=== PATIENT | female | born 1980 | race Caucasian/White ===

== ENCOUNTER 2020-03-12 10:10 | Outpatient (REF) | payer OTHER, SELFPAY ==
[2020-03-12 11:10] LABS: Cholesterol 159 mg/dL; HDL Cholesterol 31 mg/dL; LDL Cholesterol Calculated 99 mg/dl; Triglycerides 146 mg/dL
== END 2020-03-12 10:11 | disposition home or self-care (01) ==
LOC: HO.LAB 10:10
PROVIDERS: PCP Internal Medicine; Visit Provider Internal Medicine
DX: E78.5 Hyperlipidemia, unspecified (principal)
CPT/HCPCS: 80061

== ENCOUNTER 2020-04-29 17:16 | Outpatient (REF) | payer OTHER, SELFPAY | END 2020-04-29 17:17 | disposition home or self-care (01) | LOC: HO.LNP 17:16 | PROVIDERS: Visit Provider Hospitalist | DX: Z20.828 Contact with and (suspected) exposure to other viral communicable diseases (principal) | CPT/HCPCS: U0003 ==

== ENCOUNTER 2020-06-04 09:39 | Outpatient (REF) | payer OTHER, SELFPAY ==
[2020-06-04 10:33] LABS: Alanine Aminotransferase 27 U/L (0-31); Albumin Level 4.3 g/dL (3.5-5.0); Alkaline Phosphatase 111 U/L (39-117); Anion Gap 12 (12-20); Aspartate Amino Transferase 24 U/L (5-31); Bilirubin Total 0.2 mg/dL (0.0-1.0); Blood Urea Nitrogen 15 mg/dL (9-16); Calcium 8.6 mg/dL (8.4-10.2); Carbon Dioxide 24 mmol/L (22-29); Chloride 108 mmol/L (96-108); Cholesterol 174 mg/dL; Estimated Glomerular Filt Rate > 60; Glucose Fasting 131 mg/dL (60-99); HDL Cholesterol 35 mg/dL; LDL Cholesterol Calculated 116 mg/dl; Potassium 4.1 mmol/l (3.3-5.1); Sodium 140 mmol/L (135-145); Total Protein 7.2 g/dL (6.5-8.0); Triglycerides 118 mg/dL
== END 2020-06-04 09:40 | disposition home or self-care (01) ==
LOC: HO.LAB 09:39
PROVIDERS: PCP Internal Medicine; Visit Provider Internal Medicine
DX: E11.9 Type 2 diabetes mellitus without complications (principal)
CPT/HCPCS: 36415; 80053; 80061

== ENCOUNTER 2020-06-30 09:19 | Outpatient (REF) | payer OTHER, SELFPAY | END 2020-06-30 09:20 | disposition home or self-care (01) | LOC: HO.LAB 09:19 | PROVIDERS: Visit Provider Internal Medicine | DX: Z20.822 Contact with and (suspected) exposure to COVID-19 (principal) | CPT/HCPCS: 36415; C9803; U0003; U0005 ==

== ENCOUNTER 2020-07-16 12:56 | Outpatient (REF) | payer OTHER, SELFPAY ==
--- NOTE | ~2020-07-16 | MM_ITS ---
EXAMINATION: MM SCREENING DIGITAL BREAST TOMOSYNTHESIS, BILATERAL CLINICAL INFORMATION: Screening. Asymptomatic. Family history breast cancer. Personal history benign right breast biopsy 2019 (fibroadenoma). The lifetime risk of breast cancer based on the Tyrer-Cuzick Model is 26%. COMPARISON: Mammography: 04/21/2019, 04/08/2019 TECHNIQUE: Digital breast tomosynthesis is performed in both the craniocaudal and mediolateral oblique views along with computer-aided detection (CAD). Synthesized 2D images are generated from the tomosynthesis. FINDINGS: There are scattered areas of fibroglandular density (ACR BI-RADS breast composition Category b). Breast tissue composition borders on heterogeneously dense. There is fibronodular parenchymal pattern similar to prior study. The fibroadenoma right upper outer quadrant is stable. There is no interval mass or architectural abnormality or abnormal calcifications. No significant changes. MM/MM tomosynthesis screening BI IMPRESSION: No mammographic evidence of malignancy. ASSESSMENT: BI-RADS 2: Benign RECOMMENDATION: 1. Routine annual mammography screening. 2. The lifetime risk of breast cancer based on the Tyrer-Cuzick Model is 26%. Additional annual adjunct screening with breast MRI may be of benefit in women with a risk score of 20% or greater. This patient's information was entered into a reminder system with a target due date for their next mammogram.
== END 2020-07-16 12:57 | disposition home or self-care (01) ==
LOC: HO.MAMMO 12:56
PROVIDERS: PCP Internal Medicine; Visit Provider Internal Medicine
DX: Z12.31 Encounter for screening mammogram for malignant neoplasm of breast (principal)
CPT/HCPCS: 77063; 77067

== ENCOUNTER 2020-09-03 08:08 | Outpatient (REF) | payer OTHER, SELFPAY ==
[2020-09-03 09:17] LABS: Baso%MD 0.3 %; Eos%MD 2.2 %; Hematocrit 40.7 % (37-47); Hemoglobin 13.4 g/dl (12.0-16.0); IG%MD 0.3 %; Lymph%MD 16.9 %; Mean Corpuscular HGB Conc 32.9 g/dl (31.0-35.0); Mean Corpuscular Hemoglobin 29.8 pg (27.0-33.0); Mean Corpuscular Volume 90.4 fL (80-98); Mean Platelet Volume 9.6 fL (9.4-12.3); Mono%MD 4.1 %; Neut%MD 76.2 %; Platelet Count 311 X10*3/uL (160-400); Red Cell Distribution Width 12.9 % (11.0-16.0); White Blood Count 9.7 X10*3/uL (4.8-10.8)
[2020-09-03 09:42] LABS: Alanine Aminotransferase 19 U/L (0-31); Albumin Level 4.3 g/dL (3.5-5.0); Alkaline Phosphatase 104 U/L (39-117); Anion Gap 15 (12-20); Aspartate Amino Transferase 19 U/L (5-31); Bilirubin Total 0.5 mg/dL (0.0-1.0); Blood Urea Nitrogen 18 mg/dL (9-16); C Reactive Protein 1.25 mg/dL (< or = 0.50); Calcium 8.9 mg/dL (8.4-10.2); Carbon Dioxide 24 mmol/L (22-29); Chloride 105 mmol/L (96-108); Estimated Glomerular Filt Rate > 60; Glucose Random 130 mg/dL (60-115); Sodium 140 mmol/L (135-145); Total Protein 7.5 g/dL (6.5-8.0)
[2020-09-03 09:58] LABS: Erythrocyte Sedimentation Rate 25 MM/HR (0-20)
[2020-09-03 10:18] LABS: Band Neutrophils Percent 3 % (3-5); Eosinophils Absolute Manual 0.3 X10*3/UL (0.0-0.8); Eosinophils Percent Manual 3 % (0-4); Lymphocytes Absolute Manual 1.5 X10*3/uL (0.6-4.8); Lymphocytes Percent Manual 15 % (20-40); Monocytes Absolute Manual 0.2 X10*3/uL (0.0-1.2); Monocytes Percent Manual 2 % (2-11); Neutrophils Absolute Manual 7.8 X10*3/uL (2.2-7.9); Neutrophils Percent Manual 77 % (45-73); Platelet Estimate NORMAL (NORMAL); Platelet Morphology Comment NORMAL; RBC Morphology NORMAL
[2020-09-06 18:56] LABS: Cholesterol 152 mg/dL; HDL Cholesterol 33 mg/dL; LDL Cholesterol Calculated 91 mg/dl; Triglycerides 140 mg/dL
== END 2020-09-03 08:09 | disposition home or self-care (01) ==
LOC: HO.LAB 08:08
PROVIDERS: Internal Medicine Medical Oncology; PCP Internal Medicine; Visit Provider Internal Medicine
DX: R79.82 Elevated C-reactive protein (CRP) (principal)
CPT/HCPCS: 36415; 80053; 80061; 85007; 85027; 85652; 86140

== ENCOUNTER 2020-12-03 09:10 | Outpatient (REF) | payer OTHER, SELFPAY ==
[2020-12-03 09:42] LABS: Estimated Average Glucose 108 mg/dL; Hemoglobin A1c % 5.4 %
[2020-12-03 09:52] LABS: Alanine Aminotransferase 23 U/L (0-31); Albumin Level 4.3 g/dL (3.5-5.0); Alkaline Phosphatase 99 U/L (39-117); Anion Gap 14 (12-20); Aspartate Amino Transferase 20 U/L (5-31); Bilirubin Total 0.4 mg/dL (0.0-1.0); Blood Urea Nitrogen 16 mg/dL (9-16); Calcium 9.4 mg/dL (8.4-10.2); Carbon Dioxide 23 mmol/L (22-29); Chloride 107 mmol/L (96-108); Cholesterol 210 mg/dL; Estimated Glomerular Filt Rate > 60; Glucose Fasting 133 mg/dL (60-99); HDL Cholesterol 37 mg/dL; LDL Cholesterol Calculated 137 mg/dl; Potassium 4.8 mmol/L (3.3-5.1); Sodium 139 mmol/L (135-145); Total Protein 7.5 g/dL (6.5-8.0); Triglycerides 183 mg/dL
== END 2020-12-03 09:11 | disposition home or self-care (01) ==
LOC: HO.LAB 09:10
PROVIDERS: PCP Internal Medicine; Visit Provider Internal Medicine
DX: E11.9 Type 2 diabetes mellitus without complications (principal); E78.5 Hyperlipidemia, unspecified
CPT/HCPCS: 36415; 80053; 80061; 83036

== ENCOUNTER 2021-03-06 10:07 | Outpatient (REF) | payer OTHER, SELFPAY ==
[2021-03-06 10:52] LABS: Glucose Fasting 112 mg/dL (60-99)
== END 2021-03-06 10:08 | disposition home or self-care (01) ==
LOC: HO.LAB 10:07
PROVIDERS: PCP Internal Medicine; Visit Provider Internal Medicine
DX: E78.5 Hyperlipidemia, unspecified (principal)
CPT/HCPCS: 36415; 82947

== ENCOUNTER → 2021-05-18 09:47 | Outpatient (BNVA) | payer OTHER, SELFPAY | PROVIDERS: PCP Internal Medicine; Visit Provider Physician Assistant | DX: S63.501A Unspecified sprain of right wrist, initial encounter (principal); S80.212A Abrasion, left knee, initial encounter; S80.211A Abrasion, right knee, initial encounter; W01.0XXA Fall on same level from slipping, tripping and stumbling without subsequent striking against object, initial encounter | CPT/HCPCS: 29125; 73110; 99204 ==

== ENCOUNTER → 2021-05-24 10:49 | Outpatient (BNVA) | payer OTHER, SELFPAY | PROVIDERS: PCP Internal Medicine; Visit Provider Physician Assistant | DX: S69.91XA Unspecified injury of right wrist, hand and finger(s), initial encounter (principal); X58.XXXA Exposure to other specified factors, initial encounter | CPT/HCPCS: 73200; 99214 ==

== ENCOUNTER 2021-06-05 09:15 | Outpatient (REF) | payer OTHER, SELFPAY ==
[2021-06-05 10:18] LABS: Cholesterol 166 mg/dL; Glucose Fasting 121 mg/dL (60-99); HDL Cholesterol 31 mg/dL; LDL Cholesterol Calculated 108 mg/dl; Triglycerides 137 mg/dL
[2021-06-05 10:24] LABS: Estimated Average Glucose 105 mg/dL; Hemoglobin A1c % 5.3 %
[2021-06-05 10:41] LABS: Thyroid Stimulating Hormone 1.29 uIU/mL (0.32-4.0)
== END 2021-06-05 09:16 | disposition home or self-care (01) ==
LOC: HO.LAB 09:15
PROVIDERS: Visit Provider Internal Medicine
DX: E03.9 Hypothyroidism, unspecified (principal); E11.65 Type 2 diabetes mellitus with hyperglycemia
CPT/HCPCS: 36415; 80061; 82947; 83036; 84443

== ENCOUNTER → 2021-06-09 09:06 | Outpatient (BNVA) | payer OTHER, SELFPAY | PROVIDERS: PCP Internal Medicine; Visit Provider Physician Assistant | DX: S69.81XD Other specified injuries of right wrist, hand and finger(s), subsequent encounter (principal); X58.XXXD Exposure to other specified factors, subsequent encounter; G62.9 Polyneuropathy, unspecified | CPT/HCPCS: 99213 ==

== ENCOUNTER 2021-06-21 08:45 | Outpatient (REF) | payer OTHER, SELFPAY | END 2021-06-21 08:46 | disposition home or self-care (01) | LOC: HO.HOSX 08:45 | PROVIDERS: Visit Provider Orthopaedic Surgery | DX: Z13.89 Encounter for screening for other disorder (principal) ==

== ENCOUNTER 2021-06-21 15:42 | Outpatient (REF) | payer OTHER, SELFPAY ==
--- NOTE | ~2021-06-21 | MR_ITS ---
EXAMINATION: MR WRIST WITHOUT CONTRAST, RIGHT CLINICAL INFORMATION: Right wrist injury. COMPARISON: Right wrist CT dated 05/24/2021. TECHNIQUE: MRI of the wrist was performed using routine sequences on a high-field scanner. FINDINGS: TRIANGULAR FIBROCARTILAGE: There is mildly increased T2 signal within the foveal and styloid attachments of the triangular fibrocartilage complex, which could indicate partial tearing. There is attenuation at the central radial aspect without a measurable defect. INTRINSIC LIGAMENTS: Intact. TENDONS/MEDIAN NERVE: The extensor carpi ulnaris tendon is ventrally subluxed, consistent with a tendon subsheath tear. There is mild fluid within the tendon sheath, consistent with tenosynovitis. No transverse tendon defect or tendon retraction. Mild anterior soft tissue edema. ARTICULAR CARTILAGE/BONE: Intact articular cartilage. No marrow edema or evidence of acute osseous injury. No fracture or dislocation. JOINT FLUID/SOFT TISSUES: Trace pisotriquetral joint effusion. MR/MR wrist RT wo con IMPRESSION: 1. Ventral subluxation of the extensor carpi ulnaris tendon, consistent with a tendon sheath tear. Mild associated tenosynovitis. No transverse tendon defect or tendon retraction. Anterior soft tissue edema. 2. Possible partial tearing through the ulnar styloid and foveal attachments of the triangular fibrocartilage complex. Thinning at the radial aspect without a measurable defect. 3. Trace pisotriquetral joint effusion.
--- NOTE | ~2021-06-21 | MR_ITS ---
EXAMINATION: MR HAND WITHOUT CONTRAST, RIGHT CLINICAL INFORMATION: Second and 3rd digit numbness. Swelling. Pain and swelling. Second and 3rd metacarpophalangeal injury. COMPARISON: Right wrist CT dated 05/24/2021. TECHNIQUE: Multisequence MR imaging of the right hand was obtained without contrast on a high-field strength scanner. FINDINGS: BONE: No abnormal marrow signal. No evidence of osseous injury. No fracture or dislocation. Grossly intact articular cartilage. No concerning lytic or blastic osseous lesion. MUSCLES/TENDONS: The visualized flexor and extensor tendons are intact. LIGAMENTS: The collateral ligaments are grossly intact. SOFT TISSUES: No abnormal soft tissue mass or fluid collection. MR/MR hand RT wo con IMPRESSION: Unremarkable examination.
== END 2021-06-21 15:43 | disposition home or self-care (01) ==
LOC: HO.MRI 15:42
PROVIDERS: Visit Provider Internal Medicine
DX: M79.641 Pain in right hand (principal); M25.531 Pain in right wrist
CPT/HCPCS: 73218; 73221; 99202

== ENCOUNTER → 2021-07-05 13:03 | Outpatient (BNVA) | payer OTHER, SELFPAY | PROVIDERS: Visit Provider Orthopaedic Surgery | DX: S63.092A Other subluxation of left wrist and hand, initial encounter (principal) | CPT/HCPCS: 99212 ==

== ENCOUNTER 2021-08-10 08:53 | Outpatient (REF) | payer OTHER, SELFPAY ==
--- NOTE | 2021-08-10 08:56 | EMG_ITS ---
Right median and ulnar motor and sensory studies were performed. Right radial sensory study was performed and paraspinal muscles were tested. 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 MD SHARIF Navarro/[facility] / [id number]
== END 2021-08-10 08:54 | disposition home or self-care (01) ==
LOC: HO.NEURO 08:53
PROVIDERS: PCP Orthopaedic Surgery; Visit Provider Orthopaedic Surgery
DX: R20.0 Anesthesia of skin (principal); R20.2 Paresthesia of skin
CPT/HCPCS: 95886; 95909

== ENCOUNTER 2021-08-12 07:49 | Outpatient (REF) | payer OTHER, SELFPAY ==
--- NOTE | ~2021-08-12 | MM_ITS ---
EXAMINATION: MM SCREENING DIGITAL BREAST TOMOSYNTHESIS, BILATERAL CLINICAL INFORMATION: Screening. Asymptomatic. The lifetime risk of breast cancer based on the Tyrer-Cuzick Model is 12.3%. COMPARISON: Mammography: 07/16/2020 and studies dating back to 04/08/2019 TECHNIQUE: Digital breast tomosynthesis is performed in both the craniocaudal and mediolateral oblique views along with computer-aided detection (CAD). Synthesized 2-D images are generated from the tomosynthesis. FINDINGS: The breasts are heterogeneously dense, which may obscure small masses (ACR BI-RADS breast composition Category c). There is a stable parenchymal pattern of the right breast with previously biopsied nodule being present. There is multiplicity and bilaterality of nodular circumscribed densities. Within the deep left breast, there is question of calcifications along the nipple line on medial lateral oblique projection approximately 11 cm from the nipple. Spot magnification view of this area is recommended. On craniocaudal view in the deep medial aspect approximately 11 cm from the nipple, there is an asymmetric density for which spot compression film is recommended. Radiology staff will contact the patient to obtain this study. MM/MM tomosynthesis screening BI IMPRESSION: Left breast findings for further evaluation, as described. ASSESSMENT: BI-RADS 0: Incomplete - Need Additional Imaging Evaluation. RECOMMENDATION: 1. Additional views of the left breast. 2. Targeted ultrasound if warranted after review of the additional views. 3. Radiology department staff will contact the patient for additional imaging. This patient's information was entered into a reminder system with a target due date for their next mammogram.
== END 2021-08-12 07:50 | disposition home or self-care (01) ==
LOC: HO.MAMMO 07:49
PROVIDERS: Visit Provider Orthopaedic Surgery
DX: Z12.31 Encounter for screening mammogram for malignant neoplasm of breast (principal)
CPT/HCPCS: 77063; 77067

== ENCOUNTER → 2021-08-16 12:17 | Outpatient (BNVA) | payer OTHER, SELFPAY | PROVIDERS: Visit Provider Orthopaedic Surgery | DX: G56.01 Carpal tunnel syndrome, right upper limb (principal); S63 Dislocation and sprain of joints and ligaments at wrist and hand level; X58.XXXD Exposure to other specified factors, subsequent encounter | CPT/HCPCS: 99212 ==

== ENCOUNTER 2021-08-22 14:38 | Outpatient (REF) | payer OTHER, SELFPAY ==
--- NOTE | ~2021-08-22 | MM_ITS ---
EXAMINATION: MM DIAGNOSTIC DIGITAL BREAST TOMOSYNTHESIS, LEFT CLINICAL INFORMATION: Recall from screening for 2 unrelated findings left breast, question single view calcifications and question single view asymmetric density. COMPARISON: Mammography: 08/12/2021, 07/16/2020, 04/21/2019, 04/08/2019 (baseline). TECHNIQUE: Digital breast tomosynthesis is performed. 2D images are generated from the tomosynthesis. The following views are obtained: Magnification CC, magnification ML, spot CC x2, standard ML. FINDINGS: The breasts are heterogeneously dense, which may obscure small masses (ACR BI-RADS breast composition Category c). Breast tissue composition borders on average fibroglandular. There is fine fibronodular parenchymal pattern with scattered stable asymmetries. Additional views show no interval mass or developing density or architectural abnormality. There are no grouped or ductal calcifications. No significant changes from prior studies. Results are provided to the patient and family at time of visit. MM/MM tomosynthesis added views L IMPRESSION: Additional views show no significant changes from prior studies. ASSESSMENT: BI-RADS 2: Benign RECOMMENDATION: Routine annual mammography screening. This patient's information was entered into a reminder system with a target due date for their next mammogram.
== END 2021-08-22 14:39 | disposition home or self-care (01) ==
LOC: HO.MAMMO 14:38
PROVIDERS: Visit Provider Internal Medicine
DX: R92.8 Other abnormal and inconclusive findings on diagnostic imaging of breast (principal)
CPT/HCPCS: 77061; 77065

== ENCOUNTER 2021-08-23 11:00 | Outpatient (RCR) | payer OTHER, SELFPAY ==
--- NOTE | 2021-08-23 11:53 | MHC.OT.OD ---
[address] [phone] F: [phone] Occupational Therapy Daily Note Start Time: 1110 End Time: 1135 Visit Duration: 25 Billable Time: 25 Date of Evaluation: 05/31/21 Treatments to Date: 13 Cancellations to Date: 0 No Shows to Date: 0 Authorized Treatment: Insurance End Date: Subjective: Pt reports on MD follow up. Pt instructed to not wear the Wrist Widget. Scheduled for CTR on 08/28/21 and plan to RTW in 4-[address] Ag is not considering surgery for ulnar wrist pain at this time Pain Score: 7 Pain Location: Right ulnar wrist Objective: Measurements taken for computer compositor stength and shoulder MMT Pt completed Quick DASH Pt practice with AROM with tendon glides and wrist ROM Pt practice with wrist proprioception ex Pt demo indep with scapula stabilization ex Pt ed with demo of po hand elevation in sitting and supine, tendon glides and wrist ROM Tests and Measures: Antenna Machine Operator R 20 lb with pain.. L 35 lb MMT shoulder flex, abd 3+ Quick DASH 68 pts Assessment: No significant change noted with wrist pain, wrist and hand edema and UE strength. d/c'd strap for DRUJ instability and has scheduled pt for a CTR next week. Pt not benefiting from OT for ulnar wrist pain at this time Goals not met. Short Term Goals: Demo indep with her HEP MET Antenna Machine Operator strength to 30 lb Deferred due to con't high wrist pain Demo a safe 30 lb lift floor to waist height Quick DASH to <30 pts Not met Motorcycle Repairer Goals: Same as above Plan of Care: D/C D/C Today: Treatment Plan: Therapeutic Exercise Therapeutic Activity Home Exercise Program Patient Education ADL Training Fluidotherapy Kinesiotaping Treatment Plan Comments: Electronically Signed By: Jasmina Keller OT CHT CLT Reviewed/agree with student documentation: N/A Therapist:
== END 2021-08-23 11:54 | disposition home or self-care (01) ==
LOC: HO.OT 11:00
PROVIDERS: Visit Provider Physician Assistant
DX: S69.91XD Unspecified injury of right wrist, hand and finger(s), subsequent encounter (principal)
CPT/HCPCS: 29130; 97033; 97035; 97110; 97140; 97165; 97530; 97535; 97760

== ENCOUNTER 2021-08-28 09:30 | Day surgery (SDC) | payer OTHER, SELFPAY ==
--- NOTE | 2021-08-28 09:15 | W.PM.OPN ---
Operative Note Operative Note Date of Service: 08/28/21 Narrative: Preop diagnosis: 1. Right Carpal tunnel syndrome Postop diagnosis: same Procedure: 1. Right Carpal tunnel release Surgeon: Maida Ag MD Anesthesia: local block using 1% lidocaine with epinephrine Findings: Thickened transverse carpal ligament. EBL: Less than 5 mL Specimens: None Complications: None Disposition: Brought to recovery room in stable condition Plan: Follow-up for 10-14 days for wound check and suture removal Indications: The patient is 40 years old, with right carpal tunnel syndrome that has been unresponsive to nonoperative management. The risks and benefits of operative treatment including but not limited to risk of damage to blood vessels, nerves, tendons, infection, persistent pain, persistent symptoms, or possible need for additional surgery were discussed with the patient and the patient wishes to proceed with surgery. Procedure: Once consent was obtained a local block was performed using a combination of 1% lidocaine with epinephrine. The patient was then brought back to the operating suite and placed on the operative table in supine position. A tourniquet was applied to the proximal aspect of the right upper extremity and the limb was prepped and draped in a standard surgical fashion. Once assured that we had a good block, a 1.5 cm longitudinal incision was made centered over the carpal tunnel. The incision was made through the skin to the subcutaneous tissues using a #15 blade. Dissection was made down to the level of the transverse carpal ligament with care being taken to protect the palmar cutaneous nerve. Once the transverse carpal ligament was clearly visualized, a longitudinal incision was made in the transverse carpal ligament 1st using a #15 blade, then using tenotomy scissors under direct visualization. Care was taken to look for and protect the motor branch of the median nerve when seen in this area. Once satisfied with our carpal tunnel release the wound was copiously irrigated with normal saline and hemostasis was obtained with a brief period of local pressure. The skin edges were reapproximated with some 5.0 nylon suture material and a sterile dressing was applied. The patient appears to have tolerated the procedure well and with no complications. All digits were well vascularized at the conclusion of the case.
[2021-08-28 10:58] VITALS: BMI 35.8
[2021-08-28 11:10] VITALS: BP 144/79; PULSE 80; RESP 16; TEMP 36.8; O2SAT 96
[2021-08-28 11:51] VITALS: BP 141/76; PULSE 83; RESP 18; TEMP 36.7; O2SAT 98
--- NOTE | 2021-08-28 12:30 | MHC.SHP ---
Pre-Procedural Eval Section A Date of Service: 08/28/21 The patient is an INPATIENT: No Changes since office visit: No Cold of Flu in the past 2 weeks, No New Medical Problems, No Changes in Medication and No Patient answered all questions The History & Physical has been completed within 30 days and I have reviewed it.: Yes Section B Chief Complaint: Carpal tunnel syndrome, right upper limb Allergies: Allergies Allergy/AdvReac Type Severity Reaction Status Date / Time meloxicam [MELOXICAM] Allergy Severe RASH Verified 08/28/21 10:59 citalopram [From CELEXA] Allergy Intermediate LOCK JAW Verified 08/28/21 10:59 Biaxin Allergy Unknown Unknown Verified 08/28/21 10:59 cefaclor [From CECLOR] Allergy Unknown UNKNOWN Verified 08/28/21 10:59 cephalexin [Keflex] Allergy Unknown Unknown Verified 08/28/21 10:59 clarithromycin [From BIAXIN] Allergy Unknown UNKNOWN Verified 08/28/21 10:59 lactose Allergy Unknown INTOLERANCE Verified 08/28/21 10:59 Sulfa (Sulfonamide Allergy Unknown HIVES Verified 08/28/21 10:59 Antibiotics) [SULFA (SULFONAMIDE ANTIBIOTICS)] Plan I have reviewed the history and physical and performed a pertinent physical examination on my patient. No changes have occurred unless specified.
== END 2021-08-28 11:59 | disposition home or self-care (01) ==
PROVIDERS: PCP Internal Medicine; Visit Provider Orthopaedic Surgery
PROC: (CPT 64721; principal; 2021-08-28 10:50)
DX: G56.01 Carpal tunnel syndrome, right upper limb (principal); M25.531 Pain in right wrist; M79.641 Pain in right hand; G80.9 Cerebral palsy, unspecified; R73.9 Hyperglycemia, unspecified; I10 Essential (primary) hypertension; E78.5 Hyperlipidemia, unspecified; Z79.899 Other long term (current) drug therapy; Z88.2 Allergy status to sulfonamides; Z88.1 Allergy status to other antibiotic agents; Z88.8 Allergy status to other drugs, medicaments and biological substances
CPT/HCPCS: 64721; J0171

== ENCOUNTER 2021-09-09 10:08 | Outpatient (REF) | payer OTHER, SELFPAY ==
[2021-09-09 11:47] LABS: Cholesterol 133 mg/dL; Glucose Fasting 142 mg/dL (60-99); HDL Cholesterol 32 mg/dL; LDL Cholesterol Calculated 80 mg/dl; Triglycerides 108 mg/dL
[2021-09-09 11:54] LABS: Estimated Average Glucose 105 mg/dL; Hemoglobin A1C 126.3014 umol/L; Hemoglobin A1c % 5.3 %
== END 2021-09-09 10:09 | disposition home or self-care (01) ==
LOC: HO.LAB 10:08
PROVIDERS: PCP Internal Medicine; Visit Provider Internal Medicine
DX: Z00.00 Encounter for general adult medical examination without abnormal findings (principal); E11.65 Type 2 diabetes mellitus with hyperglycemia
CPT/HCPCS: 36415; 80061; 82947; 83036

== ENCOUNTER → 2021-09-12 10:26 | Outpatient (BNVA) | payer OTHER, SELFPAY | PROVIDERS: PCP Internal Medicine; Visit Provider Orthopaedic Surgery | DX: Z13.89 Encounter for screening for other disorder (principal) ==

== ENCOUNTER → 2021-11-08 12:11 | Outpatient (BNVA) | payer OTHER, SELFPAY | PROVIDERS: PCP Internal Medicine; Visit Provider Physician Assistant | DX: S60.221A Contusion of right hand, initial encounter (principal); W23.0XXA Caught, crushed, jammed, or pinched between moving objects, initial encounter; M25.561 Pain in right knee | CPT/HCPCS: 73564; 99204 ==

== ENCOUNTER → 2021-11-17 13:06 | Outpatient (BNVA) | payer OTHER, SELFPAY | PROVIDERS: PCP Internal Medicine; Visit Provider Internal Medicine | DX: M23.91 Unspecified internal derangement of right knee (principal) | CPT/HCPCS: 99214 ==

== ENCOUNTER 2021-11-23 10:46 | Outpatient (REF) | payer OTHER, SELFPAY ==
--- NOTE | ~2021-11-23 | MR_ITS ---
EXAMINATION: MR KNEE WITHOUT CONTRAST, RIGHT CLINICAL INFORMATION: Right knee pain. Instability. Degenerative joint disease. Fall. Prior arthroscopy. COMPARISON: Right knee MRI dated 11/03/2018 and radiograph dated 11/08/2021. TECHNIQUE: MRI of the knee without contrast was performed using routine sequences on a high-field scanner. FINDINGS: MENISCI: Medial Meniscus: No new medial meniscal tear. There is a parameniscal cyst along the periphery of the posterior horn measuring up to 2 cm which could indicate an occult meniscal tear. This appears similar when compared to the prior MRI. 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 LIGAMENTS: Cruciate: Intact Collateral: Intact EXTENSOR MECHANISM: Intact ARTICULAR CARTILAGE/BONE: Patellofemoral Compartment: Patellar median ridge and medial patellar facet articular cartilage thinning/partial thickness loss. Central trochlear articular cartilage signal heterogeneity. Marginal osteophytes. Findings are similar when compared to the prior MRI. Medial Compartment: Mild weightbearing articular cartilage thinning/signal heterogeneity with small marginal osteophytes. Findings are similar when compared to the prior MRI. Lateral Compartment: Full-thickness lateral femoral condyle and lateral tibial plateau articular cartilage loss with bony remodeling and underlying marrow edema/subchondral cystic change. Prominent marginal osteophytes. Findings are significantly progressed when compared to the prior MRI. JOINT FLUID AND BURSAE: Small joint effusion. Lateral loose body measuring up to 0.6 cm. MR/MR knee RT wo con IMPRESSION: 1. Severe lateral compartment osteoarthritis with bony remodeling, significantly progressed when compared to the prior MRI. Near-complete absence of the lateral meniscus which has significantly increased and likely represents a combination of tearing and meniscectomy. 2. No new medial meniscal tear. Stable parameniscal cyst along the periphery of the posterior horn, unchanged. 3. Mild patellofemoral and medial compartment osteoarthritis, not significantly changed. Small joint effusion. Lateral loose body measuring 0.6 cm.
== END 2021-11-23 10:47 | disposition home or self-care (01) ==
LOC: HO.MRI 10:46
PROVIDERS: Visit Provider Internal Medicine
DX: M25.561 Pain in right knee (principal); Z91.81 History of falling
CPT/HCPCS: 73721

== ENCOUNTER → 2021-11-23 14:50 | Outpatient (BNVA) | payer OTHER, SELFPAY | PROVIDERS: PCP Internal Medicine; Visit Provider Internal Medicine | DX: M23.91 Unspecified internal derangement of right knee (principal) | CPT/HCPCS: 99213 ==

== ENCOUNTER 2022-01-06 10:34 | Outpatient (REF) | payer OTHER, SELFPAY ==
[2022-01-06 11:31] LABS: Cholesterol 150 mg/dL; Glucose Fasting 141 mg/dL (60-99); HDL Cholesterol 37 mg/dL; LDL Cholesterol Calculated 86 mg/dl; Triglycerides 135 mg/dL
[2022-01-06 11:44] LABS: Estimated Average Glucose 120 mg/dL; Hemoglobin A1c % 5.8 %
== END 2022-01-06 10:35 | disposition home or self-care (01) ==
LOC: HO.LAB 10:34
PROVIDERS: PCP Internal Medicine; Visit Provider Internal Medicine
DX: Z13.9 Encounter for screening, unspecified (principal); E11.65 Type 2 diabetes mellitus with hyperglycemia
CPT/HCPCS: 36415; 80061; 82947; 83036

== ENCOUNTER 2022-03-16 10:25 | Outpatient (REF) | payer OTHER, SELFPAY ==
[2022-03-16 12:43] LABS: Vitamin D 25-OH Total 11.9 ng/mL (>30)
[2022-03-16 13:07] LABS: Folate 4.4 ng/mL (> or = 4.0); Vitamin B12 398 pg/mL (200-900)
== END 2022-03-16 10:26 | disposition home or self-care (01) ==
LOC: HO.LAB 10:25
PROVIDERS: PCP Internal Medicine; Visit Provider Nurse Practitioner Family
DX: Z00.00 Encounter for general adult medical examination without abnormal findings (principal)
CPT/HCPCS: 36415; 82306; 82607; 82746

== ENCOUNTER 2022-06-23 10:16 | Outpatient (REF) | payer OTHER, SELFPAY ==
[2022-06-23 10:46] LABS: Estimated Average Glucose 120 mg/dL; Hemoglobin A1c % 5.8 %
[2022-06-23 11:39] LABS: Cholesterol 135 mg/dL; Glucose Fasting 149 mg/dL (60-99); HDL Cholesterol 29 mg/dL; LDL Cholesterol Calculated 89 mg/dl; Triglycerides 89 mg/dL; Vitamin D 25-OH Total 25.3 ng/mL (>30)
== END 2022-06-23 10:17 | disposition home or self-care (01) ==
LOC: HO.LAB 10:16
PROVIDERS: PCP Internal Medicine; Visit Provider Internal Medicine
DX: E11.65 Type 2 diabetes mellitus with hyperglycemia (principal); E78.5 Hyperlipidemia, unspecified
CPT/HCPCS: 36415; 80061; 82306; 82947; 83036

== ENCOUNTER 2022-07-12 10:17 | Outpatient (REF) | payer OTHER, SELFPAY ==
--- NOTE | ~2022-07-12 | XR_ITS ---
EXAMINATION: XR KNEE, RIGHT CLINICAL INFORMATION: Pain. COMPARISON: Radiographs dated 11/08/2021. TECHNIQUE: AP and lateral views of the right knee. FINDINGS: Bony alignment and mineralization are normal there is mild tricompartment joint space narrowing and peripheral osteophyte formation. No fracture, dislocation or joint effusion is seen. There is a soft tissue calcifications adjacent to the medial tibial plateau, raising the possibility of a prior ligamentous injury. There is no foreign body. XR/XR knee RT 2V IMPRESSION: 1. No fracture, dislocation or right joint effusion is seen. 2. There is mild to moderate tricompartment osteoarthritic change of the right knee.
== END 2022-07-12 10:18 | disposition home or self-care (01) ==
LOC: HO.XRAY 10:17
PROVIDERS: PCP Internal Medicine; Visit Provider Internal Medicine
DX: M25.561 Pain in right knee (principal)
CPT/HCPCS: 73560

== ENCOUNTER 2022-08-15 16:41 | Outpatient (REF) | payer OTHER, SELFPAY ==
[2022-08-15 16:55] LABS: MANUAL DIFF FLAG NO
[2022-08-15 17:23] LABS: Basophils Absolute Auto 0.1 X10*3/uL (0.0-0.2); Basophils Percent Auto 0.6 % (0-2); Eosinophils Absolute Auto 0.2 X10*3/uL (0.0-0.4); Eosinophils Percent Auto 1.7 % (0-4); Hematocrit 39.4 % (37.0-47.0); Imm Gran Abs Auto 0.07 X10*3/uL (0.00-0.03); Imm Gran Pct Auto 0.5 % (0.0-0.4); Lymphocytes Percent Auto 21.9 % (20-40); Mean Corpuscular HGB Conc 35.5 g/dl (31.0-35.0); Mean Corpuscular Hemoglobin 31.3 pg (27.0-33.0); Mean Corpuscular Volume 88.1 fL (80.0-98.0); Mean Platelet Volume 9.4 fL (9.4-12.3); Monocytes Absolute Auto 0.7 X10*3/uL (0.1-1.2); Monocytes Percent Auto 4.9 % (2-11); Neutrophils Absolute Auto 9.6 x10*3/uL (2.0-8.3); Neutrophils Percent Auto 70.4 % (45-73); Platelet Count 346 X10*3/uL (160-400); Red Blood Count 4.47 X10*6/uL (4.20-5.50); Red Cell Distribution Width 12.9 % (11.0-16.0); White Blood Count 13.7 X10*3/uL (4.8-10.8)
[2022-08-15 18:08] LABS: Alanine Aminotransferase 39 U/L (0-31); Albumin Level 4.3 g/dL (3.5-5.0); Alkaline Phosphatase 115 U/L (39-117); Anion Gap 16 (12-20); Aspartate Amino Transferase 24 U/L (5-31); Bilirubin Total 0.7 mg/dL (0.0-1.0); Blood Urea Nitrogen 16 mg/dL (9-16); Calcium 9.5 mg/dL (8.4-10.2); Carbon Dioxide 19 mmol/L (22-29); Chloride 110 mmol/L (96-108); Estimated Glomerular Filt Rate > 60; Glucose Random 95 mg/dL (60-115); Potassium 4.2 mmol/L (3.3-5.1); Sodium 141 mmol/L (135-145); Total Protein 7.3 g/dL (6.5-8.0)
[2022-08-15 18:18] LABS: TSH reflex Free T4 1.34 uIU/mL (0.32-4.0)
[2022-08-17 00:05] LABS: Follicle Stimulating Hormone 2.6 mIU/mL
[2022-08-23 15:59] LABS: Estrogen 827.2 pg/mL
== END 2022-08-15 16:42 | disposition home or self-care (01) ==
LOC: HO.LAB 16:41
PROVIDERS: PCP Internal Medicine; Visit Provider Nurse Practitioner Family
DX: R23.2 Flushing (principal); J45.909 Unspecified asthma, uncomplicated; E55.9 Vitamin D deficiency, unspecified; E78.5 Hyperlipidemia, unspecified; F32.A Depression, unspecified; E66.9 Obesity, unspecified; I10 Essential (primary) hypertension
CPT/HCPCS: 36415; 80053; 82672; 83001; 84443; 85025

== ENCOUNTER 2022-08-18 08:22 | Outpatient (REF) | payer OTHER, SELFPAY ==
--- NOTE | ~2022-08-18 | MM_ITS ---
EXAMINATION: MM SCREENING DIGITAL BREAST TOMOSYNTHESIS, BILATERAL CLINICAL INFORMATION: Screening. Asymptomatic. Benign right breast biopsy 2019, fibroadenoma. The lifetime risk of breast cancer based on the Tyrer-Cuzick Model is 13%. COMPARISON: Mammography: 08/22/2021, 08/12/2021, 07/16/2020, 04/21/2019, 04/08/2019 TECHNIQUE: Digital breast tomosynthesis is performed in both the craniocaudal and mediolateral oblique views along with computer-aided detection (CAD). Synthesized 2D images are generated from the tomosynthesis. FINDINGS: The breasts are heterogeneously dense, which may obscure small masses (ACR BI-RADS breast composition Category c). There are no significant masses, abnormal calcifications, or other abnormalities. Parenchymal pattern is similar to prior studies and there is no developing density or architectural abnormality. There is a stable smooth nodule with overlying biopsy clip marker right breast posterior upper outer quadrant consistent with the fibroadenoma. The axilla and skin contours are unremarkable. No significant changes. MM/MM tomosynthesis screening BI IMPRESSION: No mammographic evidence of malignancy. ASSESSMENT: BI-RADS 2: Benign RECOMMENDATION: Routine annual mammography screening. This patient's information was entered into a reminder system with a target due date for their next mammogram.
[2022-08-18 10:42] LABS: Appearance Urine Clear; Color Urine Yellow; Glucose Urine UA >=1000 mg/dL (Negative); Leukocyte Esterase Urine Negative (Negative); Nitrite Urine Negative (Negative); PH 5.5 (5.0-9.0); Specific Gravity - Urine >= 1.030 (1.005-1.025); UMIC TRIGGER UACC YES; Urine Blood Trace (Negative); Urine Ketones Trace mg/dL (Negative); Urine Protein Negative (Neg-Trace)
[2022-08-18 10:45] LABS: UPreg QC Valid YES; Urine Pregnancy NEGATIVE (NEGATIVE)
[2022-08-18 10:47] LABS: Bacteria Urine 4+ (None Seen); Hyaline Casts Urine 0-2 /LPF (0-2); RBC Urine 0-2 /HPF (0-2); WBC Urine 0-5 /HPF (0-5)
== END 2022-08-18 08:23 | disposition home or self-care (01) ==
LOC: HO.MAMMO 08:22
PROVIDERS: Nurse Practitioner Family; PCP Internal Medicine; Visit Provider Internal Medicine Medical Oncology
DX: R23.2 Flushing (principal); R82.90 Unspecified abnormal findings in urine; Z12.31 Encounter for screening mammogram for malignant neoplasm of breast
CPT/HCPCS: 77063; 77067; 81001; 81025

== ENCOUNTER 2022-08-23 14:48 | Outpatient (REF) | payer OTHER, SELFPAY ==
[2022-08-23 16:44] LABS: Estimated Average Glucose 126 mg/dL; Hemoglobin A1C 150.7262 umol/L
[2022-08-23 16:52] LABS: Free T4 (Free Thyroxine) 0.82 ng/dL (0.71-1.85)
== END 2022-08-23 14:49 | disposition home or self-care (01) ==
LOC: HO.LAB 14:48
PROVIDERS: PCP Internal Medicine; Visit Provider Internal Medicine
DX: E03.9 Hypothyroidism, unspecified (principal); R73.9 Hyperglycemia, unspecified
CPT/HCPCS: 36415; 83036; 84439

== ENCOUNTER 2022-09-22 10:11 | Outpatient (REF) | payer OTHER, SELFPAY ==
[2022-09-22 11:29] LABS: Cholesterol 140 mg/dL; Glucose Fasting 136 mg/dL (60-99)
[2022-09-22 11:30] LABS: HDL Cholesterol 28 mg/dL
[2022-09-22 11:43] LABS: Estimated Average Glucose 114 mg/dL; Hemoglobin A1c % 5.6 %
[2022-09-22 16:03] LABS: LDL Cholesterol Calculated 95 mg/dl; Triglycerides 88 mg/dL
== END 2022-09-22 10:12 | disposition home or self-care (01) ==
LOC: HO.LAB 10:11
PROVIDERS: PCP Internal Medicine; Visit Provider Internal Medicine
DX: R73.9 Hyperglycemia, unspecified (principal); E78.5 Hyperlipidemia, unspecified
CPT/HCPCS: 36415; 80061; 82947; 83036

== ENCOUNTER 2022-12-22 10:00 | Outpatient (REF) | payer OTHER, SELFPAY ==
[2022-12-22 11:23] LABS: Cholesterol 138 mg/dL; Glucose Fasting 162 mg/dL (60-99); HDL Cholesterol 28 mg/dL; LDL Cholesterol Calculated 89 mg/dl; Triglycerides 105 mg/dL
[2022-12-22 11:51] LABS: Estimated Average Glucose 111 mg/dL; Hemoglobin A1c % 5.5 %
== END 2022-12-22 10:01 | disposition home or self-care (01) ==
LOC: HO.LAB 10:00
PROVIDERS: PCP Internal Medicine; Visit Provider Internal Medicine
DX: R73.9 Hyperglycemia, unspecified (principal); E78.5 Hyperlipidemia, unspecified
CPT/HCPCS: 36415; 80061; 82947; 83036

== ENCOUNTER 2022-12-28 08:39 | Outpatient (AMB) | payer OTHER, SELFPAY ==
--- NOTE | 2022-12-28 08:43 | A.OFFPC_ITS ---
Vital Signs 12/28/22 08:44 Height 5 ft 3 in Weight 203 lb 4 oz BMI 36.0 BP 130/70 Blood Pressure Location Lt brachial Position Sitting Pulse 82 Pulse Source Pulse Oximeter Pulse Oximetry (%) 96 Oxygen Delivery Method Room Air Intake Visit Reasons: 3mth f/u Intake Note: Patient is here to follow up on HTN, Hyperlipidemia. Requesting for Lab results Audiovisual Librarian Required: No Card Services Specialist: Not Required per policy Accompanied by: Self / Same As Patient Allergies meloxicam [MELOXICAM] Allergy (Severe, Verified 12/28/22 08:44) RASH citalopram [From CELEXA] Allergy (Intermediate, Verified 12/28/22 08:44) LOCK JAW Biaxin Allergy (Unknown, Verified 12/28/22 08:44) Unknown cefaclor [From CECLOR] Allergy (Unknown, Verified 12/28/22 08:44) UNKNOWN cephalexin [Keflex] Allergy (Unknown, Verified 12/28/22 08:44) Unknown clarithromycin [From BIAXIN] Allergy (Unknown, Verified 12/28/22 08:44) UNKNOWN lactose Allergy (Unknown, Verified 12/28/22 08:44) INTOLERANCE Sulfa (Sulfonamide Antibiotics) [SULFA (SULFONAMIDE ANTIBIOTICS)] Allergy (Unknown, Verified 12/28/22 08:44) HIVES Medication List - Last Reconciled 12/28/22 by Andi Goff MD albuterol sulfate 2.5 mg (3 mL) inhalation Q6-8H PRN albuterol sulfate 90 mcg/actuation (ProAir HFA) 2 puffs inhalation Q4-6H PRN atorvastatin 40 mg PO DAILY cholecalciferol (vitamin D3) 50 mcg PO DAILY fluvoxamine 200 mg (2 x 100 mg) PO BEDTIME hydroxyzine pamoate 25 mg PO TID melatonin 3 mg PO BEDTIME nabumetone 500 mg PO BID penicillin V potassium 500 mg PO BID topiramate 25 mg PO BEDTIME Tobacco use date assessed: 12/28/22 Dental Screening Dental Screen Date: 12/28/22 Did you have a dental visit in the last 12 months?: Yes Did you have a dental problem in the last 6 months where you did not have access to dental care?: No Was dental information given to patient?: Patient has dentist HPI 3mth f/u HPI Details asthma hyperlip and elevated glucose; A1C 5.5 PFSH Medical History (Updated 12/28/22 @ 08:57 by Andi Goff MD) Active asthma Acute sinusitis Acute sinusitis Cerebral palsy Hyperglycemia Hyperlipidemia Hypertension Obesity 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 syndrome Surgical History H/O arthroscopic knee surgery History of carpal tunnel surgery of right wrist History of dilation and curettage History of foot surgery Family History Father Hypertension Bladder cancer Diabetes Hyperlipidemia Mother Hypertension Paternal Aunt Breast cancer Paternal Grandfather Myocardial infarction Social History Household Members: Family Housing: House Are you a primary plant care worker to a significant other at home: No Do you presently have visiting nurse or other home services: No Alcohol intake: never Patient Tobacco Use Status: Never used Tobacco e-Cigarette/Vaping Use: Never Used Second Hand Smoke Exposure: No service: No Current occupational status: employed Cognitive needs: No Hearing needs: No Vision needs: No Questionnaire Thrive Questionnaire Date Thrive assessed: 08/15/22 CONNIE-7 AMB Questionnaire CONNIE-7 Date CONNIE - 7 assessed: 06/29/22 Source: Developed by Drs. Giorgio Espinosa, Linh Hall, Tre Wall and colleagues, with an educational juan josé from [employer]. Review of Systems Const Denies chills, Denies headache(s) and Denies weight loss ENT Denies headache(s) Card Denies chest pain, Denies syncope, Denies irregular heart rhythm and Denies dyspnea Resp Denies chest congestion, Denies cough and Denies dyspnea GI Denies abdominal pain, Denies change in stool character, Denies nausea and Denies vomiting Musc Denies deformity and Denies joint swelling Neuro Denies syncope and Denies headache(s) Physical exam (Primary Care) Vital Signs: Last Vital Signs Pulse 82 12/28/22 08:44 BP 130/70 12/28/22 08:44 Pulse Ox 96 12/28/22 08:44 Oxygen Delivery Method Room Air 12/28/22 08:44 BMI result Body Mass Index 36.0 Tobacco/Smoking Status: Tobacco use Status Tobacco use date assessed 12/28/22 12/28/22 08:49 Patient Tobacco Use Status Never used Tobacco 12/28/22 08:49 e-Cigarette/Vaping Use Never Used 12/28/22 08:49 Thrive Assessment: Date of Thrive Assessment Date Thrive assessed 08/15/22 12/28/22 08:49 Const General: cooperative and comfortable Resp Effort & Inspection: normal respiratory effort Auscultation: clear to auscultation bilaterally Percussion: percussion normal Cardio Jugular venous distension: no JVD Rate: regular rate Rhythm: regular rhythm GI Inspection: Yes normal to inspection Extrem Other: right knee with large effusion Assessment and Plan Assessment & Plan (1) Hyperlipidemia: Code(s): E78.5 - Hyperlipidemia, unspecified Plan: stable; same rx (2) Hyperglycemia: Code(s): R73.9 - Hyperglycemia, unspecified Plan: stable; same rx (3) Asthma: Code(s): J45.909 - Unspecified asthma, uncomplicated Plan: stable; same rx Orders: Orders Glucose Fasting Today R73.9 - Hyperglycemia, unspecified Hemoglobin A1c Today R73.9 - Hyperglycemia, unspecified Lipid Panel Today E78.5 - Hyperlipidemia, unspecified Coding Level of Care Code Est Pt Level 4 (98638) Diagnoses Hyperlipidemia E78.5 Hyperglycemia R73.9 Asthma J45.909
[2022-12-28 08:44] VITALS: BP 130/70; PULSE 82; O2SAT 96; BMI 36.0
== END 2022-12-28 09:02 | disposition home or self-care (01) ==
PROVIDERS: PCP Internal Medicine; Visit Provider Internal Medicine
DX: E78.5 Hyperlipidemia, unspecified (principal); R73.9 Hyperglycemia, unspecified; J45.909 Unspecified asthma, uncomplicated
CPT/HCPCS: 99214

== ENCOUNTER 2023-01-14 13:23 | Outpatient (AMB) | payer OTHER, SELFPAY ==
[2023-01-14 13:30] VITALS: BP 136/82; PULSE 92; O2SAT 100; BMI 35.6
--- NOTE | 2023-01-14 13:30 | A.OFFPC_ITS ---
Vital Signs 01/14/23 13:30 Height 5 ft 3 in Weight 201 lb BMI 35.6 BP 136/82 Blood Pressure Location Lt brachial Position Sitting Pulse 92 Pulse Source Pulse Oximeter Temp Source Skin Pulse Oximetry (%) 100 Oxygen Delivery Method Room Air Intake Visit Reasons: Annual exam Intake Note: Patient is here today for a physical. Appointment Specialist Required: No Accompanied by: Self / Same As Patient Allergies meloxicam [MELOXICAM] Allergy (Severe, Verified 01/14/23 13:31) RASH citalopram [From CELEXA] Allergy (Intermediate, Verified 01/14/23 13:31) LOCK JAW Biaxin Allergy (Unknown, Verified 01/14/23 13:31) Unknown cefaclor [From CECLOR] Allergy (Unknown, Verified 01/14/23 13:31) UNKNOWN cephalexin [Keflex] Allergy (Unknown, Verified 01/14/23 13:31) Unknown clarithromycin [From BIAXIN] Allergy (Unknown, Verified 01/14/23 13:31) UNKNOWN lactose Allergy (Unknown, Verified 01/14/23 13:31) INTOLERANCE Sulfa (Sulfonamide Antibiotics) [SULFA (SULFONAMIDE ANTIBIOTICS)] Allergy (Unknown, Verified 01/14/23 13:31) HIVES Medication List - Last Reconciled 01/14/23 by Andi Goff MD albuterol sulfate 2.5 mg (3 mL) inhalation Q6-8H PRN albuterol sulfate 90 mcg/actuation (ProAir HFA) 2 puffs inhalation Q4-6H PRN atorvastatin 40 mg PO DAILY cholecalciferol (vitamin D3) 50 mcg PO DAILY fluvoxamine 200 mg (2 x 100 mg) PO BEDTIME hydroxyzine pamoate 25 mg PO TID melatonin 3 mg PO BEDTIME nabumetone 500 mg PO BID penicillin V potassium 500 mg PO BID topiramate 25 mg PO BEDTIME Tobacco use date assessed: 01/14/23 Dental Screening Dental Screen Date: 01/14/23 Did you have a dental visit in the last 12 months?: Yes Did you have a dental problem in the last 6 months where you did not have access to dental care?: No Was dental information given to patient?: Patient has dentist HPI Annual exam HPI Details hyperlip asthma and migraines; needs labs for work [facility] Medical History (Updated 01/14/23 @ 13:58 by Andi Goff MD) Active asthma Acute sinusitis Acute sinusitis Cerebral palsy Hyperglycemia Hyperlipidemia Hypertension Obesity 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 syndrome Surgical History H/O arthroscopic knee surgery History of carpal tunnel surgery of right wrist History of dilation and curettage History of foot surgery Family History Father Hypertension Bladder cancer Diabetes Hyperlipidemia Mother Hypertension Paternal Aunt Breast cancer Paternal Grandfather Myocardial infarction Social History Household Members: Family Housing: House Are you a primary career portals teacher to a significant other at home: No Do you presently have visiting nurse or other home services: No Alcohol intake: never Patient Tobacco Use Status: Never used Tobacco e-Cigarette/Vaping Use: Never Used Second Hand Smoke Exposure: No service: No Current occupational status: employed Cognitive needs: No Hearing needs: No Vision needs: No Questionnaire PHQ-9 Over the last 2 weeks, how often have you been bothered by any of the following problems? 1. Little interest or pleasure in doing things: more than half the days 2. Feeling down, depressed, or hopeless: more than half the days 3. Trouble falling or staying asleep, or sleeping too much: nearly every day 4. Feeling tired or having little energy: nearly every day 5. Poor appetite or overeating: several days 6. Feeling bad about yourself - or that you are a failure or have let yourself or your family down: not at all 7. Trouble concentrating on things, such as reading the newspaper or watching television: nearly every day 8. Moving or speaking so slowly that other people could have noticed. Or the opposite - being so fidgety or restless that you have been moving around a lot more than usual: not at all 9. Thoughts that you would be better off or of hurting yourself in some way: not at all Total score: 14 Depression Screening Interpretation: Positive Depression Screening Follow-up: In treatment 12006 - PHQ-9 Billing: Yes Source: Developed by Drs. Giorgio Espinosa, Linh Hall, Tre Wall and colleagues, with an educational juan josé from [employer]. Thrive Questionnaire Date Thrive assessed: 08/15/22 AUDIT C Alcohol Use Questionnaire (AUDIT-C) 1. How often do you have a drink containing alcohol?: Never 3. How often do you have six or more drinks on one occasion?: Never Total Score: 0 Score Reviewed/Action Taken: Yes CONNIE-7 AMB Questionnaire CONNIE-7 Date CONNIE - 7 assessed: 01/14/23 Feeling nervous, anxious, or on edge: 3 = Nearly every day Not being able to stop or control worryin = Nearly every day Worrying too much about different things: 0 = Not at all Trouble relaxin = Not at all Being so restless that it is hard to sit still: 0 = Not at all Becoming easily annoyed or irritable: 0 = Not at all Feeling afraid as if something awful might happen: 0 = Not at all Total CONNIE-7 score (0-4 normal; 5-9 mild; 10-14 moderate; 15-21 severe): 6 Source: Developed by Drs. Giorgio Espinosa, Linh Hall, Tre Wall and colleagues, with an educational juan josé from [employer]. CONNIE-7 Assessment Billing CONNIE-7 Assessment Tool: CONNIE-7 Assessment 99793 Review of Systems Const Denies chills, Denies fatigue, Denies headache(s) and Denies weight loss Eyes Denies change in vision, Denies diplopia and Denies eye pain ENT Denies vertigo, Denies dizziness, Denies headache(s) and Denies nasal discharge Card Denies chest pain, Denies rapid heart rate and Denies dyspnea on exertion Resp Denies chest congestion, Denies cough, Denies pain with cough and Denies dyspnea on exertion GI Denies abdominal pain, Denies hematochezia and Denies change in bowel habits Musc Denies myalgias, Denies arthralgias and Denies joint swelling Skin/Breast Denies lesions and Denies unusual bruising Neuro Denies vertigo, Denies dizziness, Denies headache(s) and Denies focal weakness Endo Denies fatigue Physical exam (Primary Care) Vital Signs: Last Vital Signs Pulse 92 01/14/23 13:30 BP 136/82 01/14/23 13:30 Pulse Ox 100 01/14/23 13:30 Oxygen Delivery Method Room Air 01/14/23 13:30 BMI result Body Mass Index 35.6 Tobacco/Smoking Status: Tobacco use Status Tobacco use date assessed 01/14/23 01/14/23 13:35 Patient Tobacco Use Status Never used Tobacco 01/14/23 13:35 e-Cigarette/Vaping Use Never Used 01/14/23 13:35 PHQ-9: PHQ-9 Score PHQ-9: Total score 14 01/14/23 13:35 Depression Screening Interpretation: Positive Depression Screening Follow-up: In treatment Thrive Assessment: Date of Thrive Assessment Date Thrive assessed 08/15/22 01/14/23 13:35 Const General: cooperative, healthy appearing and no acute distress Orientation/consciousness: oriented to person, oriented to place and oriented to time HENMT Head: Yes normal to inspection, Yes normocephalic and Yes atraumatic Mouth: Normal oral and palatal mucosa present and tongue normal Throat: Yes posterior oropharynx normal and Yes uvula midline Eyes General: appearance normal, both eyes and all related structures Neck Neck: Yes normal visual inspection, Yes full ROM and Yes no lymphadenopathy Thyroid: Thyroid normal Carotids: normal carotid upstroke Chest Chest palpation & inspection: normal inspection of the chest Resp Effort & Inspection: normal respiratory effort and able to speak in complete sentences Auscultation: clear to auscultation bilaterally Cardio Jugular venous distension: no JVD Palpation: normal PMI Rate: regular rate Rhythm: regular rhythm Heart sounds: S1 normal heart sound present and S2 normal heart sound present GI Inspection: Yes normal to inspection Palpation (GI): Soft to palpation and No hepatosplenomegaly present Auscultation: normal bowel sounds General: Yes no CVA tenderness Back/Spine/Pelvis Back: no CVA tenderness Skin General skin exam: no rashes or lesions noted Neuro General: oriented to person, oriented to place and oriented to time Extrem General: Yes normal to inspection and Yes full ROM Assessment and Plan Assessment & Plan (1) Physical exam: Code(s): Z00.00 - Encounter for general adult medical examination without abnormal findings Plan: do labs (2) Asthma: Code(s): J45.909 - Unspecified asthma, uncomplicated Plan: stable; same meds (3) Hyperlipidemia: Code(s): E78.5 - Hyperlipidemia, unspecified Plan: stable; same meds Orders: Orders Mumps Virus IgG Antibody Today Z00.00 - Encounter for general adult medical examination without abnormal findings Rubeola IgG (Measles) Today Z00.00 - Encounter for general adult medical examination without abnormal findings Rubella IgG Antibody Today Z00.00 - Encounter for general adult medical examination without abnormal findings T Spot TB Today Z11.1 - Encounter for screening for respiratory tuberculosis Coding Level of Care Code Est Pt Prev Care 40-64y(34371) Diagnoses Physical exam Z00.00 Asthma J45.909 Hyperlipidemia E78.5 Additional Codes CONNIE-7 Assessment Billing - CONNIE-7 Assessment Tool: CONNIE-7 Assessment [id number] ([id number])
== END 2023-01-14 13:54 | disposition home or self-care (01) ==
PROVIDERS: Visit Provider Internal Medicine
DX: Z00.00 Encounter for general adult medical examination without abnormal findings (principal); J45.909 Unspecified asthma, uncomplicated; E78.5 Hyperlipidemia, unspecified
CPT/HCPCS: 99396

== ENCOUNTER 2023-01-21 08:04 | Outpatient (REF) | payer OTHER, SELFPAY ==
[2023-01-23 01:22] LABS: Mumps Virus IgG Antibody 9.81 AU/mL; Rubeola IgG (Measles) <13.50 AU/mL
[2023-01-23 22:44] LABS: TS Negative Control Passed; TS Panel A 0; TS Panel B 0; TS Positive Control Passed; TSpotTB Negative (Negative)
== END 2023-01-21 08:05 | disposition home or self-care (01) ==
LOC: HO.LAB 08:04
PROVIDERS: PCP Internal Medicine; Visit Provider Internal Medicine
DX: Z00.00 Encounter for general adult medical examination without abnormal findings (principal); Z11.1 Encounter for screening for respiratory tuberculosis
CPT/HCPCS: 36415; 86481; 86735; 86762; 86765

== ENCOUNTER 2023-02-14 11:48 | Emergency (ER) | payer OTHER, SELFPAY ==
--- NOTE | ~2023-02-14 | XR_ITS ---
EXAMINATION: RIGHT KNEE, RIGHT ANKLE CLINICAL INFORMATION: Pain after fall COMPARISON: Right knee 07/12/2022 TECHNIQUE: 5 views of the right knee, 3 views of the ankle FINDINGS: Knee: Marked tricompartmental degenerative changes are present in the knee with narrowing of all compartments along with osteophyte formation and sclerosis. A significant joint effusion is not seen. No chondrocalcinosis. No fractures. Compared to the June study, there's been no interval change. Ankle: No significant bone, joint or soft tissue abnormality is seen. XR/XR ankle RT min 3V IMPRESSION: Marked tricompartmental degenerative changes in the knee. No evidence of an acute injury. Unremarkable right ankle.
--- NOTE | ~2023-02-14 | XR_ITS ---
EXAMINATION: RIGHT KNEE, RIGHT ANKLE CLINICAL INFORMATION: Pain after fall COMPARISON: Right knee 07/12/2022 TECHNIQUE: 5 views of the right knee, 3 views of the ankle FINDINGS: Knee: Marked tricompartmental degenerative changes are present in the knee with narrowing of all compartments along with osteophyte formation and sclerosis. A significant joint effusion is not seen. No chondrocalcinosis. No fractures. Compared to the June study, there's been no interval change. Ankle: No significant bone, joint or soft tissue abnormality is seen. XR/XR knee RT 4V IMPRESSION: Marked tricompartmental degenerative changes in the knee. No evidence of an acute injury. Unremarkable right ankle.
[2023-02-14 11:57] VITALS: BP 146/82; PULSE 97; O2SAT 98
--- NOTE | 2023-02-14 12:00 | ED.FALL ---
HPI - Fall General Chief Complaint: Extremity Injury, Lower Stated Complaint: FELL TODAY R KNEE PAIN Time Seen by Provider: 02/14/23 11:59 Source: patient and EMS Mode of arrival: EMS Limitations: no limitations History of Present Illness HPI Narrative: 42-year-old female with history of cerebral palsy with left-sided weakness, asthma, depression, obesity, HTN, HLD who presents to the ER for evaluation of right knee pain after she tripped and fell earlier today while at work. She usually walks unassisted but drags her left leg. She reports a history of severe arthritis in the right knee as a result and follows w/ [facility] who recommended a knee replacement. Insurance is not approving it so she has been undergoing injections with minimal relief. Today she tripped over a book, twisting the right ankle and injuring the right knee. She has had multiple falls per her mother who she lives with at home. She has been unable to ambulate since the fall. EMS was called. MD complaint: fall Fall from: standing Fall witnessed: yes, by bystander Place fall occurred: work Loss of consciousness: none Prolonged down time: no Symptoms prior to fall: none Context: tripped/slipped Location of injury - extremities: right: knee and ankle Severity: severe Quality: stabbing and aching Associated symptoms (after fall): unable to walk Related Data Home Medications Medication Instructions Recorded Confirmed melatonin 3 mg tablet 3 mg PO BEDTIME 03/17/20 01/14/23 penicillin V potassium 500 mg 500 mg PO BID 12/28/22 01/14/23 tablet Previous Rx's Medication Instructions Recorded nabumetone 500 mg tablet 500 mg PO BID #180 tabs 12/09/20 atorvastatin 40 mg tablet 40 mg PO DAILY #90 tabs 03/23/22 albuterol sulfate 2.5 mg/3 mL 2.5 mg (3 mL) inhalation Q6-8H PRN 03/29/22 (0.083 %) solution for nebulization Wheezing #90 mL albuterol sulfate 90 mcg/actuation 2 puff inhalation Q4-6H PRN 04/06/22 aerosol inhaler (ProAir HFA) shortness of breath or wheezing #8.5 grams cholecalciferol (vitamin D3) 50 50 mcg PO DAILY #30 caps 06/29/22 mcg (2,000 unit) capsule topiramate 25 mg tablet 25 mg PO BEDTIME #90 tabs 04/22/23 fluvoxamine 100 mg tablet 200 mg (2 x 100 mg) PO BEDTIME #60 12/04/22 tabs hydroxyzine pamoate 25 mg capsule 25 mg PO TID #90 caps 01/24/23 oxycodone 5 mg tablet 5 mg PO Q8H PRN severe pain (scale 02/14/23 score 7-10) #6 tabs Allergies Allergy/AdvReac Type Severity Reaction Status Date / Time meloxicam [MELOXICAM] Allergy Severe RASH Verified 02/14/23 12:05 citalopram [From CELEXA] Allergy Intermediate LOCK JAW Verified 02/14/23 12:05 Biaxin Allergy Unknown Unknown Verified 02/14/23 12:05 cefaclor [From CECLOR] Allergy Unknown UNKNOWN Verified 02/14/23 12:05 cephalexin [Keflex] Allergy Unknown Unknown Verified 02/14/23 12:05 clarithromycin [From BIAXIN] Allergy Unknown UNKNOWN Verified 02/14/23 12:05 lactose Allergy Unknown INTOLERANCE Verified 02/14/23 12:05 Sulfa (Sulfonamide Allergy Unknown HIVES Verified 02/14/23 12:05 Antibiotics) [SULFA (SULFONAMIDE ANTIBIOTICS)] Review of Systems Review of Systems: Yes all other systems are reviewed and are negative [facility] Past Medical History Medical History (Updated 02/14/23 @ 18:19 by MAXINE Montero) Cerebral palsy Active asthma 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 Obesity Hypertension Acute sinusitis Hyperglycemia Hyperlipidemia Viral syndrome Acute sinusitis Surgical History H/O arthroscopic knee surgery History of carpal tunnel surgery of right wrist History of dilation and curettage History of foot surgery Family History Family History Father Hypertension Bladder cancer Diabetes Hyperlipidemia Mother Hypertension Paternal Aunt Breast cancer Paternal Grandfather Myocardial infarction Social History Social History Household Members: Family Housing: House Are you a primary health care coach to a significant other at home: No Do you presently have visiting nurse or other home services: No Alcohol intake: never Patient Tobacco Use Status: Never used Tobacco e-Cigarette/Vaping Use: Never Used Second Hand Smoke Exposure: No Advance Directives: No service: No Current occupational status: employed Cognitive needs: No Hearing needs: No Vision needs: No Physical Exam Vital Signs: Vital Signs: Last Vital Signs Temp 97.6 F 02/14/23 13:44 Pulse 74 02/14/23 13:44 Resp 18 02/14/23 13:44 BP 117/64 02/14/23 13:44 Pulse Ox 100 02/14/23 13:44 O2 Del Method Room Air 02/14/23 13:44 BMI result Body Mass Index 36.6 Appearance: Alert. Oriented X3. No acute distress. HEENT: normal inspection CVS: Normal heart rate and rhythm. Pulses normal. Respiratory: No respiratory distress. Skin: Skin warm and dry. Normal skin color. Normal skin turgor. No rashes. Extremities: right knee with milld diffuse swelling, no deformity. limited flexion due to pain. right lateral ankle with moderate swelling, tenderness of lateral malleolus with pain upon plantar and dorsiflexion. no tenderness or swelling of the right lower leg, foot, thigh or hip. Neuro: Oriented X 3. left sided weakness Medications Administered Discontinued Medications Generic Name Dose Route Start Last Admin Trade Name Freq PRN Reason Stop Dose Admin Acetaminophen 975 mg 02/14/23 13:00 02/14/23 13:42 Acetaminophen 325 Mg Tablet PO 02/14/23 13:01 975 mg ONCE ONE Administration Oxycodone HCl 5 mg 02/14/23 16:21 02/14/23 16:31 Oxycodone Hcl Immed Release 5 Mg Tablet PO 02/14/23 16:22 5 mg ONCE ONE Administration Medical Decision Making Medical Decision Making MDM Narrative: 42 yo female with history of CP with left sided weakness and recurrent falls present for evaluation of right knee pain and ankle pain s/p trip and fall at work earlier today. XR ankle and knee reviewed - no acute fracutres. severe degenerative changes in the knee noted. results d/w patient and mother at bedside. they are concerned about limited mobility at home patient placed in physician observation for PT evaluation and possible STR, however PT went home for the day She was medicated w/ oxycodone and able to use the bathroom with assistance. mom and patinet comfortable w/ discharge home, they have a walker at home. they have appointment with [facility] on Saturday comfortable w/ discharge w/ outpatient ortho follow up and pain control Differential Diagnosis Differential Diagnoses: The differential diagnosis associated with the presentation includes ankle sprain, ankle strain, ankle fracture, knee effusion, knee sprain, ligamentous injury, patellar fracture, tibial plateau fracture Admission/Observation Consideration of admission/observation: Escalation of care including admission/observation considered cannot ambulate Independent Interpretation I performed an independent interpretation of an: Plain X-Ray Interpretation: xr without acute ankle fracture, no acute fx of knee, agree w/ radiology read Radiology Impression Discussion of test interpretation with radiology: I have reviewed the radiologist's reading. Radiologist Impression: EXAMINATION: RIGHT KNEE, RIGHT ANKLE CLINICAL INFORMATION: Pain after fall COMPARISON: Right knee 07/12/2022 TECHNIQUE: 5 views of the right knee, 3 views of the ankle FINDINGS: Knee: Marked tricompartmental degenerative changes are present in the knee with narrowing of all compartments along with osteophyte formation and sclerosis. A significant joint effusion is not seen. No chondrocalcinosis. No fractures. Compared to the June study, there's been no interval change. Ankle: No significant bone, joint or soft tissue abnormality is seen. XR/XR ankle RT min 3V IMPRESSION: Marked tricompartmental degenerative changes in the knee. No evidence of an acute injury. Unremarkable right ankle. Independent Historian Clinical information obtained from an independent historian. History obtained from or confirmed by: Parent External Record Review External record reviewed: Prior outpatient labs Prescription Management I considered prescription management with: Pain Medication Chronic Conditions Patient?s care impacted by: Other (cerebral palsy) Critical Care Time Critical Care Time Critical Care Time: No Discharge Plan Discharge Clinical Impression: Right ankle sprain Qualifiers: Encounter type: initial encounter Involved ligament of ankle: unspecified ligament Qualified Code(s): S93.401A - Sprain of unspecified ligament of right ankle, initial encounter Osteoarthritis of right knee Qualifiers: Osteoarthritis type: unspecified Qualified Code(s): M17.11 - Unilateral primary osteoarthritis, right knee Patient Disposition: Home, Self-Care Instructions: Ankle Sprain (ED), Osteoarthritis (DC) Additional Instructions: Your x-ray of the ankle today was normal. The knee x-ray showed severe degenerative changes. Follow up with [facility] for this. Rest your ankle and elevate your foot when possible. Recommend FATEMEH wrap for support and compression. Use ice several times per day for the next 48 hours. You may bear weight as tolerated. If pain is too severe, use you walker for stability. Take Motrin and/or Tylenol as needed for pain. Take the prescribed pain medication as needed for severe pain only. If you develop new or worsening symptoms call 911 or come back to the ER for further evaluation. Prescriptions: New oxycodone 5 mg tablet 5 mg PO Q8H PRN (Reason: severe pain (scale score 7-10)) Qty: 6 0RF Rx Instructions: Partial Fill upon patient request. No Action nabumetone 500 mg tablet 500 mg PO BID Qty: 180 8RF Hold Instructions: Doctor's Order albuterol sulfate 2.5 mg /3 mL (0.083 %) solution for nebulization 2.5 mg inhalation Q6-8H PRN (Reason: Wheezing) Qty: 90 3RF albuterol sulfate [ProAir HFA] 90 mcg/actuation HFA aerosol inhaler 2 puff inhalation Q4-6H PRN (Reason: shortness of breath or wheezing) Qty: 8.5 0RF topiramate 25 mg tablet 25 mg PO BEDTIME Qty: 90 8RF fluvoxamine 100 mg tablet 200 mg PO BEDTIME Qty: 60 5RF hydroxyzine pamoate 25 mg capsule 25 mg PO TID Qty: 90 0RF melatonin 3 mg tablet 3 mg PO BEDTIME atorvastatin 40 mg tablet 40 mg PO DAILY Qty: 90 3RF cholecalciferol (vitamin D3) 50 mcg (2,000 unit) capsule 50 mcg PO DAILY Qty: 30 7RF penicillin V potassium 500 mg tablet 500 mg PO BID Stand Alone Forms: Work/School Release
[2023-02-14 12:02] VITALS: BP 146/74; PULSE 77; RESP 18; TEMP 36.5; O2SAT 100; BMI 36.6
[2023-02-14] MEDS: Acetaminophen 325 MG TABLET 975 MG PO (13:42)
[2023-02-14 13:44] VITALS: BP 117/64; PULSE 74; RESP 18; TEMP 36.4; O2SAT 100
--- NOTE | 2023-02-14 15:12 | MHC.CM.PN ---
CM CONSULT RECEIVED, PT EVAL PENDING
[2023-02-14] MEDS: oxyCODONE HCl Immed Release 5 MG TABLET PO (16:31)
== END 2023-02-14 18:49 | disposition home or self-care (01) ==
PROVIDERS: Emergency Provider Emergency Medicine; PCP Internal Medicine
DX: S93.401A Sprain of unspecified ligament of right ankle, initial encounter (principal); W18.39XA Other fall on same level, initial encounter; M17.11 Unilateral primary osteoarthritis, right knee; R26.89 Other abnormalities of gait and mobility; R29.6 Repeated falls; G80.9 Cerebral palsy, unspecified; I10 Essential (primary) hypertension; E78.5 Hyperlipidemia, unspecified; Z91.81 History of falling; Y93.89 Activity, other specified; Y92.215 Trade school as the place of occurrence of the external cause; Y99.0 Civilian activity done for income or pay; Z79.899 Other long term (current) drug therapy
CPT/HCPCS: 73564; 73610; 99283; 99284

== ENCOUNTER 2023-03-27 09:11 | Outpatient (AMB) | payer OTHER, SELFPAY ==
--- NOTE | 2023-03-27 09:16 | MHC.PC.OV ---
Vital Signs 03/27/23 09:20 Height 5 ft 2 in Weight 203 lb BMI 37.1 BP 110/64 Blood Pressure Location Lt brachial Position Sitting Pulse 94 Pulse Source Pulse Oximeter Pulse Oximetry (%) 98 Oxygen Delivery Method Room Air Intake Visit Reasons: Coughing up yellow phlegm, COVID negative Intake Note: Patient is here today for coughing up yellow/green phlegm. Covid test negative. 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 Accompanied by: Mother Allergies meloxicam [MELOXICAM] Allergy (Severe, Verified 03/27/23 09:20) RASH citalopram [From CELEXA] Allergy (Intermediate, Verified 03/27/23 09:20) LOCK JAW Biaxin Allergy (Unknown, Verified 03/27/23 09:20) Unknown cefaclor [From CECLOR] Allergy (Unknown, Verified 03/27/23 09:20) UNKNOWN cephalexin [Keflex] Allergy (Unknown, Verified 03/27/23 09:20) Unknown clarithromycin [From BIAXIN] Allergy (Unknown, Verified 03/27/23 09:20) UNKNOWN lactose Allergy (Unknown, Verified 03/27/23 09:20) INTOLERANCE Sulfa (Sulfonamide Antibiotics) [SULFA (SULFONAMIDE ANTIBIOTICS)] Allergy (Unknown, Verified 03/27/23 09:20) HIVES Medication List - Last Reconciled 03/27/23 by Andi Goff MD albuterol sulfate 2.5 mg (3 mL) inhalation Q6-8H PRN albuterol sulfate 90 mcg/actuation (ProAir HFA) 2 puffs inhalation Q4-6H PRN atorvastatin 40 mg PO DAILY cholecalciferol (vitamin D3) 50 mcg PO DAILY fluvoxamine 200 mg (2 x 100 mg) PO BEDTIME hydroxyzine pamoate 25 mg PO TID melatonin 3 mg PO BEDTIME nabumetone 500 mg PO BID oxycodone 5 mg PO Q8H PRN topiramate 25 mg PO BEDTIME Tobacco use date assessed: 03/27/23 Dental Screening Dental Screen Date: 03/27/23 Did you have a dental visit in the last 12 months?: Yes Did you have a dental problem in the last 6 months where you did not have access to dental care?: No Was dental information given to patient?: Patient has dentist HPI Coughing up yellow phlegm, COVID negative HPI Details productive cough for a few weeks PFS Medical History (Updated 02/15/23 @ 00:01 by Leroy Sy) Cerebral palsy Active asthma 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 Obesity Hypertension Acute sinusitis Hyperglycemia Hyperlipidemia Viral syndrome Acute sinusitis Surgical History H/O arthroscopic knee surgery History of carpal tunnel surgery of right wrist History of dilation and curettage History of foot surgery Family History Father Hypertension Bladder cancer Diabetes Hyperlipidemia Mother Hypertension Paternal Aunt Breast cancer Paternal Grandfather Myocardial infarction Social History Household Members: Family Housing: House Are you a primary health care marketing specialist to a significant other at home: No Do you presently have visiting nurse or other home services: No Alcohol intake: never Patient Tobacco Use Status: Never used Tobacco e-Cigarette/Vaping Use: Never Used Second Hand Smoke Exposure: No service: No Current occupational status: employed Cognitive needs: No Hearing needs: No Vision needs: No Questionnaire Thrive Questionnaire Date Thrive assessed: 08/15/22 CONNIE-7 AMB Questionnaire CONNIE-7 Date CONNIE - 7 assessed: 01/14/23 Source: Developed by Drs. Giorgio Espinosa, Linh Hall, Tre Wall and colleagues, with an educational juan josé from [email or web address]. Review of Systems Const Denies chills, Denies headache(s) and Denies weight loss ENT Denies headache(s) Card Denies chest pain, Denies syncope, Denies irregular heart rhythm and Denies dyspnea Resp Denies dyspnea GI Denies abdominal pain, Denies change in stool character, Denies nausea and Denies vomiting Musc Denies deformity and Denies joint swelling Neuro Denies syncope and Denies headache(s) Physical exam (Primary Care) Vital Signs: Last Vital Signs Pulse 94 03/27/23 09:20 BP 110/64 03/27/23 09:20 Pulse Ox 98 03/27/23 09:20 Oxygen Delivery Method Room Air 03/27/23 09:20 BMI result Body Mass Index 37.1 Tobacco/Smoking Status: Tobacco use Status Tobacco use date assessed 03/27/23 03/27/23 09:25 Patient Tobacco Use Status Never used Tobacco 03/27/23 09:16 e-Cigarette/Vaping Use Never Used 03/27/23 09:16 Thrive Assessment: Date of Thrive Assessment Date Thrive assessed 08/15/22 03/27/23 09:16 Const General: cooperative, comfortable, no acute distress and alert Neck Neck: Yes no lymphadenopathy Thyroid: Thyroid normal Resp Effort & Inspection: normal respiratory effort Auscultation: clear to auscultation bilaterally Percussion: percussion normal Cardio Jugular venous distension: no JVD Palpation: normal PMI Rate: regular rate Rhythm: regular rhythm Heart sounds: S1 normal heart sound present and S2 normal heart sound present GI Inspection: Yes normal to inspection Palpation (GI): No hepatosplenomegaly present Skin General skin exam: no rashes or lesions noted Extrem General: Yes no clubbing, cyanosis or edema Assessment and Plan Assessment & Plan (1) Cough: Code(s): R05.9 - Cough, unspecified Plan: rx Medications: New azithromycin take 500 mg today (day 1), then 250 mg for 4 days (days 2-5) PO 6 tabs 0RF benzonatate 100 mg PO TID PRN 60 caps 0RF cough Coding Level of Care Code Est Pt Level 3 (60708) Diagnoses Cough R05.9
[2023-03-27 09:20] VITALS: BP 110/64; PULSE 94; O2SAT 98; BMI 37.1
== END 2023-03-27 09:49 | disposition home or self-care (01) ==
PROVIDERS: PCP Internal Medicine; Visit Provider Internal Medicine
DX: R05.9 Cough, unspecified (principal)
CPT/HCPCS: 99213

== ENCOUNTER 2023-03-30 10:13 | Outpatient (REF) | payer OTHER, SELFPAY ==
[2023-03-30 11:27] LABS: Estimated Average Glucose 131 mg/dL; Hemoglobin A1c % 6.2 % (<6.0)
[2023-03-30 12:04] LABS: Cholesterol 150 mg/dL (<200); Glucose Fasting 150 mg/dL (60-99); HDL Cholesterol 32 mg/dL (>40); LDL Cholesterol Calculated 85 mg/dL (<100); Triglycerides 169 mg/dL (<150)
== END 2023-03-30 10:14 | disposition home or self-care (01) ==
LOC: HO.LAB 10:13
PROVIDERS: PCP Internal Medicine; Visit Provider Internal Medicine
DX: R73.9 Hyperglycemia, unspecified (principal); E78.5 Hyperlipidemia, unspecified
CPT/HCPCS: 36415; 80061; 82947; 83036

== ENCOUNTER 2023-04-08 08:27 | Outpatient (AMB) | payer OTHER, SELFPAY ==
[2023-04-08 08:34] VITALS: BP 150/80; PULSE 93; O2SAT 99; BMI 37.7
--- NOTE | 2023-04-08 08:34 | MHC.PC.OV ---
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: Not Required per policy Accompanied by: Self / Same As Patient Allergies meloxicam [MELOXICAM] Allergy (Severe, Verified 04/08/23 08:34) RASH citalopram [From CELEXA] Allergy (Intermediate, Verified 04/08/23 08:34) LOCK JAW Biaxin Allergy (Unknown, Verified 04/08/23 08:34) Unknown cefaclor [From CECLOR] Allergy (Unknown, Verified 04/08/23 08:34) UNKNOWN cephalexin [Keflex] Allergy (Unknown, Verified 04/08/23 08:34) Unknown clarithromycin [From BIAXIN] Allergy (Unknown, Verified 04/08/23 08:34) UNKNOWN lactose Allergy (Unknown, Verified 04/08/23 08:34) INTOLERANCE Sulfa (Sulfonamide Antibiotics) [SULFA (SULFONAMIDE ANTIBIOTICS)] Allergy (Unknown, Verified 04/08/23 08:34) HIVES Medication List - Last Reconciled 04/08/23 by nAdi Goff MD albuterol sulfate 2.5 mg (3 mL) inhalation Q6-8H PRN albuterol sulfate 90 mcg/actuation (ProAir HFA) 2 puffs inhalation Q4-6H PRN atorvastatin 40 mg PO DAILY azithromycin take 500 mg today (day 1), then 250 mg for 4 days (days 2-5) PO benzonatate 100 mg PO TID PRN cholecalciferol (vitamin D3) 50 mcg PO DAILY fluvoxamine 200 mg (2 x 100 mg) PO BEDTIME hydroxyzine pamoate 25 mg PO TID melatonin 3 mg PO BEDTIME nabumetone 500 mg PO BID oxycodone 5 mg PO Q8H PRN topiramate 25 mg PO BEDTIME Tobacco use date assessed: 03/27/23 Dental Screening Dental Screen Date: 04/08/23 Did you have a dental visit in the last 12 months?: Yes Did you have a dental problem in the last 6 months where you did not have access to dental care?: No Was dental information given to patient?: Patient has dentist HPI 3 month f/u HPI Details asthma hyperlipidemia and hyperglycemia; BS has been increasing due to dietary indiscretion PFSH Medical History Cerebral palsy Active asthma 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 Obesity Hypertension Acute sinusitis Hyperglycemia Hyperlipidemia Viral syndrome Acute sinusitis Surgical History H/O arthroscopic knee surgery History of carpal tunnel surgery of right wrist History of dilation and curettage History of foot surgery Family History Father Hypertension Bladder cancer Diabetes Hyperlipidemia Mother Hypertension Paternal Aunt Breast cancer Paternal Grandfather Myocardial infarction Social History Household Members: Family Housing: House Are you a primary insurance healthcare representative to a significant other at home: No Do you presently have visiting nurse or other home services: No Alcohol intake: never Patient Tobacco Use Status: Never used Tobacco e-Cigarette/Vaping Use: Never Used Second Hand Smoke Exposure: No service: No Current occupational status: employed Cognitive needs: No Hearing needs: No Vision needs: No Questionnaire PHQ-9 Over the last 2 weeks, how often have you been bothered by any of the following problems? 1. Little interest or pleasure in doing things: more than half the days 2. Feeling down, depressed, or hopeless: more than half the days 3. Trouble falling or staying asleep, or sleeping too much: nearly every day 4. Feeling tired or having little energy: nearly every day 5. Poor appetite or overeating: several days 6. Feeling bad about yourself - or that you are a failure or have let yourself or your family down: not at all 7. Trouble concentrating on things, such as reading the newspaper or watching television: nearly every day 8. Moving or speaking so slowly that other people could have noticed. Or the opposite - being so fidgety or restless that you have been moving around a lot more than usual: not at all 9. Thoughts that you would be better off or of hurting yourself in some way: not at all Total score: 14 Depression Screening Interpretation: Positive Depression Screening Follow-up: In treatment Depression Screening Done: Yes 97100 - PHQ-9 Billing: Yes Source: Developed by Drs. Giorgio Espinosa, Linh Hall, Tre Wall and colleagues, with an educational juan josé from [employer]. Thrive Questionnaire Date Thrive assessed: 08/15/22 AUDIT C Alcohol Use Questionnaire (AUDIT-C) 1. How often do you have a drink containing alcohol?: Never 3. How often do you have six or more drinks on one occasion?: Never Total Score: 0 Score Reviewed/Action Taken: Yes CONNIE-7 AMB Questionnaire CONNIE-7 Date CONNIE - 7 assessed: 01/14/23 Source: Developed by Drs. Giorgio Espinosa, Linh Hall, Tre Wall and colleagues, with an educational juan josé from [employer]. Review of Systems Const Denies chills, Denies headache(s) and Denies weight loss ENT Denies headache(s) Card Denies chest pain, Denies syncope, Denies irregular heart rhythm and Denies dyspnea Resp Denies chest congestion, Denies cough and Denies dyspnea GI Denies abdominal pain, Denies change in stool character, Denies nausea and Denies vomiting Musc Denies deformity and Denies joint swelling Neuro Denies syncope and Denies headache(s) Physical exam (Primary Care) Vital Signs: Last Vital Signs Pulse 93 04/08/23 08:34 BP 150/80 H 04/08/23 08:34 Pulse Ox 99 04/08/23 08:34 Oxygen Delivery Method Room Air 04/08/23 08:34 BMI result Body Mass Index 37.7 Tobacco/Smoking Status: Tobacco use Status Tobacco use date assessed 03/27/23 04/08/23 08:35 Patient Tobacco Use Status Never used Tobacco 04/08/23 08:35 e-Cigarette/Vaping Use Never Used 04/08/23 08:35 PHQ-9: PHQ-9 Score PHQ-9: Total score 14 04/08/23 08:48 Depression Screening Interpretation: Positive Depression Screening Follow-up: In treatment Thrive Assessment: Date of Thrive Assessment Date Thrive assessed 08/15/22 04/08/23 08:35 Const General: cooperative, comfortable, no acute distress and alert Neck Neck: Yes no lymphadenopathy Thyroid: Thyroid normal Resp Effort & Inspection: normal respiratory effort Auscultation: clear to auscultation bilaterally Percussion: percussion normal Cardio Jugular venous distension: no JVD Palpation: normal PMI Rate: regular rate Rhythm: regular rhythm Heart sounds: S1 normal heart sound present and S2 normal heart sound present GI Inspection: Yes normal to inspection Palpation (GI): No hepatosplenomegaly present Skin General skin exam: no rashes or lesions noted Extrem General: Yes no clubbing, cyanosis or edema Assessment and Plan Assessment & Plan (1) Asthma: Code(s): J45.909 - Unspecified asthma, uncomplicated Plan: stable; same rx (2) Hyperlipidemia: Code(s): E78.5 - Hyperlipidemia, unspecified Plan: stable; do labs (3) Hyperglycemia: Code(s): R73.9 - Hyperglycemia, unspecified Plan: lose weight Orders: Orders Lipid Panel Today E78.5 - Hyperlipidemia, unspecified Glucose Fasting Today R73.9 - Hyperglycemia, unspecified Hemoglobin A1c Today R73.9 - Hyperglycemia, unspecified Coding Level of Care Code Est Pt Level 4 (22422) Diagnoses Asthma J45.909 Hyperlipidemia E78.5 Hyperglycemia R73.9
== END 2023-04-08 09:01 | disposition home or self-care (01) ==
PROVIDERS: PCP Internal Medicine; Visit Provider Internal Medicine
DX: J45.909 Unspecified asthma, uncomplicated (principal); E78.5 Hyperlipidemia, unspecified; R73.9 Hyperglycemia, unspecified
CPT/HCPCS: 99214

== ENCOUNTER 2023-07-06 09:42 | Outpatient (REF) | payer OTHER, SELFPAY ==
[2023-07-06 10:57] LABS: Estimated Average Glucose 128 mg/dL; Hemoglobin A1c % 6.1 % (<6.0)
[2023-07-06 11:06] LABS: Cholesterol 157 mg/dL (<200); Glucose Fasting 148 mg/dL (60-99); HDL Cholesterol 31 mg/dL (>40); LDL Cholesterol Calculated 97 mg/dL (<100); Triglycerides 145 mg/dL (<150)
== END 2023-07-06 09:43 | disposition home or self-care (01) ==
LOC: HO.LAB 09:42
PROVIDERS: PCP Internal Medicine; Visit Provider Internal Medicine
DX: R73.9 Hyperglycemia, unspecified (principal); E78.5 Hyperlipidemia, unspecified
CPT/HCPCS: 36415; 80061; 82947; 83036

== ENCOUNTER 2023-07-15 10:53 | Outpatient (AMB) | payer OTHER, SELFPAY ==
[2023-07-15 11:03] VITALS: BP 122/80; PULSE 80; O2SAT 98; BMI 36.9
--- NOTE | 2023-07-15 11:03 | A.OFFPC_ITS ---
Vital Signs 07/15/23 11:03 Height 5 ft 2 in Weight 202 lb BMI 36.9 BP 122/80 Blood Pressure Location Lt brachial Pulse 80 Pulse Source Pulse Oximeter Pulse Oximetry (%) 98 Oxygen Delivery Method Room Air Intake Visit Reasons: DM Follow up Financing Analyst Required: No Zipper Lining Folder: Not Required per policy Accompanied by: Self / Same As Patient Allergies meloxicam [MELOXICAM] Allergy (Severe, Verified 07/15/23 11:03) RASH citalopram [From CELEXA] Allergy (Intermediate, Verified 07/15/23 11:03) LOCK JAW Biaxin Allergy (Unknown, Verified 07/15/23 11:03) Unknown cefaclor [From CECLOR] Allergy (Unknown, Verified 07/15/23 11:03) UNKNOWN cephalexin [Keflex] Allergy (Unknown, Verified 07/15/23 11:03) Unknown clarithromycin [From BIAXIN] Allergy (Unknown, Verified 07/15/23 11:03) UNKNOWN lactose Allergy (Unknown, Verified 07/15/23 11:03) INTOLERANCE Sulfa (Sulfonamide Antibiotics) [SULFA (SULFONAMIDE ANTIBIOTICS)] Allergy (Unknown, Verified 07/15/23 11:03) HIVES Medication List - Last Reconciled 07/15/23 by Andi Goff MD albuterol sulfate 2.5 mg (3 mL) inhalation Q6-8H PRN albuterol sulfate 90 mcg/actuation (ProAir HFA) 2 puffs inhalation Q4-6H PRN atorvastatin 40 mg PO DAILY azithromycin take 500 mg today (day 1), then 250 mg for 4 days (days 2-5) PO benzonatate 100 mg PO TID PRN cholecalciferol (vitamin D3) 50 mcg PO DAILY fluvoxamine 200 mg (2 x 100 mg) PO BEDTIME hydroxyzine pamoate 25 mg PO TID melatonin 3 mg PO BEDTIME nabumetone 500 mg PO BID oxycodone 5 mg PO Q8H PRN topiramate 25 mg PO BEDTIME Tobacco use date assessed: 07/15/23 Dental Screening Dental Screen Date: 07/15/23 Did you have a dental visit in the last 12 months?: Yes Did you have a dental problem in the last 6 months where you did not have access to dental care?: No Was dental information given to patient?: Patient has dentist HPI DM Follow up HPI Details hyperlipidemia on rx; compliant; labs fine [facility] Medical History Cerebral palsy Active asthma 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 Obesity Hypertension Acute sinusitis Hyperglycemia Hyperlipidemia Viral syndrome Acute sinusitis Surgical History H/O arthroscopic knee surgery History of carpal tunnel surgery of right wrist History of dilation and curettage History of foot surgery Family History Father Hypertension Bladder cancer Diabetes Hyperlipidemia Mother Hypertension Paternal Aunt Breast cancer Paternal Grandfather Myocardial infarction Social History Household Members: Family Housing: House Are you a primary child care assistant to a significant other at home: No Do you presently have visiting nurse or other home services: No Alcohol intake: never Patient Tobacco Use Status: Never used Tobacco e-Cigarette/Vaping Use: Never Used Second Hand Smoke Exposure: No service: No Current occupational status: employed Cognitive needs: No Hearing needs: No Vision needs: No Questionnaire PHQ-9 Over the last 2 weeks, how often have you been bothered by any of the following problems? 1. Little interest or pleasure in doing things: not at all 2. Feeling down, depressed, or hopeless: not at all 3. Trouble falling or staying asleep, or sleeping too much: not at all 4. Feeling tired or having little energy: not at all 5. Poor appetite or overeating: not at all 6. Feeling bad about yourself - or that you are a failure or have let yourself or your family down: not at all 7. Trouble concentrating on things, such as reading the newspaper or watching television: not at all 8. Moving or speaking so slowly that other people could have noticed. Or the opposite - being so fidgety or restless that you have been moving around a lot more than usual: not at all 9. Thoughts that you would be better off or of hurting yourself in some way: not at all Total score: 0 Depression Screening Interpretation: Positive Depression Screening Follow-up: In treatment Depression Screening Done: Yes 32601 - PHQ-9 Billing: Yes Source: Developed by Drs. Giorgio Espinosa, Tre Amato and colleagues, with an educational juan josé from [employer]. Thrive Questionnaire Date Thrive assessed: 07/15/23 I am a: Patient What is your living situation today?: I have a steady place to live Within the past 12 months, did the food you bought not last and you didn't have the money to get more?: Never true Within the past 12 months, did you worry whether your food would run out before you got money to buy more?: Never true Do you have trouble paying for medicines?: No Do you have trouble getting transportation to medical appointments?: No Do you have trouble paying your heating and electricity bill?: No Do you have trouble taking care of your child, family member or friend?: No Do you have trouble with day-to-day activities such as bathing, preparing meals, shopping, managing finances, etc.?: No Are you currently unemployed and looking for a job?: No Are you interested in more education?: No Please select the resources that you would like help with: None THRIVE Score: 0 AUDIT C Alcohol Use Questionnaire (AUDIT-C) 1. How often do you have a drink containing alcohol?: Never 3. How often do you have six or more drinks on one occasion?: Never Total Score: 0 Score Reviewed/Action Taken: Yes CONNIE-7 AMB Questionnaire CONNIE-7 Date CONNIE - 7 assessed: 07/15/23 Feeling nervous, anxious, or on edge: 0 = Not at all Not being able to stop or control worryin = Not at all Worrying too much about different things: 0 = Not at all Trouble relaxin = Not at all Being so restless that it is hard to sit still: 0 = Not at all Becoming easily annoyed or irritable: 0 = Not at all Feeling afraid as if something awful might happen: 0 = Not at all Total CONNIE-7 score (0-4 normal; 5-9 mild; 10-14 moderate; 15-21 severe): 0 Source: Developed by Drs. Giorgio Espinosa, Tre Amato and colleagues, with an educational juan josé from [employer]. CONNIE-7 Assessment Billing CONNIE-7 Assessment Tool: CONNIE-7 Assessment 91906 Review of Systems Const Denies chills, Denies headache(s) and Denies weight loss ENT Denies headache(s) Card Denies chest pain, Denies syncope, Denies irregular heart rhythm and Denies dyspnea Resp Denies chest congestion, Denies cough and Denies dyspnea GI Denies abdominal pain, Denies change in stool character, Denies nausea and Denies vomiting Musc Denies deformity and Denies joint swelling Neuro Denies syncope and Denies headache(s) Physical exam (Primary Care) Vital Signs: Last Vital Signs Pulse 80 07/15/23 11:03 BP 122/80 07/15/23 11:03 Pulse Ox 98 07/15/23 11:03 Oxygen Delivery Method Room Air 07/15/23 11:03 BMI result Body Mass Index 36.9 Tobacco/Smoking Status: Tobacco use Status Tobacco use date assessed 07/15/23 07/15/23 11:04 Patient Tobacco Use Status Never used Tobacco 07/15/23 11:04 e-Cigarette/Vaping Use Never Used 07/15/23 11:04 PHQ-9: PHQ-9 Score PHQ-9: Total score 0 07/15/23 11:16 Depression Screening Interpretation: Positive Depression Screening Follow-up: In treatment Thrive Assessment: Date of Thrive Assessment Date Thrive assessed 07/15/23 07/15/23 11:04 Const General: cooperative, comfortable, no acute distress and alert Neck Neck: Yes no lymphadenopathy Thyroid: Thyroid normal Resp Effort & Inspection: normal respiratory effort Auscultation: clear to auscultation bilaterally Percussion: percussion normal Cardio Jugular venous distension: no JVD Palpation: normal PMI Rate: regular rate Rhythm: regular rhythm Heart sounds: S1 normal heart sound present and S2 normal heart sound present GI Inspection: Yes normal to inspection Palpation (GI): No hepatosplenomegaly present Skin General skin exam: no rashes or lesions noted Extrem General: Yes no clubbing, cyanosis or edema Assessment and Plan Assessment & Plan (1) Hyperlipidemia: Code(s): E78.5 - Hyperlipidemia, unspecified Plan: stable; same rx Orders: Orders Lipid Panel Today E78.5 - Hyperlipidemia, unspecified Glucose Fasting Today R73.9 - Hyperglycemia, unspecified Hemoglobin A1c Today R73.9 - Hyperglycemia, unspecified Coding Level of Care Code Est Pt Level 3 (13749) Diagnoses Hyperlipidemia E78.5 Additional Codes CONNIE-7 Assessment Billing - CONNIE-7 Assessment Tool: CONNIE-7 Assessment [id number] ([id number])
== END 2023-07-15 11:30 | disposition home or self-care (01) ==
PROVIDERS: PCP Internal Medicine; Visit Provider Internal Medicine
DX: E78.5 Hyperlipidemia, unspecified (principal)
CPT/HCPCS: 99213

== ENCOUNTER 2023-08-24 08:28 | Outpatient (REF) | payer OTHER, SELFPAY ==
--- NOTE | ~2023-08-24 | MM_ITS ---
EXAMINATION: MM SCREENING DIGITAL BREAST TOMOSYNTHESIS, BILATERAL CLINICAL INFORMATION: Screening. Asymptomatic. COMPARISON: Mammography: This study is compared with prior exams dating back to 2019. TECHNIQUE: Digital breast tomosynthesis is performed in both the craniocaudal and mediolateral oblique views along with computer-aided detection (CAD). Synthesized 2D images are generated from the tomosynthesis. FINDINGS: The breasts are heterogeneously dense, which may obscure small masses (ACR BI-RADS breast composition Category c). There are no significant masses, abnormal calcifications, or other abnormalities. 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 MM/MM tomosynthesis screening BI IMPRESSION: No mammographic evidence of malignancy. ASSESSMENT: BI-RADS BI-RADS 2 - Benign Findings RECOMMENDATION: Routine annual mammography screening. 1 year F/U This examination should not preclude the clinical evaluation of a suspicious palpable abnormality. This patient's information was entered into a reminder system with a target due date for their next mammogram.
== END 2023-08-24 08:29 | disposition home or self-care (01) ==
LOC: HO.MAMMO 08:28
PROVIDERS: PCP Internal Medicine; Visit Provider Orthopaedic Surgery
DX: Z12.31 Encounter for screening mammogram for malignant neoplasm of breast (principal)
CPT/HCPCS: 77063; 77067

== ENCOUNTER → 2023-08-24 09:00 | Outpatient (BNV) | payer OTHER, SELFPAY | PROVIDERS: PCP Internal Medicine; Visit Provider Radiology Diagnostic Radiology | DX: Z12.31 Encounter for screening mammogram for malignant neoplasm of breast (principal) | CPT/HCPCS: 77063; 77067 ==

== ENCOUNTER 2023-10-12 09:52 | Outpatient (REF) | payer OTHER, SELFPAY ==
[2023-10-12 10:36] LABS: Estimated Average Glucose 137 mg/dL; Hemoglobin A1c % 6.4 % (<6.0)
[2023-10-12 11:12] LABS: Cholesterol 117 mg/dL (<200); Glucose Fasting 133 mg/dL (60-99); HDL Cholesterol 29 mg/dL (>40); LDL Cholesterol Calculated 65 mg/dL (<100); Triglycerides 118 mg/dL (<150)
== END 2023-10-12 09:53 | disposition home or self-care (01) ==
LOC: HO.LAB 09:52
PROVIDERS: PCP Internal Medicine; Visit Provider Internal Medicine
DX: E78.5 Hyperlipidemia, unspecified (principal); R73.9 Hyperglycemia, unspecified
CPT/HCPCS: 36415; 80061; 82947; 83036

== ENCOUNTER 2023-10-18 10:53 | Outpatient (AMB) | payer OTHER, SELFPAY ==
[2023-10-18 10:55] VITALS: BP 130/80; PULSE 95; O2SAT 98; BMI 38.0
--- NOTE | 2023-10-18 10:55 | A.OFFPC_ITS ---
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 per policy Accompanied by: Self / Same As Patient Allergies meloxicam [MELOXICAM] Allergy (Severe, Verified 10/18/23 10:56) RASH citalopram [From CELEXA] Allergy (Intermediate, Verified 10/18/23 10:56) LOCK JAW Biaxin Allergy (Unknown, Verified 10/18/23 10:56) Unknown cefaclor [From CECLOR] Allergy (Unknown, Verified 10/18/23 10:56) UNKNOWN cephalexin [Keflex] Allergy (Unknown, Verified 10/18/23 10:56) Unknown clarithromycin [From BIAXIN] Allergy (Unknown, Verified 10/18/23 10:56) UNKNOWN lactose Allergy (Unknown, Verified 10/18/23 10:56) INTOLERANCE Sulfa (Sulfonamide Antibiotics) [SULFA (SULFONAMIDE ANTIBIOTICS)] Allergy (Unknown, Verified 10/18/23 10:56) HIVES Tobacco use date assessed: 07/15/23 Dental Screening Dental Screen Date: 07/15/23 HPI 3mo F/U Diabetic HPI Details has DM and trying diet but failing; A1C increasing and home BSs 160+ PFSH Medical History Cerebral palsy Active asthma 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 Obesity Hypertension Acute sinusitis Hyperglycemia Hyperlipidemia Viral syndrome Acute sinusitis Surgical History H/O arthroscopic knee surgery History of carpal tunnel surgery of right wrist History of dilation and curettage History of foot surgery Family History Father Hypertension Bladder cancer Diabetes Hyperlipidemia Mother Hypertension Paternal Aunt Breast cancer Paternal Grandfather Myocardial infarction Social History Household Members: Family Housing: House Are you a primary career representative to a significant other at home: No Do you presently have visiting nurse or other home services: No Alcohol intake: never Patient Tobacco Use Status: Never used Tobacco e-Cigarette/Vaping Use: Never Used Second Hand Smoke Exposure: No service: No Current occupational status: employed Cognitive needs: No Hearing needs: No Vision needs: No Questionnaire Thrive Questionnaire Date Thrive assessed: 07/15/23 CONNIE-7 AMB Questionnaire CONNIE-7 Date CONNIE - 7 assessed: 07/15/23 Source: Developed by Drs. Giorgio Espinosa, Linh Hall, Tre Wall and colleagues, with an educational juan josé from [employer]. Review of Systems Const Denies chills, Denies headache(s) and Denies weight loss ENT Denies headache(s) Card Denies chest pain, Denies syncope, Denies irregular heart rhythm and Denies dyspnea Resp Denies chest congestion, Denies cough and Denies dyspnea GI Denies abdominal pain, Denies change in stool character, Denies nausea and Denies vomiting Musc Denies deformity and Denies joint swelling Neuro Denies syncope and Denies headache(s) Physical exam (Primary Care) Vital Signs: Last Vital Signs Pulse 95 10/18/23 10:55 BP 130/80 10/18/23 10:55 Pulse Ox 98 10/18/23 10:55 Oxygen Delivery Method Room Air 10/18/23 10:55 BMI result Body Mass Index 38.0 Tobacco/Smoking Status: Tobacco use Status Tobacco use date assessed 07/15/23 10/18/23 11:00 Patient Tobacco Use Status Never used Tobacco 10/18/23 11:00 e-Cigarette/Vaping Use Never Used 10/18/23 11:00 Thrive Assessment: Date of Thrive Assessment Date Thrive assessed 07/15/23 10/18/23 11:00 Const General: cooperative, comfortable, no acute distress and alert Neck Neck: Yes no lymphadenopathy Thyroid: Thyroid normal Resp Effort & Inspection: normal respiratory effort Auscultation: clear to auscultation bilaterally Percussion: percussion normal Cardio Jugular venous distension: no JVD Palpation: normal PMI Rate: regular rate Rhythm: regular rhythm Heart sounds: S1 normal heart sound present and S2 normal heart sound present GI Inspection: Yes normal to inspection Palpation (GI): No hepatosplenomegaly present Skin General skin exam: no rashes or lesions noted Extrem General: Yes no clubbing, cyanosis or edema Assessment and Plan Assessment & Plan (1) Diabetes mellitus: Code(s): E11.9 - Type 2 diabetes mellitus without complications Plan: start rx Orders: Orders Hemoglobin A1c Today R73.9 - Hyperglycemia, unspecified Medications: New metformin 500 mg PO BID 180 tabs 8RF azithromycin take 500 mg today (day 1), then 250 mg for 4 days (days 2-5) PO 6 tabs 0RF Coding Level of Care Code Est Pt Level 3 (52423) Diagnoses Diabetes mellitus E11.9
== END 2023-10-18 11:18 | disposition home or self-care (01) ==
PROVIDERS: PCP Internal Medicine; Visit Provider Internal Medicine
DX: E11.9 Type 2 diabetes mellitus without complications (principal)
CPT/HCPCS: 99213

== ENCOUNTER 2023-11-20 16:20 | Outpatient (REF) | payer OTHER, SELFPAY ==
[2023-11-20 17:47] LABS: Estimated Average Glucose 114 mg/dL; Hemoglobin A1c % 5.6 % (<6.0)
== END 2023-11-20 16:21 | disposition home or self-care (01) ==
LOC: HO.LAB 16:20
PROVIDERS: PCP Internal Medicine; Visit Provider Internal Medicine
DX: R73.9 Hyperglycemia, unspecified (principal)
CPT/HCPCS: 36415; 83036

== ENCOUNTER 2023-11-29 11:35 | Outpatient (AMB) | payer OTHER, SELFPAY ==
[2023-11-29 11:37] VITALS: BP 132/82; PULSE 90; O2SAT 98; BMI 37.3
--- NOTE | 2023-11-29 11:37 | MHC.PC.OV ---
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 Accompanied by: Self / Same As Patient Allergies meloxicam [MELOXICAM] Allergy (Severe, Verified 11/29/23 11:37) RASH citalopram [From CELEXA] Allergy (Intermediate, Verified 11/29/23 11:37) LOCK JAW Biaxin Allergy (Unknown, Verified 11/29/23 11:37) Unknown cefaclor [From CECLOR] Allergy (Unknown, Verified 11/29/23 11:37) UNKNOWN cephalexin [Keflex] Allergy (Unknown, Verified 11/29/23 11:37) Unknown clarithromycin [From BIAXIN] Allergy (Unknown, Verified 11/29/23 11:37) UNKNOWN lactose Allergy (Unknown, Verified 11/29/23 11:37) INTOLERANCE Sulfa (Sulfonamide Antibiotics) [SULFA (SULFONAMIDE ANTIBIOTICS)] Allergy (Unknown, Verified 11/29/23 11:37) HIVES Medication List - Last Reconciled 11/29/23 by Andi Goff MD albuterol sulfate 2.5 mg (3 mL) inhalation Q6-8H PRN albuterol sulfate 90 mcg/actuation (ProAir HFA) 2 puffs inhalation Q4-6H PRN atorvastatin 40 mg PO DAILY azithromycin take 500 mg today (day 1), then 250 mg for 4 days (days 2-5) PO benzonatate 100 mg PO TID PRN blood sugar diagnostic (FreeStyle Lite Strips) As directed once per day blood-glucose meter (FreeStyle Lite Meter kit) As directed cholecalciferol (vitamin D3) 50 mcg PO DAILY fluvoxamine 200 mg (2 x 100 mg) PO BEDTIME hydroxyzine pamoate 25 mg PO TID lancets (FreeStyle Unistik 2) As directed Once per day melatonin 3 mg PO BEDTIME metformin 500 mg PO BID nabumetone 500 mg PO BID oxycodone 5 mg PO Q8H PRN topiramate 25 mg PO BEDTIME Tobacco use date assessed: 07/15/23 Dental Screening Dental Screen Date: 07/15/23 HPI 6 weeks f/u HPI Details diabetes on rx; improving; compliant [facility] Medical History Cerebral palsy Active asthma 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 Obesity Hypertension Acute sinusitis Hyperglycemia Hyperlipidemia Viral syndrome Acute sinusitis Surgical History H/O arthroscopic knee surgery History of carpal tunnel surgery of right wrist History of dilation and curettage History of foot surgery Family History Father Hypertension Bladder cancer Diabetes Hyperlipidemia Mother Hypertension Paternal Aunt Breast cancer Paternal Grandfather Myocardial infarction Social History Household Members: Family Housing: House Are you a primary health careers instructor to a significant other at home: No Do you presently have visiting nurse or other home services: No Alcohol intake: never Patient Tobacco Use Status: Never used Tobacco e-Cigarette/Vaping Use: Never Used Second Hand Smoke Exposure: No service: No Current occupational status: employed Cognitive needs: No Hearing needs: No Vision needs: No Questionnaire Thrive Questionnaire Date Thrive assessed: 07/15/23 CONNIE-7 AMB Questionnaire CONNIE-7 Date CONNIE - 7 assessed: 07/15/23 Source: Developed by Drs. Giorgio Espinosa, Linh Hall, Tre Wall and colleagues, with an educational juan josé from [employer]. Review of Systems Const Denies chills, Denies headache(s) and Denies weight loss ENT Denies headache(s) Card Denies chest pain, Denies syncope, Denies irregular heart rhythm and Denies dyspnea Resp Denies chest congestion, Denies cough and Denies dyspnea GI Denies abdominal pain, Denies change in stool character, Denies nausea and Denies vomiting Musc Denies deformity and Denies joint swelling Neuro Denies syncope and Denies headache(s) Physical exam (Primary Care) Vital Signs: Last Vital Signs Pulse 90 11/29/23 11:37 BP 132/82 11/29/23 11:37 Pulse Ox 98 11/29/23 11:37 Oxygen Delivery Method Room Air 11/29/23 11:37 BMI result Body Mass Index 37.3 Tobacco/Smoking Status: Tobacco use Status Tobacco use date assessed 07/15/23 11/29/23 11:41 Patient Tobacco Use Status Never used Tobacco 11/29/23 11:41 e-Cigarette/Vaping Use Never Used 11/29/23 11:41 Thrive Assessment: Date of Thrive Assessment Date Thrive assessed 07/15/23 11/29/23 11:41 Const General: cooperative, comfortable, no acute distress and alert Neck Neck: Yes no lymphadenopathy Thyroid: Thyroid normal Resp Effort & Inspection: normal respiratory effort Auscultation: clear to auscultation bilaterally Percussion: percussion normal Cardio Jugular venous distension: no JVD Palpation: normal PMI Rate: regular rate Rhythm: regular rhythm Heart sounds: S1 normal heart sound present and S2 normal heart sound present GI Inspection: Yes normal to inspection Palpation (GI): No hepatosplenomegaly present Skin General skin exam: no rashes or lesions noted Extrem General: Yes no clubbing, cyanosis or edema Assessment and Plan Assessment & Plan (1) Diabetes mellitus: Code(s): E11.9 - Type 2 diabetes mellitus without complications Plan: stable; same rx; do labs Orders: Orders Lipid Panel Today Z13.220 - Encounter for screening for lipoid disorders Glucose Fasting Today R73.9 - Hyperglycemia, unspecified Hemoglobin A1c Today R73.9 - Hyperglycemia, unspecified Medications: Refilled fluvoxamine 200 mg (2 x 100 mg) PO BEDTIME 180 tabs 3RF Coding Level of Care Code Est Pt Level 3 (98469) Diagnoses Diabetes mellitus E11.9
== END 2023-11-29 11:54 | disposition home or self-care (01) ==
PROVIDERS: PCP Internal Medicine; Visit Provider Internal Medicine
DX: E11.9 Type 2 diabetes mellitus without complications (principal)
CPT/HCPCS: 99213

== ENCOUNTER 2024-01-14 13:56 | Outpatient (AMB) | payer OTHER, SELFPAY ==
--- NOTE | 2024-01-14 13:57 | A.OFFPC_ITS ---
Vital Signs 01/14/24 13:58 Height 5 ft 2 in Weight 199 lb BMI 36.4 BP 134/78 Blood Pressure Location Lt brachial Position Sitting Pulse 94 Pulse Source Pulse Oximeter Pulse Oximetry (%) 95 Oxygen Delivery Method Room Air Intake Visit Reasons: 01/[address] [place] [address] [facility] [place] Cementer Required: No Allergies meloxicam [MELOXICAM] Allergy (Severe, Verified 01/14/24 14:05) RASH citalopram [From CELEXA] Allergy (Intermediate, Verified 01/14/24 14:05) LOCK JAW Biaxin Allergy (Unknown, Verified 01/14/24 14:05) Unknown cefaclor [From CECLOR] Allergy (Unknown, Verified 01/14/24 14:05) UNKNOWN cephalexin [Keflex] Allergy (Unknown, Verified 01/14/24 14:05) Unknown clarithromycin [From BIAXIN] Allergy (Unknown, Verified 01/14/24 14:05) UNKNOWN lactose Allergy (Unknown, Verified 01/14/24 14:05) INTOLERANCE Sulfa (Sulfonamide Antibiotics) [SULFA (SULFONAMIDE ANTIBIOTICS)] Allergy (Unknown, Verified 01/14/24 14:05) HIVES Medication List - Last Reconciled 01/15/24 by Andi Goff MD albuterol sulfate 2.5 mg (3 mL) inhalation Q6-8H PRN albuterol sulfate 90 mcg/actuation (ProAir HFA) 2 puffs inhalation Q4-6H PRN atorvastatin 40 mg PO DAILY benzonatate 100 mg PO TID PRN blood sugar diagnostic (FreeStyle Lite Strips) As directed once per day blood-glucose meter (FreeStyle Lite Meter kit) As directed cholecalciferol (vitamin D3) 50 mcg PO DAILY fluvoxamine 200 mg (2 x 100 mg) PO BEDTIME hydroxyzine pamoate 25 mg PO TID lancets (FreeStyle Unistik 2) As directed Once per day melatonin 3 mg PO BEDTIME metformin 500 mg PO BID nabumetone 500 mg PO BID oxycodone 5 mg PO Q8H PRN topiramate 25 mg PO BEDTIME topiramate XR 50 mg PO DAILY Tobacco use date assessed: 07/15/23 Dental Screening Dental Screen Date: 01/14/24 Did you have a dental visit in the last 12 months?: Yes Did you have a dental problem in the last 6 months where you did not have access to dental care?: No Was dental information given to patient?: Patient has dentist HPI 01/05 [facility] HPI Details developed a neurological condition with leg wekness and paresthesia on the right with confusion; seeing neurology for w/u; possible MS TCM TCM Information Date of Discharge 01/03/24 Discharged From Other ([facility]) [facility] Medical History Cerebral palsy Active asthma 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 Obesity Hypertension Acute sinusitis Hyperglycemia Hyperlipidemia Viral syndrome Acute sinusitis Surgical History H/O arthroscopic knee surgery History of carpal tunnel surgery of right wrist History of dilation and curettage History of foot surgery Family History Father Hypertension Bladder cancer Diabetes Hyperlipidemia Mother Hypertension Paternal Aunt Breast cancer Paternal Grandfather Myocardial infarction Social History (System 12/23/23 @ 15:29 by Cally Carlson) Household Members: Family Housing: House Are you a primary senior care specialist to a significant other at home: No Do you presently have visiting nurse or other home services: No Alcohol intake: never Patient Tobacco Use Status: Never used Tobacco e-Cigarette/Vaping Use: Never Used Second Hand Smoke Exposure: No service: No Current occupational status: employed Cognitive needs: No Hearing needs: No Vision needs: No Questionnaire PHQ-9 Over the last 2 weeks, how often have you been bothered by any of the following problems? 1. Little interest or pleasure in doing things: more than half the days 2. Feeling down, depressed, or hopeless: several days 3. Trouble falling or staying asleep, or sleeping too much: several days 4. Feeling tired or having little energy: several days 5. Poor appetite or overeating: several days 6. Feeling bad about yourself - or that you are a failure or have let yourself or your family down: not at all 7. Trouble concentrating on things, such as reading the newspaper or watching television: more than half the days 8. Moving or speaking so slowly that other people could have noticed. Or the opposite - being so fidgety or restless that you have been moving around a lot more than usual: not at all 9. Thoughts that you would be better off or of hurting yourself in some way: not at all Total score: 8 Depression Screening Interpretation: Positive Depression Screening Follow-up: In treatment Depression Screening Done: Yes 96309 - PHQ-9 Billing: Yes Source: Developed by Drs. Giorgio Espinosa, Linh Hall, Tre Wall and colleagues, with an educational juan josé from [employer]. Thrive Questionnaire Date Thrive assessed: 07/15/23 CONNIE-7 AMB Questionnaire CONNIE-7 Date CONNIE - 7 assessed: 01/14/24 Feeling nervous, anxious, or on edge: 2 = More than half the days Not being able to stop or control worryin = Not at all Worrying too much about different things: 2 = More than half the days Trouble relaxin = More than half the days Being so restless that it is hard to sit still: 0 = Not at all Becoming easily annoyed or irritable: 3 = Nearly every day Feeling afraid as if something awful might happen: 1 = Several days Total CONNIE-7 score (0-4 normal; 5-9 mild; 10-14 moderate; 15-21 severe): 10 Source: Developed by Drs. Giorgio Espinosa, Linh Hall, Tre Wall and colleagues, with an educational juan josé from [employer]. CONNIE-7 Assessment Billing CONNIE-7 Assessment Tool: CONNIE-7 Assessment 05399 Review of Systems Const Denies chills, Denies headache(s) and Denies weight loss ENT Denies headache(s) Card Denies chest pain, Denies syncope, Denies irregular heart rhythm and Denies dyspnea Resp Denies chest congestion, Denies cough and Denies dyspnea GI Denies abdominal pain, Denies change in stool character, Denies nausea and Denies vomiting Musc Denies deformity and Denies joint swelling Neuro Denies syncope and Denies headache(s) Physical exam (Primary Care) Vital Signs: Last Vital Signs Pulse 94 01/14/24 13:58 BP 134/78 01/14/24 13:58 Pulse Ox 95 01/14/24 13:58 Oxygen Delivery Method Room Air 01/14/24 13:58 BMI result Body Mass Index 36.4 Tobacco/Smoking Status: Tobacco use Status Tobacco use date assessed 07/15/23 01/14/24 13:59 Patient Tobacco Use Status Never used Tobacco 01/14/24 13:59 e-Cigarette/Vaping Use Never Used 01/14/24 13:59 PHQ-9: PHQ-9 Score PHQ-9: Total score 8 01/14/24 14:11 Depression Screening Interpretation: Positive Depression Screening Follow-up: In treatment Thrive Assessment: Date of Thrive Assessment Date Thrive assessed 07/15/23 01/14/24 13:59 Const General: cooperative, comfortable, no acute distress and alert Neck Neck: Yes no lymphadenopathy Thyroid: Thyroid normal Resp Effort & Inspection: normal respiratory effort Auscultation: clear to auscultation bilaterally Percussion: percussion normal Cardio Jugular venous distension: no JVD Palpation: normal PMI Rate: regular rate Rhythm: regular rhythm Heart sounds: S1 normal heart sound present and S2 normal heart sound present GI Inspection: Yes normal to inspection Palpation (GI): No hepatosplenomegaly present Skin General skin exam: no rashes or lesions noted Extrem General: Yes no clubbing, cyanosis or edema Assessment and Plan Assessment & Plan (1) Confusion: Code(s): R41.0 - Disorientation, unspecified Plan: f/u per neuro Orders: Orders PT Evaluation and Treatment 01/14/24 I63.9 - Cerebral infarction, unspecified Medications: New topiramate XR 50 mg PO DAILY 60 caps 0RF Coding Level of Care Code Est Pt Level 3 (68396) Diagnoses Confusion R41.0 Additional Codes CONNIE-7 Assessment Billing - CONNIE-7 Assessment Tool: CONNIE-7 Assessment 40003 ([id number])
[2024-01-14 13:58] VITALS: BP 134/78; PULSE 94; O2SAT 95; BMI 36.4
== END 2024-01-14 14:28 | disposition home or self-care (01) ==
PROVIDERS: PCP Internal Medicine; Visit Provider Internal Medicine
DX: R41.0 Disorientation, unspecified (principal)
CPT/HCPCS: 99213

== ENCOUNTER 2024-01-21 11:33 | Outpatient (REF) | payer OTHER, SELFPAY ==
[2024-01-21 12:03] LABS: Estimated Average Glucose 103 mg/dL; Hemoglobin A1c % 5.2 % (<6.0)
[2024-01-21 12:17] LABS: Cholesterol 131 mg/dL (<200); Glucose Fasting 116 mg/dL (60-99); HDL Cholesterol 40 mg/dL (>40); LDL Cholesterol Calculated 76 mg/dL (<100); Triglycerides 78 mg/dL (<150)
== END 2024-01-21 11:34 | disposition home or self-care (01) ==
LOC: HO.LAB 11:33
PROVIDERS: PCP Internal Medicine; Visit Provider Internal Medicine
DX: R73.9 Hyperglycemia, unspecified (principal); Z13.220 Encounter for screening for lipoid disorders
CPT/HCPCS: 36415; 80061; 82947; 83036

== ENCOUNTER 2024-01-23 13:17 | Outpatient (AMB) | payer OTHER, SELFPAY ==
[2024-01-23 13:18] VITALS: BP 126/74; PULSE 102; O2SAT 102; BMI 37.1
--- NOTE | 2024-01-23 13:18 | MHC.PC.OV ---
Vital Signs 01/23/24 13:18 Height 5 ft 2 in Weight 203 lb BMI 37.1 BP 126/74 Blood Pressure Location Lt brachial Position Sitting Pulse 102 H Pulse Source Pulse Oximeter Pulse Oximetry (%) 102 H Oxygen Delivery Method Room Air Intake Visit Reasons: Annual PE [place]razer Required: No Accompanied by: Self / Same As Patient Allergies meloxicam [MELOXICAM] Allergy (Severe, Verified 01/23/24 13:21) RASH citalopram [From CELEXA] Allergy (Intermediate, Verified 01/23/24 13:21) LOCK JAW Biaxin Allergy (Unknown, Verified 01/23/24 13:21) Unknown cefaclor [From CECLOR] Allergy (Unknown, Verified 01/23/24 13:21) UNKNOWN cephalexin [Keflex] Allergy (Unknown, Verified 01/23/24 13:21) Unknown clarithromycin [From BIAXIN] Allergy (Unknown, Verified 01/23/24 13:21) UNKNOWN lactose Allergy (Unknown, Verified 01/23/24 13:21) INTOLERANCE Sulfa (Sulfonamide Antibiotics) [SULFA (SULFONAMIDE ANTIBIOTICS)] Allergy (Unknown, Verified 01/23/24 13:21) HIVES Medication List - Last Reconciled 01/24/24 by Andi Goff MD albuterol sulfate 2.5 mg (3 mL) inhalation Q6-8H PRN albuterol sulfate 90 mcg/actuation (ProAir HFA) 2 puffs inhalation Q4-6H PRN atorvastatin 40 mg PO DAILY benzonatate 100 mg PO TID PRN blood sugar diagnostic (FreeStyle Lite Strips) As directed once per day blood-glucose meter (FreeStyle Lite Meter kit) As directed cholecalciferol (vitamin D3) 50 mcg PO DAILY fluvoxamine 200 mg (2 x 100 mg) PO BEDTIME hydroxyzine pamoate 25 mg PO TID lancets (FreeStyle Unistik 2) As directed Once per day melatonin 3 mg PO BEDTIME metformin 500 mg PO BID nabumetone 500 mg PO BID oxycodone 5 mg PO Q8H PRN topiramate 25 mg PO BEDTIME topiramate XR 50 mg PO DAILY Tobacco use date assessed: 07/15/23 Dental Screening Dental Screen Date: 01/14/24 HPI Annual PE HPI Details diabetes hyperlipidemia and migraine headaches; sees neuro PFSH Medical History Cerebral palsy Active asthma 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 Obesity Hypertension Acute sinusitis Hyperglycemia Hyperlipidemia Viral syndrome Acute sinusitis Surgical History H/O arthroscopic knee surgery History of carpal tunnel surgery of right wrist History of dilation and curettage History of foot surgery Family History Father Hypertension Bladder cancer Diabetes Hyperlipidemia Mother Hypertension Paternal Aunt Breast cancer Paternal Grandfather Myocardial infarction Social History (System 12/23/23 @ 15:29 by Cally Carlson) Household Members: Family Housing: House Are you a primary healthcare insurance sales agent to a significant other at home: No Do you presently have visiting nurse or other home services: No Alcohol intake: never Patient Tobacco Use Status: Never used Tobacco Tobacco use type: Cigarette e-Cigarette/Vaping Use: Never Used Second Hand Smoke Exposure: No service: No Current occupational status: employed Cognitive needs: No Hearing needs: No Vision needs: No Questionnaire PHQ-9 Over the last 2 weeks, how often have you been bothered by any of the following problems? 1. Little interest or pleasure in doing things: more than half the days 2. Feeling down, depressed, or hopeless: several days 3. Trouble falling or staying asleep, or sleeping too much: several days 4. Feeling tired or having little energy: several days 5. Poor appetite or overeating: several days 6. Feeling bad about yourself - or that you are a failure or have let yourself or your family down: not at all 7. Trouble concentrating on things, such as reading the newspaper or watching television: more than half the days 8. Moving or speaking so slowly that other people could have noticed. Or the opposite - being so fidgety or restless that you have been moving around a lot more than usual: not at all 9. Thoughts that you would be better off or of hurting yourself in some way: not at all Total score: 8 Depression Screening Interpretation: Positive Depression Screening Follow-up: In treatment Depression Screening Done: Yes 09771 - PHQ-9 Billing: Yes Source: Developed by Drs. Giorgio LLinh Neff Kurt Kroenke and colleagues, with an educational juan josé from [employer]. Thrive Questionnaire Date Thrive assessed: 07/15/23 I am a: Patient What is your living situation today?: I have a steady place to live Within the past 12 months, did the food you bought not last and you didn't have the money to get more?: Never true Within the past 12 months, did you worry whether your food would run out before you got money to buy more?: Never true Do you have trouble paying for medicines?: No Do you have trouble getting transportation to medical appointments?: No Do you have trouble paying your heating and electricity bill?: No Do you have trouble taking care of your child, family member or friend?: No Do you have trouble with day-to-day activities such as bathing, preparing meals, shopping, managing finances, etc.?: No Are you currently unemployed and looking for a job?: No Are you interested in more education?: No Please select the resources that you would like help with: None Currently or been in a relationship where the following occur: No concerns reported THRIVE Score: 0 AUDIT C Alcohol Use Questionnaire (AUDIT-C) 1. How often do you have a drink containing alcohol?: Never Total Score: 0 CONNIE-7 AMB Questionnaire CONNIE-7 Date CONNIE - 7 assessed: 01/14/24 Feeling nervous, anxious, or on edge: 1 = Several days Not being able to stop or control worryin = Several days Worrying too much about different things: 1 = Several days Trouble relaxin = Several days Being so restless that it is hard to sit still: 1 = Several days Becoming easily annoyed or irritable: 1 = Several days Feeling afraid as if something awful might happen: 1 = Several days Total CONNIE-7 score (0-4 normal; 5-9 mild; 10-14 moderate; 15-21 severe): 7 Source: Developed by Drs. Giorgio Espinosa, Tre Amato and colleagues, with an educational juan josé from [employer]. CONNIE-7 Assessment Billing CONNIE-7 Assessment Tool: CONNIE-7 Assessment 48536 Review of Systems Const Denies chills, Denies fatigue, Denies headache(s) and Denies weight loss Eyes Denies change in vision, Denies diplopia and Denies eye pain ENT Denies vertigo, Denies dizziness, Denies headache(s) and Denies nasal discharge Card Denies chest pain, Denies rapid heart rate and Denies dyspnea on exertion Resp Denies chest congestion, Denies cough, Denies pain with cough and Denies dyspnea on exertion GI Denies abdominal pain, Denies hematochezia and Denies change in bowel habits Musc Denies myalgias, Denies arthralgias and Denies joint swelling Skin/Breast Denies lesions and Denies unusual bruising Neuro Denies vertigo, Denies dizziness, Denies headache(s) and Denies focal weakness Endo Denies fatigue Physical exam (Primary Care) Vital Signs: Last Vital Signs Pulse 102 H 01/23/24 13:18 BP 126/74 01/23/24 13:18 Pulse Ox 102 H 01/23/24 13:18 Oxygen Delivery Method Room Air 01/23/24 13:18 BMI result Body Mass Index 37.1 Tobacco/Smoking Status: Tobacco use Status Tobacco use date assessed 07/15/23 01/23/24 13:19 Patient Tobacco Use Status Never used Tobacco 01/23/24 13:19 Tobacco use type Cigarette 01/23/24 13:22 e-Cigarette/Vaping Use Never Used 01/23/24 13:19 PHQ-9: PHQ-9 Score PHQ-9: Total score 8 01/23/24 13:22 Depression Screening Interpretation: Positive Depression Screening Follow-up: In treatment Thrive Assessment: Date of Thrive Assessment Date Thrive assessed 07/15/23 01/23/24 13:19 Currently or been in a relationship where the following occur: No concerns reported Const General: cooperative, healthy appearing and no acute distress Orientation/consciousness: oriented to person, oriented to place and oriented to time [facility] Head: Yes normal to inspection, Yes normocephalic and Yes atraumatic Mouth: Normal oral and palatal mucosa present and tongue normal Throat: Yes posterior oropharynx normal and Yes uvula midline Eyes General: appearance normal, both eyes and all related structures Neck Neck: Yes normal visual inspection, Yes full ROM and Yes no lymphadenopathy Thyroid: Thyroid normal Carotids: normal carotid upstroke Chest Chest palpation & inspection: normal inspection of the chest Resp Effort & Inspection: normal respiratory effort and able to speak in complete sentences Auscultation: clear to auscultation bilaterally Cardio Jugular venous distension: no JVD Palpation: normal PMI Rate: regular rate Rhythm: regular rhythm Heart sounds: S1 normal heart sound present and S2 normal heart sound present GI Inspection: Yes normal to inspection Palpation (GI): Soft to palpation and No hepatosplenomegaly present Auscultation: normal bowel sounds General: Yes no CVA tenderness Back/Spine/Pelvis Back: no CVA tenderness Skin General skin exam: no rashes or lesions noted Neuro General: oriented to person, oriented to place and oriented to time Extrem General: Yes normal to inspection and Yes full ROM Assessment and Plan Assessment & Plan (1) Physical exam: Code(s): Z00.00 - Encounter for general adult medical examination without abnormal findings Plan: stable (2) Diabetes mellitus: Code(s): E11.9 - Type 2 diabetes mellitus without complications Plan: stable; same rx; do labs (3) Hyperlipidemia: Code(s): E78.5 - Hyperlipidemia, unspecified Plan: stable; same rx; do labs (4) Migraine headache: Code(s): G43.909 - Migraine, unspecified, not intractable, without status migrainosus Plan: per neuro Orders: Orders Glucose Fasting Today R73.9 - Hyperglycemia, unspecified Lipid Panel Today Z13.220 - Encounter for screening for lipoid disorders Hemoglobin A1c Today R73.9 - Hyperglycemia, unspecified Coding Level of Care Code Est Pt Prev Care 40-64y(07985) Diagnoses Physical exam Z00.00 Diabetes mellitus E11.9 Hyperlipidemia E78.5 Migraine headache G43.909 Additional Codes CONNIE-7 Assessment Billing - CONNIE-7 Assessment Tool: CONNIE-7 Assessment 07709 ([id number])
== END 2024-01-23 13:49 | disposition home or self-care (01) ==
PROVIDERS: PCP Internal Medicine; Visit Provider Internal Medicine
DX: Z00.00 Encounter for general adult medical examination without abnormal findings (principal); E11.69 Type 2 diabetes mellitus with other specified complication; E78.5 Hyperlipidemia, unspecified; G43.909 Migraine, unspecified, not intractable, without status migrainosus
CPT/HCPCS: 99396

== ENCOUNTER 2024-03-26 13:30 | Outpatient (AMB) | payer OTHER, SELFPAY ==
[2024-03-26 13:32] VITALS: BP 136/70; PULSE 100; O2SAT 96; BMI 37.3
--- NOTE | 2024-03-26 13:32 | A.OFFPC_ITS ---
Vital Signs 03/26/24 13:32 Height 5 ft 2 in Weight 204 lb BMI 37.3 BP 136/70 Blood Pressure Location Lt brachial Position Sitting Pulse 100 Pulse Source Pulse Oximeter Pulse Oximetry (%) 96 Oxygen Delivery Method Room Air Intake Visit Reasons: Sick visit (adolescent/adult) Intake Note: PT reports severe migraines, coughing, sneezing. She feels like it is all in her chest and has been coughing up green mucus. ALso taking celebrex for another issue but is nsure of mg. 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: No Allergies meloxicam [MELOXICAM] Allergy (Severe, Verified 03/26/24 13:32) RASH citalopram [From CELEXA] Allergy (Intermediate, Verified 03/26/24 13:32) LOCK JAW Biaxin Allergy (Unknown, Verified 03/26/24 13:32) Unknown cefaclor [From CECLOR] Allergy (Unknown, Verified 03/26/24 13:32) UNKNOWN cephalexin [Keflex] Allergy (Unknown, Verified 03/26/24 13:32) Unknown clarithromycin [From BIAXIN] Allergy (Unknown, Verified 03/26/24 13:32) UNKNOWN lactose Allergy (Unknown, Verified 03/26/24 13:32) INTOLERANCE Sulfa (Sulfonamide Antibiotics) [SULFA (SULFONAMIDE ANTIBIOTICS)] Allergy (Unknown, Verified 03/26/24 13:32) HIVES Medication List - Last Reconciled 03/26/24 by Andi Goff MD albuterol sulfate 2.5 mg (3 mL) inhalation Q6-8H PRN albuterol sulfate 90 mcg/actuation (ProAir HFA) 2 puffs inhalation Q4-6H PRN atorvastatin 40 mg PO DAILY azithromycin take 500 mg today (day 1), then 250 mg for 4 days (days 2-5) PO benzonatate 100 mg PO TID PRN blood sugar diagnostic (FreeStyle Lite Strips) As directed once per day blood-glucose meter (FreeStyle Lite Meter kit) As directed cholecalciferol (vitamin D3) 50 mcg PO DAILY fluvoxamine 200 mg (2 x 100 mg) PO BEDTIME hydroxyzine pamoate 25 mg PO TID lancets (FreeStyle Unistik 2) As directed Once per day melatonin 3 mg PO BEDTIME metformin 500 mg PO BID nabumetone 500 mg PO BID oxycodone 5 mg PO Q8H PRN topiramate XR 50 mg PO DAILY verapamil ER 120 mg PO DAILY Tobacco use date assessed: 07/15/23 Dental Screening Dental Screen Date: 01/14/24 HPI Sick visit (adolescent/adult) HPI Details productive cough for a week; congested PFSH Medical History Cerebral palsy Active asthma 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 Obesity Hypertension Acute sinusitis Hyperglycemia Hyperlipidemia Viral syndrome Acute sinusitis Surgical History H/O arthroscopic knee surgery History of carpal tunnel surgery of right wrist History of dilation and curettage History of foot surgery Family History Father Hypertension Bladder cancer Diabetes Hyperlipidemia Mother Hypertension Paternal Aunt Breast cancer Paternal Grandfather Myocardial infarction Social History (System 12/23/23 @ 15:29 by Cally Carlson) Household Members: Family Housing: House Are you a primary child care sitter to a significant other at home: No Do you presently have visiting nurse or other home services: No Alcohol intake: never Patient Tobacco Use Status: Never used Tobacco Tobacco use type: Cigarette e-Cigarette/Vaping Use: Never Used Second Hand Smoke Exposure: No service: No Current occupational status: employed Cognitive needs: No Hearing needs: No Vision needs: No Questionnaire Thrive Questionnaire Date Thrive assessed: 01/23/24 I am a: Patient What is your living situation today?: I have a steady place to live Within the past 12 months, did the food you bought not last and you didn't have the money to get more?: Never true Within the past 12 months, did you worry whether your food would run out before you got money to buy more?: Never true Do you have trouble paying for medicines?: No Do you have trouble getting transportation to medical appointments?: No Do you have trouble paying your heating and electricity bill?: No Do you have trouble taking care of your child, family member or friend?: No Do you have trouble with day-to-day activities such as bathing, preparing meals, shopping, managing finances, etc.?: No Are you currently unemployed and looking for a job?: No Are you interested in more education?: No Please select the resources that you would like help with: None Currently or been in a relationship where the following occur: No concerns reported THRIVE Score: 0 CONNIE-7 AMB Questionnaire CONNIE-7 Date CONNIE - 7 assessed: 01/14/24 Source: Developed by Drs. Giorgio Espinosa, Linh Hall, Tre Wall and colleagues, with an educational juan josé from [employer]. Review of Systems Const Denies chills, Denies headache(s) and Denies weight loss ENT Denies headache(s) Card Denies chest pain, Denies syncope, Denies irregular heart rhythm and Denies dyspnea Resp Denies dyspnea GI Denies abdominal pain, Denies change in stool character, Denies nausea and Denies vomiting Musc Denies deformity and Denies joint swelling Neuro Denies syncope and Denies headache(s) Physical exam (Primary Care) Vital Signs: Last Vital Signs Pulse 100 03/26/24 13:32 BP 136/70 03/26/24 13:32 Pulse Ox 96 03/26/24 13:32 Oxygen Delivery Method Room Air 03/26/24 13:32 BMI result Body Mass Index 37.3 Tobacco/Smoking Status: Tobacco use Status Tobacco use date assessed 07/15/23 03/26/24 13:40 Patient Tobacco Use Status Never used Tobacco 03/26/24 13:40 Tobacco use type Cigarette 03/26/24 13:40 e-Cigarette/Vaping Use Never Used 03/26/24 13:40 Thrive Assessment: Date of Thrive Assessment Date Thrive assessed 01/23/24 03/26/24 13:40 Currently or been in a relationship where the following occur: No concerns reported Const General: cooperative, comfortable, no acute distress and alert Neck Neck: Yes no lymphadenopathy Thyroid: Thyroid normal Resp Effort & Inspection: normal respiratory effort Auscultation: clear to auscultation bilaterally Percussion: percussion normal Cardio Jugular venous distension: no JVD Palpation: normal PMI Rate: regular rate Rhythm: regular rhythm Heart sounds: S1 normal heart sound present and S2 normal heart sound present GI Inspection: Yes normal to inspection Palpation (GI): No hepatosplenomegaly present Skin General skin exam: no rashes or lesions noted Extrem General: Yes no clubbing, cyanosis or edema Coding Level of Care Code Est Pt Level 3 (68587) Diagnoses Cough R05.9 Assessment & Plan Assessment & Plan (1) Cough: Code(s): R05.9 - Cough, unspecified Plan: rx sent Medications: New azithromycin take 500 mg today (day 1), then 250 mg for 4 days (days 2-5) PO 6 tabs 0RF
== END 2024-03-26 13:48 | disposition home or self-care (01) ==
LOC: HO.HMCH 13:31
PROVIDERS: PCP Internal Medicine; Visit Provider Internal Medicine
DX: R05.9 Cough, unspecified (principal)

== ENCOUNTER → 2024-03-26 13:30 | Outpatient (BNVA) | payer OTHER, SELFPAY | PROVIDERS: PCP Internal Medicine; Visit Provider Internal Medicine ==

== ENCOUNTER 2024-04-04 10:19 | Outpatient (REF) | payer OTHER, SELFPAY ==
[2024-04-04 11:18] LABS: Estimated Average Glucose 114 mg/dL; Hemoglobin A1C 137.6888 umol/L; Hemoglobin A1c % 5.6 % (<6.0); Total Hemoglobin (HGBA1C) 3696.2627 umol/L
[2024-04-04 11:41] LABS: Cholesterol 124 mg/dL (<200); Glucose Fasting 116 mg/dL (60-99); HDL Cholesterol 45 mg/dL (>40); LDL Cholesterol Calculated 63 mg/dL (<100); Triglycerides 82 mg/dL (<150)
== END 2024-04-04 10:20 | disposition home or self-care (01) ==
LOC: HO.LAB 10:19
PROVIDERS: PCP Internal Medicine; Visit Provider Internal Medicine
DX: R73.9 Hyperglycemia, unspecified (principal); Z13.220 Encounter for screening for lipoid disorders
CPT/HCPCS: 36415; 80061; 82947; 83036

== ENCOUNTER 2024-04-13 15:52 | Outpatient (RCR) | payer OTHER, SELFPAY ==
--- NOTE | 2024-01-17 13:49 | MHC.PT.EP ---
[facility] Office [place] Office [place] Office [address] Shaniqua Lopez [address] [phone] F: [phone] F: [phone] F: [phone] F: [phone] Physical Therapy Plan of Care Date of Evaluation: 01/17/24 Date of Surgery: N/A Diagnosis: Referring dx of CVA (RL) Assessment: pt is a y/o male presenting to physical therapy w/ referring diagnosis of CVA. Per pt and her mother she is still getting worked up for true source of symptoms. Current working diagnoses include CVA vs. TIA vs. LOTT/migraine vs. MS. Impairments include pain, decreased range of motion, decreased strength, impaired functional mobility, impaired postural awareness, and altered ambulation mechanics. pt is a good candidate for skilled PT due to age, potential remediation of impairments, typical disease/condition progression and prognosis, comorbidities, and motivation. pt would benefit from skilled PT intervention to provide a tailored strengthening and stretching exercise program, functional training, gait training, postural re-training, neuromuscular re-education, modalities as needed for pain, equipment safety demonstration. Frequency and Duration: The patient will be seen 2/wk for 8 weeks Short Term Goals: pt will be I w/ HEP to promote self-management of condition. pt will improve R shoulder flexion and abduction by at least 10* to promote ease in reaching for objects on higher shelves. pt will improve R shoulder flexion and abduction strength by 1 MMT grade to promote ease in carrying 10# (groceries). Alf Goals: pt will report a statistically significant improvement in self-reported outcome measures, LEFI and SPADI, to promote return to PLOF. pt will tolerate standing w/o AD for >15 minutes to promote ease in meal prep to reduce caregiver burden. pt will participate in LE screening to determine needs for PT intervention to promote return to PLOF. Treatment Plan: Modalities to reduce pain, spasms and effusion. Manual therapy to restore motion and function. Therapeutic exercise to improve strength and flexibility. Neuromuscular re-education for posture and balance. Therapeutic activities to return to functional activities of daily living. Electronically signed by: Daisy Burch PT, DPT Please sign and return to therapist. Thank you for your referral.
--- NOTE | 2024-04-27 12:24 | MHC.PT.DC ---
[facility] [place] Office [place] Office [place] Office [address] [phone] F: [phone] F: [phone] F: [phone] F: [phone] Physical Therapy Discharge Report Diagnosis: Referring dx of CVA (RL) Date of Surgery: N/A Date of Evaluation: 01/17/24 Date of Discharge: 04/27/24 Treatments to Date: 22 Cancellations to Date: 1 No Shows to Date: 0 Discharge Status: Improved Function Independent with HEP Discharge Summary: The patient overall has made significant gains regarding her right arm and leg function. She has been experiencing less arm pain but migraines persist. She is seeing a neurologist to help manage her migraine symptoms. At this time, she is independent with her home exercise program and is discharged with the recommendation to continue with her program. She is discharged from this physical therapy plan of care. Electronically signed by: Daisy Burch PT, DPT Please sign and return to therapist. Thank you for your referral.
== END 2024-04-27 12:24 | disposition home or self-care (01) ==
LOC: HO.PT 15:52
PROVIDERS: PCP Internal Medicine; Visit Provider Internal Medicine
DX: I63.9 Cerebral infarction, unspecified (principal)
CPT/HCPCS: 97110; 97112; 97140; 97163

== ENCOUNTER 2024-05-08 10:40 | Outpatient (AMB) | payer OTHER, SELFPAY ==
[2024-05-08 10:42] VITALS: BP 130/82; PULSE 100; O2SAT 96; BMI 36.8
--- NOTE | 2024-05-08 10:42 | MHC.PC.OV ---
Vital Signs 05/08/24 10:42 Height 5 ft 2 in Weight 201 lb BMI 36.8 BP 130/82 Blood Pressure Location Lt brachial Position Sitting Pulse 100 Pulse Source Pulse Oximeter Pulse Oximetry (%) 96 Oxygen Delivery Method Room Air Intake Visit Reasons: 3M follow Allergies meloxicam [MELOXICAM] Allergy (Severe, Verified 05/08/24 10:43) RASH citalopram [From CELEXA] Allergy (Intermediate, Verified 05/08/24 10:43) LOCK JAW Biaxin Allergy (Unknown, Verified 05/08/24 10:43) Unknown cefaclor [From CECLOR] Allergy (Unknown, Verified 05/08/24 10:43) UNKNOWN cephalexin [Keflex] Allergy (Unknown, Verified 05/08/24 10:43) Unknown clarithromycin [From BIAXIN] Allergy (Unknown, Verified 05/08/24 10:43) UNKNOWN lactose Allergy (Unknown, Verified 05/08/24 10:43) INTOLERANCE Sulfa (Sulfonamide Antibiotics) [SULFA (SULFONAMIDE ANTIBIOTICS)] Allergy (Unknown, Verified 05/08/24 10:43) HIVES Medication List - Last Reconciled 05/11/24 by Andi Goff MD albuterol sulfate 2.5 mg (3 mL) inhalation Q6-8H PRN albuterol sulfate 90 mcg/actuation (ProAir HFA) 2 puffs inhalation Q4-6H PRN atorvastatin 40 mg PO DAILY blood sugar diagnostic (FreeStyle Lite Strips) As directed once per day blood-glucose meter (FreeStyle Lite Meter kit) As directed celecoxib (Celebrex) 100 mg PO BID cholecalciferol (vitamin D3) 50 mcg PO DAILY fluvoxamine 200 mg (2 x 100 mg) PO BEDTIME hydroxyzine pamoate 25 mg PO TID lancets (FreeStyle Unistik 2) As directed Once per day metformin 500 mg PO BID nabumetone 500 mg PO BID rizatriptan take 1 tablet at onset of headache; if no relief, may repeat 1 tablet after at least 2 hrs PO topiramate XR 50 mg PO DAILY verapamil ER 120 mg PO BID Tobacco use date assessed: 07/15/23 Dental Screening Dental Screen Date: 01/14/24 HPI 3M follow HPI Details DM on rx; compliant on regimen PFSH Medical History Cerebral palsy Active asthma 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 Obesity Hypertension Acute sinusitis Hyperglycemia Hyperlipidemia Viral syndrome Acute sinusitis Surgical History H/O arthroscopic knee surgery History of carpal tunnel surgery of right wrist History of dilation and curettage History of foot surgery Family History Father Hypertension Bladder cancer Diabetes Hyperlipidemia Mother Hypertension Paternal Aunt Breast cancer Paternal Grandfather Myocardial infarction Social History (System 12/23/23 @ 15:29 by Cally Carlson) Household Members: Family Housing: House Are you a primary care management associate to a significant other at home: No Do you presently have visiting nurse or other home services: No Alcohol intake: never Patient Tobacco Use Status: Never used Tobacco Tobacco use type: Cigarette e-Cigarette/Vaping Use: Never Used Second Hand Smoke Exposure: No service: No Current occupational status: employed Cognitive needs: No Hearing needs: No Vision needs: No Questionnaire PHQ-9 Over the last 2 weeks, how often have you been bothered by any of the following problems? 1. Little interest or pleasure in doing things: more than half the days 2. Feeling down, depressed, or hopeless: several days 3. Trouble falling or staying asleep, or sleeping too much: several days 4. Feeling tired or having little energy: several days 5. Poor appetite or overeating: several days 6. Feeling bad about yourself - or that you are a failure or have let yourself or your family down: not at all 7. Trouble concentrating on things, such as reading the newspaper or watching television: more than half the days 8. Moving or speaking so slowly that other people could have noticed. Or the opposite - being so fidgety or restless that you have been moving around a lot more than usual: not at all 9. Thoughts that you would be better off or of hurting yourself in some way: not at all Total score: 8 Depression Screening Interpretation: Positive Depression Screening Follow-up: In treatment Depression Screening Done: Yes 78158 - PHQ-9 Billing: Yes Source: Developed by Drs. Giorgio Espinosa, Linh B.WTre Bentley and colleagues, with an educational juan josé from [employer]. Thrive Questionnaire Date Thrive assessed: 01/23/24 I am a: Patient What is your living situation today?: I have a steady place to live Within the past 12 months, did the food you bought not last and you didn't have the money to get more?: Never true Within the past 12 months, did you worry whether your food would run out before you got money to buy more?: Never true Do you have trouble paying for medicines?: No Do you have trouble getting transportation to medical appointments?: No Do you have trouble paying your heating and electricity bill?: No Do you have trouble taking care of your child, family member or friend?: No Do you have trouble with day-to-day activities such as bathing, preparing meals, shopping, managing finances, etc.?: No Are you currently unemployed and looking for a job?: No Are you interested in more education?: No Please select the resources that you would like help with: None Currently or been in a relationship where the following occur: No concerns reported THRIVE Score: 0 AUDIT C Alcohol Use Questionnaire (AUDIT-C) 1. How often do you have a drink containing alcohol?: Never Total Score: 0 CONNIE-7 AMB Questionnaire CONNIE-7 Date CONNIE - 7 assessed: 01/14/24 Source: Developed by Drs. Giorgio Espinosa, Tre Amato and colleagues, with an educational juan josé from [employer]. Review of Systems Const Denies chills, Denies headache(s) and Denies weight loss ENT Denies headache(s) Card Denies chest pain, Denies syncope, Denies irregular heart rhythm and Denies dyspnea Resp Denies chest congestion, Denies cough and Denies dyspnea GI Denies abdominal pain, Denies change in stool character, Denies nausea and Denies vomiting Musc Denies deformity and Denies joint swelling Neuro Denies syncope and Denies headache(s) Physical exam (Primary Care) Vital Signs: Last Vital Signs Pulse 100 05/08/24 10:42 BP 130/82 05/08/24 10:42 Pulse Ox 96 05/08/24 10:42 Oxygen Delivery Method Room Air 05/08/24 10:42 BMI result Body Mass Index 36.8 Tobacco/Smoking Status: Tobacco use Status Tobacco use date assessed 07/15/23 05/08/24 10:51 Patient Tobacco Use Status Never used Tobacco 05/08/24 10:51 Tobacco use type Cigarette 05/08/24 10:51 e-Cigarette/Vaping Use Never Used 05/08/24 10:51 PHQ-9: PHQ-9 Score PHQ-9: Total score 8 05/08/24 10:51 Depression Screening Interpretation: Positive Depression Screening Follow-up: In treatment Thrive Assessment: Date of Thrive Assessment Date Thrive assessed 01/23/24 05/08/24 10:51 Currently or been in a relationship where the following occur: No concerns reported Const General: cooperative, comfortable, no acute distress and alert Neck Neck: Yes no lymphadenopathy Thyroid: Thyroid normal Resp Effort & Inspection: normal respiratory effort Auscultation: clear to auscultation bilaterally Percussion: percussion normal Cardio Jugular venous distension: no JVD Palpation: normal PMI Rate: regular rate Rhythm: regular rhythm Heart sounds: S1 normal heart sound present and S2 normal heart sound present GI Inspection: Yes normal to inspection Palpation (GI): No hepatosplenomegaly present Skin General skin exam: no rashes or lesions noted Extrem General: Yes no clubbing, cyanosis or edema Coding Level of Care Code Est Pt Level 3 (63970) Diagnoses Diabetes mellitus E11.9 Additional Codes PHQ-9 - 04905 - PHQ-9 Billing: Yes ([id number]) Assessment & Plan Assessment & Plan (1) Diabetes mellitus: Code(s): E11.9 - Type 2 diabetes mellitus without complications Category: Medical Plan: stable; same rx Orders: Orders Lipid Panel Today Z13.220 - Encounter for screening for lipoid disorders Comprehensive [place]. Panel Fast Today Z13.9 - Encounter for screening, unspecified Complete Blood Count Auto Diff Today Z13.0 - Encounter for screening for diseases of the blood and blood-forming organs and certain disorders involving the immune mechanism Hemoglobin A1c Today R73.9 - Hyperglycemia, unspecified
== END 2024-05-08 11:00 | disposition home or self-care (01) ==
PROVIDERS: PCP Internal Medicine; Visit Provider Internal Medicine
DX: E11.9 Type 2 diabetes mellitus without complications (principal)

== ENCOUNTER → 2024-05-08 10:40 | Outpatient (BNVA) | payer OTHER, SELFPAY | PROVIDERS: PCP Internal Medicine; Visit Provider Internal Medicine | DX: E11.9 Type 2 diabetes mellitus without complications (principal) | CPT/HCPCS: 96127 ==

== ENCOUNTER 2024-07-01 14:58 | Emergency (ER) | payer OTHER, SELFPAY ==
[2024-07-01] VITALS (8 sets, daily range): BP systolic 133–154; BP diastolic 65–93; PULSE 77–94; RESP 16–22; TEMP 36.8–36.9; O2SAT 92–98; BMI 33.7
--- NOTE | ~2024-07-01 | CT_ITS ---
EXAMINATION: CTA NECK WITH CONTRAST (STROKE) CTA BRAIN WITH CONTRAST (STROKE) CLINICAL INFORMATION: Suspect acute stroke. Assess for major vessel occlusion. Please call report. COMPARISON: Collated to noncontrast CT brain same day. TECHNIQUE: CTA of the head and neck was performed in the axial plane from the mediastinum to the skull vertex using 70 mL Omnipaque 350 intravenous contrast. Additional reformatted multiplanar images including maximum intensity projection MIP images are generated on the CT workstation. This CT examination was performed using dose optimization techniques as appropriate, variously including the following: *Automated exposure control *Adjustment of mA and/or kV according to patient size (this includes techniques or standardized protocols for targeted exams where dose is matched to indication/reason for exam; i.e. extremities or head) *Use of iterative reconstruction technique DLP: 1471 mGy centimeter FINDINGS: The degree of stenosis determined by criteria similar to NASCET. Brain: No acute intracranial hemorrhage, mass effect midline shift hydrocephalus or herniation. Bilateral multifocal patchy deep periventricular white matter hypodensities involving centrum semiovale and kaminski radiata both hemispheres. Sam-white matter differentiation is normal. Multifocal scattered punctate extra-axial calcifications involving the supratentorial compartment. Chest CTA: Normal diameter without focal stenosis or intimal flap. Aberrant right subclavian artery with a retroesophageal trajectory. Neck CTA: Right CCA: Normal patency. No focal stenosis or intimal flap. Right ICA: Normal patency. No focal stenosis or intimal flap. Left CCA: Normal patency. No focal stenosis. No intimal flap. Left ICA: Normal patency. No focal stenosis. No intimal flap. V1/V2 segments are patent without focal stenosis or intimal flap. Left vertebral artery slightly dominant. The vertebral arteries have an origin from the subclavian arteries. Brain CTA: Anterior cerebral circulation: ICAs: No focal stenosis or abrupt cut off. No contour irregularity. MCA's: No focal stenosis or abrupt cut off. No focal contour irregularity. Bifurcation/trifurcation demonstrated no gross vascular abnormality. ACAs: No focal stenosis or abrupt cut off. No contour irregularity. Anterior communicating artery is patent. Ophthalmic arteries are patent without vascular irregularity. I do not see the posterior communicating arteries. Posterior cerebral circulation: V3/V4 segments demonstrated no focal stenosis or intimal flap. Left vertebral artery is dominant. Posterior inferior cerebellar arteries are patent. Basilar artery is patent without focal stenosis or intimal flap. Anterior inferior cerebellar arteries are patent. Superior cerebellar arteries are patent. pump servicer: No focal stenosis or abrupt cut off. Ancillary findings: Pulmonary mosaic pattern. Nonspecific prominent cervical lymph nodes. Main cerebral venous sinuses are patent without intraluminal filling defects. Multilevel cervical spondylosis more conspicuous at C5-6 and C6-[address]/CT angio head neck STROKE IMPRESSION: No main cerebral artery occlusion or embolus or aneurysm. No high degree stenosis or dissection in the vessels of the neck. If patient's symptoms persist recommend noncontrast MRI brain. Consider small airway disease versus small pulmonary artery disease. Nonspecific prominent cervical lymph nodes Aberrant right subclavian artery, retroesophageal trajectory. This critical test result is communicated via [employer] connect to: Emergency physician Dr. Moody Escobar at 3:43 PM on July 01, 2024. Electronically signed by: Augustine Leon MD 07/01/2024 03:44 PM [facility]
--- NOTE | ~2024-07-01 | CT_ITS ---
EXAMINATION: CT HEAD WITHOUT CONTRAST (STROKE PROTOCOL) CLINICAL INFORMATION: Stroke protocol. COMPARISON: June 01, 2011. TECHNIQUE: Contiguous axial imaging was performed from the skull base to vertex without intravenous administration of contrast. This CT examination was performed using dose optimization techniques as appropriate, variously including the following: *Automated exposure control *Adjustment of mA and/or kV according to patient size (this includes techniques or standardized protocols for targeted exams where dose is matched to indication/reason for exam; i.e. extremities or head) *Use of iterative reconstruction technique DLP: 645 mGy centimeter. FINDINGS: No acute intracranial hemorrhage. Bilateral multifocal patchy and confluent deep periventricular white matter hypodensities involving centrum semiovale and kaminski radiata. Sam-white matter differentiation is normal. Posterior cranial fossa contents demonstrated no acute intracranial hemorrhage or mass effect. Sellar/suprasellar region demonstrated no gross masses or hemorrhage. Craniocervical junction is intact and aligned extra-axial punctate calcifications involving mostly the supratentorial compartment.. CT/CT head for STROKE IMPRESSION: No acute intracranial hemorrhage. Acute stroke/nonhemorrhagic ischemia cannot be excluded. If patient's symptoms persist recommend noncontrast MRI brain. Consider neurocysticercosis. This critical result [employer] Connect with the emergency physician Dr. Moody Escobar at 3:20 PM hours on July 01, 2024.. It was ascertained that the content and urgency of the report was understood at the time of direct communication. Electronically signed by: Augustine Leon MD 07/01/2024 03:[address] [facility]
--- NOTE | 2024-07-01 15:03 | ED_ITS ---
HPI - General Adult General Chief complaint: Stroke Stated complaint: ?STROKE,R WEAK/DROOP,SPEECH DIF,UNK THIN,LKWT 45M Time Seen by Provider: 07/01/24 15:02 History of Present Illness ED Provider: Shawn KELLEY narrative: The patient is a 43-year-old woman who was brought to the hospital by ambulance because of right-sided weakness and inability to speak. 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 She had apparently told a co-worker that she was not feeling well and was getting a headache. She was laid on the floor and an ambulance was called. Paramedics found the patient with difficulty speaking and right-sided weakness and brought her to the hospital. The patient reports a history of similar problems in the past. The patient was not really able to speak and could not give details of her history but the mother arrived soon after and told me that about a year ago the patient was hospitalized for several days at [facility] with a similar hemiplegia and ultimately had a negative workup and was diagnosed with hemiplegic migraines. The mother also told me that the patient had a similar episode a week ago and was seen at [facility] and had triggered a stroke response. The mother says the the patient was very close to receiving thrombolytic therapy at [facility] but ultimately the decision was made to not treat for a stroke but for a migraine. The patient was given ketorolac, prochlorperazine, and diphenhydramine and improved over several hours and was discharged. She subsequently contacted her [place] neurologist, Dr. Ulloa, who recommended that if the patient had another such episode that they request a prolactin and a lactate level be drawn. Dr. Ulloa was apparently wondering whether the patient might have some kind of a seizure episode. The patient has been advised not to drive after this last episode. Related Data Home Medications ?Medication ?Instructions ?Recorded ?Confirmed celecoxib 100 mg capsule (Celebrex) 100 mg PO BID 05/08/24 05/11/24 rizatriptan 5 mg tablet See Rx Instructions PO .COMPLEX 05/08/24 05/11/24 verapamil 120 mg 24 hr 120 mg PO BID 05/08/24 05/11/24 capsule,extended release Previous Rx's ?Medication ?Instructions ?Recorded nabumetone 500 mg tablet 500 mg PO BID #180 tabs 12/09/20 albuterol sulfate 2.5 mg/3 mL 2.5 mg (3 mL) inhalation Q6-8H PRN 03/29/22 (0.083 %) solution for nebulization Wheezing #90 mL albuterol sulfate 90 mcg/actuation 2 puff inhalation Q4-6H PRN 04/12/23 aerosol inhaler (ProAir HFA) shortness of breath or wheezing #8.5 grams blood-glucose meter (FreeStyle #1 ea 08/13/23 Lite Meter kit) metformin 500 mg tablet 500 mg PO BID #180 tabs 10/18/23 fluvoxamine 100 mg tablet 200 mg (2 x 100 mg) PO BEDTIME 11/29/23 #180 tabs lancets (FreeStyle Unistik 2) #100 ea 01/24/24 cholecalciferol (vitamin D3) 50 50 mcg PO DAILY #90 caps 02/23/24 mcg (2,000 unit) capsule topiramate 50 mg capsule,extended 50 mg PO DAILY #90 caps 05/15/24 release 24 hr atorvastatin 40 mg tablet 40 mg PO DAILY #90 tabs 05/24/24 hydroxyzine pamoate 25 mg capsule 25 mg PO TID #90 caps 05/26/24 blood sugar diagnostic (FreeStyle #100 ea 06/05/24 Lite Strips) Allergies Allergy/AdvReac Type Severity Reaction Status Date / Time meloxicam [MELOXICAM] Allergy Severe RASH Verified 07/01/24 15:37 citalopram [From CELEXA] Allergy Intermediate LOCK JAW Verified 07/01/24 15:37 Biaxin Allergy Unknown Unknown Verified 07/01/24 15:37 cefaclor [From CECLOR] Allergy Unknown UNKNOWN Verified 07/01/24 15:37 cephalexin [Keflex] Allergy Unknown Unknown Verified 07/01/24 15:37 clarithromycin [From BIAXIN] Allergy Unknown UNKNOWN Verified 07/01/24 15:37 lactose Allergy Unknown INTOLERANCE Verified 07/01/24 15:37 Sulfa (Sulfonamide Allergy Unknown HIVES Verified 07/01/24 15:37 Antibiotics) [SULFA (SULFONAMIDE ANTIBIOTICS)] Review of Systems 2 Review of Systems: Yes all other systems are reviewed and are negative PMFSH Past Medical History Medical History Cerebral palsy Active asthma 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 Obesity Hypertension Acute sinusitis Hyperglycemia Hyperlipidemia Viral syndrome Acute sinusitis Surgical History H/O arthroscopic knee surgery History of carpal tunnel surgery of right wrist History of dilation and curettage History of foot surgery Family History Family History Father Hypertension Bladder cancer Diabetes Hyperlipidemia Mother Hypertension Paternal Aunt Breast cancer Paternal Grandfather Myocardial infarction Social History Social History (System 12/23/23 @ 15:29 by Cally Carlson) Household Members: Family Housing: House Are you a primary acute care certified nursing assistant to a significant other at home: No Do you presently have visiting nurse or other home services: No Unable to assess alcohol history related to: Unknown Alcohol intake: never Patient Tobacco Use Status: Never used Tobacco Tobacco use type: Cigarette Smoked in Last 30 Days: No e-Cigarette/Vaping Use: Never Used Second Hand Smoke Exposure: No Use of substances other than those prescribed or required for medical reasons: Unknown Advance Directives: No Advance Directives Information Provided: Yes Do you have a plan to hurt others: No Plan service: No Current occupational status: employed Cognitive needs: No Hearing needs: No Vision needs: No Physical Exam ED Vital Signs: Vital Signs - 24 hr 07/01/24 15:34 07/01/24 15:40 07/01/24 17:32 Temperature 98.4 F 98.4 F Pulse Rate 77 77 82 Respiratory Rate 22 H 22 H 20 Blood Pressure 154/83 H 154/83 H 145/78 H Pulse Oximetry 96 96 92 Oxygen Delivery Method Room Air Room Air Room Air 07/01/24 18:24 Temperature 98.4 F Pulse Rate 84 Respiratory Rate 16 Blood Pressure 148/65 H Pulse Oximetry 93 Oxygen Delivery Method Room Air BMI result Body Mass Index 33.7 Const Other: The patient was awake and alert and may good eye contact. She had a right facial droop. She was not speaking. HENMT Other: There was a right facial droop. Tongue is midline Eyes Other: Eye movements are intact. Pupils are round equal. Neck Neck: Yes full ROM Resp Effort & Inspection: normal respiratory effort Auscultation: clear to auscultation bilaterally Cardio Rate: regular rate Rhythm: regular rhythm Heart sounds: S1 normal heart sound present and S2 normal heart sound present GI Other: Abdomen is soft and nontender Skin Other: Skin is dry and unremarkable Neuro Other: The patient is awake and alert makes good eye contact. She seems able to communicate by nodding or shaking her head. She had right arm weakness and right leg weakness. Extrem Other: No peripheral edema Medications Administered Discontinued Medications Generic Name Dose Route Start Last Admin Trade Name Jodi PRN Reason Stop Dose Admin Diphenhydramine HCl 25 mg 07/01/24 15:52 07/01/24 16:19 Diphenhydramine Hcl 50 Mg/Ml Vial IVPUSH 07/01/24 15:53 25 mg ONCE ONE Administration Sodium Chloride 1,000 mls @ 999 mls/hr 07/01/24 17:15 07/01/24 18:30 Ns IV 07/01/24 18:15 Infused .Q1H1M LARRY Infusion Iohexol 100 ml 07/01/24 15:18 07/01/24 15:18 Iohexol 350 Mg/Ml 100 Ml Infus..Btl IV 07/01/24 15:19 70 ml ONCE ONE Administration Ketorolac Tromethamine 10 mg 07/01/24 15:52 07/01/24 16:19 Ketorolac Tromethamine 15 Mg/Ml Vial IVPUSH 07/01/24 15:53 10 mg ONCE ONE Administration Prochlorperazine Edisylate 10 mg 07/01/24 15:52 07/01/24 16:19 Prochlorperazine Edisylate 10 Mg/2 Ml Vial IVPUSH 07/01/24 15:53 10 mg ONCE ONE Administration Medical Decision Making Medical Decision Making [facility] Narrative: The patient is a 43-year-old female who presents with right-sided weakness and difficulty speaking. Initially a full history was not available and she was made a code stroke and a had a noncontrast head CT that showed no acute findings (although there are some chronic , findings). She had a CT angiogram of the head and neck that showed no significant vascular disease. Soon after the CT studies the patient's mother arrived and gave additional history about the patient's diagnosis of hemiplegic migraines. The patient was indicating that she had a headache similar to the headache that she has had in the past with these episodes. She apparently had a similar headache when she presented to [facility] last week. She apparently improved following ketorolac, prochlorperazine, and diphenhydramine. The patient was therefore given these medications as well as IV fluids. After some time I re-examined the patient. She was somewhat better. She was able to speak somewhat with a whisper he speech. Her right arm and right leg strength were better although not completely back to normal. At this point I think the patient is improving from what I suspect is another hemiplegic migraine. The patient is not quite recovered enough for discharge. I have therefore keeping the patient in the emergency room for ongoing observation in the emergency room until she seems well enough for discharge. Lab Data 07/01/24 16:03 07/01/24 16:03 Labs: Lab Results 07/01/24 07/01/24 Range/Units 15:02 16:03 WBC 8.8 (4.8-10.8) X10*3/uL RBC 3.82 L (4.20-5.50) X10*6/uL Hgb 12.0 (12.0-16.0) g/dl Hct 34.8 L (37.0-47.0) % MCV 91.1 (80.0-98.0) fL MCH 31.4 (27.0-33.0) pg MCHC 34.5 (31.0-35.0) g/dl RDW 12.9 (11.0-16.0) % Plt Count 320 (160-400) X10*3/uL MPV 8.8 L (9.4-12.3) fL Immature Gran % (Auto) 0.9 H (0.0-0.4) % Neut % (Auto) 70.2 (45-73) % Lymph % (Auto) 20.9 (20-40) % [place] % (Auto) 5.1 (2-11) % Eos % (Auto) 2.3 (0-4) % Baso % (Auto) 0.6 (0-2) % Lymph # (Auto) 1.9 (1.2-4.9) X10*3/uL [place] # (Auto) 0.5 (0.1-1.2) X10*3/uL Eos # (Auto) 0.2 (0.0-0.4) X10*3/uL Baso # (Auto) 0.1 (0.0-0.2) X10*3/uL Abs Immat Gran (auto) 0.08 H (0.00-0.03) X10*3/uL Absolute Neuts (auto) 6.2 (2.0-8.3) x10*3/uL Absolute Nucleated RBC 0.000 (0.0-0.012) X10*3/uL Nucleated RBC % (auto) 0.0 (0.0-0.2) /100WBC PT 11.2 (10.9-12.4) SEC Whole Blood PT 11.4 (11.1-13.5) sec INR 1.0 (0.9-1.1) Whole Blood INR 1.0 (0.9-1.1) APTT 28.5 (26.0-36.8) SEC Sodium 139 (135-145) mmol/L Potassium 3.7 (3.3-5.1) mmol/L Chloride 109 H (96-108) mmol/L Carbon Dioxide 21 L (22-29) mmol/L Anion Gap 13 (12-20) BUN 16 (9-16) mg/dL Creatinine 0.63 (0.5-1.4) mg/dL Estim Creat Clear Calc 128.9 Estimated GFR > 60 POC Glucose 98 (60-115) mg/dL Random Glucose 92 (60-115) mg/dL Lactic Acid 1.8 (0.5-2.0) mmol/L Calcium 9.1 (8.4-10.2) mg/dL Magnesium 1.8 (1.6-2.6) mg/dL Troponin I High Sens < 2.7 (<3.5-17.0) ng/L B-Natriuretic Peptide < 10 (<100) pg/mL Triglycerides 174 H (<150) mg/dL Cholesterol 119 (<200) mg/dL LDL Cholesterol, Calc 54 (<100) mg/dL HDL Cholesterol 31 L (>40) mg/dL Ethyl Alcohol < 10 mg/dL Discharge Plan Discharge Clinical Impression: Hemiplegic migraine Patient Disposition: Still a Patient Additional Instructions: Please rest and take it easy. Please contact your neurologist Dr. Bolaños tomorrow. Return to the emergency room if worse. Prescriptions: No Action nabumetone 500 mg tablet 500 mg PO BID Qty: 180 8RF albuterol sulfate 2.5 mg /3 mL (0.083 %) solution for nebulization 2.5 mg inhalation Q6-8H PRN (Reason: Wheezing) Qty: 90 3RF albuterol sulfate [ProAir HFA] 90 mcg/actuation HFA aerosol inhaler 2 puff inhalation Q4-6H PRN (Reason: shortness of breath or wheezing) Qty: 8.5 3RF (DME) blood-glucose meter [FreeStyle Lite Meter] Kit See Rx Instructions .Route Qty: 1 0RF Rx Instructions: As directed (DME) lancets [FreeStyle Unistik 2] Misc See Rx Instructions .Route Qty: 100 0RF Rx Instructions: As directed Once per day cholecalciferol (vitamin D3) 50 mcg (2,000 unit) capsule 50 mcg PO DAILY Qty: 90 2RF topiramate 50 mg capsule,extended release 24hr 50 mg PO DAILY Qty: 90 1RF atorvastatin 40 mg tablet 40 mg PO DAILY Qty: 90 3RF hydroxyzine pamoate 25 mg capsule 25 mg PO TID Qty: 90 1RF (DME) FreeStyle Lite Strips Strip See Rx Instructions .Route Qty: 100 0RF Rx Instructions: As directed once per day metformin 500 mg tablet 500 mg PO BID Qty: 180 8RF fluvoxamine 100 mg tablet 200 mg PO BEDTIME Qty: 180 3RF verapamil 120 mg capsule,ext rel. pellets 24 hr 120 mg PO BID celecoxib [Celebrex] 100 mg capsule 100 mg PO BID rizatriptan 5 mg tablet See Rx Instructions PO .COMPLEX Rx Instructions: take 1 tablet at onset of headache; if no relief, may repeat 1 tablet after at least 2 hrs PO Referrals: Hugo Bolaños MD [Physician] - (Hemiplegic migraine) Print Language: Nicaraguan
--- NOTE | 2024-07-01 15:03 | ECG_ITS ---
Test Reason : stroke Blood Pressure : */* mmHG Vent. Rate : 82 BPM Atrial Rate : 82 BPM P-R Int : 162 ms QRS Dur : 80 ms QT Int : 390 ms P-R-T Axes : 49 49 19 degrees QTcB Int : 455 ms Normal sinus rhythm Low voltage QRS Poor R wave progression Abnormal ECG No previous ECGs available Referred By: Moody Escobar Electronically Signed By: Bean Campos
[2024-07-01 15:06] LABS: Prothrombin Time Whole Bld POC 11.4 sec (11.1-13.5)
[2024-07-01 15:09] LABS: Glucose, Whole Blood 98 mg/dL (60-115)
[2024-07-01] MEDS: iohexoL 350 MG/ML 100 ML INFUS..BTL IV (15:18)
--- NOTE | 2024-07-01 15:51 | MHC.STROKE ---
Called to ED for stroke alert Pt awake, alert, not answering questions but will nod yes or no. Evaluated by provider upon arrival and taken directly to CT scan. Stroke Education provided and pamphlet given. All questions answered. pt has history of hemiplegic migraines and follows with a neurologist. Seen in another area hospital last week for the same. Will continue to assist as needed.
[2024-07-01 16:12] LABS: MANUAL DIFF FLAG NO
[2024-07-01 16:14] LABS: Basophils Absolute Auto 0.1 X10*3/uL (0.0-0.2); Basophils Percent Auto 0.6 % (0-2); Eosinophils Absolute Auto 0.2 X10*3/uL (0.0-0.4); Eosinophils Percent Auto 2.3 % (0-4); Hematocrit 34.8 % (37.0-47.0); Imm Gran Abs Auto 0.08 X10*3/uL (0.00-0.03); Imm Gran Pct Auto 0.9 % (0.0-0.4); Lymphocytes Absolute Auto 1.9 X10*3/uL (1.2-4.9); Lymphocytes Percent Auto 20.9 % (20-40); Mean Corpuscular HGB Conc 34.5 g/dl (31.0-35.0); Mean Corpuscular Hemoglobin 31.4 pg (27.0-33.0); Mean Corpuscular Volume 91.1 fL (80.0-98.0); Mean Platelet Volume 8.8 fL (9.4-12.3); Monocytes Absolute Auto 0.5 X10*3/uL (0.1-1.2); Monocytes Percent Auto 5.1 % (2-11); Neutrophils Absolute Auto 6.2 x10*3/uL (2.0-8.3); Neutrophils Percent Auto 70.2 % (45-73); Platelet Count 320 X10*3/uL (160-400); Red Blood Count 3.82 X10*6/uL (4.20-5.50); Red Cell Distribution Width 12.9 % (11.0-16.0); White Blood Count 8.8 X10*3/uL (4.8-10.8)
[2024-07-01] MEDS: Ketorolac Tromethamine 15 MG/ML VIAL 10 MG IVPUSH (16:19)
[2024-07-01] MEDS: diphenhydrAMINE HCL 50 MG/ML VIAL 25 MG IVPUSH (16:19)
[2024-07-01] MEDS: Prochlorperazine Edisylate 10 MG/2 ML VIAL IVPUSH (16:19)
[2024-07-01 16:21] LABS: Prothrombin Time 11.2 SEC (10.9-12.4)
[2024-07-01 16:23] LABS: Partial Thromboplastin Time 28.5 SEC (26.0-36.8)
[2024-07-01 16:26] LABS: Stroke Lab Use COMPLETE
[2024-07-01 16:29] LABS: Lactic Acid 1.8 mmol/L (0.5-2.0)
[2024-07-01 16:32] LABS: Anion Gap 13 (12-20); Blood Urea Nitrogen 16 mg/dL (9-16); Calcium 9.1 mg/dL (8.4-10.2); Carbon Dioxide 21 mmol/L (22-29); Chloride 109 mmol/L (96-108); Cholesterol 119 mg/dL (<200); Creatinine Clr Calc Pharmacy 128.9; Estimated Glomerular Filt Rate > 60; Glucose Random 92 mg/dL (60-115); HDL Cholesterol 31 mg/dL (>40); LDL Cholesterol Calculated 54 mg/dL (<100); Magnesium 1.8 mg/dL (1.6-2.6); Potassium 3.7 mmol/L (3.3-5.1); Sodium 139 mmol/L (135-145); Triglycerides 174 mg/dL (<150)
[2024-07-01 16:33] LABS: Ethanol < 10 mg/dL
--- OUTSIDE RECORDS SUMMARY | 2024-07-01 16:35 | XMS_ITS ---
Author Organization [place] [facility] [place] Address Unknown Allergies, Adverse Reactions, Alerts Substance Reaction Status Noted Date Resolved Date Tomatoes active Sulfa Antibiotics resolved 12/25/2023 024 Sulfa Antibiotics resolved 024 Sulfa Antibiotics resolved 12/25/2023 024 Sulfa Antibiotics resolved 12/25/2023 024 Sulfa Antibiotics resolved 12/25/2023 024 Sulfa Antibiotics active Meloxicam active Keflex active CeleXA active Cefaclor active Biaxin active Medications Medication Dose Frequency Directions Start Date End Kev e Topiramate Oral Tablet 25 MG 25 mg 24 h Give 25 mg by mouth one time a day for migraines 12/26/2023 06/22/2024 Tylenol 8 Hour Arthritis Pain Oral Tablet Extended Release 650 MG 650 mg 12 h Give 650 mg by mouth two times a day for pain 12/26/2023 06/22/2024 Albuterol Sulfate Inhalation Aerosol Powder Breath Activated 1 1 puff inhale or ally every 4 hours as needed for wheezing SOB 12/25/2023 06/22/2024 hydrOXYzine HCl Oral Tablet 25 MG 25 mg Give 25 mg by mouth at bedtime for anxiety related to ANXIETY DISORDER, UNSPECIFIED (F41.9) 12/26/2023 06/22/2024 Cholecalciferol Oral Tablet 2 {tbl} 24 h Give 2 tablet by pastor th one time a day for vit supp 12/26/2023 06/22/2024 fluvoxaMINE Maleate Oral Tablet 100 MG 200 mg 24 h Give 200 mg by mouth one time a day for OCD related to DEPRESSION, UNSPECIFIED (F32.A) 12/26/2023 06/22/2024 Bisacodyl Suppository 10 MG 1 Insert 1 suppository rectally as needed for Constipation ONCE DAILY IF NO BOWEL MOVEMENT AND MOM INEFFECTIVE 12/25/2023 06/22/2024 Milk of Magnesia Suspension 1200 MG/15ML 30 mL Give 30 ml by mo uth as needed for Constipation Once Daily on 3rd day if no bowel movement 12/25/2023 06/22/2024 Fleet Enema Enema 7-19 GM/118ML 1 Insert 1 application rectally as needed for Constipation ONCE DAILY IF BISACODYL SUPP INEFFECTIVE 12/25/2023 06/22/2024 Acetaminophen Tablet 325 MG 2 {tbl} Give 2 tablet by pastor th every 6 hours as needed for Elevated Temperature above 101.; Pain (Total Dose = 650mg) NTE 3Grams/24hours unless directed by MD 12/25/2023 06/22/2024 Atorvastatin Calcium Oral Tablet 40 MG 40 mg Give 40 mg by mouth in the evening for cholesterol 12/25/2023 06/22/2024 Glucagon Emergency Kit 1 MG 1 mg Inject 1 mg intramuscularly as needed for Diabetes For Blood Sugar Less than 60. Repeat Blood Sugar in 15 Minutes. Notify /MANUEL 12/26/2023 06/22/2024 Glucagon Emergency Kit 1 MG 2 mg Inject 2 mg intramuscularly as needed for Diabetes For Blood Sugar Less than 40. Repeat Blood Sugar in 15 Minutes. Notify /MANUEL 12/26/2023 06/22/2024 metFORMIN HCl Oral Tablet 500 MG 1 {tbl} 12 h Give 1 tablet by pastor th two times a day related to TYPE 2 DIABETES MELLITUS WITHOUT COMPLICATIONS (E11.9) 12/26/2023 06/22/2024 Melatonin Oral Tablet 10 MG 10 mg Give 10 mg by mouth at bedtime for insomnia 12/31/2023 06/22/2024 Nabumetone Oral Tablet 500 MG 500 mg 12 h Give 500 mg by mouth two times a day for OA 01/02/2024 06/22/2024 IBU Oral Tablet 800 MG 800 mg Give 800 mg by mouth every 8 hours as needed for OA 01/02/2024 06/22/2024 Medications Administered Medication Dose Frequency Status Start Date End Date Topiramate Oral Tablet 25 MG 25 mg 24 h 0 01/03/2024 Tylenol 8 Hour Arthritis Doug n Oral Tablet Extended Release 650 MG 650 mg 12 h 01/03/2024 Albuterol Sulfate Inhalation Aerosol Powder Breath Activated 1 12/25/2023 hydrOXYzine HCl Oral Tablet 25 MG 25 mg 01/03/2024 Cholecalciferol Oral Tablet 2 {tbl} 24 h fluvoxaMINE Maleate Oral Tablet 100 MG 200 mg 24 h 01/03/2024 Bisacodyl Suppository 10 MG 1 Milk of Magnesia Suspension 1200 MG/15ML 30 mL 12/25/2023 Fleet Enema Enema 7-19 GM/118ML 1 12/25/2023 Acetaminophen Tablet 325 MG 2 {tbl} Atorvastatin Calcium Oral Tablet 40 MG 40 mg 01/02/2024 Glucagon Emergency Kit 1 MG 1 mg Glucagon Emergency Kit 1 MG 2 mg metFORMIN HCl Oral Tablet 500 MG 1 {tbl} 12 h 01/03/2024 Melatonin Oral Tablet 10 MG 10 mg Nabumetone Oral Tablet 500 MG 500 mg 12 h 01/03/2024 IBU Oral Tablet 800 MG 800 mg 024 Problems Problem Status Start Date End Date APHASIA (Primary) (R47.01 - ICD-10-CM) ACTIVE ANXIETY DISORDER, UNSPECIFIED (F41.9 - ICD-10-CM) ACTI VE 12/25/2023 OSTEOARTHRITIS OF KNEE, UNSPECIFIED (M17.9 - ICD-10-CM ) ACTIVE 12/25/2023 TYPE 2 DIABETES MELLITUS WIT HOUT COMPLICATIONS (E11.9 - ICD-10-CM) ACTIVE 12/25/2023 ESSENTIAL (PRIMARY) HYPERTENSION (I10 - ICD-10-CM) ACT PHUC 12/25/2023 HYPERLIPIDEMIA, UNSPECIFIED (E78.5 - ICD-10-CM) ACTIVE 12/25/2023 MIGRAINE WITH AURA, NOT INTR ACTABLE, WITHOUT STATUS MIGRAINOSUS (G43.109 - ICD-10-CM) ACTIVE 12/25/2023 DEPRESSION, UNSPECIFIED (F32.A - ICD-10-CM) ACTIVE 12/25/2023 OTHER SYMPTOMS AND SIGNS INV OLVING THE NERVOUS SYSTEM (R29.818 - ICD-10-CM) ACTIVE 12/25/2023 CEREBRAL PALSY, UNSPECIFIED (G80.9 - ICD-10-CM) ACTIVE 12/25/2023 OTHER ASTHMA (J45.998 - ICD-10-CM) ACTIVE 2023 Encounters Encounter Performer Performer Role Encounter Diagnoses Location Date Discharge - Discharged to home or self care - HOME - Private home/apt. with no home health services [facility] 12/25/2023 05:05 pm EDT - 01/03/2024 02:14 pm EDT Immunizations Vaccine Date Influenza TB 2 Step Mantoux Skin Test 12/26/2023 0 4:52 am EDT SARS-COV-2 (COVID-19) MODERNA BOOSTER 12:00 am EST [id number] Covid Moderna Formula Covid Moderna Primary Series 08/12/2020 12:00 am EDT Covid Moderna Primary Series 07/15/2020 12:00 am EST Social History
[2024-07-01 16:36] LABS: B Type Natriuretic Peptide < 10 pg/mL (<100)
[2024-07-01 16:46] LABS: Troponin-I High Sensitivity < 2.7 ng/L (<3.5-17.0)
--- NOTE | 2024-07-01 16:48 | MHC.EDTECH ---
Delay On EkG Due to patient in CT and ekg machine being used
[2024-07-01] MEDS: 0.9 % Sodium Chloride 1,000 ML 999 ML IV (17:31)
[2024-07-01] MEDS: Lactated Ringers 1,000 ML 999 ML IV (21:08)
--- NOTE | 2024-07-01 21:57 | PC.NURSE ---
attempting walking trial per provider, if pt passes then ok for discharge. mom is at the bedside.
--- NOTE | 2024-07-01 22:04 | MHC.EDTECH ---
pt ambulated with a steady gait with this tech started with the use of a walker then quickly transitioned to ambulating with no assistance. RN made aware
[2024-07-03 02:03] LABS: Prolactin 12.7 ng/mL
== END 2024-07-01 23:38 | disposition home or self-care (01) ==
PROVIDERS: Emergency Provider Emergency Medicine; PCP Internal Medicine
DX: G43.409 Hemiplegic migraine, not intractable, without status migrainosus (principal); G80.9 Cerebral palsy, unspecified; I10 Essential (primary) hypertension
CPT/HCPCS: 36415; 70450; 70496; 70498; 80048; 80061; 80307; 82947; 83605; 83735; 83880; 84146; 84484; 85025; 85610; 85730; 93005; 96361; 96374; 96375; 99285; J0737; J1200; J1885; J7120; Q9967

== ENCOUNTER → 2024-07-01 15:03 | Outpatient (BNV) | payer OTHER, SELFPAY | PROVIDERS: Emergency Provider Emergency Medicine; PCP Internal Medicine; Visit Provider Radiology Diagnostic Radiology | DX: G43.409 Hemiplegic migraine, not intractable, without status migrainosus (principal) | CPT/HCPCS: 70450; 70496; 70498 ==

== ENCOUNTER 2024-07-25 10:10 | Outpatient (REF) | payer OTHER, SELFPAY ==
[2024-07-25 10:34] LABS: MANUAL DIFF FLAG NO
[2024-07-25 11:11] LABS: Basophils Absolute Auto 0.1 X10*3/uL (0.0-0.2); Basophils Percent Auto 0.5 % (0-2); Eosinophils Absolute Auto 0.3 X10*3/uL (0.0-0.4); Eosinophils Percent Auto 2.7 % (0-4); Hematocrit 38.9 % (37.0-47.0); Hemoglobin 13.4 g/dl (12.0-16.0); Imm Gran Abs Auto 0.05 X10*3/uL (0.00-0.03); Imm Gran Pct Auto 0.5 % (0.0-0.4); Lymphocytes Absolute Auto 1.7 X10*3/uL (1.2-4.9); Lymphocytes Percent Auto 16.6 % (20-40); Mean Corpuscular HGB Conc 34.4 g/dl (31.0-35.0); Mean Corpuscular Hemoglobin 32.1 pg (27.0-33.0); Mean Corpuscular Volume 93.1 fL (80.0-98.0); Mean Platelet Volume 9.1 fL (9.4-12.3); Monocytes Absolute Auto 0.6 X10*3/uL (0.1-1.2); Monocytes Percent Auto 5.4 % (2-11); Neutrophils Absolute Auto 7.6 x10*3/uL (2.0-8.3); Neutrophils Percent Auto 74.3 % (45-73); Platelet Count 297 X10*3/uL (160-400); Red Blood Count 4.18 X10*6/uL (4.20-5.50); Red Cell Distribution Width 12.5 % (11.0-16.0); White Blood Count 10.3 X10*3/uL (4.8-10.8)
[2024-07-25 11:14] LABS: Estimated Average Glucose 105 mg/dL; Hemoglobin A1C 117.7213 umol/L; Hemoglobin A1c % 5.3 % (<6.0); Total Hemoglobin (HGBA1C) 3406.9879 umol/L
[2024-07-25 12:17] LABS: Alanine Aminotransferase 31 U/L (0-31); Albumin Level 4.1 g/dL (3.5-5.0); Alkaline Phosphatase 107 U/L (39-117); Anion Gap 11 (12-20); Aspartate Amino Transferase 27 U/L (5-31); Bilirubin Total 0.5 mg/dL (0.0-1.0); Blood Urea Nitrogen 16 mg/dL (9-16); Calcium 9.3 mg/dL (8.4-10.2); Carbon Dioxide 25 mmol/L (22-29); Chloride 109 mmol/L (96-108); Cholesterol 124 mg/dL (<200); Estimated Glomerular Filt Rate > 60; Glucose Fasting 110 mg/dL (60-99); HDL Cholesterol 34 mg/dL (>40); LDL Cholesterol Calculated 63 mg/dL (<100); Potassium 4.2 mmol/L (3.3-5.1); Sodium 141 mmol/L (135-145); Total Protein 7.7 g/dL (6.5-8.0); Triglycerides 137 mg/dL (<150)
[2024-07-25 12:21] LABS: Thyroid Stimulating Hormone 0.88 uIU/mL (0.32-4.0)
== END 2024-07-25 10:11 | disposition home or self-care (01) ==
LOC: HO.LAB 10:10
PROVIDERS: PCP Internal Medicine; Visit Provider Internal Medicine
DX: Z13.220 Encounter for screening for lipoid disorders (principal); Z13.9 Encounter for screening, unspecified; Z13.0 Encounter for screening for diseases of the blood and blood-forming organs and certain disorders involving the immune mechanism; R73.9 Hyperglycemia, unspecified; Z13.29 Encounter for screening for other suspected endocrine disorder
CPT/HCPCS: 36415; 80053; 80061; 83036; 84443; 85025

== ENCOUNTER 2024-07-27 10:14 | Outpatient (AMB) | payer OTHER, SELFPAY ==
--- NOTE | 2024-07-27 10:20 | A.OFFPC_ITS ---
Vital Signs 07/27/24 10:22 Height 5 ft 2 in Weight 206 lb BMI 37.7 BP 122/78 Blood Pressure Location Lt brachial Position Sitting Pulse 92 Pulse Source Pulse Oximeter Pulse Oximetry (%) 98 Oxygen Delivery Method Room Air Intake Visit Reasons: 3mth f/u Allergies meloxicam [MELOXICAM] Allergy (Severe, Verified 07/27/24 10:23) RASH citalopram [From CELEXA] Allergy (Intermediate, Verified 07/27/24 10:23) LOCK JAW Biaxin Allergy (Unknown, Verified 07/27/24 10:23) Unknown cefaclor [From CECLOR] Allergy (Unknown, Verified 07/27/24 10:23) UNKNOWN cephalexin [Keflex] Allergy (Unknown, Verified 07/27/24 10:23) Unknown clarithromycin [From BIAXIN] Allergy (Unknown, Verified 07/27/24 10:23) UNKNOWN lactose Allergy (Unknown, Verified 07/27/24 10:23) INTOLERANCE Sulfa (Sulfonamide Antibiotics) [SULFA (SULFONAMIDE ANTIBIOTICS)] Allergy (Unknown, Verified 07/27/24 10:23) HIVES Medication List - Last Reconciled 07/27/24 by Andi Goff MD albuterol sulfate 2.5 mg (3 mL) inhalation Q6-8H PRN albuterol sulfate 90 mcg/actuation (ProAir HFA) 2 puffs inhalation Q4-6H PRN atorvastatin 40 mg PO DAILY blood sugar diagnostic (FreeStyle Lite Strips) As directed once per day blood-glucose meter (FreeStyle Lite Meter kit) As directed celecoxib (Celebrex) 100 mg PO BID cholecalciferol (vitamin D3) 50 mcg PO DAILY fluvoxamine 200 mg (2 x 100 mg) PO BEDTIME hydroxyzine pamoate 25 mg PO TID lancets (FreeStyle Unistik 2) As directed Once per day metformin 500 mg PO BID nabumetone 500 mg PO BID rizatriptan take 1 tablet at onset of headache; if no relief, may repeat 1 tablet after at least 2 hrs PO topiramate XR 50 mg PO DAILY verapamil ER 120 mg PO BID Tobacco use date assessed: 07/27/24 Dental Screening Dental Screen Date: 07/27/24 Did you have a dental visit in the last 12 months?: Yes Did you have a dental problem in the last 6 months where you did not have access to dental care?: No Was dental information given to patient?: Patient has dentist HPI 3mth f/u HPI Details hemiplegic migraines; sees neuro; continues with episodes and occ Sz activity PFSH Medical History Cerebral palsy Active asthma 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 Obesity Hypertension Acute sinusitis Hyperglycemia Hyperlipidemia Viral syndrome Acute sinusitis Surgical History H/O arthroscopic knee surgery History of carpal tunnel surgery of right wrist History of dilation and curettage History of foot surgery Family History Father Hypertension Bladder cancer Diabetes Hyperlipidemia Mother Hypertension Paternal Aunt Breast cancer Paternal Grandfather Myocardial infarction Social History (System 12/23/23 @ 15:29 by Cally Carlson) Household Members: Family Housing: House Are you a primary personal care aide to a significant other at home: No Do you presently have visiting nurse or other home services: No Unable to assess alcohol history related to: Unknown Alcohol intake: never Patient Tobacco Use Status: Never used Tobacco Tobacco use type: Cigarette e-Cigarette/Vaping Use: Never Used Second Hand Smoke Exposure: No service: No Current occupational status: employed Cognitive needs: No Hearing needs: No Vision needs: No Questionnaire PHQ-9 Over the last 2 weeks, how often have you been bothered by any of the following problems? 1. Little interest or pleasure in doing things: more than half the days 2. Feeling down, depressed, or hopeless: several days 3. Trouble falling or staying asleep, or sleeping too much: several days 4. Feeling tired or having little energy: several days 5. Poor appetite or overeating: several days 6. Feeling bad about yourself - or that you are a failure or have let yourself or your family down: not at all 7. Trouble concentrating on things, such as reading the newspaper or watching television: more than half the days 8. Moving or speaking so slowly that other people could have noticed. Or the opposite - being so fidgety or restless that you have been moving around a lot more than usual: not at all 9. Thoughts that you would be better off or of hurting yourself in some way: not at all Total score: 8 Depression Screening Interpretation: Positive Depression Screening Follow-up: In treatment Depression Screening Done: Yes 68003 - PHQ-9 Billing: Yes Source: Developed by Drs. Giorgio Espinosa, Tre Amato and colleagues, with an educational juan josé from [employer]. Thrive Questionnaire Date Thrive assessed: 07/27/24 AUDIT C Alcohol Use Questionnaire (AUDIT-C) 1. How often do you have a drink containing alcohol?: Never Total Score: 0 CONNIE-7 AMB Questionnaire CONNIE-7 Date CONNIE - 7 assessed: 07/27/24 Feeling nervous, anxious, or on edge: 0 = Not at all Not being able to stop or control worryin = Not at all Worrying too much about different things: 0 = Not at all Trouble relaxin = Not at all Being so restless that it is hard to sit still: 0 = Not at all Becoming easily annoyed or irritable: 0 = Not at all Feeling afraid as if something awful might happen: 0 = Not at all Total CONNIE-7 score (0-4 normal; 5-9 mild; 10-14 moderate; 15-21 severe): 0 Source: Developed by Drs. Giorgio Espinosa, Linh Hall, Tre Wall and colleagues, with an educational juan josé from [employer]. CONNIE-7 Assessment Billing CONNIE-7 Assessment Tool: CONNIE-7 Assessment 88214 Review of Systems Const Denies chills, Denies headache(s) and Denies weight loss ENT Denies headache(s) Card Denies chest pain, Denies syncope, Denies irregular heart rhythm and Denies dyspnea Resp Denies chest congestion, Denies cough and Denies dyspnea GI Denies abdominal pain, Denies change in stool character, Denies nausea and Denies vomiting Musc Denies deformity and Denies joint swelling Neuro Denies syncope and Denies headache(s) Physical exam (Primary Care) Vital Signs: Last Vital Signs Pulse 92 07/27/24 10:22 BP 122/78 07/27/24 10:22 Pulse Ox 98 07/27/24 10:22 Oxygen Delivery Method Room Air 07/27/24 10:22 BMI result Body Mass Index 37.7 Tobacco/Smoking Status: Tobacco use Status Tobacco use date assessed 07/27/24 07/27/24 10:29 Patient Tobacco Use Status Never used Tobacco 07/27/24 10:21 Tobacco use type Cigarette 07/27/24 10:21 e-Cigarette/Vaping Use Never Used 07/27/24 10:21 PHQ-9: PHQ-9 Score PHQ-9: Total score 8 07/27/24 10:29 Depression Screening Interpretation: Positive Depression Screening Follow-up: In treatment Thrive Assessment: Date of Thrive Assessment Date Thrive assessed 07/27/24 07/27/24 10:21 Const General: cooperative, comfortable, no acute distress and alert Neck Neck: Yes no lymphadenopathy Thyroid: Thyroid normal Resp Effort & Inspection: normal respiratory effort Auscultation: clear to auscultation bilaterally Percussion: percussion normal Cardio Jugular venous distension: no JVD Palpation: normal PMI Rate: regular rate Rhythm: regular rhythm Heart sounds: S1 normal heart sound present and S2 normal heart sound present GI Inspection: Yes normal to inspection Palpation (GI): No hepatosplenomegaly present Skin General skin exam: no rashes or lesions noted Extrem General: Yes no clubbing, cyanosis or edema Coding Level of Care Code Est Pt Level 3 (36890) Diagnoses Hemiplegic migraine G43.409 Additional Codes CONNIE-7 Assessment Billing - CONNIE-7 Assessment Tool: CONNIE-7 Assessment 83688 ([id number]) PHQ-9 - 99173 - PHQ-9 Billing: Yes ([id number]) Assessment & Plan Assessment & Plan (1) Hemiplegic migraine: Code(s): G43.409 - Hemiplegic migraine, not intractable, without status migrainosus Category: Medical Plan: as per neuro
[2024-07-27 10:22] VITALS: BP 122/78; PULSE 92; O2SAT 98; BMI 37.7
== END 2024-07-27 10:47 | disposition home or self-care (01) ==
PROVIDERS: PCP Internal Medicine; Visit Provider Internal Medicine
DX: G43.409 Hemiplegic migraine, not intractable, without status migrainosus (principal)

== ENCOUNTER → 2024-07-27 10:14 | Outpatient (BNVA) | payer OTHER, SELFPAY | PROVIDERS: PCP Internal Medicine; Visit Provider Internal Medicine | DX: G43.409 Hemiplegic migraine, not intractable, without status migrainosus (principal) | CPT/HCPCS: 96127 ==

== ENCOUNTER 2024-09-02 15:26 | Outpatient (AMB) | payer OTHER, SELFPAY ==
--- NOTE | 2024-09-02 15:42 | MHC.PC.OV ---
Vital Signs 09/02/24 15:43 Height 5 ft 2 in Weight 201 lb 8 oz BMI 36.9 BP 118/68 Blood Pressure Location Lt brachial Position Sitting Pulse 85 Pulse Source Pulse Oximeter Temp 98 F Temp Source Temporal Artery Scan Pulse Oximetry (%) 97 Oxygen Delivery Method Room Air Intake Visit Reasons: [place] on 08/27 Intake Note: Patient is here for hospital discharge follow up. Patient was discharged from [facility] on 08/18/24 to [place] on 08/27/24. Applications Development Consultant Required: No Staffing Branch Manager: Present Accompanied by: Mother Allergies meloxicam [MELOXICAM] Allergy (Severe, Verified 09/02/24 15:56) RASH citalopram [From CELEXA] Allergy (Intermediate, Verified 09/02/24 15:56) LOCK JAW Biaxin Allergy (Unknown, Verified 09/02/24 15:56) Unknown cefaclor [From CECLOR] Allergy (Unknown, Verified 09/02/24 15:56) UNKNOWN cephalexin [Keflex] Allergy (Unknown, Verified 09/02/24 15:56) Unknown clarithromycin [From BIAXIN] Allergy (Unknown, Verified 09/02/24 15:56) UNKNOWN lactose Allergy (Unknown, Verified 09/02/24 15:56) INTOLERANCE Sulfa (Sulfonamide Antibiotics) [SULFA (SULFONAMIDE ANTIBIOTICS)] Allergy (Unknown, Verified 09/02/24 15:56) HIVES Medication List - Last Reconciled 09/02/24 by Meri Correa PA-C acetaminophen 650 mg PO BID albuterol sulfate 90 mcg/actuation (ProAir HFA) 2 puffs inhalation Q4-6H PRN albuterol sulfate 2.5 mg (3 mL) inhalation Q6-8H PRN atorvastatin 40 mg PO DAILY blood sugar diagnostic (FreeStyle Lite Strips) As directed once per day blood-glucose meter (FreeStyle Lite Meter kit) As directed celecoxib 200 mg PO DAILY cholecalciferol (vitamin D3) 50 mcg PO DAILY duloxetine 20 mg PO BID hydroxyzine pamoate 25 mg PO TID lancets (FreeStyle Unistik 2) As directed Once per day melatonin 3 mg PO BEDTIME metformin 500 mg PO BID risperidone 0.5 mg PO BID rizatriptan take 1 tablet at onset of headache; if no relief, may repeat 1 tablet after at least 2 hrs PO topiramate XR 50 mg PO DAILY trazodone 25 mg PO BEDTIME PRN verapamil ER 120 mg PO BID Tobacco use date assessed: 09/02/24 Dental Screening Dental Screen Date: 07/27/24 [facility] on 08/27 [facility] Details 43-year-old female with past medical history of hyperlipidemia, depression, hypertension, hyperlipidemia, asthma, diabetes mellitus, hemiplegic migraine last seen by Dr. Goff 07/2024 coming in for follow up. Patient was recently admitted to [facility] 08/12/2024 for hemiplegic migraine and was discharged to [place] for outpatient mental health program. She was discharged on 08/27/2024 and was enrolled in the partial hospitalization program at [place] [facility]. She does follow with [facility]rology for hemiplegic migraine and psychogenic seizures. She also follows with [facility] for right knee osteoarthritis and consideration of total knee replacement. Presenting with hemiplegic migraine and seizures. Diagnosed with hemiplegic migraine and psychogenic non-epileptic seizures, she experiences sudden loss of responsiveness that mimic stroke symptoms. Past seizure events led to multiple hospitalizations where strokes were suspected. Current management involves seizure and migraine prophylaxis. The patient presents with arthritis affecting her right knee, which has been managed with cortisone and gel injections. [facility] Medical History (Updated 09/02/24 @ 16:31 by Meri Correa PA-C) Cerebral palsy Active asthma 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 Obesity Hypertension Acute sinusitis Hyperglycemia Hyperlipidemia Viral syndrome Acute sinusitis Surgical History H/O arthroscopic knee surgery History of carpal tunnel surgery of right wrist History of dilation and curettage History of foot surgery Family History Father Hypertension Bladder cancer Diabetes Hyperlipidemia Mother Hypertension Paternal Aunt Breast cancer Paternal Grandfather Myocardial infarction Social History Household Members: Family Housing: House Are you a primary respiratory care specialist to a significant other at home: No Do you presently have visiting nurse or other home services: No Unable to assess alcohol history related to: Unknown Alcohol intake: never Patient Tobacco Use Status: Never used Tobacco Tobacco use type: Cigarette e-Cigarette/Vaping Use: Never Used Second Hand Smoke Exposure: No service: No Current occupational status: employed Cognitive needs: No Hearing needs: No Vision needs: No Questionnaire Thrive Questionnaire Date Thrive assessed: 07/27/24 CONNIE-7 AMB Questionnaire CONNIE-7 Date CONNIE - 7 assessed: 07/27/24 Source: Developed by Drs. Giorgio Espinosa, Linh Hall, Tre Wall and colleagues, with an educational juan josé from [employer]. Review of Systems Const Denies body aches, Denies chills, Denies fever(s), Denies headache(s) and Denies poor appetite Eyes Reports no additional complaints ENT Denies dysphagia, Denies dizziness, Denies headache(s) and Denies odynophagia Card Denies chest pain, Denies syncope, Denies edema, Denies irregular heart rhythm, Denies lightheadedness and Denies dyspnea Resp Denies cough and Denies dyspnea GI Denies abdominal pain, Denies constipation, Denies dysphagia, Denies diarrhea, Denies nausea, Denies odynophagia and Denies vomiting Reports no additional complaints Musc Reports no additional complaints and Denies abnormal gait Skin/Breast Reports system reviewed and no additional complaints, except as documented Neuro Denies abnormal gait, Denies dizziness, Denies syncope and Denies headache(s) Psych Reports no additional complaints Physical exam (Primary Care) Vital Signs: Last Vital Signs Temp 98 F 09/02/24 15:43 Pulse 85 09/02/24 15:43 BP 118/68 09/02/24 15:43 Pulse Ox 97 09/02/24 15:43 Oxygen Delivery Method Room Air 09/02/24 15:43 BMI result Body Mass Index 36.9 Tobacco/Smoking Status: Tobacco use Status Tobacco use date assessed 09/02/24 09/02/24 15:56 Patient Tobacco Use Status Never used Tobacco 09/02/24 15:56 Tobacco use type Cigarette 09/02/24 15:56 e-Cigarette/Vaping Use Never Used 09/02/24 15:56 Thrive Assessment: Date of Thrive Assessment Date Thrive assessed 07/27/24 09/02/24 15:56 Const General: cooperative, healthy appearing, comfortable and no acute distress Orientation/consciousness: patient oriented x3 HENMT Head: Yes normocephalic Ears: hearing grossly normal bilaterally General nose exam: Normal external nose present Eyes General: appearance normal, both eyes and all related structures Conjunctivae: conjunctivae normal Neck Neck: Yes full ROM and Yes no lymphadenopathy Resp Effort & Inspection: normal respiratory effort Auscultation: clear to auscultation bilaterally, no crackles, no rales, no rhonchi and no wheezes Cardio Rate: regular rate Rhythm: regular rhythm Skin General skin exam: no rashes or lesions noted Neuro General: patient oriented x3 Gait exam (Neuro): Normal gait present Extrem General: Yes normal to inspection, Yes full ROM and No edema Psych Affect: normal affect Attitude: cooperative Insight: Good insight present (Psych) Judgement: Good judgement present (Psych) Coding Level of Care Code Est Pt Level 4 (10141) Diagnoses Asthma J45.909 Obesity (BMI 30-39.9) E66.9 Hypertension I10 Hyperlipidemia E78.5 Diabetes mellitus E11.9 Anxiety F41.9 Cerebral palsy G80.9 Hemiplegic migraine G43.409 Assessment & Plan Assessment & Plan (1) Asthma: Code(s): J45.909 - Unspecified asthma, uncomplicated Category: Medical Plan: Asthma currently controlled on present medications. Avoid triggers such as allergies. (2) Obesity (BMI 30-39.9): Code(s): E66.9 - Obesity, unspecified Category: Medical Plan: Healthy diet and regular exercise is encouraged. (3) Hypertension: Code(s): I10 - Essential (primary) hypertension Category: Medical Plan: Continue on current blood pressure medication. Avoid salt intake and encourage healthy diet and regular exercise. (4) Hyperlipidemia: Code(s): E78.5 - Hyperlipidemia, unspecified Category: Medical Plan: Avoid foods that are high in cholesterol such as red meat, fried foods, eggs and baked goods. Triglyceride goal of less than 150 and LDL goal of less than 100. (5) Diabetes mellitus: Code(s): E11.9 - Type 2 diabetes mellitus without complications Category: Medical Plan: Decrease the amount of carbohydrates such as pasta, bread, rice, and potatoes and limit the amount of sweets. Although fruits are generally healthy they should be eaten in moderation as they are still high in sugar. Hemoglobin A1c goal of less thank 7%. Last A1c within normal limits I did recommended discontinuation of metformin as it is likely not need at this time. Patient would like to continue on this medication for the time being and repeat A1c in 3 months. (6) Anxiety: Code(s): F41.9 - Anxiety disorder, unspecified Category: Medical Plan: Patient is currently on trazodone, hydroxyzine, duloxetine for management of anxiety. She is part of the partial hospitalization program. And we will work with [facility] outpatient. (7) Cerebral palsy: Code(s): G80.9 - Cerebral palsy, unspecified Category: Medical Plan: Continue to follow with [facility]. (8) Hemiplegic migraine: Code(s): G43.409 - Hemiplegic migraine, not intractable, without status migrainosus Category: Medical Plan: Patient is currently following with [facility] for management of hemiplegic migraines. She has had multiple hospitalizations due to this concern most recently from July to August of this year. Plan This note was constructed using voice recognition software. While every effort has been made to ensure accuracy and career and guidance counselor, still areas may have been included sometimes these areas may affect the content or meeting of the given symptoms. Total time spent caring for the patient today was thirty minutes. This includes time spent before the visit reviewing the chart, time spent during the visit, and time spent after the visit and documentation. Patient was informed and verbally consented to the use of an ambient scribe for clinic note documentation during this visit. Medications: Refilled albuterol sulfate 2.5 mg (3 mL) inhalation Q6-8H PRN 90 mL 3RF Wheezing
[2024-09-02 15:43] VITALS: BP 118/68; PULSE 85; TEMP 36.6; O2SAT 97; BMI 36.9
== END 2024-09-02 16:36 | disposition home or self-care (01) ==
LOC: HO.HMCH 15:26
DX: E11.69 Type 2 diabetes mellitus with other specified complication (principal); E66.9 Obesity, unspecified; G80.9 Cerebral palsy, unspecified; Z68.36 Body mass index [BMI] 36.0-36.9, adult; J45.909 Unspecified asthma, uncomplicated; I10 Essential (primary) hypertension; E78.5 Hyperlipidemia, unspecified; F41.9 Anxiety disorder, unspecified; G43.409 Hemiplegic migraine, not intractable, without status migrainosus

== ENCOUNTER → 2024-09-02 15:26 | Outpatient (BNVA) | payer OTHER, SELFPAY | DX: Z13.89 Encounter for screening for other disorder (principal) ==

== ENCOUNTER 2024-10-14 13:08 | Outpatient (AMB) | payer OTHER, SELFPAY ==
--- NOTE | 2024-10-14 13:33 | A.OFFPC_ITS ---
Vital Signs 10/14/24 13:35 Height 5 ft 2 in Weight 200 lb BMI 36.6 BP 130/68 Blood Pressure Location Lt brachial Position Sitting Pulse 87 Pulse Source Pulse Oximeter Temp 97.3 F Temp Source Temporal Artery Scan Pulse Oximetry (%) 98 Oxygen Delivery Method Room Air Intake Visit Reasons: [facility] 10/12 Intake Note: Patient is here for hospital discharge follow up. Patient was discharged from [facility] on 10/12/24. Toll Gate Keeper Required: No Filling Carrier: Present Accompanied by: Mother Allergies meloxicam [MELOXICAM] Allergy (Severe, Verified 10/14/24 13:35) RASH citalopram [From CELEXA] Allergy (Intermediate, Verified 10/14/24 13:35) LOCK JAW Biaxin Allergy (Unknown, Verified 10/14/24 13:35) Unknown cefaclor [From CECLOR] Allergy (Unknown, Verified 10/14/24 13:35) UNKNOWN cephalexin [Keflex] Allergy (Unknown, Verified 10/14/24 13:35) Unknown clarithromycin [From BIAXIN] Allergy (Unknown, Verified 10/14/24 13:35) UNKNOWN lactose Allergy (Unknown, Verified 10/14/24 13:35) INTOLERANCE Sulfa (Sulfonamide Antibiotics) [SULFA (SULFONAMIDE ANTIBIOTICS)] Allergy (Unknown, Verified 10/14/24 13:35) HIVES Medication List - Last Reconciled 10/14/24 by Meri Correa PA-C acetaminophen 650 mg PO BID albuterol sulfate 90 mcg/actuation (ProAir HFA) 2 puffs inhalation Q4-6H PRN albuterol sulfate 2.5 mg (3 mL) inhalation Q6-8H PRN atorvastatin 40 mg PO DAILY blood sugar diagnostic (FreeStyle Lite Strips) As directed once per day blood-glucose meter (FreeStyle Lite Meter kit) As directed celecoxib 200 mg PO DAILY cholecalciferol (vitamin D3) 50 mcg PO DAILY fluvoxamine 100 mg PO DAILY fluvoxamine 150 mg PO BEDTIME gabapentin 200 mg PO Q8H hydroxyzine HCl 50 mg PO TID lancets (FreeStyle Unistik 2) As directed Once per day levonorgestrel (Mirena) 1 device intrauterine ONCE lidocaine 5% 1 patch topical DAILY melatonin 3 mg PO BEDTIME metformin 500 mg PO BID rizatriptan take 1 tablet at onset of headache; if no relief, may repeat 1 tablet after at least 2 hrs PO topiramate XR 50 mg PO DAILY trazodone 50 mg PO BEDTIME PRN verapamil ER 120 mg PO BID Tobacco use date assessed: 10/14/24 Dental Screening Dental Screen Date: 07/27/24 HPI [place] 10/12 HPI Details 43-year-old female with past medical his tory of hyperlipidemia, depression, hypertension, hyperlipidemia, asthma, diabetes mellitus, hemiplegic migraine last seen 08/2024 coming in for hospital follow up.?In review of the notes, patient was seen in [facility] ER 09/29/2024 for evaluation of the SI admitted to psych unit fluvoxamine and was titrated to 100 mg a.m. and 150 pm. She was also started on gabapentin 200 mg every 8 hours.?She is scheduled to see her CUTTER OPERATOR ASBESTOS SHINGLE for med provider 10/15/2024.?She also has an intake appointment for intensive outpatient program at [facility] the same day which is a virtual counseling for the next 5-6 weeks. Presenting with recent complications related to medication changes and mental health status. Notable past medical history includes misdiagnosed bipolar disorder, secondary to previous treatment, leading to a crisis when fluvoxamine was replaced with duloxetine and Risperdal was administered for behavioral outbursts. The patient experienced heightened psychiatric symptoms and anxiety following medication mismanagement, necessitating emergency care and subsequent stabilization at a different psychiatric facility. Considerable reduction in mental health symptoms noted following reinstatement of fluvoxamine and proper medication adherence. Denies any thoughts of self-harm at this time and feels her mental status is returning to baseline. [facility] Medical History Cerebral palsy Active asthma 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 Obesity Hypertension Acute sinusitis Hyperglycemia Hyperlipidemia Viral syndrome Acute sinusitis Surgical History H/O arthroscopic knee surgery History of carpal tunnel surgery of right wrist History of dilation and curettage History of foot surgery Family History Father Hypertension Bladder cancer Diabetes Hyperlipidemia Mother Hypertension Paternal Aunt Breast cancer Paternal Grandfather Myocardial infarction Social History Household Members: Family Housing: House Are you a primary post acute care nurse practitioner to a significant other at home: No Do you presently have visiting nurse or other home services: No Unable to assess alcohol history related to: Unknown Alcohol intake: never Patient Tobacco Use Status: Never used Tobacco Tobacco use type: Cigarette e-Cigarette/Vaping Use: Never Used Second Hand Smoke Exposure: No service: No Current occupational status: employed Cognitive needs: No Hearing needs: No Vision needs: No Questionnaire PHQ-9 Over the last 2 weeks, how often have you been bothered by any of the following problems? 1. Little interest or pleasure in doing things: not at all 2. Feeling down, depressed, or hopeless: more than half the days 3. Trouble falling or staying asleep, or sleeping too much: not at all 4. Feeling tired or having little energy: not at all 5. Poor appetite or overeating: not at all 6. Feeling bad about yourself - or that you are a failure or have let yourself or your family down: not at all 7. Trouble concentrating on things, such as reading the newspaper or watching television: several days 8. Moving or speaking so slowly that other people could have noticed. Or the opposite - being so fidgety or restless that you have been moving around a lot more than usual: several days 9. Thoughts that you would be better off or of hurting yourself in some way: not at all Total score: 4 Depression Screening Interpretation: Positive Depression Screening Done: Yes Source: Developed by Drs. Giorgio Espinosa, Linh Hall, Tre Wall and colleagues, with an educational juan josé from [employer]. Thrive Questionnaire Date Thrive assessed: 07/27/24 I am a: Patient What is your living situation today?: I have a steady place to live Within the past 12 months, did the food you bought not last and you didn't have the money to get more?: Never true Within the past 12 months, did you worry whether your food would run out before you got money to buy more?: Never true Do you have trouble paying for medicines?: No Do you have trouble getting transportation to medical appointments?: No Do you have trouble paying your heating and electricity bill?: No Do you have trouble taking care of your child, family member or friend?: No Do you have trouble with day-to-day activities such as bathing, preparing meals, shopping, managing finances, etc.?: No Are you currently unemployed and looking for a job?: No Are you interested in more education?: No Please select the resources that you would like help with: None Currently or been in a relationship where the following occur: I choose not to answer THRIVE Score: 0 AUDIT C Alcohol Use Questionnaire (AUDIT-C) 1. How often do you have a drink containing alcohol?: Never Total Score: 0 CONNIE-7 AMB Questionnaire CONNIE-7 Date CONNIE - 7 assessed: 07/27/24 Feeling nervous, anxious, or on edge: 1 = Several days Not being able to stop or control worryin = Several days Worrying too much about different things: 1 = Several days Trouble relaxin = Several days Being so restless that it is hard to sit still: 0 = Not at all Becoming easily annoyed or irritable: 1 = Several days Feeling afraid as if something awful might happen: 0 = Not at all Total CONNIE-7 score (0-4 normal; 5-9 mild; 10-14 moderate; 15-21 severe): 5 Source: Developed by Drs. Giorgio Espinosa, Linh Hall, Tre Wall and colleagues, with an educational juan josé from [employer]. Review of Systems Const Denies body aches, Denies chills and Denies fever(s) Eyes Reports no additional complaints ENT Denies dysphagia, Denies dizziness and Denies odynophagia Card Denies chest pain, Denies lightheadedness and Denies dyspnea Resp Denies cough and Denies dyspnea GI Denies abdominal pain, Denies constipation, Denies dysphagia, Denies diarrhea, Denies nausea, Denies odynophagia and Denies vomiting Reports no additional complaints Musc Reports no additional complaints and Denies abnormal gait Skin/Breast Reports system reviewed and no additional complaints, except as documented Neuro Denies abnormal gait and Denies dizziness Psych Reports no additional complaints Physical exam (Primary Care) Tobacco/Smoking Status: Tobacco use Status Tobacco use date assessed 09/02/24 09/02/24 15:56 Patient Tobacco Use Status Never used Tobacco 09/02/24 15:56 Tobacco use type Cigarette 09/02/24 15:56 e-Cigarette/Vaping Use Never Used 09/02/24 15:56 Depression Screening Interpretation: Positive Thrive Assessment: Date of Thrive Assessment Date Thrive assessed 07/27/24 09/02/24 15:56 Currently or been in a relationship where the following occur: I choose not to answer Const General: cooperative, healthy appearing, comfortable and no acute distress Orientation/consciousness: patient oriented x3 HENMT Head: Yes normocephalic Ears: hearing grossly normal bilaterally General nose exam: Normal external nose present Eyes General: appearance normal, both eyes and all related structures Conjunctivae: conjunctivae normal Neck Neck: Yes full ROM and Yes no lymphadenopathy Resp Effort & Inspection: normal respiratory effort Auscultation: clear to auscultation bilaterally, no crackles, no rales, no rhonchi and no wheezes Cardio Rate: regular rate Rhythm: regular rhythm Back/Spine/Pelvis Other: Tenderness to palpation over left trapezius muscle Skin General skin exam: no rashes or lesions noted Neuro General: patient oriented x3 Gait exam (Neuro): Normal gait present Extrem Other: Tenderness to palpation over left shoulder without any areas of swelling, redness, warmth General: Yes normal to inspection, Yes full ROM and No edema Psych Affect: normal affect Attitude: cooperative Insight: Good insight present (Psych) Judgement: Good judgement present (Psych) Coding Level of Care Code Est Pt Level 3 (62571) Diagnoses OCD (obsessive compulsive disorder) F42.9 Anxiety F41.9 Depression F32.A Obesity E66.9 Hypertension I10 Left shoulder pain M25.512 Assessment & Plan Assessment & Plan (1) OCD (obsessive compulsive disorder): Code(s): F42.9 - Obsessive-compulsive disorder, unspecified Category: Medical Plan: Patient was recently hospitalized at [facility] for medication adjustment following a rapid discontinuation of fluoxetine at a high dose. She is found to be in a chemical crisis and was slowly taper back up on her fluvoxamine to an effective dose. She is currently on 100 mg in the morning and 150 mg at bedtime and finds this beneficial for her symptoms. She is also on gabapentin and finds this has been managing her symptoms as well. She plans to enroll in an intensive outpatient program via telehealth and is see her CS so tomorrow. (2) Anxiety: Code(s): F41.9 - Anxiety disorder, unspecified Category: Medical Plan: See above (3) Depression: Code(s): F32.A - Depression, unspecified Category: Medical Plan: See plan for OCD (4) Obesity: Comment: ureteral implants Code(s): E66.9 - Obesity, unspecified Category: Medical Plan: Healthy diet and regular exercise is encouraged. (5) Hypertension: Code(s): I10 - Essential (primary) hypertension Category: Medical Plan: Continue on current blood pressure medication. Avoid salt intake and encourage healthy diet and regular exercise. (6) Left shoulder pain: Code(s): M25.512 - Pain in left shoulder Category: Medical Plan: Patient having left shoulder pain that up yellowish muscular in nature. She had an x-ray while at [facility] that did not identify any bony processes or arthritic changes in the joint. Advised patient to use heating pad and Tylenol as needed for pain. Follow up as needed for this concern Plan The patient continues treatment with fluvoxamine split into morning and evening doses to stabilize OCD and anxiety symptoms. Hydroxyzine at 50 mg deduced as a secondary option for anxiety due to lactose intolerance. Arrangements for ongoing psychiatric support and case management are in place, alongside telemedicine therapy. Hypertension control remains consistent, coupled with regular monitoring. Environmental and social stressors should be minimized. The patient shows improved symptom management with current medication protocols. Cardiovascular health parameters and diabetes risk remain well-controlled. This note was constructed using voice recognition software. While every effort has been made to ensure accuracy and marble mechanic helper, still areas may have been included sometimes these areas may affect the content or meeting of the given symptoms. Total time spent caring for the patient today was 20 minutes. This includes time spent before the visit reviewing the chart, time spent during the visit, and time spent after the visit and documentation. Patient was informed and verbally consented to the use of an ambient scribe for clinic note documentation during this visit. Medications: New hydroxyzine HCl 50 mg PO Q6-8H PRN anxiety Changed From trazodone 25 mg (1/2 x 50 mg) PO BEDTIME PRN 90 tabs 1RF sleep To trazodone 50 mg PO BEDTIME PRN sleep
[2024-10-14 13:35] VITALS: BP 130/68; PULSE 87; TEMP 36.3; O2SAT 98; BMI 36.6
== END 2024-10-14 14:27 | disposition home or self-care (01) ==
LOC: HO.HMCH 13:09
DX: F42.9 Obsessive-compulsive disorder, unspecified (principal); F41.9 Anxiety disorder, unspecified; Z68.36 Body mass index [BMI] 36.0-36.9, adult; E66.9 Obesity, unspecified; F32.A Depression, unspecified; I10 Essential (primary) hypertension; M25.512 Pain in left shoulder

== ENCOUNTER 2024-11-26 07:30 | Outpatient (REF) | payer OTHER, SELFPAY | END 2024-11-26 07:31 | disposition home or self-care (01) | LOC: HO.MAMMO 07:30 | DX: Z12.31 Encounter for screening mammogram for malignant neoplasm of breast (principal) | CPT/HCPCS: 77063; 77067 ==

== ENCOUNTER → 2024-11-26 07:45 | Outpatient (BNV) | payer OTHER, SELFPAY | PROVIDERS: Visit Provider Internal Medicine | DX: Z12.31 Encounter for screening mammogram for malignant neoplasm of breast (principal) | CPT/HCPCS: 77063; 77067 ==

== ENCOUNTER 2025-01-13 07:20 | Emergency (ER) | payer OTHER, SELFPAY ==
--- OUTSIDE RECORDS SUMMARY | 2021-11-02 12:03 | XMS_ITS | Encounter Summary ---
Author Organization [facility] Address [address] [facility] [address] [place] [address] Phone Care Team Providers Care Lining Printer Name Role Phone Janna Macias MD Unavailable [phone] Andi Goff MD Unavailable [phone] Andi Goff MD Primary Care Provider [phone] Encounter Details Date Type Department Care Team (Late st Contact Info) Description 11/02/2021 12:03 PM EDT Hospital Encounter [facility] [address] [place] [address] Rut Salinas FNP [address] [place] [address] [email or web address] Social History Tobacco Use Types Packs/Day [...] 6:23 PM EDT Cee James RN * [place] Suicide Severity Rating Scale (Screener/Recent Self-Report) Question [...] RN 6. Suicidal Behavior (3 Months) Yes 5 6:23 PM EDT Cee Sanford RN documented [...] IMPRESSION: No acute osseous abnormality. Rut Salinas CANE WEIGHER HELPER IMG XR UPPER EXTREMITY Clara l Result [...] documented as of this encounter Care Teams Lining Printer Relationship Specialty Start Date End Date Andi Goff MD [address] [place] [address] Dr Sands [address] [place] [address] PCP - General 05/30/17 08/15/24 Janna Macias MD [address] [place] [address], [address] [place] [address] [email or web address] Historical LMR Provider 03/16/17 Andi Goff MD [address] [place] [address] Dr Sands [address] [place] [address] Historical LMR Provider 03/16/17 documented as of this encounter Additional Source Comments The information contained in this document represents components of the legal health record. It is not the complete legal health record.[facility]
--- NOTE | ~2025-01-13 | CT_ITS ---
EXAMINATION: CT HEAD WITHOUT CONTRAST CLINICAL INFORMATION: Unresponsive COMPARISON: July 01, 2024 TECHNIQUE: Contiguous axial imaging was performed from the skull base to vertex without intravenous administration of contrast. This CT examination was performed using dose optimization techniques as appropriate, variously including the following: *Automated exposure control *Adjustment of mA and/or kV according to patient size (this includes techniques or standardized protocols for targeted exams where dose is matched to indication/reason for exam; i.e. extremities or head) *Use of iterative reconstruction technique DLP: 765 mGY*cm FINDINGS: There is no acute ischemic change. Again seen is deep white matter hypodensities involving centrum semiovale and kaminski radiata. There is no intracranial hemorrhage. There is no mass-effect or midline shift. Multiple punctate calcifications are present in the subarachnoid spaces of the cerebrum. Basal cisterns and ventricles are within normal limits for age/cerebral volume. Orbits are symmetrical and unremarkable. Paranasal sinuses and mastoid air cells are pneumatized. There are no bony abnormalities. CT/CT head/brain wo IV con IMPRESSION: No acute intracranial abnormality. Chronic small vessel disease. 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 Electronically signed by: Jefferson Gilmore MD 01/13/2025 09:52 AM EDT
--- NOTE | ~2025-01-13 | XR_ITS ---
EXAMINATION: XR CHEST CLINICAL INFORMATION: Unresponsiveness COMPARISON: None available. TECHNIQUE: Frontal view of the chest was obtained. FINDINGS: Study limited by patient habitus and overlying soft tissue. The cardiac, hilar, and mediastinal contours are normal. The lungs appear clear bilaterally, allowing for soft tissue artifact. No pneumothorax or effusion. No focal osseous or soft tissue abnormality. XR/XR chest 1V IMPRESSION: No active pulmonary disease. Electronically signed by: Darrell Higgins MD 01/13/2025 09:09 AM EDT
--- NOTE | 2025-01-13 07:25 | PC.NURSE ---
pt pulled from car, sister reports PMHx of unconscious episodes, has been worked up by neurology for same w normal EEGs. pt was able to lean forward and minimally assist w transfer. RR WNL, brought back to rm 12 for triage.
[2025-01-13 07:37] VITALS: BP 123/65; PULSE 82; RESP 16; O2SAT 96; BMI 38.3
[2025-01-13 07:42] VITALS: BP 123/65; PULSE 82; RESP 16; TEMP 36.8; O2SAT 96
[2025-01-13 08:04] LABS: Glucose, Whole Blood 197 mg/dL (60-115)
--- NOTE | 2025-01-13 08:06 | ECG_ITS ---
Test Reason : SEIZURE Blood Pressure : */* mmHG Vent. Rate : 76 BPM Atrial Rate : 76 BPM P-R Int : 190 ms QRS Dur : 68 ms QT Int : 380 ms P-R-T Axes : 21 60 28 degrees QTcB Int : 427 ms Normal sinus rhythm Low voltage QRS Septal infarct (cited on or before 01-Jul-2024) Abnormal ECG When compared with ECG of 01-Jul-2024 16:48, Questionable change in initial forces of Septal leads Referred By: Dre Frey Electronically Signed By: JARRED RODRIGUEZ MD
--- NOTE | 2025-01-13 08:16 | ED_ITS ---
HPI - General Adult General Chief complaint: Seizure Stated complaint: neurological symptoms Time Seen by Provider: 01/13/25 08:06 Source: family (Mother) and old records reviewed Mode of arrival: ambulatory (Mother) Limitations: altered mental status History of Present Illness ED Provider: DR. Frey HPI narrative: 44-year-old female history of cerebral palsy, depression, DM, migraine, HLD who was brought in by mother for further evaluation of being unresponsive. Patient was in the passenger front seat the mother (the tank truck driver)noted that the patient is unresponsive, on unable to express herself with bilateral upper extremities weakness right more than left, mother declined witnessing seizure activity in the car, no recent sickness or illness, no patient's complaint before the episode., the patient live with her mother who also declined using any drugs, or head injury, patient is mute not speaking. Mother reporting a long history of similar problem in the past as per mother patient had a detailed neurological workup in the past including CT, MRI, and continues EMG at [facility] (Dr. Dhillon [facility] is her neurologist), patient prohibited to drive because of this issue. Mother stated that patient had a prior history of mental hospitalizations as well. Related Data Home Medications ?Medication ?Instructions ?Recorded ?Confirmed rizatriptan 5 mg tablet 5 mg PO DAILY PRN Migraine H eadache 05/08/24 01/14/25 verapamil 120 mg 24 hr 120 mg PO BID 05/08/2401/14 capsule,extended release acetaminophen 325 mg tablet 650 mg PO DAILY PRN Headac he 09/02/24 01/14/25 celecoxib 200 mg capsule 200 mg PO DAILY PRN Pain 02/1801/14/25 fluvoxamine 100 mg tablet 100 mg PO DAILY 10/14/24 fluvoxamine 50 mg tablet 150 mg PO BEDTIME 10/14/24 0 01/14/25 gabapentin 100 mg capsule 200 mg PO TID 10/14/2401/14 hydroxyzine HCl 50 mg tablet 50 mg PO BID PRN anxiety 10/14/24 01/14/25 levonorgestrel (Mirena) 1 device intrauterine ONCE 0 10/14/24 01/14/25 lidocaine 5 % topical patch 1 patch topical DAILY PRN Pain 10/14/24 01/14/25 trazodone 50 mg tablet 50 mg PO BEDTIME PRN sleep 0 10/14/24 01/14/25 albuterol sulfate 2.5 mg/3 mL 2.5 mg inhalation Q6H AL N Wheezing 01/14/25 01/14/25 (0.083 %) solution for nebulization albuterol sulfate 90 mcg/actuation 2 puff inhalation Q 4H PRN 01/14/25 01/14/25 aerosol inhaler shortness of breath or wheez ing Previous Rx's ?Medication ?Instructions ?Recorded blood-glucose meter (FreeStyle #1 ea 08/13/23 Lite Meter kit) lancets (FreeStyle Unistik 2) #100 ea 01/24/24 atorvastatin 40 mg tablet 40 mg PO DAILY #90 tabs 04/27 02/17 blood sugar diagnostic (FreeStyle #100 ea 06/05/24 Lite Strips) topiramate 50 mg capsule,extended 50 mg PO DAILY #90 c aps 10/13/24 release 24 hr metformin 500 mg tablet 500 mg PO BID #180 tabs 10/26 11/18 cholecalciferol (vitamin D3) 50 50 mcg PO DAILY #90 ca ps 12/14/24 mcg (2,000 unit) capsule tramadol 50 mg tablet 25 mg (1/2 x 50 mg) PO DAILY PRN 01/15/25 pain #5 tabs Allergies Allergy/AdvReac Type Severity Reaction Status Date / Time meloxicam (MELOXICAM) Allergy Severe RASH Verified 01/13/25 07:41 citalopram (From CELEXA) Allergy Intermediate LOCK JAW Verified 01/13/25 07:41 Biaxin Allergy Unknown Unknown Verified 01/13/25 07:41 cefaclor (From CECLOR) Allergy Unknown UNKNOWN Verified 01/13/25 07:41 cephalexin (Keflex) Allergy Unknown Unknown Verified 01/13/25 07:41 clarithromycin (From BIAXIN) Allergy Unknown UNKNOWN Verified 01/13/25 07:41 lactose Allergy Unknown INTOLERANCE Verified 01/13/25 07:41 Sulfa (Sulfonamide Allergy Unknown HIVES Verified 01/13/25 07:41 Antibiotics) (SULFA (SULFONAMIDE ANTIBIOTICS)) Review of Systems 2 Review of Systems: Yes Unobtainable due to mental status PMFSH Past Medical History Medical History Cerebral palsy Active asthma 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 Obesity Hypertension Acute sinusitis Hyperglycemia Hyperlipidemia Viral syndrome Acute sinusitis Surgical History H/O arthroscopic knee surgery History of carpal tunnel surgery of right wrist History of dilation and curettage History of foot surgery Family History Family History Father Hypertension Bladder cancer Diabetes Hyperlipidemia Mother Hypertension Paternal Aunt Breast cancer Paternal Grandfather Myocardial infarction Social History Social History Household Members: Family Housing: House Are you a primary home care music therapist to a significant other at home: No Do you presently have visiting nurse or other home services: No Unable to assess alcohol history related to: Unknown Alcohol intake: never Patient Tobacco Use Status: Never used Tobacco Tobacco use type: Cigarette e-Cigarette/Vaping Use: Never Used Second Hand Smoke Exposure: No service: No Current occupational status: employed Cognitive needs: No Hearing needs: No Vision needs: No Physical Exam ED Vital Signs: Vital Signs - 24 hr 01/13/25 14:43 01/13/25 18:08 01/13/25 20:18 Temperature 97.5 F 98.3 F 98.3 F Pulse Rate 75 74 73 Respiratory Rate 19 17 17 Blood Pressure 114/60 139/78 129/69 Pulse Oximetry 97 97 96 Oxygen Delivery Method Room Air Room Air Room Air 01/14/25 00:14 01/14/25 06:44 01/14/25 09:38 Temperature 98.8 F 98.4 F 98.0 F Pulse Rate 78 84 76 Respiratory Rate 16 14 18 Blood Pressure 126/67 120/63 128/74 Pulse Oximetry 96 95 96 Oxygen Delivery Method Room Air Room Air Room Air 01/14/25 09:41 Temperature Pulse Rate Respiratory Rate 22 H Blood Pressure Pulse Oximetry Oxygen Delivery Method BMI result Body Mass Index 38.3 Vital signs have been reviewed and appear to be correct. Blood pressure elevated. Heart rate normal. Respiratory rate normal. Temperature normal. Oxygen saturation normal. Appearance: Alert. Awake, open her eyes, regard examiner without making eye contact, patient is mute not speaking. Head: Normal external exam. Normocephalic. Atraumatic. No Wagner signs noted. No raccoon eyes noted Eyes: PERRLA. EOMI. Conjunctiva and sclera normal. Eyelids normal. ENT: TM's Normal. Pharynx normal. Uvula midline. Moist mucous membranes. No trismus noted. No drooling noted. No muffled voice noted. Neck: Normal inspection. Neck supple. FROM. No adenopathy. Thyroid Normal. No meningeal signs. No neck mass noted. CVS: Normal heart rate and rhythm. Heart sound normal. No murmurs noted. Pulses normal throughout. Respiratory: No respiratory distress. Painless inspiration. Breath sounds normal. No wheezes/rales/rhonchi noted. Chest nontender. No accessory muscle usage noted or decreased air movement noted. Abdomen: Soft and nontender. Bowel sounds normal in all 4 quadrants. No distention noted. No organomegaly noted. No visible injury noted. Back: No CVA tenderness. Full range of motion noted. Skin: Skin warm and dry. Normal skin color. Normal skin turgor. No rashes/lesions/lacerations noted. Extremities: No lower extremity edema. Extremities exhibit normal range of motion. Extremities nontender. Neuro: Limited exam because patient is not engaging in the physical exam. Course Reevaluation(s) Reevaluation #1: Patient is more responsive, nodding and shaking her head for answers, moving left arm, still hard to move her right arm (mother stated right side is usually the most affected side), patient is still mute. Complaining of headache. Unsuccessful [address] Kramer (neuro at [facility]) Time: 13:51 Reevaluation #2: Patient is more awake, still mute, improvement of left-sided weakness still weak on right side, mother assure history of similar presentation that patient usually a improved when tenuously usually takes 8-10 hours after the event, still no response of patient's neurologist at [facility], will continue watching the patient tell complete resolution of the patient's symptoms. Case signed out to Dr. Aguirre. Time: 16:00 Reevaluation #3: 01/13/25 Provider: Isauro Aguirre MD 22:54 Start physician observation I assumed care of this patient from my colleague, Dr. Frey at 16:00 hours. Patient presented with complex migraine with paralysis of her upper and lower extremities and inability to talk. She has had similar presentations in the past. Dr. Frey treated the patient with normal saline IV x1 L and acetaminophen 1000 mg IV with no improvement of her headache or her symptoms. I treated the patient with Toradol 15 mg IV, Reglan 10 mg IV and Benadryl 50 mg IV. Patient's headache is now 5/10. Patient has demonstrated some improvement. Patient can now lift her right arm against gravity. She can move her left arm [id number] and wiggle her feet but not lift her legs against gravity. Nursing staff states that they were able to help the patient in the bathroom but it required 2 person assist and the patient appeared weak. I ordered morphine 4 mg IV for her headache. At this time the patient has been in the emergency department for 15 hours. The patient is not stable enough to be discharged home at this time, therefore I place the patient in physician observation. I do believe the patient has a complex migraine syndrome but there also may be a psychiatric component to the patient's presentation as well especially since she is mute which is an unusual symptom for migraine syndrome. I do not think that the patient needs evaluation by our care team. Patient will be placed in physician observation until her symptoms resolved, she can talk, and walk without assistance. 01/14/2025 01:50 Physician observation continued The patient can now talk. She is able to move both of her upper extremities and hold them up against gravity. She still has weakness of her lower extremities. At the end of my shift, the patient's care was turned over to my colleague, Dr. Beckett. We will continue to monitor her. Consultations Consultation #1: Time: 13:40, Date: 01/14/2025, Provider: DR. Frey Physician observation ended at 13:40 hours. Patient today is AAO x3, have no memory of yesterday's event, patient now as per mother is back to her baseline, now able to ambulate to the bathroom with her normal gait, tolerated p.o. intake patient was asking for food, now patient wants to to go home with her mother. Patient is walking at her normal gait, behaving at her normal baseline behavior, mother contacted her neurologist who will see her next week for possible sleep studies. Both mother and patient comfortable to be discharged home. Medications Administered Discontinued Medications Generic Name Dose Route Start Last Admin Trade Name Jodi PRN Reason Stop Dose Admin Diphenhydramine HCl 50 mg 01/13/25 16:25 01/13/25 16:40 Diphenhydramine Hcl 50 Mg/Ml Vial IVPUSH 01/13/25 16:26 50 mg ONCE ONE Administration Acetaminophen 1,000 mg in 100 mls @ 400 mls/hr 01/13/25 13:29 01/13/25 14:20 Ofirmev IV 01/13/25 13:43 Infused ONCE ONE Infusion Sodium Chloride 1,000 mls @ 999 mls/hr 01/13/25 15:30 01/13/25 19:00 Ns IV 01/13/25 16:30 Infused .Q1H1M LARRY Infusion Acetaminophen 1,000 mg in 100 mls @ 400 mls/hr 01/14/25 09:24 01/14/25 10:25 Ofirmev IV 01/14/25 09:38 Infused ONCE ONE Infusion Ketorolac Tromethamine 15 mg 01/13/25 16:25 01/13/25 16:40 Ketorolac Tromethamine 15 Mg/Ml Vial IVPUSH 01/13/25 16:26 15 mg ONCE STA Administration Morphine Sulfate 4 mg 01/13/25 22:53 01/14/25 00:14 Morphine Sulfate 4 Mg/Ml Cartridge IVPUSH 01/13/25 22:54 4 mg ONCE STA Administration Protocol Morphine Sulfate 2 mg 01/14/25 09:24 01/14/25 09:41 Morphine Sulfate 2 Mg/Ml Cartridge IVPUSH 01/14/25 09:25 2 mg ONCE ONE Administration Protocol Prochlorperazine Edisylate 10 mg 01/13/25 16:25 01/13/25 16:40 Prochlorperazine Edisylate 10 Mg/2 Ml Vial IVPUSH 01/13/25 16:26 10 mg ONCE ONE Administration Medical Decision Making Differential Diagnosis Differential Diagnoses: The differential diagnosis associated with the presentation includes (Hemiplegic migraine, seizure, electrolyte derangement, severe anemia, acute psychosis.) Admission/Observation Consideration of admission/observation: Escalation of care including admission/observation considered Lab Data MDM Lab Attestation statement: I reviewed the patient's lab results. 01/13/25 08:26 01/13/25 08:26 Labs: Lab Results 01/13/25 01/13/25 01/13/25 Range/Units 08:01 08:26 08:38 WBC 8.4 (4.8-10.8) X10*3/uL RBC 4.41 (4.20-5.50) X10*6/uL Hgb 13.4 (12.0-16.0) g/dl Hct 39.2 (37.0-47.0) % MCV 88.9 (80.0-98.0) fL MCH 30.4 (27.0-33.0) pg MCHC 34.2 (31.0-35.0) g/dl RDW 12.2 (11.0-16.0) % Plt Count 251 (160-400) X10*3/uL MPV 9.0 L (9.4-12.3) fL Immature Gran % (Auto) 0.5 H (0.0-0.4) % Neut % (Auto) 73.8 H (45-73) % Lymph % (Auto) 17.3 L (20-40) % Darke % (Auto) 4.5 (2-11) % Eos % (Auto) 3.4 (0-4) % Baso % (Auto) 0.5 (0-2) % Lymph # (Auto) 1.5 (1.2-4.9) X10*3/uL Darke # (Auto) 0.4 (0.1-1.2) X10*3/uL Eos # (Auto) 0.3 (0.0-0.4) X10*3/uL Baso # (Auto) 0.0 (0.0-0.2) X10*3/uL Abs Immat Gran (auto) 0.04 H (0.00-0.03) X10*3/uL Absolute Neuts (auto) 6.2 (2.0-8.3) x10*3/uL Absolute Nucleated RBC 0.000 (0.0-0.012) X10*3/uL Nucleated RBC % (auto) 0.0 (0.0-0.2) /100WBC Sodium 141 (135-145) mmol/L Potassium 4.8 (3.3-5.1) mmol/L Chloride 108 (96-108) mmol/L Carbon Dioxide 25 (22-29) mmol/L Anion Gap 13 (12-20) BUN 18 H (9-16) mg/dL Creatinine 0.81 (0.5-1.4) mg/dL Estim Creat Clear Calc 95.2 Estimated GFR > 60 POC Glucose 197 H (60-115) mg/dL Random Glucose 209 H (60-115) mg/dL Calcium 9.4 (8.4-10.2) mg/dL Total Bilirubin 0.2 (0.0-1.0) mg/dL Direct Bilirubin < 0.2 (0.0-0.5) mg/dL AST 25 (5-31) U/L ALT 31 (0-31) U/L Alkaline Phosphatase 113 (39-117) U/L Troponin I High Sens < 2.7 (<3.5-17.0) ng/L B-Natriuretic Peptide < 10 (<100) pg/mL Total Protein 7.0 (6.5-8.0) g/dL Albumin 4.2 (3.5-5.0) g/dL Lipase 23 (8-78) U/L Urine Color Urine Appearance Urine pH (5.0-9.0) Ur Specific [place] (1.005-1.025) Urine Protein (Neg-Trace) mg/dL Urine Glucose (UA) (Negative) mg/dL Urine Ketones (Negative) mg/dL Urine Blood (Negative) Urine Nitrite (Negative) Ur Leukocyte Esterase (Negative) Urine Test (NEGATIVE) Urine Opiates Screen (Not Detect) Ur Buprenorphine Scrn (Not Detect) ng/mL Ur Oxycodone Screen (Not Detect) ng/mL Urine Methadone Screen (Not Detect) ng/mL Urine Fentanyl Screen (Not Detect) Ur Barbiturates Screen (Not Detect) Ur Phencyclidine Scrn (Not Detect) Ur Amphetamines Screen (Not Detect) U Benzodiazepines Scrn (Not Detect) Urine Cocaine Screen (Not Detect) U Marijuana (THC) Screen (Not Detect) Ethyl Alcohol < 10 mg/dL Influenza Type A (PCR) NEGATIVE (Negative) Influenza Type B (PCR) NEGATIVE (Negative) RSV RNA Qual (PCR) NEGATIVE (Negative) SARS-CoV-2 RNA (RT-PCR) NEGATIVE (Negative) 01/13/25 01/13/25 01/14/25 Range/Units 20:17 22:39 00:19 WBC (4.8-10.8) X10*3/uL RBC (4.20-5.50) X10*6/uL Hgb (12.0-16.0) g/dl Hct (37.0-47.0) % MCV (80.0-98.0) fL MCH (27.0-33.0) pg MCHC (31.0-35.0) g/dl RDW (11.0-16.0) % Plt Count (160-400) X10*3/uL MPV (9.4-12.3) fL Immature Gran % (Auto) (0.0-0.4) % Neut % (Auto) (45-73) % Lymph % (Auto) (20-40) % Darke % (Auto) (2-11) % Eos % (Auto) (0-4) % Baso % (Auto) (0-2) % Lymph # (Auto) (1.2-4.9) X10*3/uL Darke # (Auto) (0.1-1.2) X10*3/uL Eos # (Auto) (0.0-0.4) X10*3/uL Baso # (Auto) (0.0-0.2) X10*3/uL Abs Immat Gran (auto) (0.00-0.03) X10*3/uL Absolute Neuts (auto) (2.0-8.3) x10*3/uL Absolute Nucleated RBC (0.0-0.012) X10*3/uL Nucleated RBC % (auto) (0.0-0.2) /100WBC Sodium (135-145) mmol/L Potassium (3.3-5.1) mmol/L Chloride (96-108) mmol/L Carbon Dioxide (22-29) mmol/L Anion Gap (12-20) BUN (9-16) mg/dL Creatinine (0.5-1.4) mg/dL Estim Creat Clear Calc Estimated GFR POC Glucose 95 100 (60-115) mg/dL Random Glucose (60-115) mg/dL Calcium (8.4-10.2) mg/dL Total Bilirubin (0.0-1.0) mg/dL Direct Bilirubin (0.0-0.5) mg/dL AST (5-31) U/L ALT (0-31) U/L Alkaline Phosphatase (39-117) U/L Troponin I High Sens (<3.5-17.0) ng/L B-Natriuretic Peptide (<100) pg/mL Total Protein (6.5-8.0) g/dL Albumin (3.5-5.0) g/dL Lipase (8-78) U/L Urine Color Yellow Urine Appearance Clear Urine pH 7.0 (5.0-9.0) Ur Specific [place] >= 1.030 H (1.005-1.025) Urine Protein Negative (Neg-Trace) mg/dL Urine Glucose (UA) Negative (Negative) mg/dL Urine Ketones Trace (Negative) mg/dL Urine Blood Negative (Negative) Urine Nitrite Negative (Negative) Ur Leukocyte Esterase Negative (Negative) Urine Test NEGATIVE (NEGATIVE) Urine Opiates Screen Not Detected (Not Detect) Ur Buprenorphine Scrn Not Detected (Not Detect) ng/mL Ur Oxycodone Screen Not Detected (Not Detect) ng/mL Urine Methadone Screen Not Detected (Not Detect) ng/mL Urine Fentanyl Screen Not Detected (Not Detect) Ur Barbiturates Screen Not Detected (Not Detect) Ur Phencyclidine Scrn Not Detected (Not Detect) Ur Amphetamines Screen Not Detected (Not Detect) U Benzodiazepines Scrn Not Detected (Not Detect) Urine Cocaine Screen Not Detected (Not Detect) U Marijuana (THC) Screen Not Detected (Not Detect) Ethyl Alcohol mg/dL Influenza Type A (PCR) (Negative) Influenza Type B (PCR) (Negative) RSV RNA Qual (PCR) (Negative) SARS-CoV-2 RNA (RT-PCR) (Negative) 01/14/25 Range/Units 08:49 WBC (4.8-10.8) X10*3/uL RBC (4.20-5.50) X10*6/uL Hgb (12.0-16.0) g/dl Hct (37.0-47.0) % MCV (80.0-98.0) fL MCH (27.0-33.0) pg MCHC (31.0-35.0) g/dl RDW (11.0-16.0) % Plt Count (160-400) X10*3/uL MPV (9.4-12.3) fL Immature Gran % (Auto) (0.0-0.4) % Neut % (Auto) (45-73) % Lymph % (Auto) (20-40) % Darke % (Auto) (2-11) % Eos % (Auto) (0-4) % Baso % (Auto) (0-2) % Lymph # (Auto) (1.2-4.9) X10*3/uL Darke # (Auto) (0.1-1.2) X10*3/uL Eos # (Auto) (0.0-0.4) X10*3/uL Baso # (Auto) (0.0-0.2) X10*3/uL Abs Immat Gran (auto) (0.00-0.03) X10*3/uL Absolute Neuts (auto) (2.0-8.3) x10*3/uL Absolute Nucleated RBC (0.0-0.012) X10*3/uL Nucleated RBC % (auto) (0.0-0.2) /100WBC Sodium (135-145) mmol/L Potassium (3.3-5.1) mmol/L Chloride (96-108) mmol/L Carbon Dioxide (22-29) mmol/L Anion Gap (12-20) BUN (9-16) mg/dL Creatinine (0.5-1.4) mg/dL Estim Creat Clear Calc Estimated GFR POC Glucose 110 (60-115) mg/dL Random Glucose (60-115) mg/dL Calcium (8.4-10.2) mg/dL Total Bilirubin (0.0-1.0) mg/dL Direct Bilirubin (0.0-0.5) mg/dL AST (5-31) U/L ALT (0-31) U/L Alkaline Phosphatase (39-117) U/L Troponin I High Sens (<3.5-17.0) ng/L B-Natriuretic Peptide (<100) pg/mL Total Protein (6.5-8.0) g/dL Albumin (3.5-5.0) g/dL Lipase (8-78) U/L Urine Color Urine Appearance Urine pH (5.0-9.0) Ur Specific [place] (1.005-1.025) Urine Protein (Neg-Trace) mg/dL Urine Glucose (UA) (Negative) mg/dL Urine Ketones (Negative) mg/dL Urine Blood (Negative) Urine Nitrite (Negative) Ur Leukocyte Esterase (Negative) Urine Test (NEGATIVE) Urine Opiates Screen (Not Detect) Ur Buprenorphine Scrn (Not Detect) ng/mL Ur Oxycodone Screen (Not Detect) ng/mL Urine Methadone Screen (Not Detect) ng/mL Urine Fentanyl Screen (Not Detect) Ur Barbiturates Screen (Not Detect) Ur Phencyclidine Scrn (Not Detect) Ur Amphetamines Screen (Not Detect) U Benzodiazepines Scrn (Not Detect) Urine Cocaine Screen (Not Detect) U Marijuana (THC) Screen (Not Detect) Ethyl Alcohol mg/dL Influenza Type A (PCR) (Negative) Influenza Type B (PCR) (Negative) RSV RNA Qual (PCR) (Negative) SARS-CoV-2 RNA (RT-PCR) (Negative) Independent Interpretation I performed an independent interpretation of an: Plain X-Ray (Chest: No acute active pulmonary disease.) and CT Scan (Head:No acute intracranial abnormality. Chronic small vessel disease. 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 Discharge Plan Discharge Clinical Impression: Headache, hemiplegic migraine, Conversion muteness, Generalized weakness Patient Disposition: Home, Self-Care Instructions: Migraine Headache (ED) Prescriptions: No Action (DME) blood-glucose meter [FreeStyle Lite Meter] Kit See Rx Instructions .Route Qty: 1 0RF Rx Instructions: As directed (DME) lancets [FreeStyle Unistik 2] Misc See Rx Instructions .Route Qty: 100 0RF Rx Instructions: As directed Once per day atorvastatin 40 mg tablet 40 mg PO DAILY Qty: 90 3RF (DME) FreeStyle Lite Strips Strip See Rx Instructions .Route Qty: 100 0RF Rx Instructions: As directed once per day topiramate 50 mg capsule,extended release 24hr 50 mg PO DAILY Qty: 90 1RF metformin 500 mg tablet 500 mg PO BID Qty: 180 2RF cholecalciferol (vitamin D3) 50 mcg (2,000 unit) capsule 50 mcg PO DAILY Qty: 90 2RF tramadol 50 mg tablet 25 mg PO DAILY PRN (Reason: pain) Qty: 5 0RF albuterol sulfate 2.5 mg /3 mL (0.083 %) solution for nebulization 2.5 mg inhalation Q6H PRN (Reason: Wheezing) albuterol sulfate 90 mcg/actuation HFA aerosol inhaler 2 puff inhalation Q4H PRN (Reason: shortness of breath or wheezing) verapamil 120 mg capsule,ext rel. pellets 24 hr 120 mg PO BID rizatriptan 5 mg tablet 5 mg PO DAILY PRN (Reason: Migraine Headache) Rx Instructions: may repeat once if no relief in 2 hours acetaminophen 325 mg tablet 650 mg PO DAILY PRN (Reason: Headache) celecoxib 200 mg capsule 200 mg PO DAILY PRN (Reason: Pain) trazodone 50 mg tablet 50 mg PO BEDTIME PRN (Reason: sleep) lidocaine 5 % adhesive patch,medicated 1 patch topical DAILY PRN (Reason: Pain) gabapentin 100 mg capsule 200 mg PO TID fluvoxamine 100 mg tablet 100 mg PO DAILY fluvoxamine 50 mg tablet 150 mg PO BEDTIME Mirena 21 mcg/24hr (up to 8 yrs) 52 mg intrauterine device 1 device intrauterine ONCE hydroxyzine HCl 50 mg tablet 50 mg PO BID PRN (Reason: anxiety) Referrals: Meri Correa PA-C [Primary Care Provider, Internal Medicine] Stand Alone Forms: Work/School Release Interventions: ED Discharge Assessment Last Done: 01/14/25 14:00 Discharge Date/Time: 01/14/25 14:00 Print Language: Azeri
--- OUTSIDE RECORDS SUMMARY | 2025-01-13 08:25 | XMS_ITS ---
Author Organization [facility] Care Team Providers Care Agronomy Location Manager Name Role Phone August Unavailable UnavailOTILIO Obrien Unavailable Unavailable LEVBRODY CORADO Unavailable Unavailable LILIBETH DANIELS Unavailable Unavailable Allergies and adverse reactions Code CodeSystem Substance Reaction Severity StartDate Concern Status 939259418 SNOMED CT Tomatoes Moderate Unknown active 184166055 SNOMED CT Sulfa Antibiotics Mild Unknown ac tive 73753 RXNORM Meloxicam Moderate Unknown active 2231 RXNORM Keflex Moderate Unknown active 2556 RXNORM CeleXA Moderate Unknown active 2176 RXNORM Cefaclor Moderate Unknown active 62536 RXNORM Biaxin Moderate Unknown active Care Team Name Role Address Phone Organization Dates OTILIO FROST PCP [address] [facility] [address], [place], [address], [place] (Office): : [facility] 12/25/2023 - 01/03/2024August EDWIN [address] [place], [address], [facility] (Office): [facility] 12/25/2023 - 01/03/2024 BRODY CANCINO [address] [facility], [place], [address], [place] (Office): [facility] 12/25/2023 - 01/03/2024 LILIBETH DANIELS [facility] [address] [place], [address], [place] (Office): : : [facility] 12/25/2023 - 01/03/2024 Immunizations Immunization Status Vaccine Details Vaccine Code CodeSystem Date Notes Influenza cancelled Influenza, high-dose, split virus, quadrivalent, injectable, preservative free 197 CVX created date: 12/30/2023 consent date: 12/30/2023 TB 2 Step Mantoux Skin Test completed tuberculin skin test; unspecified formulation lotNumber: [id number] expiry: 10/20/2026 Mfg: [employer] limited Given 0.1 ml Right Forearm intradermally Step 1 of Multi-step with next step required 98 CVX created date: 12/26/2023 consent date: 12/26/2023 administer ed date: 12/26/2023 Educated by Dominga Root on 12/26/2023 Negative SARS-COV-2 (COVID-19) MODERNA BOOSTER completed SARS-COV-2 (COVID-19) vaccine, mRNA, spike protein, LNP, preservative free, 100 mcg/0.5mL dose or 50 mcg/0.25mL dose 207 CVX created date: 12/30/2023 administer ed date: 04/04/2021 [id number] cancelled Pneumococcal conjugate vaccine 20-valent (PCV20), polysaccharide [id number] conjugate, adjuvant, preservative free 216 CVX created date: 12/30/2023 consent date: 12/30/2023 Covid Moderna Formula cancelled SARS-COV-2 (COVID-19) vaccine, mRNA, spike protein, LNP, preservative free, 50 mcg/0.5 mL dose 312 CVX created date: 12/30/2023 consent date: 12/30/2023 Covid Moderna Primary Series completed SARS-COV-2 (COVID-19) vaccine, mRNA, spike protein, LNP, preservative free, 100 mcg/0.5mL dose or 50 mcg/0.25mL dose 207 CVX created date: 12/30/2023 administer ed date: 08/12/2020 Covid Moderna Primary Series completed SARS-COV-2 (COVID-19) vaccine, mRNA, spike protein, LNP, preservative free, 100 mcg/0.5mL dose or 50 mcg/0.25mL dose 207 CVX created date: 12/30/2023 administer ed date: 07/15/2020 Mental Status Section Date Assessment Total Score Description 01/03/2024 BIMS 14 cognitively int act CAM 0 No delirium ind icated PHQ-9 01 minimal depress ion 01/01/2024 BIMS 13 cognitively int act CAM 0 No delirium ind icated PHQ-9 10 moderate depres keltno Problems Problem # Description Date of onset Resolved Date Code CodeSystem Concern Status 1 ANXIETY DISORDER, UNSPECIFIED 12/25/[address] active 2 APHASIA 12/25/[address] active 3 CEREBRAL PALSY, UNSPECIFIED 12/25/[address] active 4 DEPRESSION, UNSPECIFIED 12/25/[address] active 5 ESSENTIAL (PRIMARY) HYPERTENSION 12/25/[address] active 6 HYPERLIPIDEMIA, UNSPECIFIED 12/25/[address] active 7 MIGRAINE WITH AURA, NOT INTRACTABLE, WITHOUT STATUS MIGRAINOSUS 12/25/[address] active 8 OSTEOARTHRITIS OF KNEE, UNSPECIFIED 12/25/[address] active 9 OTHER ASTHMA 12/25/[address] acti ve 10 OTHER SYMPTOMS AND SIGNS INVOLVING THE NERVOUS SYSTEM 12/25/[address] active 11 TYPE 2 DIABETES MELLITUS WITHOUT COMPLICATIONS 12/25/[address] active Reason for Referral No Reasons for Referral Entered Social History Social History Observation Description Start Date End Date Code Code System Current Smoking Status Tobacco smoking consumption unknown 122834371 SNOMED CT Sex Assigned At Female 1980 92685-3 [facility] Gender Identity Vital Signs Code Code System Vitals Name Values and Units Timing Information 62261-6 [facility] Weight Xdfxa=991.2 Units=Lbs 01/2024 33406-6 [facility] Pain Level Value=0.0 01/03/2024 2339-0 [facility] Blood Sugar Mfvry=298.0 Units=mg/dL 01/03/2024 9279-1 [facility] Respiratory Rate Value=18.0 Units=/m in 01/01/2024 8462-4 [facility] Blood Pressure-Diastolic Value=68 Un its=mmHg 01/01/2024 8480-6 [facility] Blood Pressure-Systolic Xqwnc=926 Un its=mmHg 01/01/2024 8310-5 [facility] Body Temperature Value=97.8 Units= F 01/01/2024 8867-4 [facility] Heart rate Value=74.0 Units=/min 11/2023 65168-3 [facility] O2 % BldC Oximetry Value=97.0 Units= % 01/01/2024 8302-2 [facility] Height Value=62.0 Units=Inches 01/01/2024
[2025-01-13 08:31] LABS: MANUAL DIFF FLAG NO
[2025-01-13 08:32] LABS: Hematocrit 39.2 % (37.0-47.0); Hemoglobin 13.4 g/dl (12.0-16.0); Imm Gran Abs Auto 0.04 X10*3/uL (0.00-0.03); Imm Gran Pct Auto 0.5 % (0.0-0.4); Lymphocytes Absolute Auto 1.5 X10*3/uL (1.2-4.9); Mean Corpuscular HGB Conc 34.2 g/dl (31.0-35.0); Mean Corpuscular Hemoglobin 30.4 pg (27.0-33.0); Mean Corpuscular Volume 88.9 fL (80.0-98.0); NRBC Abs Auto 0.000 X10*3/uL (0.0-0.012); NRBC Pct Auto 0.0 /100WBC (0.0-0.2); Platelet Count 251 X10*3/uL (160-400); Red Blood Count 4.41 X10*6/uL (4.20-5.50); White Blood Count 8.4 X10*3/uL (4.8-10.8)
[2025-01-13 08:49] LABS: Alanine Aminotransferase 31 U/L (0-31); Albumin Level 4.2 g/dL (3.5-5.0); Alkaline Phosphatase 113 U/L (39-117); Anion Gap 13 (12-20); Aspartate Amino Transferase 25 U/L (5-31); Blood Urea Nitrogen 18 mg/dL (9-16); Calcium 9.4 mg/dL (8.4-10.2); Carbon Dioxide 25 mmol/L (22-29); Chloride 108 mmol/L (96-108); Creatinine Clr Calc Pharmacy 95.2; Estimated Glomerular Filt Rate > 60; Lipase 23 U/L (8-78); Potassium 4.8 mmol/L (3.3-5.1); Sodium 141 mmol/L (135-145); Total Protein 7.0 g/dL (6.5-8.0)
[2025-01-13 08:53] LABS: B Type Natriuretic Peptide < 10 pg/mL (<100)
[2025-01-13 08:58] LABS: Troponin-I High Sensitivity < 2.7 ng/L (<3.5-17.0)
[2025-01-13 09:34] LABS: Resp Syncy Virus RNA Qual PCR NEGATIVE (Negative); SARS COV2 PCR INHOUSE NEGATIVE (Negative)
[2025-01-13 11:02] VITALS: BP 110/75; PULSE 78; RESP 18; O2SAT 96
[2025-01-13 14:43] VITALS: BP 114/60; PULSE 75; RESP 19; TEMP 36.4; O2SAT 97
[2025-01-13 18:08] VITALS: BP 139/78; PULSE 74; RESP 17; TEMP 36.8; O2SAT 97
[2025-01-13 20:18] VITALS: BP 129/69; PULSE 73; RESP 17; TEMP 36.8; O2SAT 96
--- NOTE | 2025-01-13 20:19 | PC.NURSE ---
pt is alert and responsive to name, mom states pt usually becomes mute with these sx which is present currently. pt nodding to questions and points to extremities when asking questions. pt still unable to move right side however left side able to move. mom also stated pt has not urinated since arrival, bladder scan showed 437mL, pt refusing interventions at this time and would like to get up to the bathroom once able to. ok with plan. mom also concerned for bgl, poc was 95. pt appears well, nad. call morillo within reach and mom at bedside. awaiting improvement in sx for plan of d/c.
[2025-01-13 20:23] LABS: Glucose, Whole Blood 95 mg/dL (60-115)
[2025-01-13 22:49] LABS: Appearance Urine Clear; Glucose Urine UA Negative (Negative); PH 7.0 (5.0-9.0); Specific Gravity - Urine >= 1.030 (1.005-1.025)
[2025-01-13 22:51] LABS: UPreg QC Valid YES
[2025-01-13 22:58] LABS: Cannabinoid Screen Urine Not Detected (Not Detect)
[2025-01-14 00:14] VITALS: BP 126/67; PULSE 78; RESP 16; TEMP 37.1; O2SAT 96
[2025-01-14 00:24] LABS: Glucose, Whole Blood 100 mg/dL (60-115)
[2025-01-14 06:44] VITALS: BP 120/63; PULSE 84; RESP 14; TEMP 36.9; O2SAT 95
[2025-01-14 08:53] LABS: Glucose, Whole Blood 110 mg/dL (60-115)
[2025-01-14 09:38] VITALS: BP 128/74; PULSE 76; RESP 18; TEMP 36.7; O2SAT 96
[2025-01-14 09:41] VITALS: RESP 22
--- NOTE | 2025-01-14 11:19 | PHA.MEDREC ---
Pharmacy Consult ? Medication Reconciliation Pharmacy has completed the medication reconciliation. Spoke to patient and mother Ya at bedside to confirm medication list. They confirmed that pt is taking fluvoxamine 100 mg in the morning and 150 mg at bed time, pt is NOT taking risperidone nor duloxetine. Last dose of medications was yesterday 01/13/25.
[2025-01-14 14:00] VITALS: BP 128/74; PULSE 76; RESP 22; TEMP 36.7; O2SAT 96
== END 2025-01-14 14:00 | disposition home or self-care (01) ==
PROVIDERS: Emergency Medicine; Emergency Provider Emergency Medicine Emergency Medical Services
DX: G43.409 Hemiplegic migraine, not intractable, without status migrainosus (principal); G83.9 Paralytic syndrome, unspecified; R53.1 Weakness; R47.01 Aphasia; I10 Essential (primary) hypertension; J45.909 Unspecified asthma, uncomplicated; E66.9 Obesity, unspecified; Z68.38 Body mass index [BMI] 38.0-38.9, adult; Z79.899 Other long term (current) drug therapy
CPT/HCPCS: 36415; 70450; 71045; 80048; 80076; 80307; 81003; 81025; 82947; 83690; 83880; 84484; 85025; 87637; 93005; 96361; 96365; 96366; 96375; 96376; 99285; J0131; J0737; J1200; J1885; J2270

== ENCOUNTER → 2025-01-13 08:06 | Outpatient (BNV) | payer OTHER, SELFPAY | PROVIDERS: Emergency Provider Emergency Medicine; Visit Provider Radiology Diagnostic Radiology | DX: G40.89 Other seizures (principal); R46.4 Slowness and poor responsiveness | CPT/HCPCS: 70450; 71045 ==

== ENCOUNTER → 2025-01-13 08:06 | Outpatient (BNV) | payer OTHER, SELFPAY | PROVIDERS: Emergency Provider Emergency Medicine; Visit Provider Internal Medicine Cardiovascular Disease | DX: I25.2 Old myocardial infarction (principal) | CPT/HCPCS: 93010 ==

== ENCOUNTER 2025-02-16 08:12 | Outpatient (REF) | payer OTHER, SELFPAY | END 2025-02-16 08:13 | disposition home or self-care (01) | LOC: HO.LAB 08:12 | DX: N39.0 Urinary tract infection, site not specified (principal); G43.419 Hemiplegic migraine, intractable, without status migrainosus; E66.812 Obesity, class 2; E66.09 Other obesity due to excess calories; I10 Essential (primary) hypertension; E78.2 Mixed hyperlipidemia; E11.9 Type 2 diabetes mellitus without complications; J45.20 Mild intermittent asthma, uncomplicated; G47.10 Hypersomnia, unspecified; F42.9 Obsessive-compulsive disorder, unspecified; Z68.36 Body mass index [BMI] 36.0-36.9, adult | CPT/HCPCS: 81003; 83036; 87086 ==

== ENCOUNTER 2025-02-16 08:12 | Outpatient (AMB) | payer OTHER, SELFPAY ==
--- OUTSIDE RECORDS SUMMARY | 2020-03-31 16:29 | XMS_ITS | Encounter Summary ---
Author Organization [facility] Address [address] [facility] [address] [place] [address] Phone Care Team Providers Care Cost Control Specialist Name Role Phone Annmarie Richey LAMP REPLACER Unavailable Francisca Casillas LAMP REPLACER Unavailable [phone] Ross Tobin MD Unavailable Jesscia Jackson LAMP REPLACER Unavailable [phone] Janna Macias MD Unavailable Dena Brownlee LAMP REPLACER Unavailable Cory Kay MD Unavailable [phone] Kristen Chávez LAMP REPLACER Unavailable [phone] Andi Goff MD Unavailable [phone] Aster Shelley MD Unavailable [phone] Charlotte Bolaños MD Unavailable Isiah Pavon MD Unavailable [phone] Andi Goff MD Primary Care Provider Encounter Details Date Type Department Care Team (Late st Contact Info) Description 03/31/2020 3:29 PM EST Hospital Encounter [facility] [address] [place] [address] [phone] Margarita Burch, PERSONAL CARE SERVICE PROVIDER [address] [place] [address] Social History Tobacco Use Types Packs/Day Years Used Date Smoking Tobacco: Never Smokeless Tobacco: Never Alcohol Use Standard Drinks/Week Comments Never 0 (1 standard drink = 0.6 oz pur e alcohol) Education Answer Date Recorded Are you interested [...] 6:23 PM EDT Cee James RN * [place] Suicide Severity Rating Scale (Screener/Recent Self-Report) Question [...] Sanford RN 6. Suicidal Behavior (Lifetime) Yes 5 6:23 PM EDT Cee Sanford RN 6. [...] Joint spaces maintained. IMPRESSION: No fracture seen. Margarita Burch PERSONAL CARE SERVICE PROVIDER IMG XR LOWER EXTREMITY Clara l Result [...] documented as of this encounter Care Teams Cost Control Specialist Relationship Specialty Start Date End Date Andi Goff MD [address] [place] [address] [place] [address] PCP - General 05/30/17 08/15/24 Annmarie Richey NP [address] [place] [address] Historical LMR Provider 03/16/17 2 Francisca Casillas NP [address] [place] [address] Historical LMR Provider 03/16/17 2 Ross Tobin MD [address] [place] [address] Historical LMR Provider 03/16/17 06/03/21 Jessica Jackson NP [address] [place] [address] [email or web address] Historical LMR Provider 03/16/17 06/03/21 Janna Macias MD [address] [place] [address] Historical LMR Provider 03/16/17 Dena Brownlee NP [address] [place] [phone] Historical LMR Provider 03/16/17 2 Cory Kay MD [address] [place] [address], [address] [place] [address] Historical LMR Provider 03/16/17 06/03/21 Kristen Chávez NP [address] [place] [address] Historical LMR Provider 03/16/17 2 Andi Goff MD [address] [place] [address] [place] [address] Historical LMR Provider 03/16/17 Aster Shelley MD [address] [place] [phone] Historical LMR Provider 03/16/17 2 Charlotte Bolaños MD [address] [place] [address] [address] [place] [address] [email or web address] Historical LMR Provider 03/16/17 06/03/21 Isiah Pavon MD [address] [place] [address] Historical LMR Provider 03/16/17 2 documented as of this encounter Additional Source Comments The information contained in this document represents components of the legal health record. It is not the complete legal health record.[facility]
--- OUTSIDE RECORDS SUMMARY | 2020-03-31 16:29 | XMS_ITS | Encounter Summary ---
Author Organization [facility] Address [address] [facility] [address] [place] [address] Phone Care Team Providers Care Farm Facility Manager Name Role Phone Annmarie Richey BALLPOINT PENS ASSEMBLER Unavailable Francisca Casillas BALLPOINT PENS ASSEMBLER Unavailable [phone] Ross Tobin MD Unavailable Jessica Jackson BALLPOINT PENS ASSEMBLER Unavailable [phone] Janna Macias MD Unavailable Dena Brownlee BALLPOINT PENS ASSEMBLER Unavailable Cory Kay MD Unavailable [phone] Kristen Chávez BALLPOINT PENS ASSEMBLER Unavailable Andi Goff MD Unavailable [phone] Aster Shelley MD Unavailable [phone] Charlotte Bolaños MD Unavailable Isiah Pavon MD Unavailable [phone] Andi Goff MD Primary Care Provider Encounter Details Date Type Department Care Team (Late st Contact Info) Description 03/31/2020 3:29 PM EST Hospital Encounter [facility] [address] [place] [address] [phone] Margarita Burch, TABLEAU DEVELOPER [address] [place] [address] Social History Tobacco Use Types Packs/Day Years [...] 6:23 PM EDT Cee James RN * [place] Suicide Severity Rating Scale (Screener/Recent Self-Report) Question [...] fracture or malalignment is detected. Margarita Burch TABLEAU DEVELOPER IMG XR LOWER EXTREMITY Clara l Result [...] documented as of this encounter Care Teams Farm Facility Manager Relationship Specialty Start Date End Date Andi Goff MD [address] [place] [address] [place] [address] PCP - General 05/30/17 08/15/24 Annmarie Richey NP [address] [address] Historical LMR Provider 03/16/17 2 Francisca Casillas NP [address] [place] [address] Historical LMR Provider 03/16/17 2 Ross Tobin MD [address] [place] [address] [email or web address] Historical LMR Provider 03/16/17 06/03/21 Jessica Jackson NP [address] [place] [address] [email or web address] Historical LMR Provider 03/16/17 06/03/21 Janna Macias MD [address] [place] [address] Historical LMR Provider 03/16/17 Dena Brownlee NP [address] [place] [phone] Historical LMR Provider 03/16/17 2 Cory Kay MD [address] [place] [address] Historical LMR Provider 03/16/17 06/03/21 Kristen Chávez NP [address] [place] [address] Historical LMR Provider 03/16/17 2 Andi Goff MD [address] [place] [address] [place] [address] Historical LMR Provider 03/16/17 Aster Shelley MD [address] [place] [phone] Historical LMR Provider 03/16/17 2 Charlotte Bolaños MD [address] [place] [address] 102 [place] [address] Historical LMR Provider 03/16/17 06/03/21 Isiah Pavon MD [address] [place] [address] Historical LMR Provider 03/16/17 2 documented as of this encounter Additional Source Comments The information contained in this document represents components of the legal health record. It is not the complete legal health record.[facility]
--- OUTSIDE RECORDS SUMMARY | 2021-11-02 12:03 | XMS_ITS | Encounter Summary ---
Author Organization [facility] Address [address] [facility] [address] [place] [address] Phone Care Team Providers Care Ring Conductor Name Role Phone Janna Macias MD Unavailable [phone] Andi Goff MD Unavailable [phone] Andi Goff MD Primary Care Provider [phone] Encounter Details Date Type Department Care Team (Late st Contact Info) Description 11/02/2021 12:03 PM EDT Hospital Encounter [facility] [address] [place] [address] Rut Salinas FNP [address] [place] [phone] [email or web address] Social History Tobacco Use Types Packs/Day Years [...] 6:23 PM EDT Cee James RN * [place] Suicide Severity Rating Scale (Screener/Recent Self-Report) Question [...] IMPRESSION: No acute osseous abnormality. Rut Salinas BLAST FURNACE KEEPER IMG XR UPPER EXTREMITY Clara l Result [...] documented as of this encounter Care Teams Ring Conductor Relationship Specialty Start Date End Date Andi Goff MD [address] [place] [address] Dr Sands [address] [place] [address] PCP - General 05/30/17 08/15/24 Janna Macias MD [address] [place] [address], [address] [place] [address] [email or web address] Historical LMR Provider 03/16/17 Andi Goff MD [address] [place] [address] Dr Sands [address] [place] [address] Historical LMR Provider 03/16/17 documented as of this encounter Additional Source Comments The information contained in this document represents components of the legal health record. It is not the complete legal health record.[facility]
--- OUTSIDE RECORDS SUMMARY | 2021-11-02 12:04 | XMS_ITS | Encounter Summary ---
Author Organization [facility] Address [address] [facility] [address] [place] [address] Phone Care Team Providers Care Camera Mechanic Name Role Phone Janna Macias MD Unavailable [phone] Andi Goff MD Unavailable [phone] Andi Goff MD Primary Care Provider [phone] Encounter Details Date Type Department Care Team (Late st Contact Info) Description 11/02/2021 12:04 PM EDT Hospital Encounter [facility] [address] [place] [address] Rut Salinas FNP [address] [place] [phone] [email or web address] Social History Tobacco Use Types Packs/Day [...] 6:23 PM EDT Cee James RN * [place] Suicide Severity Rating Scale (Screener/Recent Self-Report) Question [...] Yes 09/29/2024 6:23 PM EDT Cee De eLon RN 5. Active Suicidal Ideation with Specific [...] IMPRESSION: No acute osseous abnormality. Rut Salinas POLICE LIEUTENANT PRECINCT IMG XR UPPER EXTREMITY Clara l Result [...] documented as of this encounter Care Teams Camera Mechanic Relationship Specialty Start Date End Date Andi Goff MD [address] [place] [address] Dr Sands [address] [place] [address] PCP - General 05/30/17 08/15/24 Janna Macias MD [address] [place] [address], [address] [place] [address] [email or web address] Historical LMR Provider 03/16/17 Andi Goff MD [address] [place] [address] Dr Sands [address] [place] [address] Historical LMR Provider 03/16/17 documented as of this encounter Additional Source Comments The information contained in this document represents components of the legal health record. It is not the complete legal health record.[facility]
--- OUTSIDE RECORDS SUMMARY | 2023-01-07 17:45 | XMS_ITS | Encounter Summary ---
Author Organization [facility] Address [address] [place] [address] Phone Care Team Providers Care Hospital Medicine Director Name Role Phone Janna Macias MD Unavailable [phone] Andi Goff MD Unavailable [phone] Andi Goff MD Primary Care Provider [phone] Encounter Details Date Type Department Care Team (Late st Contact Info) Description 01/07/2023 5:45 PM EDT Hospital Encounter [facility] [address] [place] [address] Karin Beltran, CISCO UNIFIED COMMUNICATIONS ENGINEER [address] [place] [address] [email or web address] Tobacco Use Types Packs/Day Years [...] 6:23 PM EDT Cee James RN * [place] Suicide Severity Rating Scale (Screener/Recent Self-Report) Question [...] report originally createdby Kahlil Hernadez. Karin Beltran CISCO UNIFIED COMMUNICATIONS ENGINEER IMG XR CHEST Final Resul t documented in this encounter Visit Diagnoses Not on filedocumented in this encounter Additional Health Concerns Infection Onset Date Last Indicated Resolved Time CoV-Risk 03/15/2023 03/15/2023 03/26/2023 1:25 AM EDT CoV-Risk 06/24/2024 06/24/2024 07/05/2024 1:21 AM EST documented as of this encounter Care Teams Hospital Medicine Director Relationship Specialty Start Date End Date Andi Goff MD [address] [place] [address] Dr Sands [address] [place] [address] PCP - General 05/30/17 08/15/24 Janna Macias MD [address] [place] [address], [address] [place] [address] [email or web address] Historical LMR Provider 03/16/17 Andi Goff MD [address] [place] [address] Dr Sands [address] [place] [address] Historical LMR Provider 03/16/17 documented as of this encounter Additional Source Comments The information contained in this document represents components of the legal health record. It is not the complete legal health record.[facility]
--- OUTSIDE RECORDS SUMMARY | 2023-07-22 18:05 | XMS_ITS | Encounter Summary ---
Author Organization [facility] Address [address] [facility] [address] [place] [address] Phone Care Team Providers Care Access Database Developer Name Role Phone Janna Macias MD Unavailable [phone] Andi Goff MD Unavailable [phone] Andi Goff MD Primary Care Provider [phone] Encounter Details Date Type Department Care Team (Late st Contact Info) Description 07/22/2023 5:05 PM [facility] Hospital Encounter [facility] [address] [place] [address] Margarita Burch CNP [address] [place] [address] [email or web address] Social History Tobacco Use Types Packs/Day Years [...] your housing situation today? I have amanda mraion 09/30/2024 How many times have you moved [...] 6:23 PM EDT Cee James RN * [place] Suicide Severity Rating Scale (Screener/Recent Self-Report) Question [...] (Right) (07/22/2023 5:18 PM EST) MGB IMG MEETING COORDINATOR COMMENT Consider CT if high clinical concern [...] communicated on 07/22/2023 5:57 PM, Message ID [id number]. ATTESTATION: I, Heather Najera as teaching physician, have reviewed the images for this case and if necessary edited the report originally created by Simeon Blackwood. Narrative 07/22/2023 5:58 PM EST XR CALCANEUS 2 OR MORE VIEWS (RIGHT) Referring clinician's provided indication for this examination in [facility]: Pain; Trauma; fell 5 days ago, foot under COMPARISON: None. Procedure Note Aisha Sorto MD / System, Provider Not In, PhD - 07/22/2023 XR CALCANEUS 2 OR MORE VIEWS (RIGHT) Referring clinician's provided indication for this examination in [facility]:Pain; Trauma; fell 5 days ago, foot under COMPARISON: None. IMPRESSION: No displaced calcaneal fracture. No significant radiographic soft tissue swelling. Early superior calcaneal spur. However, if significant pain or concerning mechanism, CT can be consideredfor further evaluation. A clinically significant result was communicated on 07/22/2023 5:57 PM,Message ID [id number]. ATTESTATION: IHeather as teaching physician, havereviewed the images for this case and if necessary edited the reportoriginally created by Simeon Blackwood. Margarita Burch SHOE PARTS CASER IMG XR LOWER EXTREMITY Edit ed Result - Final documented in this encounter Visit Diagnoses Not on filedocumented in this encounter Additional Health Concerns Infection Onset Date Last Indicated Resolved Time CoV-Risk 06/24/2024 06/24/2024 07/05/2024 1:21 AM EST documented as of this encounter Care Teams Access Database Developer Relationship Specialty Start Date End Date Andi Goff MD [address] [place] [address] Dr Sands [address] [place] [address] PCP - General 05/30/17 08/15/24 Janna Macias MD [address] [place] [address], [address] [place] [address] [email or web address] Historical LMR Provider 03/16/17 Andi Goff MD [address] [place] [address] Dr Burch, TERRY [address] Historical LMR Provider 03/16/17 documented as of this encounter Additional Source Comments The information contained in this document represents components of the legal health record. It is not the complete legal health record.[facility]
--- NOTE | 2025-02-16 08:17 | MHC.PC.OV ---
Vital Signs 02/16/25 08:19 Height 5 ft 2 in Weight 199 lb 4 oz BMI 36.4 BP 112/66 Blood Pressure Location Lt brachial Position Sitting Pulse 92 Pulse Source Pulse Oximeter Temp 97.1 F Temp Source Temporal Artery Scan Pulse Oximetry (%) 96 Oxygen Delivery Method Room Air Intake Visit Reasons: 4 mo follow up Intake Note: Patient is here to follow up on DM, Asthma, HLD, HTN. Complaint of requency urinating, burn sensation, lower abdominal pressure, dark urine with some odor. Network Security Consultant Required: No Dry Heat Cabinet Attendant: Present Accompanied by: Mother Allergies meloxicam (MELOXICAM) Allergy (Severe, Verified 02/16/25 08:25) RASH citalopram (From CELEXA) Allergy (Intermediate, Verified 02/16/25 08:25) LOCK JAW Biaxin Allergy (Unknown, Verified 02/16/25 08:25) Unknown cefaclor (From CECLOR) Allergy (Unknown, Verified 02/16/25 08:25) UNKNOWN cephalexin (Keflex) Allergy (Unknown, Verified 02/16/25 08:25) Unknown clarithromycin (From BIAXIN) Allergy (Unknown, Verified 02/16/25 08:25) UNKNOWN lactose Allergy (Unknown, Verified 02/16/25 08:25) INTOLERANCE Sulfa (Sulfonamide Antibiotics) (SULFA (SULFONAMIDE ANTIBIOTICS)) Allergy (Unknown, Verified 02/16/25 08:25) HIVES Medication List - Last Reconciled 02/16/25 by Meri Correa PA-C acetaminophen 650 mg PO DAILY PRN albuterol sulfate 90 mcg/actuation 2 puffs inhalation Q4H PRN albuterol sulfate 2.5 mg inhalation Q6H PRN atorvastatin 40 mg PO DAILY blood sugar diagnostic (FreeStyle Lite Strips) As directed once per day blood-glucose meter (FreeStyle Lite Meter kit) As directed celecoxib 200 mg PO DAILY PRN cholecalciferol (vitamin D3) 50 mcg PO DAILY fluvoxamine 100 mg PO DAILY fluvoxamine 150 mg PO BEDTIME gabapentin 200 mg PO TID hydroxyzine HCl 50 mg PO BID PRN lancets (FreeStyle Unistik 2) As directed Once per day levonorgestrel (Mirena) 1 device intrauterine ONCE lidocaine 5% 1 patch topical DAILY PRN metformin 500 mg PO BID rizatriptan 5 mg PO DAILY PRN topiramate XR 50 mg PO DAILY tramadol 25 mg (1/2 x 50 mg) PO DAILY PRN trazodone 50 mg PO BEDTIME PRN verapamil ER 120 mg PO BID Tobacco use date assessed: 02/16/25 Dental Screening Dental Screen Date: 07/27/24 HPI 4 mo follow up HPI Details 44-year-old female with past medical history of hyperlipidemia, depression, hypertension, hyperlipidemia, asthma, diabetes mellitus, hemiplegic migraine last seen 09/2024 coming in for follow up. In review of the notes, patient was seen in [facility] 01/13/2025 with complex migraine and paralysis treated with IV Reglan, IV Toradol and IV Benadryl with symptom improvement patient was observed for several hours symptoms improve and was discharged home. Presenting with hemiplegic migraines and associated unconscious episodes. Hemiplegic migraines have increased in frequency, now with bilateral symptoms and unconscious episodes. Effective treatment includes IV Benadryl, IV Compazine, and a strong pain medication, leading to improvement. The patient is managed by a neurologist and psychiatrist for depression and stress. A sleep study is pending due to suspected sleep apnea. Reports frequent urination, diagnosed with a urinary tract infection, antibiotics prescribed. Asthma managed with albuterol as needed, recent exacerbations noted. Diabetes mellitus well-controlled with an A1c of 5.9, patient on metformin. 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 Obesity Hypertension Acute sinusitis Hyperglycemia Hyperlipidemia Viral syndrome Acute sinusitis Surgical History H/O arthroscopic knee surgery History of carpal tunnel surgery of right wrist History of dilation and curettage History of foot surgery Family History Father Hypertension Bladder cancer Diabetes Hyperlipidemia Mother Hypertension Paternal Aunt Breast cancer Paternal Grandfather Myocardial infarction Social History Household Members: Family Housing: House Are you a primary neonatal intensive care nurse to a significant other at home: No Do you presently have visiting nurse or other home services: No Alcohol intake: never Patient Tobacco Use Status: Never used Tobacco Tobacco use type: Cigarette e-Cigarette/Vaping Use: Never Used Second Hand Smoke Exposure: No service: No Current occupational status: employed Cognitive needs: No Hearing needs: No Vision needs: No Questionnaire Thrive Questionnaire Date Thrive assessed: 10/14/24 I am a: Patient What is your living situation today?: I have a steady place to live Within the past 12 months, did the food you bought not last and you didn't have the money to get more?: Never true Within the past 12 months, did you worry whether your food would run out before you got money to buy more?: Never true Do you have trouble paying for medicines?: No Do you have trouble getting transportation to medical appointments?: No Do you have trouble paying your heating and electricity bill?: No Do you have trouble taking care of your child, family member or friend?: No Do you have trouble with day-to-day activities such as bathing, preparing meals, shopping, managing finances, etc.?: No Are you currently unemployed and looking for a job?: No Are you interested in more education?: No Please select the resources that you would like help with: None Currently or been in a relationship where the following occur: I choose not to answer THRIVE Score: 0 CONNIE-7 AMB Questionnaire CONNIE-7 Date CONNIE - 7 assessed: 07/27/24 Source: Developed by Drs. Giorgio Espinosa, Linh Hall, Tre Wall and colleagues, with an educational juan josé from [employer]. Review of Systems Const Denies body aches, Denies chills, Denies fever(s), Denies headache(s) and Denies poor appetite Eyes Reports no additional complaints ENT Denies dysphagia, Denies dizziness, Denies headache(s) and Denies odynophagia Card Denies chest pain, Denies syncope, Denies edema, Denies irregular heart rhythm, Denies lightheadedness and Denies dyspnea Resp Denies cough and Denies dyspnea GI Denies abdominal pain, Denies constipation, Denies dysphagia, Denies diarrhea, Denies nausea, Denies odynophagia and Denies vomiting Reports no additional complaints Musc Reports no additional complaints and Denies abnormal gait Skin/Breast Reports system reviewed and no additional complaints, except as documented Neuro Denies abnormal gait, Denies dizziness, Denies syncope and Denies headache(s) Psych Reports no additional complaints Physical exam (Primary Care) Vital Signs: Last Vital Signs Temp 97.1 F 02/16/25 08:19 Pulse 92 02/16/25 08:19 BP 112/66 02/16/25 08:19 Pulse Ox 96 02/16/25 08:19 Oxygen Delivery Method Room Air 02/16/25 08:19 BMI result Body Mass Index 36.4 Tobacco/Smoking Status: Tobacco use Status Tobacco use date assessed 02/16/25 02/16/25 08:24 Patient Tobacco Use Status Never used Tobacco 02/16/25 08:18 Tobacco use type Cigarette 02/16/25 08:18 e-Cigarette/Vaping Use Never Used 02/16/25 08:18 Thrive Assessment: Date of Thrive Assessment Date Thrive assessed 10/14/24 02/16/25 08:18 Currently or been in a relationship where the following occur: I choose not to answer Const General: cooperative, healthy appearing, comfortable and no acute distress Orientation/consciousness: patient oriented x3 HENMT Head: Yes normocephalic Ears: hearing grossly normal bilaterally General nose exam: Normal external nose present Eyes General: appearance normal, both eyes and all related structures Conjunctivae: conjunctivae normal Neck Neck: Yes full ROM and Yes no lymphadenopathy Resp Effort & Inspection: normal respiratory effort Auscultation: clear to auscultation bilaterally, no crackles, no rales, no rhonchi and no wheezes Cardio Rate: regular rate Rhythm: regular rhythm Skin General skin exam: no rashes or lesions noted Neuro General: patient oriented x3 Gait exam (Neuro): Normal gait present Extrem General: Yes normal to inspection, Yes full ROM and No edema Psych Affect: normal affect Attitude: cooperative Insight: Good insight present (Psych) Judgement: Good judgement present (Psych) Results AMB Hemoglobin A1c AMB Hemoglobin A1c 5.9 % Last Edit by BRUNO Cohen on 02/16/25 08:38 AMB Urinalysis, Automated UA Leukoctes 1 Patrice/uL Last Edit by BRUNO Cohen on 02/16/25 08:48 UA Nitrite Negative Last Edit by BRUNO Cohen on 02/16/25 08:48 UA Urobilinogen 0 mg/dL Last Edit by Alfa Roth A on 02/16/25 08:48 UA Protein 1 mg/dL Last Edit by Alfa Roth A on 02/16/25 08:48 UA pH 5.5 Last Edit by Alfa Roth A on 02/16/25 08:48 UA Blood 0 Al/uL Last Edit by Alfa Roth A on 02/16/25 08:48 UA Specific [place] 1.030 Last Edit by Alfa Roth, RMA on 02/16/25 08:48 UA Ketone Positive Last Edit by Alfa Roth A on 02/16/25 08:48 UA Bilirubin 1 mg/dL Last Edit by Alfa Roth A on 02/16/25 08:48 UA Glucose 0 mg/dL Last Edit by Alfa Roth A on 02/16/25 08:48 Results Reviewed Results Reviewed: Laboratory Last Values Hgb A1c (Clinic) 5.9 % (4.0-6.0) 02/16/25 08:17 Urine pH (Auto) 5.5 02/16/25 08:17 Specific [place] (Auto) 1.030 02/16/25 08:17 Urine Protein (Auto) 1 mg/dL L* 02/16/25 08:17 Glucose (UA)(Auto) 0 mg/dL 02/16/25 08:17 Urine Ketones (Auto) Positive 02/16/25 08:17 Urine Blood (Auto) 0 Al/uL 02/16/25 08:17 Urine Nitrite (Auto) Negative 02/16/25 08:17 Urine Bilirubin (Auto) 1 mg/dL 02/16/25 08:17 Urine Urobilinogen (Auto) 0 mg/dL 02/16/25 08:17 Leukocyte Esterase (Auto) 1 Patrice/uL 02/16/25 08:17 Coding Level of Care Code Est Pt Level 4 (38121) Diagnoses 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 G43.419 Intractability: intractable Status migrainosus presence: without status migrainosus Class 2 obesity due to excess calories without serious comorbidity with body mass index (BMI) of 36.0 to 36.9 in adult E66.812; E66.09; Z68.36 Body mass index: BMI 36.0-36.9 Obesity classification: adult class 2 (BMI 35 - 39.9) Obesity type: due to excess calories Serious obesity comorbidity presence: without serious comorbidity Primary hypertension I10 Hypertension type: primary hypertension Mixed hyperlipidemia E78.2 Hyperlipidemia type: mixed hyperlipidemia Type 2 diabetes mellitus without complication, without long-term current use of insulin E11.9 Diabetes mellitus complication status: without complication Diabetes mellitus dedicated intermodal truck driver insulin use: without dedicated intermodal truck driver use Diabetes mellitus type: type 2 Mild intermittent asthma without complication J45.20 Asthma complication type: uncomplicated Asthma persistence: intermittent Asthma severity: mild Hypersomnolence G47.10 UTI (urinary tract infection) N39.0 OCD (obsessive compulsive disorder) F42.9 Assessment & Plan Assessment & Plan (1) Hemiplegic migraine: Comment: [facility] Dr. Bolaños (Wed) Code(s): G43.409 - Hemiplegic migraine, not intractable, without status migrainosus Category: Medical Qualifiers: Intractability: intractable Status migrainosus presence: without status migrainosus Qualified Code(s): G43.419 - Hemiplegic migraine, intractable, without status migrainosus Plan: Currently following with [facility] Dr. Bolaños and working on decreasing the frequency and intensity of these migraines. She is seeing psych through [facility], working on sleep study and has been imporving her diet. Consideration has been made for a sleep study and I did order for a home sleep study and plan to coordinate with her neurologist accordingly. (2) Obesity: Code(s): E66.9 - Obesity, unspecified Category: Medical Qualifiers: Body mass index: BMI 36.0-36.9 Obesity classification: adult class 2 (BMI 35 - 39.9) Obesity type: due to excess calories Serious obesity comorbidity presence: without serious comorbidity Qualified Code(s): E66.812 - Obesity, class 2; E66.09 - Other obesity due to excess calories; Z68.36 - Body mass index [BMI] 36.0-36.9, adult Plan: Healthy diet and regular exercise is encouraged. (3) Hypertension: Code(s): I10 - Essential (primary) hypertension Category: Medical Qualifiers: Hypertension type: primary hypertension Qualified Code(s): I10 - Essential (primary) hypertension Plan: Continue on current blood pressure medication. Avoid salt intake and encourage healthy diet and regular exercise. (4) Hyperlipidemia: Code(s): E78.5 - Hyperlipidemia, unspecified Category: Medical Qualifiers: Hyperlipidemia type: mixed hyperlipidemia Qualified Code(s): E78.2 - Mixed hyperlipidemia Plan: Avoid foods that are high in cholesterol such as red meat, fried foods, eggs and baked goods. Triglyceride goal of less than 150 and LDL goal of less than 100. Continue on Atorvastatin 40. (5) Diabetes mellitus: Code(s): E11.9 - Type 2 diabetes mellitus without complications Category: Medical Qualifiers: Diabetes mellitus complication status: without complication Diabetes mellitus detention insulin use: without dedicated intermodal truck driver use Diabetes mellitus type: type 2 Qualified Code(s): E11.9 - Type 2 diabetes mellitus without complications Plan: Decrease the amount of carbohydrates such as pasta, bread, rice, and potatoes and limit the amount of sweets. Although fruits are generally healthy they should be eaten in moderation as they are still high in sugar. Hemoglobin A1c goal of less than 7%. A1c in the clinic today 5.9%. (6) Asthma: Code(s): J45.909 - Unspecified asthma, uncomplicated Category: Medical Qualifiers: Asthma complication type: uncomplicated Asthma persistence: intermittent Asthma severity: mild Qualified Code(s): J45.20 - Mild intermittent asthma, uncomplicated Plan: Asthma currently controlled on present medications. Continue on albuterol as needed.? Avoid triggers such as allergies. (7) Hypersomnolence: Code(s): G47.10 - Hypersomnia, unspecified Category: Medical Plan: Ordered for home sleep study and plan to coordinate with her neurologist as well (8) UTI (urinary tract infection): Code(s): N39.0 - Urinary tract infection, site not specified Category: Medical Plan: Patient having symptomatic UTI prescription was sent for Macrobid and plan for culture to further guide antibiotic therapy. (9) OCD (obsessive compulsive disorder): Code(s): F42.9 - Obsessive-compulsive disorder, unspecified Category: Medical Plan: Feels stabilized on the medications from [facility]. Plan This note was constructed using voice recognition software. While every effort has been made to ensure accuracy and inner layer scrubber tender, still areas may have been included sometimes these areas may affect the content or meeting of the given symptoms. Total time spent caring for the patient today was 20 minutes. This includes time spent before the visit reviewing the chart, time spent during the visit, and time spent after the visit and documentation. Patient was informed and verbally consented to the use of an ambient scribe for clinic note documentation during this visit. Orders: Orders AMB Urinalysis Automated Today Z13.9 - Encounter for screening, unspecified RT home sleep study Today G47.10 - Hypersomnia, unspecified Urine Culture Today N39.0 - Urinary tract infection, site not specified AMB Hemoglobin A1c Today E11.9 - Type 2 diabetes mellitus without complications, Z13.9 - Encounter for screening, unspecified Medications: New nitrofurantoin monohyd/m-cryst 100 mg must administer with a meal/food 100 mg PO Q12H 10 caps 0RF 5 days
[2025-02-16 08:19] VITALS: BP 112/66; PULSE 92; TEMP 36.2; O2SAT 96; BMI 36.4
--- OUTSIDE RECORDS SUMMARY | 2025-02-16 09:06 | XMS_ITS | Clinical Summary ---
Author Organization [facility] Address [address] [facility] [address] [place] [address] Phone Care Team Providers Care Miller Supervisor Name Role Phone Janna Macias MD Unavailable [phone] Andi Goff MD Unavailable [phone] Po, Reji Dodd MD Primary Care Provider [phone] Allergies Active Allergy Reactions Criticality Noted Date Comments Cefaclor Rash Low 10/04/2014 Citalopram Medium 08/14/2017 Tightness around mouth, Cephalexin Rash Low 10/04/2014 Clarithromycin Rash Low 10/04/2014 Meloxicam 03/31/2020 Sulfa (Sulfonamide Antibiotics) 08/14/2017 Tomato Swelling,Rash Low 10/01/2024 Medications * This document contains information received from the source organization and may not represent a complete record from that organization. levonorgestrel (MIRENA) 20 mcg/24 hr (5 years) intrauterine device 1 each by Intrauterine route once for 1 dose. Over 5 years 1 each 11/22/19 18 Active atorvastatin (LIPITOR) 40 MG tablet Take 40 mg by mouth daily. 6 03/23/20 19 Active albuterol 90 mcg/actuation inhaler TAKE 2 PUFFS BY MOUTH EVERY 4 HOURS NEEDED 12/15/19 20 Active albuterol 2.5 mg /3 mL (0.083 %) nebulizer solution USE 3 ML THREE TO FOUR TIMES A DAY NEEDED WITH NEBULIZAR 11/26/19 Active cholecalciferol (VITAMIN D3) 2,000 unit capsule Take by mouth daily. 03/21/20 Active metFORMIN (GLUCOPHAGE) 500 MG tablet Take 1 tablet by mouth 2 (two) times a day. One at breakfast and one at supper. 10/18/19 Active celecoxib (CELEBREX) 200 MG capsule Take 200 mg by mouth daily as needed for pain (specific location in comments). Active lidocaine (LIDODERM) 5 % 1 PATCH TOPICALLY DAILY,X30 DAYS NEEDED FOR PAIN , MILD,INSTR:REMOV E AFTER 12 HOURS 05/21/20 Active rizatriptan (MAXALT-CAKE PUNCHER) 5 MG disintegrating tablet Take 5 mg by mouth as needed for migraine. For severe migraines 5mg Active verapamiL (VERELAN PM) 100 mg 24 hr capsule Take 120 mg by mouth every 12 (twelve) hours. Take one tab in the AM and one tab in the PM. Extended release. Active traZODone (DESYREL) 50 MG tablet Take 50 mg by mouth nightly at bedtime. Active fluvoxaMINE (LUVOX) 50 MG tablet Take 3 tablets (150 mg total) by mouth nightly at bedtime. 5 tablet 10/13/19 25 Active fluvoxaMINE (LUVOX) 100 MG tablet Take 1 tablet (100 mg total) by mouth daily. 5 tablet 10/14/19 25 Active hydrOXYzine (ATARAX) 50 MG tablet Take 1 tablet (50 mg total) by mouth every 6 (six) hours as needed for anxiety (insomnia). 5 tablet 10/13/19 25 Active topiramate (TOPAMAX) 50 MG tablet Take 1 tablet (50 mg total) by mouth daily with lunch. 5 tablet 10/13/19 25 Active gabapentin (NEURONTIN) 100 MG capsule Take 2 capsules (200 mg total) by mouth every 8 (eight) hours. 30 capsule 10/13/19 25 Active Active Problems Problem Noted Date Diagnosed Date Obsessive-compulsive disorder 10/01/2024 Adjustment reaction 10/01/2024 Severe recurrent major depre ssion without psychotic features 09/30/2024 Suicidal ideation 09/29/2024 Asthma 06/14/2023 Left ovarian cyst 06/14/2023 Pelvic pain 06/14/2023 Breakthrough bleeding with IUD 02/22/2020 Assessment & Plan (02/25/2020 9:19 AM EDT): Informed patient it is not uncommon to eventually develop BTB with progestin IUD or progestin contraceptive methods. Most commonly this is just due to thinning of the endometrium; however, patient does have a history of endometrial polyp in the past for which she had a D&C in 2018. Informed patient it is uncommon to have polyp formation with levonorgestrel in place. Have suggested pelvic ultrasound to confirm IUD remains in proper position and to rule out other structural abnormalities. Patient with known 1 cm fundal fibroid in 2018. Unlikely to be contributing to bleeding changes. Less likely to have neoplastic or inflammatory condition. Have suggested we not proceed with estrogen supplementation due to patient's history of visual migraines. Following ultrasound results to be reviewed and to further discuss care plan. Intramural uterine fibroid 02/22/2020 Overview (02/22/2020): 2018 noted on ultrasound- Fibroid 1 Fundal Length: 1.08 cm Height: 1.11 cm Width: 1.11 cm IUD (intrauterine device) in place 11/21/2017 Overview (11/21/2017): Mirena 10/10/17 Cerebral palsy 09/24/2017 Resolved Problems Problem Noted Date Diagnosed Date Resolved Date Cyst of ovary 09/24/2017 02/22/2020 Assessment & Plan (11/21/2017 12:54 PM EDT): Follow up ultrasound ordered. Assessment & Plan (09/24/2017 10:19 PM EDT): Left 4cm simple cyst, recommend follow up in 8 weeks to establish stability. Would not recommend surgical intervention at this time. Endometrial polyp 09/24/2017 11/18/2017 Assessment & Plan (09/24/2017 10:22 PM EDT): Ultrasound reviewed with patient - suggestion of endometrial polyp on images however, unclear if this is the cause of her bleeding. Nexplanon could also be an explanation as this is a common side effect of the device. Recommend hysteroscopy/D&C for diagnostic and therapeutic purposes, also discussed concurrent Nexplanon removal and Mirena placement for management of bleeding going forward. Pt amenable to this plan, will schedule surgery and one more appointment to review consents and answer any other questions prior to procedure. Irregular bleeding 08/21/2017 8 Assessment & Plan (08/21/2017 3:25 PM EDT): Bleeding resolved with one month of low dose OCs but seems to have started again following cycle. Given hx of migraine with aura, hesitate to continue OCPs. Will try NSAIDS TID x3-5 days and check u/s to r/o structural pathology. May consider Nexplanon removal and change to IUD if heavier bleeding continues. Immunizations Immunization Administration Dates Next Due COVID-19 (Pre-03/18) Moderna Vaccine, mRNA, PF 0 08/12/2020,07/15/2020 Tdap 01/24/2018 Family History Medical History Relation Comments Bladder Cancer Father Diabetes mellitus Father Hypertension Father Kidney cancer Father CV disease Maternal Grandfather Hypertension Mother CV disease Paternal Grandfather CV disease Paternal Grandmother Prostate cancer Paternal Uncle Relation Status Comments Father Alive Maternal Grandfather Mother Alive Paternal Grandfather Paternal Grandmother Paternal Uncle Social History Tobacco Use Types Packs/Day Years Used Date Smoking Tobacco: Never Smokeless Tobacco: Never Tobacco Cessation:Counseling Given: No Alcohol Use Standard Drinks/Week Comments Never 0 [...] have you moved in the past 12 mon ths? One time 09/30/2024 Paying for Meds [...] Orientation Straight 12/20/2021 5: 40 PM EDT Last Filed Vital Signs Vital Sign Reading Time Taken Comments Blood Pressure 110/68 10/12/2024 9:00 AM EDT Pulse 82 10/12/2024 9:00 AM EDT Temperature 36.5 C (97.7 F) 10/12/2024 9:00 AM EDT Respiratory Rate 17 10/11/2024 5:45 PM EDT Oxygen Saturation 97% 10/12/2024 9:00 AM EDT Inhaled Oxygen Concentration - - Weight 88.8 kg (195 lb 12.8 oz) 025 11:43 AM EDT Height 157.5 cm (5' 2 ) 09/30/2024 11:4 3 AM EDT Body Mass Index 35.81 09/30/2024 11:43 AM EDT Plan of Treatment Health Maintenance Due Date Last Done Comments DEPRESSION SCREENING 1992 HEPATITIS C SCREENING 1998 HIV ONE-TIME SCREENING (18-65 YEARS) 1998 PNEUMOCOCCAL VACCINES (0-49 years) (1 of 2 - PCV) 12/07/1999 MAMMOGRAM 2020 PAP SMEAR 08/11/2024 08/11/2021 INFLUENZA VACCINE (#1) 2024 COVID-19 VACCINE ( - season) 2025 04/04/2021, 08/12/2020, 07/15/2020 CREATININE LEVEL 09/29/2025 09/29/2024, , 12/26/2023, Additional history exists IUD 10/10/2025 10/10/2017 SCREENING FOR DIABETES 10/01/2027 09/30/2024 Adult Td,Tdap Booster 01/25/2028 01/24/2018 SMOKING STATUS SCREENING (Once After 26 Yrs) Completed 09/30/2024 HEPATITIS A VACCINES Aged Out No long er eligible based on patient's age to complete this topic HIB VACCINES Aged Out No longer eligi ble based on patient's age to complete this topic MENINGOCOCCAL VACCINES (ACWY) Aged Out No longer eligible based on patient's age to complete this topic MENINGOCOCCAL VACCINES (B) Aged Out N o longer eligible based on patient's age to complete this topic Medical Devices Implanted Type Area Pony Edger Device Identifier Shelf Expiration Date Model / Serial / Lot Contraceptive Iud Mirena - Must Order A Minimum Of 50ea - [id number] Implanted:Qty: 1 on 10/10/2017 by Janna Macias MD at [facility] Uterus [employer] 04/25/2020 [id number] / / [id number] Procedures Procedure Name Priority Date/Time Associated Diagnosis Comments BASIC METABOLIC PANEL STAT 09/29/2024 6:28 PM EDT PAP TEST Routine 08/11/2021 12:00 AM EDT from Last 3 Months or Most Recently Relevant to Health Maintenance Results * Basic metabolic panel (09/29/2024 6:28 PM EDT) SODIUM 142 133 - 146 mmol/L [facility] CHLORIDE 103 96 - 108 mmol/L [facility] POTASSIUM 3.8 3.3 - 5.1 mmol/L [facility] CO2 23 21 - 35 mmol/L [facility] BUN 19 6 - 19 mg/dL [facility] CREATININE 0.60 0.5 - 1.5 mg/dL [facility] GLUCOSE 92 70 - 99 mg/dL [facility] CALCIUM 9.5 8.4 - 10.3 mg/dL [facility] EGFR 114 >59 mL/min/1.7 3m2 [facility] Comment:Estimated glomerular filtration rate calculated using the CKD-EPI refit equation. ANION GAP 20 10 - 20 mmol/L [facility] Blood 09/29/2024 6:28 PM EDT 09/29/2024 7:08 PM EDT us Rodrigue Rich MD LAB BLOOD ORDERABLES Clara l Result Performing Organization Address City/State/[place] Co de Phone Number [address] [address] * Pap Smear (08/11/2021 12:00 AM EDT) 08/11/2021 08/14/2021 9:2 9 AM EDT Narrative SEE NARRATIVE - 08/17/2021 2:56 PM EDT [address] [address] Php Developer: Mary Torre MD WEIGHT TESTER Cytology Report FINAL DIAGNOSIS A. PAP SMEAR (SUREPATH) CE: SPECIMEN ADEQUACY: Satisfactory for evaluation; transformation zone present. INTERPRETATION: NEGATIVE FOR INTRAEPITHELIAL LESION OR MALIGNANCY. Electronically Signed Out By: GLORIA Soto(ASCP) The Pap test is a screening test primarily for squamous cancers and precursors and has associated false-negative and false-positive results. New technologies such as liquid-based preparations may decrease but will not eliminate all false-negative results. Regular sampling and follow-up of unexplained clinical signs and symptoms are recommended to minimize false negative results. PROCEDURES/ADDENDA HPV Testing (Requested) Ordered Date: 08/14/2021 A. PAP SMEAR (SUREPATH) CE: Human Papilloma Virus Test Negative for high-risk human papillomavirus types 16, 18, 45 and the Other high risk probe set (Includes 31, 33, 35, 39, 51, 52, 56, 58, 59, 66, 68) by Our Security Team Onclarity HR-HPV analysis. Clinical correlation is advised. This HPV test was performed at [facility], [address] [place] [address]. This test has been FDA approved for SurePath cervical cytology specimens. The accuracy and precision of this test for all other specimen sources has been verified in the Cytopathology Laboratory of the [facility] and has not been cleared or approved by the U.S. Food and Drug Administration. Clinical correlation is advised. CLINICAL HISTORY Date of Last Menstrual Period: Not Provided Menstrual History: Unknown Contraceptive History: IUD: ARMIDA Other Clinical Conditions: Screening Pap SPECIMEN SOURCE A: PAP SMEAR (SUREPATH) CE Patient Name: KAYLEE, MARY LOU : 1980 (Age: 40) Sex: F Institution: [facility] Location: [facility] Date of Collection: 08/11/2021 Date of Reported: 08/17/2021 11:04 Results to: Jimbo Pulliam MD, BS Jimbo Pulliam MD CYTOLOGY ORDERABLES Edited Re sult - Final SEE NARRATIVE from Last 3 Months or Most Recently Relevant to Health Maintenance [place] [address] [place] [address] [place] [place] [address] [place] [place] [address] [place] [address] [facility] [place] [place] [address] HMO [employer]ANCE Advance Directives For more information, please contact: [phone] (9AM - 5PM [facility], Saturday-Saturday) Documents on File Type Date Recorded Patient Rail Loader Expl alba Healthcare Proxy 10/11/2017 1:21 PM * Full Code (Latest Code Status on File) Date Activated Date Inactivated Comments 06/14/2023 8:45 AM Question Answer Comments Code Status Confirmed With: Patient * Full Code (Presumed) Date Activated Date Inactivated Comments 10/10/2017 8:24 AM 10/10/2017 3:47 PM Healthcare Agents on File Name Relationship Healthcare Agent [facility] Communication Dianna Kennedy .Primary Health Care Agent (Proxy form on file) Care Teams Miller Supervisor Relationship Specialty Start Date End Date Po, Reji Dodd MD [address] [place] [address] [place] [id number] PCP - General Internal Medicine 08/16/24 Janna Macias MD [address] [place] [address], [address] [place] [address] [email or web address] Historical LMR Provider 03/16/17 Andi Goff MD [address] [place] [address] Dr W[address]o [address] [place] [address] Historical LMR Provider 03/16/17 Additional Source Comments The information contained in this document represents components of the legal health record. It is not the complete legal health record.[facility]
--- OUTSIDE RECORDS SUMMARY | 2025-02-16 09:06 | XMS_ITS | Encounter Summary ---
Author Organization [facility] Address [address] [facility] [address] [place] [address] Phone Care Team Providers Care Thoracic Medicine Specialist Name Role Phone Janna Macias MD Unavailable [phone] Andi Goff MD Unavailable [phone] Andi Goff MD Primary Care Provider [phone] Reji Thompson MD Primary Care Provider [phone] Encounter Details Date Type Department Care Team (Late st Contact Info) Description 06/14/2023 Procedure Pass OR Admitting Dept - [facility] Department [address] [place] [address] Social History Tobacco Use Types Packs/Day Years Used Date Smoking Tobacco: Never Smokeless Tobacco: Never Alcohol Use Standard Drinks/Week Comments Never 0 (1 standard drink = 0.6 oz pur e alcohol) Education Answer Date Recorded Are you interested in more education? Not on justino e 09/21/2022 Are you concerned about learning? Not on file 09/21/2022 No 09/21/2022 No 09/21/2022 Digital Access Answer Date Recorded No 10/22/2022 No 10/22/2022 Reliable internet access at home? Not on file 10/22/2022 Device with a working camera? Not on file Intimate Partner Violence Answer Date R ecorded Are you denied basic needs s uch as food, clothing, or medical care? No 06/05/2023 In the past 12 months have y ou been in a relationship with a person who hurts, threatens, or tries to control you? No 06/05/2023 Are you denied basic needs s uch as food, clothing, or medical care? No 06/05/2023 In the past 12 months have y ou been in a relationship with a person who hurts, threatens, or tries to control you? No 06/05/2023 Comments No Sex and Gender Information Value Date Recorded Sex Assigned at Female 12/20/2021 5:40 PM EDT Legal Sex Female 9:21 PM EDT Gender Identity Female 01/08/2021 5:13 PM EDT Sexual Orientation Straight 12/20/2021 5: 40 PM EDT documented as of this encounter Functional Status * Calculated C-SSRS Risk Score (Lifetime/Recent) Answer Date of Assessment Author No Risk Indicated 06/14/2023 9:00 AM Emilie Irene RN * [place] Suicide Severity Rating Scale (Screener/Recent Self-Report) Question Answer Date of Assessment Author 2. Non-Specific Active Suici tod Thoughts (Past 1 Month) No 06/14/2023 9:00 AM Nallely Giron RN documented as of this encounter Plan of Treatment Not on file documented as of this encounter Visit Diagnoses Not on filedocumented in this encounter Additional Health Concerns Infection Onset Date Last Indicated Resolved Time CoV-Risk 06/24/2024 06/24/2024 07/05/2024 1:21 AM EST documented as of this encounter Care Teams Thoracic Medicine Specialist Relationship Specialty Start Date End Date Andi Goff MD [address] [place] [address] [address] PCP - General 05/30/17 08/15/24 Reji Thompson MD [address] [place] [address] [place] [phone] PCP - General Internal Medicine 08/16/24 Janna Macias MD [address] [place] [address], [address] [place] [address] [email or web address] Historical LMR Provider 03/16/17 Andi Goff MD [address] [place] [address] [place] [address] Historical LMR Provider 03/16/17 documented as of this encounter Additional Source Comments The information contained in this document represents components of the legal health record. It is not the complete legal health record.[facility]
--- OUTSIDE RECORDS SUMMARY | 2025-02-16 09:06 | XMS_ITS | Encounter Summary ---
Author Organization [facility] Address [address] [facility] [address] [place] [address] Phone Care Team Providers Care Station Cashier Name Role Phone Janna Macias MD Unavailable [phone] Andi Goff MD Unavailable [phone] Andi Goff MD Primary Care Provider [phone] Reji Thompson MD Primary Care Provider [phone] Encounter Details Date Type Department Care Team (Late st Contact Info) Description 06/22/2024 Procedure Pass [facility], Ct Scan - [address] [address] Social History Tobacco Use Types Packs/Day Years [...] uch as food, clothing, or medical care? Patient unable to respond 06/22/2024 In the past 12 months have y ou been in a relationship with a person who hurts, threatens, or tries to control you? Patient unable to respond 06/22/2024 Are you denied basic needs s uch as food, clothing, or medical care? Patient unable to respond 06/22/2024 In the past 12 months have y ou been in a relationship with a person who hurts, threatens, or tries to control you? Patient unable to respond 06/22/2024 Comments No Sex and Gender Information Value Date Recorded Sex Assigned at Female 12/20/2021 5:40 PM EDT Legal Sex Female 9:21 PM EDT Gender Identity Female 01/08/2021 5:13 PM EDT Sexual Orientation Straight 12/20/2021 5: 40 PM EDT documented as of this encounter Functional Status * Calculated C-SSRS Risk Score (Lifetime/Recent) Answer Date of Assessment Author No Risk Indicated 06/22/2024 7:43 PM Holly Parker RN * [place] Suicide Severity Rating Scale (Screener/Recent Self-Report) Question Answer Date of Assessment Author 1. Wish to be (Past 1 Month) No 025 7:43 PM Holly Parker RN 2. Non-Specific Active Suici tod Thoughts (Past 1 Month) No 06/22/2024 7:43 PM Rochelle Parker RN 6. Suicidal Behavior (Lifetime) No 7:43 PM Holly Parker RN documented as of this encounter Plan of Treatment Not on file documented as of this encounter Visit Diagnoses Not on filedocumented in this encounter Additional Health Concerns Infection Onset Date Last Indicated Resolved Time CoV-Risk 06/24/2024 06/24/2024 07/05/2024 1:21 AM EST documented as of this encounter Care Teams Station Cashier Relationship Specialty Start Date End Date Andi Goff MD [address] [place] [address] Dr [place] [address] [place] [address] PCP - General 05/30/17 08/15/24 Po, Reji Dodd MD [address] [place] [address] PCP - General Internal Medicine 08/16/24 Janna Macias MD [address] [facility], [address] [place] [address] [email or web address] Historical LMR Provider 03/16/17 Andi Goff MD [address] [place] [address] Dr W[address]o [address] [place] [address] Historical LMR Provider 03/16/17 documented as of this encounter Additional Source Comments The information contained in this document represents components of the legal health record. It is not the complete legal health record.[facility]
--- OUTSIDE RECORDS SUMMARY | 2025-02-16 09:06 | XMS_ITS | Encounter Summary ---
Author Organization [facility] Address [address] [facility] [address] [place] [address] Phone Care Team Providers Care Group Program Manager Name Role Phone Janna Macias MD Unavailable [phone] Andi Goff MD Unavailable [phone] Andi Goff MD Primary Care Provider [phone] Reji Thompson MD Primary Care Provider [phone] Encounter Details Date Type Department Care Team (Late st Contact Info) Description 06/05/2023 Procedure Pass [facility], Ct Scan - [address] [address] Social History Tobacco Use Types Packs/Day Years Used Date Smoking Tobacco: Never Smokeless Tobacco: Never Alcohol Use Standard Drinks/Week Comments Yes 0 (1 standard drink = 0.6 oz pur e alcohol) Socially - 1 drink per month Education Answer Date Recorded Are you interested [...] Date of Assessment Author No Risk Indicated 06/05/2023 9:03 PM Holly Parker RN * [place] Suicide Severity Rating Scale (Screener/Recent Self-Report) Question Answer Date of Assessment Author 1. Wish to be (Past 1 Month) No 024 9:03 PM Holly Parker RN 2. Non-Specific Active Suici tod Thoughts (Past 1 Month) No 06/05/2023 9:03 PM Rochelle Parker RN 6. Suicidal Behavior (Lifetime) No 4 9:03 PM Holly Parker RN documented as of this encounter Plan of Treatment Not on file documented as of this encounter Visit Diagnoses Not on filedocumented in this encounter Additional Health Concerns Infection Onset Date Last Indicated Resolved Time CoV-Risk 06/24/2024 06/24/2024 07/05/2024 1:21 AM EST documented as of this encounter Care Teams Group Program Manager Relationship Specialty Start Date End Date Andi Goff MD [address] [place] [address] [address] [place], [place] [id number] PCP - General 05/30/17 08/15/24 Reji Thompson MD [address] [place], [place] [address] [address] PCP - General Internal Medicine 08/16/24 Janna Macias MD [address] [place] [address], [address] [place] [address] [email or web address] Historical LMR Provider 03/16/17 Andi Goff MD [address] [place] [address] Historical LMR Provider 03/16/17 documented as of this encounter Additional Source Comments The information contained in this document represents components of the legal health record. It is not the complete legal health record.[facility]
--- OUTSIDE RECORDS SUMMARY | 2025-02-16 09:06 | XMS_ITS | Encounter Summary ---
Author Organization [facility] Address [address] [facility] [address] [place] [address] Phone Care Team Providers Care Business Line Manager Name Role Phone Janna Macias MD Unavailable [phone] Andi Goff MD Unavailable [phone] Andi Goff MD Primary Care Provider [phone] Reji Thompson MD Primary Care Provider [phone] Encounter Details Date Type Department Care Team (Late st Contact Info) Description 06/22/2024 Procedure Pass [facility], Ct Scan - [address] [address] Social History Tobacco Use Types Packs/Day Years [...] 06/22/2024 7:43 PM Holly Parker RN * [place] Suicide Severity Rating Scale (Screener/Recent Self-Report) Question [...] documented as of this encounter Care Teams Business Line Manager Relationship Specialty Start Date End Date Andi Goff MD [address] [place] [address] Dr [place] [address] [place] [address] PCP - General 05/30/17 08/15/24 Po, Reji Dodd MD [address] [facility] [address] [place] [address] PCP - General Internal Medicine 08/16/24 Janna Macias MD [address] [facility], [address] [place] [address] [email or web address] Historical LMR Provider 03/16/17 Andi Goff MD [address] [place] [address] Dr W[place]o [address] [place] [address] Historical LMR Provider 03/16/17 documented as of this encounter Additional Source Comments The information contained in this document represents components of the legal health record. It is not the complete legal health record.[facility]
--- OUTSIDE RECORDS SUMMARY | 2025-02-16 09:06 | XMS_ITS | Encounter Summary ---
Author Organization [facility] Address [address] [place] [address] [place] [address] Phone Care Team Providers Care Clothes Shaker Name Role Phone Annmarie Richey CERTIFIED ALCOHOL AND DRUG COUNSELOR Unavailable Francisca Casillas CERTIFIED ALCOHOL AND DRUG COUNSELOR Unavailable [phone] Ross Tobin MD Unavailable Jessica Jackson CERTIFIED ALCOHOL AND DRUG COUNSELOR Unavailable [phone] Janna Macias MD Unavailable [phone] Dena Brownlee CERTIFIED ALCOHOL AND DRUG COUNSELOR Unavailable Cory Kay MD Unavailable [phone] Kristen Chávez CERTIFIED ALCOHOL AND DRUG COUNSELOR Unavailable [phone] Andi Goff MD Unavailable [phone] Aster Shelley MD Unavailable [phone] Charlotte Bolaños MD Unavailable [phone] Isiah Pavon MD Unavailable [phone] Andi Goff MD Primary Care Provider [phone] Reji Thompson MD Primary Care Provider [phone] Encounter Details Date Type Department Care Team (Late st Contact Info) Description 10/10/2017 Procedure Pass [place] Admitting Dept - Virtual Department [address] [place] [address] Social History Tobacco Use Types Packs/Day Years Used Date Smoking Tobacco: Never Smokeless Tobacco: Never Alcohol Use Standard Drinks/Week Comments Yes 0 (1 standard drink = 0.6 oz pur e alcohol) Socially - 1 drink per month Comments No Sex and Gender Information Value Date Recorded Sex Assigned at Female 12/20/2021 5:40 PM EDT Legal Sex Female 9:21 PM EDT Gender Identity Female 01/08/2021 5:13 PM EDT Sexual Orientation Straight 12/20/2021 5 :40 PM EDT documented as of this encounter [...] documented as of this encounter Care Teams Clothes Shaker Relationship Specialty Start Date End Date Andi Goff MD [address] [place] [address] PCP - General 05/30/17 08/15/24 Reji Thompson MD [address] [place] [phone] PCP - General Internal Medicine 08/16/24 Annmarie Richey NP [address] [place] [address] Historical LMR Provider 03/16/17 2 Francisca Casillas NP [address] [place] [address] Historical LMR Provider 03/16/17 2 Ross Tobin MD [address] [place] [address] Historical LMR Provider 03/16/17 06/03/21 Jessica Jackson CERTIFIED ALCOHOL AND DRUG COUNSELOR [address] [place] [address] Historical LMR Provider 03/16/17 06/03/21 Janna Macias MD [address] [place] [email or web address] Historical LMR Provider 03/16/17 Dena Brownlee CERTIFIED ALCOHOL AND DRUG COUNSELOR [address] [place] [address] Historical LMR Provider 03/16/17 2 Cory Kay MD [address] [place] [address], [address] [place] [address] Historical LMR Provider 03/16/17 06/03/21 Kristen Chávez NP [address] [place] [address] Historical LMR Provider 03/16/17 2 Andi Goff MD [address] [place] [address] [place] [address] Historical LMR Provider 03/16/17 Aster Shelley MD [address] [place] [address] Historical LMR Provider 03/16/17 2 Charlotte Bolaños MD [address] [facility] [address] [place] [address] Historical LMR Provider 03/16/17 06/03/21 Isiah Pavon MD [address] [place] [address] Historical LMR Provider 03/16/17 2 documented as of this encounter Additional Source Comments The information contained in this document represents components of the legal health record. It is not the complete legal health record.[facility]
== END 2025-02-16 09:23 | disposition home or self-care (01) ==
LOC: HO.HMCH 08:13
DX: G43.419 Hemiplegic migraine, intractable, without status migrainosus (principal); E66.812 Obesity, class 2; E11.9 Type 2 diabetes mellitus without complications; Z68.36 Body mass index [BMI] 36.0-36.9, adult; E66.09 Other obesity due to excess calories; I10 Essential (primary) hypertension; E78.2 Mixed hyperlipidemia; J45.20 Mild intermittent asthma, uncomplicated; G47.10 Hypersomnia, unspecified; N39.0 Urinary tract infection, site not specified; F42.9 Obsessive-compulsive disorder, unspecified

== ENCOUNTER → 2025-02-22 12:28 | Outpatient (REF) | payer OTHER, SELFPAY | LOC: HO.SL 12:28 | DX: G47.10 Hypersomnia, unspecified (principal) | CPT/HCPCS: 95806 ==

== ENCOUNTER → 2025-02-22 13:01 | Outpatient (BNV) | payer OTHER, SELFPAY | PROVIDERS: Visit Provider Internal Medicine | DX: R06.83 Snoring (principal) | CPT/HCPCS: 95806 ==

== ENCOUNTER 2025-03-16 10:38 | Emergency (ER) | payer OTHER, SELFPAY ==
--- OUTSIDE RECORDS SUMMARY | 2020-03-31 16:29 | XMS_ITS | Encounter Summary ---
Author Organization [facility] Address [address] [facility] [address] [place] [address] Phone Care Team Providers Care Medium Cycle Salesperson Name Role Phone Annmarie Richey LANDSCAPING SUPERVISOR Unavailable Francisca Casillas LANDSCAPING SUPERVISOR Unavailable [phone] Ross Tobin MD Unavailable Jessica Jackson LANDSCAPING SUPERVISOR Unavailable [phone] Janna Macias MD Unavailable Dena Brownlee LANDSCAPING SUPERVISOR Unavailable Cory Kay MD Unavailable [phone] Kristen Chávez LANDSCAPING SUPERVISOR Unavailable Andi Goff MD Unavailable Aster Shelley MD Unavailable [phone] Charlotte Bolaños MD Unavailable Isiah Pavon MD Unavailable [phone] Andi Goff MD Primary Care Provider [phone] Encounter Details Date Type Department Care Team (Late st Contact Info) Description 03/31/2020 3:29 PM EST Hospital Encounter [facility] [address] [place] [address] [phone] Margarita Burch, CARRIER DRIVER [address] [place] [address] [email or web address] Social History Tobacco Use Types Packs/Day Years [...] 6:23 PM EDT Cee James RN * [place] Suicide Severity Rating Scale (Screener/Recent Self-Report) Question [...] maintained. IMPRESSION: No fracture seen. Margarita Burch CARRIER DRIVER IMG XR LOWER EXTREMITY Clara l Result [...] documented as of this encounter Care Teams Medium Cycle Salesperson Relationship Specialty Start Date End Date Andi Goff MD [address] [place] [address] [place] [address] PCP - General 05/30/17 08/15/24 Annmarie Richey NP [address] [place] [address] Historical LMR Provider 03/16/17 2 Francisca Casillas NP [address] [place] [address] Historical LMR Provider 03/16/17 2 Ross Tobin MD [address] [place] [address] Historical LMR Provider 03/16/17 06/03/21 Jessica Jackson NP [address] [place] [address] [email or web address] Historical LMR Provider 03/16/17 06/03/21 Janna Macias MD [address] [place] [address] Historical LMR Provider 03/16/17 Dena Brownlee NP [address] [place] [phone] Historical LMR Provider 03/16/17 2 Cory Kay MD [address] [place] [address], [address] [place] [address] Historical LMR Provider 03/16/17 06/03/21 Kristen Chávez NP [address] [place] [address] Historical LMR Provider 03/16/17 2 Andi Goff MD [address] [place] [address] [place] [address] Historical LMR Provider 03/16/17 Aster Shelley MD [address] [place] [phone] Historical LMR Provider 03/16/17 2 Charlotte Bolaños MD [address] [place] [address] [address] [place] [address] [email or web address] Historical LMR Provider 03/16/17 06/03/21 Isiah Pavon MD [address] [place] [address] Historical LMR Provider 03/16/17 2 documented as of this encounter Additional Source Comments The information contained in this document represents components of the legal health record. It is not the complete legal health record.[facility]
--- OUTSIDE RECORDS SUMMARY | 2020-03-31 16:29 | XMS_ITS | Encounter Summary ---
Author Organization [facility] Address [address] [facility] [address] [place] [address] Phone Care Team Providers Care Styrene Dehydration Reactor Operator Name Role Phone Annmarie Richye PROPERTY CUSTODIAN Unavailable Francisca Casillas PROPERTY CUSTODIAN Unavailable [phone] Ross Tobin MD Unavailable Jessica Jackson PROPERTY CUSTODIAN Unavailable [phone] Janna Macias MD Unavailable Dena Brownlee PROPERTY CUSTODIAN Unavailable Cory Kay MD Unavailable [phone] Kristen Chávez PROPERTY CUSTODIAN Unavailable Andi Goff MD Unavailable [phone] Aster Shelley MD Unavailable [phone] Charlotte Bolaños MD Unavailable Isiah Pavon MD Unavailable [phone] Andi Goff MD Primary Care Provider Encounter Details Date Type Department Care Team (Late st Contact Info) Description 03/31/2020 3:29 PM EST Hospital Encounter [facility] [address] [place] [address] [phone] Margarita Burch, INDUSTRIAL HYGENIST [address] [place] [phone] [email or web address] Social History Tobacco Use Types Packs/Day Years [...] is your housing situation today? I have amadna sing 09/30/2024 How many times have you [...] 6:23 PM EDT Cee James RN * [place] Suicide Severity Rating Scale (Screener/Recent Self-Report) Question Answer Date of Assessment Author 1. Wish to be (Past 1 Month) Yes 025 6:23 PM EDT Cee Sanford RN 2. Non-Specific Active Suici tod Thoughts (Past 1 Month) Yes 09/29/2024 6:23 PM EDT aMryan Sanford RN 3. Active Suicidal Ideation with [...] fracture or malalignment is detected. Margarita Burch INDUSTRIAL HYGENIST IMG XR LOWER EXTREMITY Clara l Result [...] documented as of this encounter Care Teams Styrene Dehydration Reactor Operator Relationship Specialty Start Date End Date Andi Goff MD [address] [place] [address] [place] [address] PCP - General 05/30/17 08/15/24 Annmarie Richey NP [address] [place] [address] [address] Historical LMR Provider 03/16/17 2 Francisca Casillas NP [address] [place] [address] Historical LMR Provider 03/16/17 2 Ross Tobin MD [address] [place] [address] [email or web address] Historical LMR Provider 03/16/17 06/03/21 Jessica Jackson NP [address] [place] [address] [email or web address] Historical LMR Provider 03/16/17 06/03/21 Janna Macias MD [address] [place] [address] Historical LMR Provider 03/16/17 Dena Brownlee NP [address] [place] [phone] Historical LMR Provider 03/16/17 2 Cory Kay MD [address] [place] [address] Historical LMR Provider 03/16/17 06/03/21 Kristen Chávez NP [address] [place] [address] Historical LMR Provider 03/16/17 2 Andi Goff MD [address] [place] [address] [place] [address] Historical LMR Provider 03/16/17 Aster Shelley MD [address] [place] [phone] Historical LMR Provider 03/16/17 2 Charlotte Bolaños MD [address] [place] [address] [address] [place] [address] Historical LMR Provider 03/16/17 06/03/21 Isiah Pavon MD [address] [place] [address] Historical LMR Provider 03/16/17 2 documented as of this encounter Additional Source Comments The information contained in this document represents components of the legal health record. It is not the complete legal health record.[facility]
--- OUTSIDE RECORDS SUMMARY | 2021-11-02 12:03 | XMS_ITS | Encounter Summary ---
Author Organization [facility] Address [address] [facility] [address] [place] [address] Phone Care Team Providers Care Ic Engineer Name Role Phone Janna Macias MD Unavailable [phone] Andi Goff MD Unavailable [phone] Andi Goff MD Primary Care Provider [phone] Encounter Details Date Type Department Care Team (Late st Contact Info) Description 11/02/2021 12:03 PM EDT Hospital Encounter [facility] [address] [place] [address] Rut Salinas FNP [address] [place] [phone] [email or web address] Social History Tobacco Use Types Packs/Day [...] 6:23 PM EDT Cee James RN * [place] Suicide Severity Rating Scale (Screener/Recent Self-Report) Question [...] IMPRESSION: No acute osseous abnormality. Rut Salinas METAL POURER IMG XR UPPER EXTREMITY Clara l Result [...] documented as of this encounter Care Teams Ic Engineer Relationship Specialty Start Date End Date Andi Goff MD [address] [place] [address] Dr Sands [address] [place] [address] PCP - General 05/30/17 08/15/24 Janna Macias MD [address] [place] [address], [address] [place] [address] [email or web address] Historical LMR Provider 03/16/17 Andi Goff MD [address] [place] [address] Dr Sands [address] [place] [address] Historical LMR Provider 03/16/17 documented as of this encounter Additional Source Comments The information contained in this document represents components of the legal health record. It is not the complete legal health record.[facility]
--- OUTSIDE RECORDS SUMMARY | 2021-11-02 12:04 | XMS_ITS | Encounter Summary ---
Author Organization [facility] Address [address] [facility] [address] [place] [address] Phone Care Team Providers Care Hypertrichologist Name Role Phone Janna Macias MD Unavailable [phone] Andi Goff MD Unavailable [phone] Andi Goff MD Primary Care Provider [phone] Encounter Details Date Type Department Care Team (Late st Contact Info) Description 11/02/2021 12:04 PM EDT Hospital Encounter [facility] [address] [place] [address] Rut Salinas FNP [address] [place] [address] [email or web address] Social History Tobacco Use Types Packs/Day [...] 6:23 PM EDT Cee James RN * [place] Suicide Severity Rating Scale (Screener/Recent Self-Report) Question Answer Date of Assessment Author 1. Wish to be (Past 1 Month) Yes 025 6:23 PM EDT eCe Sanford RN 2. Non-Specific Active Suici tod [...] IMPRESSION: No acute osseous abnormality. Rut Salinas RURAL MAIL CARRIER IMG XR UPPER EXTREMITY Clara l Result [...] documented as of this encounter Care Teams Hypertrichologist Relationship Specialty Start Date End Date Andi Goff MD [address] [place] [address] Dr Sands [address] [place] [address] PCP - General 05/30/17 08/15/24 Janna Macias MD [address] [place] [address], [address] [place] [address] [email or web address] Historical LMR Provider 03/16/17 Andi Goff MD [address] [place] [address] Dr Sands [address] [place] [address] Historical LMR Provider 03/16/17 documented as of this encounter Additional Source Comments The information contained in this document represents components of the legal health record. It is not the complete legal health record.[facility]
--- OUTSIDE RECORDS SUMMARY | 2023-01-07 17:45 | XMS_ITS | Encounter Summary ---
Author Organization [facility] Address [address] [place] [address] Phone Care Team Providers Care Outreach Associate Name Role Phone Janna Macias MD Unavailable [phone] Andi Goff MD Unavailable [phone] Andi Goff MD Primary Care Provider [phone] Encounter Details Date Type Department Care Team (Late st Contact Info) Description 01/07/2023 5:45 PM EDT Hospital Encounter [facility] [address] [place] [address] Karin Beltran, EQUAL OPPORTUNITY ASSISTANT [address] [place] [address] [email or web address] Social History Tobacco Use Types Packs/Day Years [...] 6:23 PM EDT Cee James RN * [place] Suicide Severity Rating Scale (Screener/Recent Self-Report) Question [...] report originally createdby Kahlil Hernadez. Karin Beltran EQUAL OPPORTUNITY ASSISTANT IMG XR CHEST Final Resul t documented in this encounter Visit Diagnoses Not on filedocumented in this encounter Additional Health Concerns Infection Onset Date Last Indicated Resolved Time CoV-Risk 03/15/2023 03/15/2023 03/26/2023 1:25 AM EDT CoV-Risk 06/24/2024 06/24/2024 07/05/2024 1:21 AM EST documented as of this encounter Care Teams Outreach Associate Relationship Specialty Start Date End Date Andi Goff MD [address] [place] [address] Dr Sands [address] [place] [address] PCP - General 05/30/17 08/15/24 Janna Macias MD [address] [place] [address], [address] [place] [address] [email or web address] Historical LMR Provider 03/16/17 Andi Goff MD [address] [place] [address] Dr Sands [address] [place] [address] Historical LMR Provider 03/16/17 documented as of this encounter Additional Source Comments The information contained in this document represents components of the legal health record. It is not the complete legal health record.[facility]
--- OUTSIDE RECORDS SUMMARY | 2023-07-22 18:05 | XMS_ITS | Encounter Summary ---
Author Organization [facility] Address [address] [facility] [address] [place] [address] Phone Care Team Providers Care Lcsw Name Role Phone Janna Macias MD Unavailable [phone] Andi Goff MD Unavailable [phone] Andi Goff MD Primary Care Provider [phone] Encounter Details Date Type Department Care Team (Late st Contact Info) Description 07/22/2023 5:05 PM [facility] Hospital Encounter [facility] [address] [place] [address] Margarita Burch CNP [address] [place] [address] [email or web address] Social History Tobacco Use Types Packs/Day Years [...] 6:23 PM EDT Cee James RN * [place] Suicide Severity Rating Scale (Screener/Recent Self-Report) Question [...] (Right) (07/22/2023 5:18 PM EST) MGB IMG MANAGER DOMESTIC COMMENT Consider CT if high clinical concern [...] communicated on 07/22/2023 5:57 PM, Message ID [id number]. ATTESTATION: I, Heather Najera as teaching physician, have reviewed the images for this case and if necessary edited the report originally created by Simeon Blackwood. Narrative 07/22/2023 5:58 PM EST XR CALCANEUS 2 OR MORE VIEWS (RIGHT) Referring clinician's provided indication for this examination in [facility]: Pain; Trauma; fell 5 days ago, foot under COMPARISON: None. Procedure Note Aisha Sorto MD / System, Provider Not In, PhD - 07/22/2023 XR CALCANEUS 2 OR MORE VIEWS (RIGHT) Referring clinician's provided indication for this examination in [facility]:Pain; Trauma; fell 5 days ago, foot under COMPARISON: None. IMPRESSION: No displaced calcaneal fracture. No significant radiographic soft tissue swelling. Early superior calcaneal spur. However, if significant pain or concerning mechanism, CT can be consideredfor further evaluation. A clinically significant result was communicated on 07/22/2023 5:57 PM,Message ID [id number]. ATTESTATION: IHeather as teaching physician, havereviewed the images for this case and if necessary edited the reportoriginally created by Simeon Blackwood. Margarita Burch AGRICULTURE ENGINEER IMG XR LOWER EXTREMITY Edit ed Result - Final documented in this encounter Visit Diagnoses Not on filedocumented in this encounter Additional Health Concerns Infection Onset Date Last Indicated Resolved Time CoV-Risk 06/24/2024 06/24/2024 07/05/2024 1:21 AM EST documented as of this encounter Care Teams Lcsw Relationship Specialty Start Date End Date Andi Goff MD [address] [place] [address] Dr Sands [address] [place] [address] PCP - General 05/30/17 08/15/24 Janna Macias MD [address] [place] [address], [address] [place] [address] [email or web address] Historical LMR Provider 03/16/17 Andi Goff MD [address] [place] [address] Dr Burch, TERRY [address] Historical LMR Provider 03/16/17 documented as of this encounter Additional Source Comments The information contained in this document represents components of the legal health record. It is not the complete legal health record.[facility]
--- NOTE | ~2025-03-16 | XR_ITS ---
EXAMINATION: XR LUMBOSACRAL SPINE CLINICAL INFORMATION: pain COMPARISON: X-ray dated July 30, 2013 is not available on PACS system. TECHNIQUE: AP and lateral views. FINDINGS: S-shaped curvature of the thoracolumbar spine. No acute cortical disruption or malalignment. Small marginal osteophyte formation and multilevel endplate sclerosis throughout the axial skeleton. No lytic or blastic lesions. Vascular calcifications, aorta. T-shaped contraceptive device overlapping the lower sacrococcyx. Sclerosis and the sacroiliac joints. XR/XR lumbar spine 2-3V IMPRESSION: Multilevel thoracolumbar spondylosis without acute fracture or listhesis. Electronically signed by: Augustine Leon MD 03/16/2025 11:24 AM EDT
[2025-03-16 10:48] VITALS: BP 140/84; PULSE 91; O2SAT 96
[2025-03-16 11:04] VITALS: BP 130/66; PULSE 83; RESP 20; TEMP 36.4; O2SAT 97; BMI 34.9
--- NOTE | 2025-03-16 11:08 | ED_ITS ---
HPI - General Adult General Chief complaint: Back Pain/Injury Stated complaint: R side back pain Time Seen by Provider: 03/16/25 12:27 Source: patient, RN notes reviewed and old records reviewed Mode of arrival: EMS Limitations: no limitations History of Present Illness ED Provider: Tiffany HPI narrative: 44-year-old female with a past medical history significant for cerebral palsy, diabetes, PTSD, hypertension, hyperlipidemia presents for evaluation of right- sided back pain. 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 The patient has 6/10 pain to the right lower back pain The pain does not radiate. Denies any head strike, she would not fall to the ground or hit her head. Denies any nausea vomiting, chest pain Related Data Home Medications ?Medication ?Instructions ?Recorded ?Confirmed rizatriptan 5 mg tablet 5 mg PO DAILY PRN Migraine H eadache 05/08/24 02/16/25 verapamil 120 mg 24 hr 120 mg PO BID 05/08/2402/16 capsule,extended release acetaminophen 325 mg tablet 650 mg PO DAILY PRN Headac he 09/02/24 02/16/25 celecoxib 200 mg capsule 200 mg PO DAILY PRN Pain 02/1802/16/25 fluvoxamine 100 mg tablet 100 mg PO DAILY 10/14/24 fluvoxamine 50 mg tablet 150 mg PO BEDTIME 10/14/24 0 02/16/25 gabapentin 100 mg capsule 200 mg PO TID 10/14/2402/16 hydroxyzine HCl 50 mg tablet 50 mg PO BID PRN anxiety 10/14/24 02/16/25 levonorgestrel (Mirena) 1 device intrauterine ONCE 0 10/14/24 02/16/25 lidocaine 5 % topical patch 1 patch topical DAILY PRN Pain 10/14/24 02/16/25 trazodone 50 mg tablet 50 mg PO BEDTIME PRN sleep 0 10/14/24 02/16/25 albuterol sulfate 2.5 mg/3 mL 2.5 mg inhalation Q6H TX N Wheezing 01/14/25 02/16/25 (0.083 %) solution for nebulization albuterol sulfate 90 mcg/actuation 2 puff inhalation Q 4H PRN 01/14/25 02/16/25 aerosol inhaler shortness of breath or wheez ing Previous Rx's ?Medication ?Instructions ?Recorded blood-glucose meter (FreeStyle #1 ea 08/13/23 Lite Meter kit) lancets (FreeStyle Unistik 2) #100 ea 01/24/24 atorvastatin 40 mg tablet 40 mg PO DAILY #90 tabs 04/27 02/17 blood sugar diagnostic (FreeStyle #100 ea 06/05/24 Lite Strips) topiramate 50 mg capsule,extended 50 mg PO DAILY #90 c aps 10/13/24 release 24 hr metformin 500 mg tablet 500 mg PO BID #180 tabs 10/26 11/18 cholecalciferol (vitamin D3) 50 50 mcg PO DAILY #90 ca ps 12/14/24 mcg (2,000 unit) capsule tramadol 50 mg tablet 25 mg (1/2 x 50 mg) PO DAILY PRN 01/15/25 pain #5 tabs nitrofurantoin 100 mg PO Q12H 5 days #10 ca ps 02/16/25 monohydrate/macrocrystals 100 mg capsule cyclobenzaprine 10 mg tablet 10 mg PO TID PRN muscle s pasm #20 03/16/25 tabs Allergies Allergy/AdvReac Type Severity Reaction Status Date / Time meloxicam (MELOXICAM) Allergy Severe RASH Verified 03/16/25 11:05 citalopram (From CELEXA) Allergy Intermediate LOCK JAW Verified 03/16/25 11:05 Biaxin Allergy Unknown Unknown Verified 03/16/25 11:05 cefaclor (From CECLOR) Allergy Unknown UNKNOWN Verified 03/16/25 11:05 cephalexin (Keflex) Allergy Unknown Unknown Verified 03/16/25 11:05 clarithromycin (From BIAXIN) Allergy Unknown UNKNOWN Verified 03/16/25 11:05 lactose Allergy Unknown INTOLERANCE Verified 03/16/25 11:05 Sulfa (Sulfonamide Allergy Unknown HIVES Verified 03/16/25 11:05 Antibiotics) (SULFA (SULFONAMIDE ANTIBIOTICS)) Review of Systems Constitutional: Constitutional: Denies body ache(s), Denies chills, Denies fatigue, Denies fever(s) and Denies headache(s) Eyes: Eyes: Denies blurry vision and Denies floaters ENT: Denies vertigo, Denies dizziness and Denies headache(s) Cardiovascular: Cardiovascular: Denies chest pain and Denies dyspnea on exe rtion Respiratory: Respiratory: Denies cough and Denies dyspnea on exertion Gastrointestinal: Gastrointestinal: Denies abdominal pain, Denies nausea and Denies vomiting Musculoskeletal: Musculoskeletal: Reports back pain, Denies stiffness and Denies tingling Neurologic: Denies vertigo, Denies dizziness, Denies headache(s) and Denies tingling Endocrine: Endocrine: Denies fatigue PMFSH Past Medical History Medical History Cerebral palsy Active asthma 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 Obesity Hypertension Acute sinusitis Hyperglycemia Hyperlipidemia Viral syndrome Acute sinusitis Surgical History H/O arthroscopic knee surgery History of carpal tunnel surgery of right wrist History of dilation and curettage History of foot surgery Family History Family History Father Hypertension Bladder cancer Diabetes Hyperlipidemia Mother Hypertension Paternal Aunt Breast cancer Paternal Grandfather Myocardial infarction Social History Social History Household Members: Family Housing: House Are you a primary acute care certified nursing assistant to a significant other at home: No Do you presently have visiting nurse or other home services: No Alcohol intake: never Patient Tobacco Use Status: Never used Tobacco Tobacco use type: Cigarette e-Cigarette/Vaping Use: Never Used Second Hand Smoke Exposure: No Advance Directives: No Advance Directives Information Provided: No service: No Current occupational status: employed Cognitive needs: No Hearing needs: No Vision needs: No Physical Exam ED Vital Signs: Vital Signs - 24 hr 03/16/25 11:04 Temperature 97.5 F Pulse Rate 83 Respiratory Rate 20 Blood Pressure 130/66 Pulse Oximetry 97 Oxygen Delivery Method Room Air BMI result Body Mass Index 34.9 Const General: healthy appearing, comfortable, no acute distress, alert and awake Nutritional Appearance: well nourished Orientation/consciousness: patient oriented x3 HENMT Head: Yes normocephalic and Yes atraumatic Eyes Eyelids: Yes eyelids normal Conjunctivae: conjunctivae normal Sclerae: sclerae normal Corneas: corneas normal Pupils: Equal, round and reactive pupils present EOM: EOMs intact bilaterally Neck Neck: Yes full ROM Resp Effort & Inspection: normal respiratory effort, able to speak in complete sentences and not labored Cardio Rate: regular rate Rhythm: regular rhythm GI Inspection: No distended Palpation (GI): Soft to palpation, not firm, nontender, no guarding and not rigid Back/Spine/Pelvis Other: There was mild right lumbar paraspinous muscle tenderness. No step-offs or deformities. Straight leg raise negative bilaterally Skin General skin exam: elasticity normal Neuro General: patient oriented x3 Cranial nerves: Yes Equal, round and reactive pupils present and Yes Bilaterally intact EOM present Cognition (Neuro): normal cognition Extrem Other: Moving all extremities well without any obvious deformities Course Course Course Narrative: RME, this is a rapid medical exam performed by Hong Allen please refer to primary provider for complete H&P- 44-year-old female presents for evaluation of right-sided lower back pain. She reports that she was at work when somebody jumped on her back. She did not fall or hit her head. Plan for an x-ray of the lumbar spine. She has had minimal lumbar spine tenderness from mostly the pain is right lumbosacral region. No step-offs or deformities. The patient has a history of cerebral palsy. Plan for x-ray Reevaluation(s) Reevaluation #1: The patient's x-ray unremarkable, plan to discharge with symptomatic treatment Time: 13:06 Medical Decision Making Medical Decision Making [facility] Narrative: 44-year-old female presents for evaluation of right lower back pain after a toddler jumped on her back. She did not fall to the ground or have any head strike. Given this happened at work I did order a lumbar x-ray to rule out compression fracture but I have a very low suspicion for this. Straight leg raise is negative, less likely sciatica or radiculopathy. There was no abdominal pain or chest pain. Differential Diagnosis Differential Diagnoses: The differential diagnosis associated with the presentation includes Muscle strain Radiculopathy Contusion Compression fracture Radiology Impression Discussion of test interpretation with radiology: I have reviewed the radiologist's reading. Radiologist Impression: FINDINGS: S-shaped curvature of the thoracolumbar spine. No acute cortical disruption or malalignment. Small marginal osteophyte formation and multilevel endplate sclerosis throughout the axial skeleton. No lytic or blastic lesions. Vascular calcifications, aorta. T-shaped contraceptive device overlapping the lower sacrococcyx. Sclerosis and the sacroiliac joints. XR/XR lumbar spine 2-3V IMPRESSION: Multilevel thoracolumbar spondylosis without acute fracture or listhesis. Electronically signed by: Augustine Leon MD 03/16/2025 11:24 AM EDT RP Discharge Plan Discharge Clinical Impression: Low back pain Patient Disposition: Home, Self-Care Instructions: Acute Low Back Pain (ED) Additional Instructions: Your x-ray does not show any acute fractures. You do have some mild spondylosis I recommend taking ibuprofen or Tylenol for pain. You may use cyclobenzaprine as needed for muscle spasms. This will make you drowsy, do not drink alcohol or drive after taking it Prescriptions: New cyclobenzaprine 10 mg tablet 10 mg PO TID PRN (Reason: muscle spasm) Qty: 20 0RF No Action (DME) blood-glucose meter [FreeStyle Lite Meter] Kit See Rx Instructions .Route Qty: 1 0RF Rx Instructions: As directed (DME) lancets [FreeStyle Unistik 2] Misc See Rx Instructions .Route Qty: 100 0RF Rx Instructions: As directed Once per day atorvastatin 40 mg tablet 40 mg PO DAILY Qty: 90 3RF (DME) FreeStyle Lite Strips Strip See Rx Instructions .Route Qty: 100 0RF Rx Instructions: As directed once per day topiramate 50 mg capsule,extended release 24hr 50 mg PO DAILY Qty: 90 1RF metformin 500 mg tablet 500 mg PO BID Qty: 180 2RF cholecalciferol (vitamin D3) 50 mcg (2,000 unit) capsule 50 mcg PO DAILY Qty: 90 2RF tramadol 50 mg tablet 25 mg PO DAILY PRN (Reason: pain) Qty: 5 0RF albuterol sulfate 2.5 mg /3 mL (0.083 %) solution for nebulization 2.5 mg inhalation Q6H PRN (Reason: Wheezing) albuterol sulfate 90 mcg/actuation HFA aerosol inhaler 2 puff inhalation Q4H PRN (Reason: shortness of breath or wheezing) verapamil 120 mg capsule,ext rel. pellets 24 hr 120 mg PO BID rizatriptan 5 mg tablet 5 mg PO DAILY PRN (Reason: Migraine Headache) Rx Instructions: may repeat once if no relief in 2 hours acetaminophen 325 mg tablet 650 mg PO DAILY PRN (Reason: Headache) celecoxib 200 mg capsule 200 mg PO DAILY PRN (Reason: Pain) nitrofurantoin monohyd/m-cryst 100 mg capsule 100 mg PO Q12H 5 Days Qty: 10 0RF Rx Instructions: must administer with a meal/food trazodone 50 mg tablet 50 mg PO BEDTIME PRN (Reason: sleep) lidocaine 5 % adhesive patch,medicated 1 patch topical DAILY PRN (Reason: Pain) gabapentin 100 mg capsule 200 mg PO TID fluvoxamine 100 mg tablet 100 mg PO DAILY fluvoxamine 50 mg tablet 150 mg PO BEDTIME Mirena 21 mcg/24hr (up to 8 yrs) 52 mg intrauterine device 1 device intrauterine ONCE hydroxyzine HCl 50 mg tablet 50 mg PO BID PRN (Reason: anxiety) Stand Alone Forms: Work/School Release Print Language: Amharic
[2025-03-16 14:43] VITALS: BP 130/66; PULSE 83; RESP 20; TEMP 36.4; O2SAT 97
--- OUTSIDE RECORDS SUMMARY | 2025-03-16 16:27 | XMS_ITS | Encounter Summary ---
Author Organization [facility] Address [address] [facility] [address] [place] [address] Phone Care Team Providers Care Machine Plate Stacker Name Role Phone Janna Macias MD Unavailable [phone] Andi Goff MD Unavailable [phone] Andi Goff MD Primary Care Provider [phone] Reji Thompson MD Primary Care Provider [phone] Encounter Details Date Type Department Care Team (Late st Contact Info) Description 06/14/2023 Procedure Pass OR Admitting Dept - [facility] Department [address] [place] [address] Social History Tobacco Use Types Packs/Day Years [...] 06/14/2023 9:00 AM Emilie Irene RN * [place] Suicide Severity Rating Scale (Screener/Recent Self-Report) Question [...] documented as of this encounter Care Teams Machine Plate Stacker Relationship Specialty Start Date End Date Andi Goff MD [address] [place] [address] [address] PCP - General 05/30/17 08/15/24 Reji Thompson MD [address] [place] [address] [place] [phone] PCP - General Internal Medicine 08/16/24 Janna Macias MD [address] [place] [address], [address] [place] [address] [email or web address] Historical LMR Provider 03/16/17 Andi Goff MD [address] [place] [address] [place] [address] Historical LMR Provider 03/16/17 documented as of this encounter Additional Source Comments The information contained in this document represents components of the legal health record. It is not the complete legal health record.[facility]
--- OUTSIDE RECORDS SUMMARY | 2025-03-16 16:27 | XMS_ITS | Encounter Summary ---
Author Organization [facility] Address [address] [place] [address] [place] [address] Phone Care Team Providers Care Garland Machine Operator Name Role Phone Annmarie Richey SHANK THREADER Unavailable Francisca Casillas SHANK THREADER Unavailable [phone] Ross Tobin MD Unavailable Jessica Jackson SHANK THREADER Unavailable [phone] Janna Macias MD Unavailable [phone] Dena Brownlee SHANK THREADER Unavailable Cory Kay MD Unavailable [phone] Kristen Chávez SHANK THREADER Unavailable [phone] Andi Goff MD Unavailable [phone] Aster Shelley MD Unavailable [phone] Charlotte Bolaños MD Unavailable [phone] Isiah Pavon MD Unavailable [phone] Andi Goff MD Primary Care Provider [phone] Reji Thompson MD Primary Care Provider [phone] Encounter Details Date Type Department Care Team (Late st Contact Info) Description 10/10/2017 Procedure Pass OR Admitting Dept - Virtual Department [address] [place] [address] Social History Tobacco Use Types Packs/Day Years [...] documented as of this encounter Care Teams Garland Machine Operator Relationship Specialty Start Date End Date Andi Goff MD [address] [place] [address] PCP - General 05/30/17 08/15/24 Reji Thompson MD [address] [place] [phone] PCP - General Internal Medicine 08/16/24 Annmarie Richey NP [address] [place] [address] Historical LMR Provider 03/16/17 2 Francisca Casillas NP [address] [place] [address] Historical LMR Provider 03/16/17 2 Ross Tobin MD [address] [place] [address] Historical LMR Provider 03/16/17 06/03/21 Jessica Jackson SHANK THREADER [address] [place] [address] Historical LMR Provider 03/16/17 06/03/21 Janna Macias MD [address] [place] [address] [email or web address] Historical LMR Provider 03/16/17 Dena Brownlee SHANK THREADER [address] [place] [address] Historical LMR Provider 03/16/17 2 Cory Kay MD [address] [place] [address], [address] [place] [address] Historical LMR Provider 03/16/17 06/03/21 Kristen Chávez NP [address] [place] [address] Historical LMR Provider 03/16/17 2 Andi Goff MD [address] [place] [address] [place] [address] Historical LMR Provider 03/16/17 Aster Shelley MD [address] [place] [address] Historical LMR Provider 03/16/17 2 Charlotte Bolaños MD [address] [facility] [address] [place] [address] Historical LMR Provider 03/16/17 06/03/21 Isiah Pavon MD [address] [place] [address] Historical LMR Provider 03/16/17 2 documented as of this encounter Additional Source Comments The information contained in this document represents components of the legal health record. It is not the complete legal health record.[facility]
--- OUTSIDE RECORDS SUMMARY | 2025-03-16 16:27 | XMS_ITS | Encounter Summary ---
Author Organization [facility] Address [address] [facility] [address] [place] [address] Phone Care Team Providers Care Ux Lead Name Role Phone Janna Macias MD Unavailable [phone] Andi Goff MD Unavailable [phone] Andi Goff MD Primary Care Provider [phone] Reji Thompson MD Primary Care Provider [phone] Encounter Details Date Type Department Care Team (Late st Contact Info) Description 06/22/2024 Procedure Pass [facility], Ct Scan - [address] [address] Social History Tobacco Use Types Packs/Day Years [...] 06/22/2024 7:43 PM Holly Parker RN * [place] Suicide Severity Rating Scale (Screener/Recent Self-Report) Question [...] documented as of this encounter Care Teams Ux Lead Relationship Specialty Start Date End Date Andi Goff MD [address] [place] [address] Dr [place] [address] [place] [address] PCP - General 05/30/17 08/15/24 Po, Reji Dodd MD [address] [place] [address] PCP - General Internal Medicine 08/16/24 Janna Macias MD [address] [facility], [address] [place] [address] [email or web address] Historical LMR Provider 03/16/17 Andi Goff MD [address] [place] [address] Dr W[address] [place] [address] Historical LMR Provider 03/16/17 documented as of this encounter Additional Source Comments The information contained in this document represents components of the legal health record. It is not the complete legal health record.[facility]
--- OUTSIDE RECORDS SUMMARY | 2025-03-16 16:27 | XMS_ITS | Clinical Summary ---
Author Organization [facility] Address [address] [facility] [address] [place] [address] Phone Care Team Providers Care Shipping Support Clerk Name Role Phone Janna Macias MD Unavailable [phone] Andi Goff MD Unavailable [phone] Po, Reji Dodd MD Primary Care Provider [phone] Allergies Active Allergy Reactions Criticality Noted Date [...] E AFTER 12 HOURS 05/21/20 Active rizatriptan (MAXALT-DRAFTER PATENT) 5 MG disintegrating tablet Take 5 mg [...] this topic Medical Devices Implanted Type Area Geospatial Information Scientist Device Identifier Shelf Expiration Date Model / Serial / Lot Contraceptive Iud Mirena - Must Order A Minimum Of 50ea - [id number] Implanted:Qty: 1 on 10/10/2017 by Janna Macias MD at [facility] Uterus [employer] 04/25/2020 [id number] / / [id number] Procedures Procedure Name Priority Date/Time Associated Diagnosis Comments BASIC METABOLIC PANEL STAT 09/29/2024 6:28 PM EDT PAP TEST Routine 08/11/2021 12:00 AM EDT from Last 3 Months or Most Recently Relevant to Health Maintenance Results * Basic metabolic panel (09/29/2024 6:28 PM EDT) SODIUM 142 133 - 146 mmol/L [facility] CHLORIDE 103 96 - 108 mmol/L [facility] POTASSIUM 3.8 3.3 - 5.1 mmol/L [facility] CO2 23 21 - 35 mmol/L [facility] BUN 19 6 - 19 mg/dL [facility] CREATININE 0.60 0.5 - 1.5 mg/dL [facility] GLUCOSE 92 70 - 99 mg/dL [facility] CALCIUM 9.5 8.4 - 10.3 mg/dL [facility] EGFR 114 >59 mL/min/1.7 3m2 [facility] Comment:Estimated glomerular filtration rate calculated using the CKD-EPI refit equation. ANION GAP 20 10 - 20 mmol/L [facility] Blood 09/29/2024 6:28 PM EDT 09/29/2024 7:08 PM EDT us Rodrgiue Rich MD LAB BLOOD ORDERABLES Clara l Result Performing Organization Address City/State/[facility] Co de Phone Number [address] [address] * Pap Smear (08/11/2021 12:00 AM EDT) 08/11/2021 08/14/2021 9:2 9 AM EDT Narrative SEE NARRATIVE - 08/17/2021 2:56 PM EDT [address] [address] Desizing Machine Back Tender: Mary Torre MD ULTRASOUND SPEC Cytology Report FINAL DIAGNOSIS A. PAP SMEAR [...] 52, 56, 58, 59, 66, 68) by [employer] HR-HPV analysis. Clinical correlation is advised. This HPV test was performed at [facility], [address] [place] [address]. This test has been FDA approved for [facility] cervical cytology specimens. The accuracy and precision of this test for all other specimen sources has been verified in the Cytopathology Laboratory of the [facility] and has not been cleared or approved by the U.S. Food and Drug Administration. Clinical correlation is advised. CLINICAL HISTORY Date of Last Menstrual Period: Not Provided Menstrual History: Unknown Contraceptive History: IUD: ARMIDA Other Clinical Conditions: Screening Pap SPECIMEN SOURCE A: PAP SMEAR (SUREPATH) CE Patient Name: KAYLEE, MARY LOU : 1980 (Age: 40) Sex: F Institution: [facility] Location: [facility] Date of Collection: 08/11/2021 Date of Reported: 08/17/2021 11:04 Results to: Jimbo Pulliam MD, BS Jimbo Pulliam MD CYTOLOGY ORDERABLES Edited Re sult - Final SEE NARRATIVE from Last 3 Months or Most Recently Relevant to Health Maintenance [place] [address] [place] [address] [place], [place] [address] [place], [place] [address] [place] [address] [place] [place] [address] [employer]MO [employer] Advance Directives For more information, please contact: [phone] (9AM - 5PM [facility], Saturday-Saturday) Documents on File Type Date Recorded Patient Tobacco [facility] [employer] Proxy 10/11/2017 1:21 PM * Full Code (Latest Code Status on File) Date Activated Date Inactivated Comments 06/14/2023 8:45 AM Question Answer Comments Code Status Confirmed With: Patient * Full Code (Presumed) Date Activated Date Inactivated Comments 10/10/2017 8:24 AM 10/10/2017 3:47 PM Healthcare Agents on File Name Relationship Healthcare Agent [facility] Communication Dianna Kennedy .Primary Health Care Agent (Proxy form on file) Care Teams Shipping Support Clerk Relationship Specialty Start Date End Date Po, Reji Dodd MD [address] [place] [address] [place] [phone] PCP - General Internal Medicine 08/16/24 Janna Macias MD [address] [place] [address], [address] [place] [address] [email or web address] Historical LMR Provider 03/16/17 Andi Goff MD [address] [place] [address] Dr Wicho [address] [place] [address] Historical LMR Provider 03/16/17 Additional Source Comments The information contained in this document represents components of the legal health record. It is not the complete legal health record.[facility]
--- OUTSIDE RECORDS SUMMARY | 2025-03-16 16:27 | XMS_ITS | Encounter Summary ---
Author Organization [facility] Address [address] [facility] [address] [place] [address] Phone Care Team Providers Care Customer Experience Consultant Name Role Phone Janna Macias MD Unavailable [phone] Andi Goff MD Unavailable [phone] Andi Goff MD Primary Care Provider [phone] Reji Thompson MD Primary Care Provider [phone] Encounter Details Date Type Department Care Team (Late st Contact Info) Description 06/05/2023 Procedure Pass [facility], Ct Scan - [address] [address] Social History Tobacco Use Types Packs/Day Years [...] 06/05/2023 9:03 PM Holly Parker RN * [place] Suicide Severity Rating Scale (Screener/Recent Self-Report) Question [...] documented as of this encounter Care Teams Customer Experience Consultant Relationship Specialty Start Date End Date Andi Goff MD [address] [place] [address] [address] [place], [place] [phone] PCP - General 05/30/17 08/15/24 Reji Thompson MD [address] [place], [place] [address] [address] PCP - General Internal Medicine 08/16/24 Janna Macias MD [address] [place] [address], [address] [place] [address] [email or web address] Historical LMR Provider 03/16/17 Andi Goff MD [address] [place] [address] Historical LMR Provider 03/16/17 documented as of this encounter Additional Source Comments The information contained in this document represents components of the legal health record. It is not the complete legal health record.[facility]
--- OUTSIDE RECORDS SUMMARY | 2025-03-16 16:27 | XMS_ITS | Encounter Summary ---
Author Organization [facility] Address [address] [facility] [address] [place] [address] Phone Care Team Providers Care Continuous Improvement Intern Name Role Phone Janna Macias MD Unavailable [phone] Andi Goff MD Unavailable [phone] Andi Goff MD Primary Care Provider [phone] Reji Thompson MD Primary Care Provider [phone] Encounter Details Date Type Department Care Team (Late st Contact Info) Description 06/22/2024 Procedure Pass [facility], Ct Scan - [address] [address] Social History Tobacco Use Types Packs/Day Years [...] 06/22/2024 7:43 PM Holly Parker RN * [place] Suicide Severity Rating Scale (Screener/Recent Self-Report) Question [...] documented as of this encounter Care Teams Continuous Improvement Intern Relationship Specialty Start Date End Date Andi Goff MD [address] [place] [address] [address] [place] [address] [place] [address] PCP - General 05/30/17 08/15/24 Po, Reji Dodd MD [address] [place] [address] PCP - General Internal Medicine 08/16/24 Janna Macias MD [address] [facility], [address] [place] [address] [email or web address] Historical LMR Provider 03/16/17 Andi Goff MD [address] [place] [address] Dr W[address]o [address] [place] [address] Historical LMR Provider 03/16/17 documented as of this encounter Additional Source Comments The information contained in this document represents components of the legal health record. It is not the complete legal health record.[facility]
== END 2025-03-16 14:44 | disposition home or self-care (01) ==
PROVIDERS: Emergency Provider Emergency Medicine
DX: M54.50 Low back pain, unspecified (principal); G80.9 Cerebral palsy, unspecified; I10 Essential (primary) hypertension; E11.9 Type 2 diabetes mellitus without complications; E78.5 Hyperlipidemia, unspecified; F43.10 Post-traumatic stress disorder, unspecified
CPT/HCPCS: 72100; 99282; 99283

== ENCOUNTER → 2025-03-16 11:07 | Outpatient (BNV) | payer OTHER, SELFPAY | PROVIDERS: Visit Provider Radiology Diagnostic Radiology | DX: M54.50 Low back pain, unspecified (principal); M47.815 Spondylosis without myelopathy or radiculopathy, thoracolumbar region | CPT/HCPCS: 72100 ==

== ENCOUNTER 2025-04-13 13:14 | Outpatient (AMB) | payer OTHER, SELFPAY ==
--- OUTSIDE RECORDS SUMMARY | 2020-03-31 15:29 | XMS_ITS | Encounter Summary ---
Author Organization [facility] Address [address] [facility] [address] [place] [address] Phone Care Team Providers Care Imaging Nurse Name Role Phone Annmarie Richey CIVIL CAD TECH Unavailable Francisca Casillas CIVIL CAD TECH Unavailable [phone] Ross Tobin MD Unavailable Jessica Jackson CIVIL CAD TECH Unavailable [phone] Janna Macias MD Unavailable Dena Brownlee CIVIL CAD TECH Unavailable Cory Kay MD Unavailable [phone] Kristen Chávez CIVIL CAD TECH Unavailable Andi Goff MD Unavailable [phone] Aster Shelley MD Unavailable [phone] Charlotte Bolaños MD Unavailable Isiah Pavon MD Unavailable [phone] Andi Goff MD Primary Care Provider Encounter Details Date Type Department Care Team (Late st Contact Info) Description 03/31/2020 3:29 PM EST Hospital Encounter [facility] [address] [place] [address] [phone] Margarita Burch, DIRECTOR INTERNATIONAL [address] [place] [address] [email or web address] Social History Tobacco Use Types Packs/Day Years Used Date Smoking Tobacco: Never Smokeless Tobacco: Never Alcohol Use Standard Drinks/Week Comments Never 0 (1 standard drink = 0.6 oz pur e alcohol) Home Health Assessment: Transportation Answer Date Recorded Lack of Transportation (Medical) No 04/09/2025 Lack of Transportation (Non-Medical) No 04/09/2025 Patient Unable or Declines to Respond No 04/09/2025 Education Answer Date Recorded Are you interested [...] PM EDT documented as of this encounter Functional Status * Calculated C-SSRS Risk Score (Lifetime/Recent) Answer Date of Assessment Author High Risk 09/29/2024 6:23 PM EDT Cee James RN * [place] Suicide Severity Rating Scale (Screener/Recent Self-Report) Question Answer Date of Assessment Author 1. Wish to be (Past 1 Month) Yes 025 6:23 PM EDT Cee Sanford RN 2. Non-Specific Active Suici tod Thoughts (Past 1 Month) Yes 09/29/2024 6:23 PM EDT Maryan Sanford RN 3. Active Suicidal Ideation with any Methods (Not Plan) Without Intent to Act (Past 1 Month) Yes 07/30/2021 4:09 AM EST Cee [place] RN 4. Active Suicidal Ideation with Some Intent to Act, Without Specific Plan (Past 1 Month) Yes 09/29/2024 6:23 PM EDT Cee [place] RN 5. Active Suicidal Ideation with Specific Plan and Intent (Past 1 Month) Yes 09/29/2024 6:23 PM EDT Cee Sanford RN 6. Suicidal Behavior (Lifetime) Yes 6:23 PM EDT Cee Sanford RN 6. Suicidal Behavior (3 Months) Yes 6:23 PM EDT Cee Sanford RN documented as of this encounter Plan of Treatment Upcoming Encounters Date Type Department Care Team (Late st Contact Info) Description 04/14/2025 1:45 PM EST Appointment [facility] [address] [place] [address] Colleen Carlson, LABOR TRAINER [address] [place] [address] 04/21/2025 1:45 AM EST Appointment [facility] [address] [place] [address] Gregor Poe, PT [address] [place] [address] 04/26/2025 1:30 AM EST Appointment [facility] [address] [place] [address] Gregor Poe, PT [address] [place] [address] 04/29/2025 12:45 AM EST Appointment [facility] [address] [place] [address] Gregor Poe, PT [address] [place] [address] 05/03/2025 12:45 AM EST Appointment [facility] [address] [place] [address] Gregor Poe, PT [address] [place] [address] 05/06/2025 12:45 AM EST Appointment [facility] [address] [place] [address] Gregor Poe, PT [address] [place] [address] 05/10/2025 Appointment [facility] [address] [place] [address] Gregor Poe, PT [address] [place] [address] 05/13/2025 Appointment [facility] [address] [place] [address] Lui Gregor, PT [address] [place], [place] [phone] [email or web address] documented as of this encounter Procedures Procedure [...] fracture or malalignment is detected. Margarita Burch DIRECTOR INTERNATIONAL IMG XR LOWER EXTREMITY Clara l Result [...] documented as of this encounter Care Teams Imaging Nurse Relationship Specialty Start Date End Date Andi Goff MD [address] [place] [address] [address] PCP - General 05/30/17 08/15/24 Annamrie Richey NP [address] [place] [address] Historical LMR Provider 03/16/17 2 Francisca Casillas NP [address] [place] [address] Historical LMR Provider 03/16/17 2 Ross Tobin MD [address] [place] [address] Historical LMR Provider 03/16/17 06/03/21 Jessica Jackson CIVIL CAD TECH [address] [place] [address] Historical LMR Provider 03/16/17 06/03/21 Janna Macias MD [address] [place] [email or web address] Historical LMR Provider 03/16/17 Dena Brownlee CIVIL CAD TECH [address] [place] [phone] Historical LMR Provider 03/16/17 2 Cory Kay MD [address] [place] [address], 2[address] [place] [address] Historical LMR Provider 03/16/17 06/03/21 Kristen Chávez, CIVIL CAD TECH [address] [place] [address] Historical LMR Provider 03/16/17 2 Andi Goff MD [address] [place] [address] Historical LMR Provider 03/16/17 Aster Shelley MD [address] [place] [phone] Historical LMR Provider 03/16/17 2 Charlotte Bolaños MD [address] [place] [address] Historical LMR Provider 03/16/17 06/03/21 Isiah Pavon MD [address] [place] [address] Historical LMR Provider 03/16/17 2 documented as of this encounter Additional Source Comments The information contained in this document represents components of the legal health record. It is not the complete legal health record.[facility]
--- OUTSIDE RECORDS SUMMARY | 2021-11-02 11:03 | XMS_ITS | Encounter Summary ---
Author Organization [facility] Address [address] [facility] [address] [place] [address] Phone Care Team Providers Care Content Strategist Name Role Phone Janna Macias MD Unavailable [phone] Andi Goff MD Unavailable [phone] Andi Goff MD Primary Care Provider [phone] Encounter Details Date Type Department Care Team (Late st Contact Info) Description 11/02/2021 12:03 PM EDT Hospital Encounter [facility] [address] [place] [address] Rut Salinas FNP [address] [place] [address] [email or web address] Social History Tobacco Use Types Packs/Day Years [...] have you moved in the past 12 sat? One time 09/30/2024 Paying for Meds Answer [...] 6:23 PM EDT Cee James RN * [place] Suicide Severity Rating Scale (Screener/Recent Self-Report) Question Answer Date of Assessment Author 1. Wish to be (Past 1 Month) Yes 025 6:23 PM KEYONAT Cee Sanford RN 2. Non-Specific Active Suici tod Thoughts (Past 1 Month) Yes 09/29/2024 6:23 PM EDT Maryan Sanford RN 4. Active Suicidal Ideation with Some Intent to Act, Without Specific Plan (Past 1 Month) Yes 09/29/2024 6:23 PM EDT Cee De Leon RN 5. Active Suicidal Ideation with Specific Plan and Intent (Past 1 Month) Yes 09/29/2024 6:23 PM EDT Cee Sanford RN 6. Suicidal Behavior (Lifetime) Yes 6:23 PM KEYONAT Cee Sanford RN 6. Suicidal Behavior (3 Months) Yes 6:23 PM EDT Cee Sanford RN documented as of this encounter Plan of Treatment Upcoming Encounters Date Type Department Care Team (Late st Contact Info) Description 04/14/2025 1:45 PM EST Appointment [facility] [address] [place] [address] Colleen Carlson, ENROLLED AGENT [address] [place] [address] [email or web address] 04/21/2025 1:45 AM EST Appointment [facility] [address] [place] [address] Gregor Poe, PT [address] [place] [address] 04/26/2025 1:30 AM EST Appointment [facility] [address] [place] [address] Gregor Poe, PT [address] [place] [address] 04/29/2025 12:45 AM EST Appointment [facility] [address] [place] [phone] Gregor Poe, PT [address] [place] [address] 05/03/2025 12:45 AM EST Appointment [facility] [address] [place] [phone] Gregor Poe, PT [address] [place] [address] 05/06/2025 12:45 AM EST Appointment [facility] [address] [place] [phone] Gregor Poe, PT [address] [place] [address] 05/10/2025 App[facility]ment [facility] [address] [place] [phone] Gregor Poe, PT [address] [place] [address] 05/13/2025 Appointment [facility] [address] [place] [phone] Gregor Poe, PT [address] [place] [address] documented as of this encounter Procedures Procedure [...] IMPRESSION: No acute osseous abnormality. Rut Salinas AGRICULTURE DEPARTMENT CHAIR IMG XR UPPER EXTREMITY Clara l Result [...] documented as of this encounter Care Teams Content Strategist Relationship Specialty Start Date End Date Andi Goff MD [address] [place] [address] Dr Sands [address] [place] [address] PCP - General 05/30/17 08/15/24 Janna Macias MD [address] [place] [address], [address] [place] [address] [email or web address] Historical LMR Provider 03/16/17 Andi Goff MD [address] [place] [address] Dr S[address] [place] [address], [place] [address] Historical LMR Provider 03/16/17 documented as of this encounter Additional Source Comments The information contained in this document represents components of the legal health record. It is not the complete legal health record.[facility]
--- OUTSIDE RECORDS SUMMARY | 2023-01-07 16:45 | XMS_ITS | Encounter Summary ---
Author Organization [facility] Address [address] [place] [address] Phone Care Team Providers Care Associate Theatre Professor Name Role Phone Janna Macias MD Unavailable [phone] Andi Goff MD Unavailable [phone] Andi Goff MD Primary Care Provider [phone] Encounter Details Date Type Department Care Team (Late st Contact Info) Description 01/07/2023 5:45 PM EDT Hospital Encounter [facility] [address] [place] [address] Karin Beltran, EXHIBIT DESIGNER [address] [facility] [address] [place] [address] [email or web address] Social History Tobacco Use Types Packs/Day Years [...] 6:23 PM EDT Cee James RN * [place] Suicide Severity Rating Scale (Screener/Recent Self-Report) Question [...] Description 04/14/2025 1:45 PM EST Appointment [facility] [address] [place] [address] Colleen Carlson, MATERIALS ASSISTANT [address] [place] [address] 04/21/2025 1:45 AM EST Appointment [facility] [address] [place] [address] Gregor Poe, PT [address] [place] [address] [email or web address] 04/26/2025 1:30 AM EST Appointment [facility] [address] [place] [address] Gregor Poe, PT [address] [place] [address] [email or web address] 04/29/2025 12:45 AM EST Appointment [facility] [address] [place] [address] Gregor Poe, PT [address] [place] [address] [email or web address] 05/03/2025 12:45 AM EST Appointment [facility] [address] [place] [phone] Gregor Poe, PT [address] [place] [address] [email or web address] 05/06/2025 12:45 AM EST Appointment [facility] [address] [place] [phone] Gregor Poe, PT [address] [place] [address] 05/10/2025 Appointment [facility] [address] [place] [phone] Gregor Poe, PT [address] [place] [address] 05/13/2025 Appointment [facility] [address] [place] [phone] Gregor Poe, PT [address] [place] [address] documented as of this encounter Procedures Procedure Name Priority Date/Time Associated Diagnosis Comments XR CHEST PA AND LATERAL 2 VIEWS Urgent/patient waiting 01/07/2023 6:03 PM EDT Acute cough documented in this encounter Results * XR CHEST PA AND LATERAL 2 VIEWS (01/07/2023 6:03 PM EDT) Anatomical Region Laterality Modality Chest Computed Radiogr aphy 01/07/2023 6:05 PM EDT Impressions 01/07/2023 6:27 PM EDT No acute abnormality. ATTESTATION: Kalpesh Rivera as teaching physician, have reviewed the images for this case and if necessary edited the report originally created by Kahlil Hernadez. Narrative 01/07/2023 6:27 PM EDT XR CHEST PA AND LATERAL 2 VIEWS COMPARISON: XR CHEST PORTABLE FINDINGS: Devices/Tubes/Lines: None. Lungs: The lungs are clear. No focal consolidation or pulmonary edema. Pleura: No pleural effusion or pneumothorax. Heart/Mediastinum: Normal heart and mediastinum. Bones/Soft Tissues: No significant skeletal abnormality. Procedure Note Kalpesh Barahona MBBS - 01/07/2023 XR CHEST PA AND LATERAL 2 VIEWS COMPARISON: XR CHEST PORTABLE FINDINGS: Devices/Tubes/Lines: None. Lungs: The lungs are clear. No focal consolidation or pulmonary edema. Pleura: No pleural effusion or pneumothorax. Heart/Mediastinum: Normal heart and mediastinum. Bones/Soft Tissues: No significant skeletal abnormality. IMPRESSION: No acute abnormality. ATTESTATION: I, Kalpesh Barahona as teaching physician, have reviewed theimages for this case and if necessary edited the report originally createdby Kahlil Hernadez. Karin Beltran EXHIBIT DESIGNER IMG XR CHEST Final Resul t documented in this encounter Visit Diagnoses Not on filedocumented in this encounter Additional Health Concerns Infection Onset Date Last Indicated Resolved Time CoV-Risk 03/15/2023 03/15/2023 03/26/2023 1:25 AM EDT CoV-Risk 06/24/2024 06/24/2024 07/05/2024 1:21 AM EST documented as of this encounter Care Teams Associate Theatre Professor Relationship Specialty Start Date End Date Andi Goff MD [address] [place] [address] Dr Sands [address] [place] [address] PCP - General 05/30/17 08/15/24 Janna Macias MD [address] [place] [address], [address] [place] [address] [email or web address] Historical LMR Provider 03/16/17 Andi Goff MD [address] [place] [address] [address] [place] [address] Historical LMR Provider 03/16/17 documented as of this encounter Additional Source Comments The information contained in this document represents components of the legal health record. It is not the complete legal health record.[facility]
--- OUTSIDE RECORDS SUMMARY | 2023-07-22 17:05 | XMS_ITS | Encounter Summary ---
Author Organization [facility] Address [address] [facility] [address] [place] [address] Phone Care Team Providers Care Matrix Bath Operator Name Role Phone Janna Macias MD Unavailable [phone] Andi Goff MD Unavailable [phone] Andi Goff MD Primary Care Provider [phone] Encounter Details Date Type Department Care Team (Late st Contact Info) Description 07/22/2023 5:05 PM [facility] Hospital Encounter [facility] [address] [place] [address] Margarita Burch CNP [address] [place] [address] [email or web address] Social History Tobacco Use Types Packs/Day Years [...] 6:23 PM EDT Cee James RN * [place] Suicide Severity Rating Scale (Screener/Recent Self-Report) Question [...] Description 04/14/2025 1:45 PM EST Appointment [facility] [address] [place] [address] Colleen Carlson, RUBY ON RAILS WEB DEVELOPER [address] [place] [address] 04/21/2025 1:45 AM EST Appointment [facility] [address] [place] [address] Gregor Poe, PT [address] [place] [address] [email or web address] 04/26/2025 1:30 AM EST Appointment [facility] [address] [place] [address] Gregor Poe, PT [address] [place] [address] 04/29/2025 12:45 AM EST Appointment [facility] [address] [place] [address] Gregor Poe, PT [address] [place] [address] 05/03/2025 12:45 AM EST Appointment [facility] [address] [place] [phone] Gregor Poe, PT [address] [place] [address] 05/06/2025 12:45 AM EST Appointment [facility] [address] [place] [phone] Gregor Poe, PT [address] [place] [address] 05/10/2025 Appointment [facility] [address] [place] [phone] Gregor Poe, PT [address] [place] [address] 05/13/2025 Appointment [facility] [address] [place] [phone] Gregor Poe, PT [address] [place] [address] documented as of this encounter Procedures Procedure Name Priority Date/Time Associated Diagnosis Comments XR CALCANEUS 2 OR MORE VIEWS (RIGHT) Urgent/patient waiting 07/22/2023 5:18 PM EST Inflammatory heel pain, right documented in this encounter Results * XR Calcaneus 2 or More Views (Right) (07/22/2023 5:18 PM EST) MGB IMG METAL FURNACE OPERATOR COMMENT Consider CT if high clinical concern [...] communicated on 07/22/2023 5:57 PM, Message ID [id number]. ATTESTATION: Heather Rivera as teaching physician, have reviewed the images for this case and if necessary edited the report originally created by Simeon Blackwood. Narrative 07/22/2023 5:58 PM EST XR CALCANEUS 2 OR MORE VIEWS (RIGHT) Referring clinician's provided indication for this examination in [facility]: Pain; Trauma; fell 5 days ago, foot under COMPARISON: None. Procedure Note Aisha Sorto MD / System, Provider Not In, PhD - 07/22/2023 XR CALCANEUS 2 OR MORE VIEWS (RIGHT) Referring clinician's provided indication for this examination in [facility]:Pain; Trauma; fell 5 days ago, foot under COMPARISON: None. IMPRESSION: No displaced calcaneal fracture. No significant radiographic soft tissue swelling. Early superior calcaneal spur. However, if significant pain or concerning mechanism, CT can be consideredfor further evaluation. A clinically significant result was communicated on 07/22/2023 5:57 PM,Message ID [id number]. ATTESTATION: Heather Rivera as teaching physician, havereviewed the images for this case and if necessary edited the reportoriginally created by Simeon Blackwood. Margarita Burch CLEAN UP SUPERVISOR IMG XR LOWER EXTREMITY Edit ed Result - Final documented in this encounter Visit Diagnoses Not on filedocumented in this encounter Additional Health Concerns Infection Onset Date Last Indicated Resolved Time CoV-Risk 06/24/2024 06/24/2024 07/05/2024 1:21 AM EST documented as of this encounter Care Teams Matrix Bath Operator Relationship Specialty Start Date End Date Andi Goff MD [address] [place] [address] [place] [address] PCP - General 05/30/17 08/15/24 Janna Macias MD [address] [place] [address], [address] [place] [address] [email or web address] Historical LMR Provider 03/16/17 Andi Goff MD [address] [place] [address] [place] [address] Historical LMR Provider 03/16/17 documented as of this encounter Additional Source Comments The information contained in this document represents components of the legal health record. It is not the complete legal health record.[facility]
--- OUTSIDE RECORDS SUMMARY | 2025-04-09 12:30 | XMS_ITS | Encounter Summary ---
Author Organization [facility] Address [address] [place] [phone] Phone Care Team Providers Care Rotary Adjuster Name Role Phone Janna Macias MD Unavailable [phone] Andi Goff MD Unavailable [phone] Meri Correa Primary Care Provide r Reason for Visit * Auth/Cert (Routine) Specialty Diagnoses / Procedures Referred By Jarad t Referred To Contact Referral ID Status Reason Start Date Expiration Date Visits Re quested Visits Authorized [id number] 1 1 Encounter Details Date Type Department Care Team (Late st Contact Info) Description 04/09/2025 12:30 PM EST Home Care Visit [facility] [address] [place] [phone] Gregor Poe, PT [address] [place] [address] PT OASIS START OF CARE (SOC) Social History Tobacco Use Types Packs/Day Years [...] PM EDT documented as of this encounter Last Filed Vital Signs Vital Sign Reading Time Taken Comments Blood Pressure 112/74 04/09/2025 1:52 PM EST Pulse 90 04/09/2025 1:52 PM EST Temperature 36.5 C (97.7 F) 04/09/2025 1:52 PM EST Respiratory Rate 20 04/09/2025 1:52 PM EST Oxygen Saturation 97% 04/09/2025 1:52 PM EST Inhaled Oxygen Concentration - - Weight - - Height - - Body Mass Index - - documented in this encounter Plan of Treatment Upcoming Encounters Date Type Department Care Team (Late st Contact Info) Description 04/14/2025 1:45 PM EST Appointment [facility] [address] [place] [phone] Colleen Carlson, ASSISTANT [employer] [address] [place] [address] 04/21/2025 1:45 AM EST Appointment [facility] [address] [place] [phone] Gregor Poe, PT [address] [place] [address] 04/26/2025 1:30 AM EST Appointment [facility] [address] [place] [phone] Gregor Poe, PT [address] [place] [address] 04/29/2025 12:45 AM EST Appointment [facility] [address] [place] [phone] Gregor Poe, PT [address] [place] [address] 05/03/2025 12:45 AM EST Appointment [facility] [address] [place] [phone] Gregor Poe, PT [address] [place] [address] 05/06/2025 12:45 AM EST Appointment [facility] [address], [place] [phone] Gregor Poe, PT [address] [place] [address] 05/10/2025 Appointment [facility] [address] [place] [phone] Gregor Poe, PT [address] [place] [address] 05/13/2025 Appointment [facility] [address], [place] [phone] Gregor Poe, PT [address] [place] [address] documented as of this encounter Visit Diagnoses Not on filedocumented in this encounter Home Health Visit - Care Plan Visit Details Visit Type -PT OASIS START O F CARE (SOC) Discipline -Physical Therapy Problems Problem Description Start Date Status Goals Interve ntions HH - Medication Management Disciplines: All Active Home Health Disciplines 04/09/2025 Active 1 goal linked to scheduled/document ed intervention 2 goal interventions scheduled/document ed in this visit HH - Focus of Care and Teaching Disciplines: All Active Home Health Disciplines w/RD 04/09/2025 Active 1 goal linked to scheduled/document ed intervention 1 goal intervention scheduled/document ed in this visit HH - Advance Care Planning Disciplines: All Active Home Health Disciplines 04/09/2025 Active 1 goal linked to scheduled/document ed intervention 1 goal intervention scheduled/document ed in this visit HH - Emergency Planning - Knowledge of Disciplines: All Active Home Health Disciplines 04/09/2025 Active 1 goal linked to scheduled/document ed intervention 2 goal interventions scheduled/document ed in this visit HH - Infection - Actual or Risk of Disciplines: All Active Home Health Disciplines 04/09/2025 Active 1 goal linked to scheduled/document ed intervention 1 goal intervention scheduled/document ed in this visit HH - Falls - Risk of Disciplines: All Active Home Health Disciplines 04/09/2025 Active 1 goal linked to scheduled/document ed intervention 2 goal interventions scheduled/document ed in this visit HH - Standard of Care Disciplines: All Active Home Health Disciplines 04/09/2025 Active 1 goal linked to scheduled/document ed intervention 4 goal interventions scheduled/document ed in this visit HH - Pain Disciplines: All Active Home Health Disciplines 04/09/2025 Active 1 goal linked to scheduled/document ed intervention 2 goal interventions scheduled/document ed in this visit HH - Mobility and Activity Tolerance - Impaired Disciplines: Physical Therapy 04/09/2025 Active 1 goal linked to scheduled/document ed intervention 3 goal interventions scheduled/document ed in this visit HH - Depression - Actual or Risk of Impairment Disciplines: All Active Home Health Disciplines 04/09/2025 Active 1 goal linked to scheduled/document ed intervention 1 goal intervention scheduled/document ed in this visit Goals Goal Associated Problem Outcome Goal Met? Visit Notes HH - Safe medication management, avoid unnecessary harm related to medication errors and/or interactions HH - Medication Management No HH - Communication and collaboration to achieve patient goals HH - Focus of Care and Teaching No HH - Verbalize awareness of Advance Care Planning. HH - Advance Care Planning No HH - Knowledge of options for managing care in the event of an emergency related situation. HH - Emergency Planning - Knowledge of No HH - Patient will have no new infection; any new infection that occurs will be identified and treated promptly; existing infection will resolve without complication Description: Patient and caregiver(s) will demonstrate understanding of infection prevention, monitoring, and treatment as appropriate HH - Infection - Actual or Risk of No HH - Knowledge and management of fall prevention measures. HH - Falls - Risk of No HH - Achieve care management for a safe to home/community discharge from homecare HH - Standard of Care No HH - Frequency of pain interfering with patient's activity or movement will improve with activity or movement by discharge. Description: Pain will be managed over the course of care. Patient's acceptable level of pain is 1 - pain that doesn't interfere. HH - Pain No HH - Demonstrate maximum mobility and activity level for safe function Description: PT goals 04.09.25 1. Ambulate w/ least restrictive device in home ad radha x 150ft, by 04.25.25 2. Patient will safely transfer thru home w/ DME , by 04.25.25 3. Patient will demonstrate ability to get in/out bed w/ min effort in 30 seconds, by 05.15 4. Patient will complete TUG with least restrictive device in 20 sec or less, safely . demonstrating increased gait efficiency and safety, by 05.15.25 5. Patient will demonstrate improvement in functional balance w/ Tinetti score= 22/28 or greate r, by 05.15.25 6. Patient will demonstrate improved functional strength as measured by sit-stand 10x or greater by 05.15.25 7. Patient will negotiate stairs in/out home, ambulate outdoors x 500ft w/ least restrictive device, by 05.15.25. 8. Patient w ill manage pain R knee w/ appropriate assistive device, exercise, modalities, by 05.15.25. 9. Patient will be free from falls, demonstrate reduced fall risk, by 05.15.25. HH - Mobility and Activity Tolerance - Impaired No HH - Demonstrate/verbalize improvement in depressive symptoms HH - Depression - Actual or Risk of Impairment No Interventions Intervention Associated Problem/Goal Status Variance Visit Notes HH - I/E medication management: administration, purpose, dosages, preparation, setup, scheduling, side effects, food/drug interactions, and potential complications as indicated Description: Update patient's copy of medication list as needed. Problem:HH - Medication Management Goal:HH - Safe medication management, avoid unnecessary harm related to medication errors and/or interactions Performed HH - Complete medication review every visit and medication reconciliation as indicated. 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 Improving with no specific rx. VNA Services: PT, recommend adding OT, spoke to PCP office about this await call back. 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 Work is pretty physically active Has been able to walk x250ft outdoors. R side used to be strong side, now it is weak side. As L side was more affected by CP. sometimes cane or rollator b/c R knee, takes shower. WHAT MATTERS MOST? / PATIENT/CAREGIVER CONCERNS: concerns about falls Concerned about being able to do job. Staff is nervous. ENVIRONMENT: split level home, x 14 steps to enter home w/ railing, th en one level, one accessible shower. No grab bars. DME: rollator and cane, FAMILY/CAREGIVER SUPPORT: mother is primary CG. She has recent fx proximal humerus RUE, not driving yet, less able to assist pt. FALL Hx: 1.5 wks ago fell coming in from outside at preschool, R knee gave out. 2 months ago dizzy in classroom fell to floor, no injury OBJECTIVE MEASURES: SKIN/ INCISION: intact STRENGTH: Strength on the RLE is 2-/5 to 2+/5, LLE= 3/5 to 3+/5. R ankle PF= 2-/5, R hip flex = 2/5, SLR = 2-/5. R hip abd= 2-/5 LLE = 3/5 to 3+/5. BUE impaired, R = 3+/5 , L= 4-/5 AROM: R hip ext rotated at rest, unable reach neutral MOTOR CONTROL/ TONE/ COORDINATION: grossly intact, L ankle supinates, mild increase tone BALANCE: st josselyn w/ ec and 8 inch base, unsteady w/ perturbation and 360 turns TRANSFERS: stand pivot, slow, safe toilet, bed, shower w/ supv GAIT: small shuffling steps, TUG= 34 sec w/ rollator, L ankle supinates, does not clear, fairly symmetrical step deb gth, not step thru. TUG= 26 sec, no device 30 sec sit- stand test: 9x, standard conditions. BED MOBILITY: max effort, takes x2 minutes to get into bed CLINICAL SUMMARY: Nikki is a 44 yo female d/c from [facility] 04.08.25 after an unresponsive ep isode on 04.05.[address] work[address] To [facility], testing was negative to date for cause. Has had 5 episodes this year. Nikki has a hx of CP, anxiety, depression, migraines, DM2, chronic R knee pain. She improved while in the hospital d/c to home with h er mother who is her primary caregiver. Her mother Malu is recovering for R proximal humerus fx 7 wks ago and is not driving. Nikki presents w/ RLE, UE weakness, L sided weakness is from cerebral palsy, she now considers her L side her stronger side. Strength on the RLE is 2/5 to 2+/5, LLE= 3/5 to 3+/5. Functional testing : TUG= 26 sec w/o device, 34 sec w/ rollator, Tinetti = 18/28. Gait impaired: does not clear L foot swing phase, L ankle supinates excessively heel strike, stance. Fatigues x walking 70 ft. She requires supervision for transfers and ambulation and is moderate risk for falls. She would benefit from PT to address gait, endurance, strength, balance, safety/ falls prevention, develop an appropriate home exercise program. S he has good rehab potential to return to community mobility Instruction Provided to: patient and caregiver Response to Instruction/Teaching: Is partially able to teach back topics as evidenced by HEP: Sit stand x10 BID, walks TID 2-3 laps w/ rollato r, stairs BID. Plan for Next Visit Specific Focus & Education Needed: progressive gait, balance, ther ex, bed mobility, HEP New Orders: 2x/wk x1 wk, 1x/wk x 1wk, 2x/wk x 3 wks Updated Discharge Plan: to HEP in 5 wks HH - I/E advance directive information. Written information provided to the patient and caregiver, as indicated. The patient has: Description: the patient has not selected an advanced directive Problem:HH - Advance Care Planning Goal:HH - Verbalize awareness of Advance Care Planning. Performed HH - I/E management of care in an urgent or emergency (ER) situation: When to call your Home Care Team/911, ER plans, supplies, evacuation, when to contact local ER officials and how to stay informed Problem:HH - Emergency Planning - Knowledge of Goal:HH - Knowledge of options for managing care in the event of an emergency related situation. Performed HH - Emergency planning assessment: the emergency plan, supplies needed, emergency contact numbers and an evacuation plan were reviewed Description: Patient is knowledgeable of emergency plans. Problem:HH - Emergency Planning - Knowledge of Goal:HH - Knowledge of options for managing care in the event of an emergency related situation. Performed HH - Assess infection risk and s/s Problem: - Infection - Actual or Risk of Goal:HH - Patient will have no new infection; any new infection that occurs will be identified and treated promptly; existing infection will resolve without complication Performed HH - Complete fall risk assessment scale Problem: - Falls - Risk of Goal: - Knowledge and management of fall prevention measures. Performed HH - I/E fall prevention measures Description: cognitive impairment: strategies to minimize impairments with memory deficits, distractibility, judgement, impulsivity, and safety awareness, diagnosis/age related changes/prior history of falls: symptoms and side effects of illness/injury/history of fal ls placing patient at increased risk for falls. may include management of dizziness/orthostasis, environmental hazards: modification of environment to include clear walkways, secure animals, and move frequently used items within reach, use of equipment, impaired functional mobility: supervision for mobility/activity, appropriate footwear and as indicated safe use of assistive device(s), incontinence: management of incontinence to include safe toileting, need for absorbent garments, address urgency/frequ ency and pain affecting level of function: impact of pain on an increased risk of falls Problem: - Falls - Risk of Goal: - Knowledge and management of fall prevention measures. Performed HH - Assess vital signs, pulse oximetry, pain, and as indicated, orthostatic vital signs Description: use agency-specific parameters Problem: - Standard of Care Goal: - Achieve care management for a safe to home/community discharge from homecare Performed HH - Assess skin integrity Problem: - Standard of Care Goal:HH - Achieve care management for a safe to home/community discharge from homecare Performed - I/E discharge plan Problem: - Standard of Care Goal: - Achieve care management for a safe to home/community discharge from homecare Performed HH - Complete [place] scale at SOC and weekly Problem: - Standard of Care Goal:HH - Achieve care management for a safe to home/community discharge from homecare Performed HH - Assess pain Problem: - Pain Goal:HH - Frequency of pain interfering with patient's activity or movement will improve with activity or movement by discharge. Performed - I/E pain management Problem: - Pain Goal:HH - Frequency of pain interfering with patient's activity or movement will improve with activity or movement by discharge. Performed - Therapeutic interventions, as indicated: Description: {gait training, therapeutic exercise, home exercise program, falls prevention education, functional mobility training, pain management education with modalities Problem:HH - Mobility and Activity Tolerance - Impaired Goal:HH - Demonstrate maximum mobility and activity level for safe function Performed This visit HEP: walking program TID stairs BID sit-stand x10 BID Pt has good understanding of this HH - I/E therapeutic function/activity: Description: As indicated: activity promotion and management, functional mobility training, therapeutic exercise and home exercise program, device use. Problem:HH - Mobility and Activity Tolerance - Impaired Goal:HH - Demonstrate maximum mobility and activity level for safe function Performed HH - Assess therapeutic function/activity and need for durable medical equipment Problem:HH - Mobility and Activity Tolerance - Impaired Goal:HH - Demonstrate maximum mobility and activity level for safe function Performed HH - Assess s/s of depression Problem:HH - Depression - Actual or Risk of Impairment Goal:HH - Demonstrate/verbalize improvement in depressive symptoms Performed documented in this encounter Care Teams Rotary Adjuster Relationship Specialty Start Date End Date Meri Correa PA [address] [place] [address] [address] [place] [address] PCP - General Physician Dispensing Lead 04/08/25 Janna Macias MD [address] [place] [address], [address] [place] [address] [email or web address] Historical LMR Provider 03/16/17 Andi Goff MD [address] [place] [address] [address] [place] [address] Historical LMR Provider 03/16/17 documented as of this encounter Additional Source Comments The information contained in this document represents components of the legal health record. It is not the complete legal health record.[facility]
--- OUTSIDE RECORDS SUMMARY | 2025-04-12 10:45 | XMS_ITS | Encounter Summary ---
Author Organization [facility] Address [address] [facility] [address] [place] [id number] Phone Care Team Providers Care Shore Man Name Role Phone Janna Macias MD Unavailable [phone] Andi Goff MD Unavailable [phone] Meri Correa Primary Care Provide r Reason for Visit * Auth/Cert (Routine) Specialty Diagnoses / Procedures Referred By Contac t Referred To Contact Referral ID Status Reason Start Date Expiration Date Visits Re quested Visits Authorized [id number] 1 1 Encounter Details Date Type Department Care Team (Late st Contact Info) Description 04/12/2025 10:45 AM EST Home Care Visit [facility] [address], [place] [phone] Colleen Carlson, RN [facility] [address] [place] [address] [email or web address] RN [facility] HOME VISIT Social History Tobacco Use Types Packs/Day Years [...] Sign Reading Time Taken Comments Blood Pressure 112/60 04/12/2025 10:57 AM EST Pulse 88 04/12/2025 10:57 AM EST Temperature 36.1 C (96.9 F) 04/12/2025 10:57 AM EST Respiratory Rate 18 04/12/2025 10:57 AM EST Oxygen Saturation - - Inhaled Oxygen Concentration - - Weight - - Height - - Body Mass Index - - documented in this encounter Plan of Treatment Upcoming Encounters Date Type Department Care Team (Late st Contact Info) Description 04/14/2025 1:45 PM EST Appointment [facility] [address] [place] [phone] Colleen Carlson, RN [facility] [address] [place] [address] [email or web address] 04/21/2025 1:45 AM EST Appointment [facility] [address] [place] [phone] Gregor Poe, PT [address] [place] [address] 04/26/2025 1:30 AM EST Appointment [facility] [address] [place] [phone] Gregor Poe, PT [address] [place] [address] 04/29/2025 12:45 AM EST Appointment [facility] [address] [place] [phone] Gregor Poe, PT [address] [place] [address] 05/03/2025 12:45 AM EST Appointment [facility] [address] [place] [phone] Gregor Poe, PT [address] [place] [address] 05/06/2025 12:45 AM EST Appointment [facility] [address], [place] [phone] Gregor Poe, PT [address] [place] [address] [email or web address] 05/10/2025 Appointment [facility] [address], [place] [phone] Gregor Poe, PT [address] [place] [address] [email or web address] 05/13/2025 Appointment [facility] [address], [place] [phone] Gregor Poe, PT [address] [place] [address] [email or web address] documented as of this encounter Visit Diagnoses Not on filedocumented in this encounter Home Health Visit - Care Plan Visit Details Visit Type -RN [facility] HOME VISIT Discipline -Physical Therapy Problems Problem Description Start [...] 1 goal linked to scheduled/document ed intervention Goals Goal Associated Problem Outcome Goal Met? Visit Notes HH - Safe medication management, avoid unnecessary harm related to medication errors and/or interactions HH - Medication Management No HH - Communication and collaboration to achieve patient goals HH - Focus of Care and Teaching No HH - Knowledge of options for managing care in the event of an emergency related situation. HH - Emergency Planning - Knowledge of No HH - Knowledge and management [...] in home ad radha x 150ft, by 04.25. 2. Patient will safely transfer thru home w/ DME , by 04.25. 3. Patient will demonstrate ability to get in/out bed w/ min effort in 30 seconds, by . . 4. Patient will complete TUG with least restrictive device in 20 sec or less, safely . demonstrating increased gait efficiency and safety, by ..25 5. Patient will demonstrate improvement in functional balance w/ Tinetti score= 22/28 or greate r, by .20.25 6. Patient will demonstrate improved functional strength as measured by sit-stand 10x or greater by .. 7. Patient will negotiate stairs in/out home, ambulate outdoors x 500ft w/ least restrictive device, by ... 8. Patient w ill manage pain R knee w/ appropriate assistive device, exercise, modalities, by ..25. 9. Patient will be free from falls, demonstrate reduced fall risk, by ..25. HH - Mobility and Activity Tolerance - Impaired Progressing No Interventions Intervention Associated Problem/Goal Status Variance Visit Notes HH - I/E medication management: administration, purpose, dosages, preparation, setup, scheduling, side effects, food/drug interactions, and potential complications as indicated Description: Update patient's copy of medication list as needed. Problem:HH - Medication Management Goal:HH - Safe medication management, avoid unnecessary harm related to medication errors and/or interactions Scheduled HH - Complete medication review every visit and medication reconciliation as indicated. Pharmacy information: Description: [facility] Problem:HH - Medication Management Goal:HH - Safe medication management, avoid unnecessary harm related to medication errors and/or interactions Scheduled HH - Focus of care, teaching completed and plan for next visit Problem:HH - Focus of Care and Teaching Goal:HH - Communication and collaboration to achieve patient goals Performed no changes of falls. Persistent R knee P with gait/stairs. noted R patella tracking R. Gait tr with rollator. Dec clearance of Lle with pt dragging L foot. Maintains B knees in slight fl. Trial of heel lift on R with improved clearance and slight improvement of R knee P. Pt then completed gait tr s AD wth smaller steps, but s inc B kneeP. knee brace: did trial off the shelf brace in the past, but caused more issues/P. is open to orthotc consult. will f/u with pcp. cont with hep. Primar y Clinical Focus this Visit & Instruction Provided: gait tr, P mgt, dme Instruction Provided to: pt Response to Instruction/Teachin g: completely able to teach back topics Plan for Next Visit Specific Focus & Education Needed: gait tr, P mgt, knee stre gthening New Orders: n/a Updated Discharge Plan: cont HH - I/E management of care in an urgent or emergency (ER) situation: When to call your Home Care Team/911, ER plans, supplies, evacuation, when to contact local ER officials and how to stay informed Problem:HH - Emergency Planning - Knowledge of Goal:HH - Knowledge of options for managing care in the event of an emergency related situation. Scheduled HH - Emergency planning assessment: the emergency plan, supplies needed, emergency contact numbers and an evacuation plan were reviewed Description: Patient is knowledgeable of emergency plans. Problem:HH - Emergency Planning - Knowledge of Goal:HH - Knowledge of options for managing care in the event of an emergency related situation. Scheduled HH - I/E fall prevention measures Description: [...] pain on an increased risk of falls Problem:HH - Falls - Risk of Goal:HH - Knowledge and management of fall prevention measures. Performed HH - Assess vital signs, pulse oximetry, pain, and as indicated, orthostatic vital signs Description: use agency-specific parameters Problem:HH - Standard of Care Goal:HH - Achieve care management for a safe to home/community discharge from homecare Performed HH - Assess skin integrity Problem:HH - Standard of Care Goal:HH - Achieve care management for a safe to home/community discharge from homecare Scheduled HH - Assess pain Problem:HH - Pain Goal:HH - Frequency of pain interfering with patient's activity or movement will improve with activity or movement by discharge. Performed HH - I/E pain management Problem:HH - Pain Goal:HH - Frequency of pain interfering with patient's activity or movement will improve with activity or movement by discharge. Performed documented in this encounter Care Teams Shore Man Relationship Specialty Start Date End Date Meri Correa PA [address] [place] [address] Dr Sands [address] [place], [place] [address] [address] PCP - General Physician Cost Engineer 04/08/25 Janna Macias MD [address] [place] [address], [address] [place] [address] [email or web address] Historical LMR Provider 03/16/17 Andi Goff MD [address] [place] [address] Dr Sands [facility] [place] [address] Historical LMR Provider 03/16/17 documented as of this encounter Additional Source Comments The information contained in this document represents components of the legal health record. It is not the complete legal health record.[facility]
[2025-04-13 13:35] VITALS: BP 120/80; PULSE 113; TEMP 36.7; O2SAT 97; BMI 37.7
--- NOTE | 2025-04-13 13:35 | MHC.PC.OV ---
Vital Signs 04/13/25 13:35 Height 5 ft 2 in Weight 206 lb 2 oz BMI 37.7 BP 120/80 Blood Pressure Location Lt brachial Position Sitting Pulse 113 H Pulse Source Pulse Oximeter Temp 98.1 F Temp Source Temporal Artery Scan Pulse Oximetry (%) 97 Oxygen Delivery Method Room Air Intake Visit Reasons: [facility] 04/08 Unconscious episodes with migraine heada Intake Note: Patient is here to follow up on DM, Asthma, HLD, HTN. Complaint of requency urinating, burn sensation, lower abdominal pressure, dark urine with some odor. Infrastructure Security Architect Required: No Skid Man: Present Accompanied by: Mother Allergies meloxicam (MELOXICAM) Allergy (Severe, Verified 04/13/25 13:39) RASH citalopram (From CELEXA) Allergy (Intermediate, Verified 04/13/25 13:39) LOCK JAW Biaxin Allergy (Unknown, Verified 04/13/25 13:39) Unknown cefaclor (From CECLOR) Allergy (Unknown, Verified 04/13/25 13:39) UNKNOWN cephalexin (Keflex) Allergy (Unknown, Verified 04/13/25 13:39) Unknown clarithromycin (From BIAXIN) Allergy (Unknown, Verified 04/13/25 13:39) UNKNOWN lactose Allergy (Unknown, Verified 04/13/25 13:39) INTOLERANCE Sulfa (Sulfonamide Antibiotics) (SULFA (SULFONAMIDE ANTIBIOTICS)) Allergy (Unknown, Verified 04/13/25 13:39) HIVES Medication List - Last Reconciled 04/13/25 by Meri Correa PA-C acetaminophen 650 mg PO DAILY PRN albuterol sulfate 90 mcg/actuation 2 puffs inhalation Q4H PRN albuterol sulfate 2.5 mg inhalation Q6H PRN atorvastatin 40 mg PO DAILY blood sugar diagnostic (FreeStyle Lite Strips) As directed once per day blood-glucose meter (FreeStyle Lite Meter kit) As directed celecoxib 200 mg PO DAILY PRN cholecalciferol (vitamin D3) 50 mcg PO DAILY cyclobenzaprine 10 mg PO TID PRN fluvoxamine 100 mg PO DAILY fluvoxamine 150 mg PO BEDTIME gabapentin 200 mg PO TID hydroxyzine HCl 50 mg PO BID PRN lancets (FreeStyle Unistik 2) As directed Once per day levonorgestrel (Mirena) 1 device intrauterine ONCE lidocaine 5% 1 patch topical DAILY PRN metformin 500 mg PO BID nitrofurantoin monohyd/m-cryst 100 mg 100 mg PO Q12H 5 days rizatriptan 5 mg PO DAILY PRN topiramate XR 50 mg PO DAILY tramadol 25 mg (1/2 x 50 mg) PO DAILY PRN trazodone 50 mg PO BEDTIME PRN verapamil ER 120 mg PO BID Tobacco use date assessed: 02/16/25 Dental Screening Dental Screen Date: 07/27/24 Did you have a dental visit in the last 12 months?: Yes Did you have a dental problem in the last 6 months where you did not have access to dental care?: No Was dental information given to patient?: Patient has dentist HPI [facility] 04/08 Unconscious episodes with migraine heada HPI Details 44-year-old female with past medical history of hyperlipidemia, depression, hypertension, asthma, diabetes mellitus, hemiplegic migraine last seen 01/2025 coming in for hospital discharge follow up. In review of the notes, patient was seen in [facility] ED 04/05/2025 For unresponsive episode MRI was negative patient was advised to continue on migraine regimen and follow up with neurologist. Presenting for follow-up after a recent hospitalization with new complaints of feeling foggy and experiencing word-finding difficulties since her discharge. She has a history of recurrent episodes involving loss of consciousness, which seem to be related to stress, particularly from work. The most recent episode occurred while on her way to work, leading to an ER visit where she was treated twice, and she was subsequently admitted to the medical floor. This recent episode resulted in residual right-sided weakness, which is the side also affected by her pre-existing cerebral palsy. She is currently receiving home physical therapy (PT) and occupational therapy (OT) and uses a walker for ambulation. A recent MRI of the brain during her hospitalization was reported as normal. [facility] Medical History Cerebral palsy Active asthma 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 Obesity Hypertension Acute sinusitis Hyperglycemia Hyperlipidemia Viral syndrome Acute sinusitis Surgical History H/O arthroscopic knee surgery History of carpal tunnel surgery of right wrist History of dilation and curettage History of foot surgery Family History Father Hypertension Bladder cancer Diabetes Hyperlipidemia Mother Hypertension Paternal Aunt Breast cancer Paternal Grandfather Myocardial infarction Social History Household Members: Family Housing: House Are you a primary tree care foreman to a significant other at home: No Do you presently have visiting nurse or other home services: No Alcohol intake: never Patient Tobacco Use Status: Never used Tobacco Tobacco use type: Cigarette e-Cigarette/Vaping Use: Never Used Second Hand Smoke Exposure: No service: No Current occupational status: employed Cognitive needs: No Hearing needs: No Vision needs: No Questionnaire PHQ-9 Over the last 2 weeks, how often have you been bothered by any of the following problems? 1. Little interest or pleasure in doing things: not at all 2. Feeling down, depressed, or hopeless: more than half the days 3. Trouble falling or staying asleep, or sleeping too much: not at all 4. Feeling tired or having little energy: not at all 5. Poor appetite or overeating: not at all 6. Feeling bad about yourself - or that you are a failure or have let yourself or your family down: not at all 7. Trouble concentrating on things, such as reading the newspaper or watching television: several days 8. Moving or speaking so slowly that other people could have noticed. Or the opposite - being so fidgety or restless that you have been moving around a lot more than usual: several days 9. Thoughts that you would be better off or of hurting yourself in some way: not at all Total score: 4 Depression Screening Interpretation: Positive Depression Screening Follow-up: Existing condition and In treatment Depression Screening Done: Yes Source: Developed by Drs. Giorgio Espinosa, Linh Hall, Tre Wall and colleagues, with an educational juan josé from [employer]. Thrive Questionnaire Date Thrive assessed: 10/14/24 I am a: Patient What is your living situation today?: I have a steady place to live Within the past 12 months, did the food you bought not last and you didn't have the money to get more?: Never true Within the past 12 months, did you worry whether your food would run out before you got money to buy more?: Never true Do you have trouble paying for medicines?: No Do you have trouble getting transportation to medical appointments?: No Do you have trouble paying your heating and electricity bill?: No Do you have trouble taking care of your child, family member or friend?: No Do you have trouble with day-to-day activities such as bathing, preparing meals, shopping, managing finances, etc.?: No Are you currently unemployed and looking for a job?: No Are you interested in more education?: No Please select the resources that you would like help with: None Currently or been in a relationship where the following occur: I choose not to answer THRIVE Score: 0 AUDIT C Alcohol Use Questionnaire (AUDIT-C) 1. How often do you have a drink containing alcohol?: Never Total Score: 0 CONNIE-7 AMB Questionnaire CONNIE-7 Date CONNIE - 7 assessed: 07/27/24 Feeling nervous, anxious, or on edge: 1 = Several days Not being able to stop or control worryin = Several days Worrying too much about different things: 1 = Several days Trouble relaxin = Not at all Being so restless that it is hard to sit still: 0 = Not at all Becoming easily annoyed or irritable: 1 = Several days Feeling afraid as if something awful might happen: 0 = Not at all Total CONNIE-7 score (0-4 normal; 5-9 mild; 10-14 moderate; 15-21 severe): 4 Source: Developed by Drs. Giorgio Espinosa, Linh Hall, Tre Wall and colleagues, with an educational juan josé from [employer]. Review of Systems Const Denies body aches, Denies chills and Denies fever(s) Eyes Reports no additional complaints ENT Denies dysphagia, Denies dizziness and Denies odynophagia Card Denies chest pain, Denies edema, Denies lightheadedness and Denies dyspnea Resp Denies dyspnea GI Denies abdominal pain, Denies dysphagia, Denies nausea, Denies odynophagia and Denies vomiting Reports no additional complaints Musc Reports no additional complaints and Reports abnormal gait Skin/Breast Reports system reviewed and no additional complaints, except as documented Neuro Reports as per HPI, Reports abnormal gait and Denies dizziness Psych Reports no additional complaints Physical exam (Primary Care) Vital Signs: Last Vital Signs Temp 98.1 F 04/13/25 13:35 Pulse 113 H 04/13/25 13:35 BP 120/80 04/13/25 13:35 Pulse Ox 97 04/13/25 13:35 Oxygen Delivery Method Room Air 04/13/25 13:35 BMI result Body Mass Index 37.7 Tobacco/Smoking Status: Tobacco use Status Tobacco use date assessed 02/16/25 04/13/25 13:37 Patient Tobacco Use Status Never used Tobacco 04/13/25 13:37 Tobacco use type Cigarette 04/13/25 13:37 e-Cigarette/Vaping Use Never Used 04/13/25 13:37 PHQ-9: PHQ-9 Score PHQ-9: Total score 4 04/13/25 14:14 Depression Screening Interpretation: Positive Depression Screening Follow-up: Existing condition and In treatment Thrive Assessment: Date of Thrive Assessment Date Thrive assessed 10/14/24 04/13/25 13:37 Currently or been in a relationship where the following occur: I choose not to answer Const General: cooperative, healthy appearing, comfortable and no acute distress Orientation/consciousness: patient oriented x3 HENMT Head: Yes normocephalic Ears: hearing grossly normal bilaterally General nose exam: Normal external nose present Eyes General: appearance normal, both eyes and all related structures Conjunctivae: conjunctivae normal Neck Neck: Yes full ROM and Yes no lymphadenopathy Resp Effort & Inspection: normal respiratory effort Auscultation: clear to auscultation bilaterally, no crackles, no rales, no rhonchi and no wheezes Cardio Rate: regular rate Rhythm: regular rhythm Skin General skin exam: no rashes or lesions noted Neuro General: patient oriented x3 Extrem Other: Decreased strength in the right lower extremity compared to the left lower extremity. Intact sensation and pulses bilateral lower extremities General: Yes normal to inspection, Yes full ROM and No edema Psych Affect: normal affect Attitude: cooperative Insight: Good insight present (Psych) Judgement: Good judgement present (Psych) Coding Level of Care Code Est Pt Level 3 (74964) Diagnoses Depression F32.A Anxiety F41.9 Primary hypertension I10 Hypertension type: primary hypertension 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 G43.419 Intractability: intractable Status migrainosus presence: without status migrainosus Assessment & Plan Assessment & Plan (1) Depression: Code(s): F32.A - Depression, unspecified Category: Medical Plan: Patient feels good on current medication regimen and she will continue to follow with her psychiatrist. (2) Anxiety: Code(s): F41.9 - Anxiety disorder, unspecified Category: Medical Plan: See above (3) Hypertension: Code(s): I10 - Essential (primary) hypertension Category: Medical Qualifiers: Hypertension type: primary hypertension Qualified Code(s): I10 - Essential (primary) hypertension Plan: Continue on current blood pressure medication. Avoid salt intake and encourage healthy diet and regular exercise. (4) Hemiplegic migraine: Comment: [facility] Dr. Bolaños (Wed) Code(s): G43.409 - Hemiplegic migraine, not intractable, without status migrainosus Category: Medical Qualifiers: Intractability: intractable Status migrainosus presence: without status migrainosus Qualified Code(s): G43.419 - Hemiplegic migraine, intractable, without status migrainosus Plan: The patient has persistent right-sided weakness, which was confirmed on physical exam. She will continue with home physical and occupational therapy. A referral for [facility] occupational therapy through [facility] will be submitted. The course of PT may be extended if necessary. A referral will be explored for a custom knee brace to improve stability. There was no neurological deficit noted on exam today. She will continue to follow with her neurologist and has a appointment coming up next week. Plan This note was constructed using voice recognition software. While every effort has been made to ensure accuracy and marketing communications specialist, still areas may have been included sometimes these areas may affect the content or meeting of the given symptoms. Total time spent caring for the patient today was 20 minutes. This includes time spent before the visit reviewing the chart, time spent during the visit, and time spent after the visit and documentation. Patient was informed and verbally consented to the use of an ambient scribe for clinic note documentation during this visit. Orders: Referrals [facility]Hospice Referral G43.419 - Hemiplegic migraine, intractable, without status migrainosus, R29.898 - Other symptoms and signs involving the musculoskeletal system
--- OUTSIDE RECORDS SUMMARY | 2025-04-14 05:42 | XMS_ITS | Encounter Summary ---
Author Organization [facility] Address [address] [facility] [address] [place] [address] Phone Care Team Providers Care Educational Consultant Name Role Phone Janna Macias MD Unavailable [phone] Andi Goff MD Unavailable [phone] Meri Correa Primary Care Provide r Encounter Details Date Type Department Care Team (Late st Contact Info) Description 04/09/2025 Plan of Care Documentation [facility] [address] [place] [phone] Social History Tobacco Use Types Packs/Day Years [...] Info) Description 04/14/2025 1:45 PM EST Appointment [facility] [address] [place], [place] [phone] Colleen Carlson, WARD ASSISTANT [address] [place] [address] [email or web address] 04/21/2025 1:45 AM EST Appointment [facility] [address] [place] [phone] Gregor Poe, PT [address] [place] [address] 04/26/2025 1:30 AM EST Appointment [facility] [address] [place] [phone] Gregor Poe, PT [address] [place] [address] 04/29/2025 12:45 AM EST Appointment [facility] [address] [place] [phone] Gregor Poe, PT [address] [place] [address] 05/03/2025 12:45 AM EST Appointment [facility] [address] [place] [phone] Gregor Poe, PT [address] [place] [address] 05/06/2025 12:45 AM EST Appointment [facility] [address] [place] [phone] Gregor Poe, PT [address] [place] [address] 05/10/2025 Appointment [facility] [address] [place] [phone] Gregor Poe, PT [address] [place] [address] 05/13/2025 Appointment [facility] [address] [place] [phone] Gregor Poe, PT [address] [place] [address] [email or web address] documented as of this encounter Visit Diagnoses Not on filedocumented in this encounter Care Teams Educational Consultant Relationship Specialty Start Date End Date Meri Correa PA [address] [place] [address] [address] [place] [address] PCP - General Physician [employer] Field Supervisor 04/08/25 Janna Macias MD [address] [place] [address], [address] [place] [address] [email or web address] Historical LMR Provider 03/16/17 Andi Goff MD [address] [place] [address] [address] [place] [address] Historical LMR Provider 03/16/17 documented as of this encounter Additional Source Comments The information contained in this document represents components of the legal health record. It is not the complete legal health record.[facility]
--- OUTSIDE RECORDS SUMMARY | 2025-04-14 05:43 | XMS_ITS | Encounter Summary ---
Author Organization [facility] Address [address] [facility] [address] [place] [address] Phone Care Team Providers Care Parking Enforcement Officer Name Role Phone Janna Macias MD Unavailable [phone] Andi Goff MD Unavailable [phone] Andi Goff MD Primary Care Provider [phone] Reji Thompson MD Primary Care Provider [phone] Meri Correa Primary Care Provide r Encounter Details Date Type Department Care Team (Late st Contact Info) Description 06/05/2023 Procedure Pass [facility], Ct Scan - [address] [address] Social History Tobacco Use Types Packs/Day Years [...] 06/05/2023 9:03 PM Holly Parker RN * [place] Suicide Severity Rating Scale (Screener/Recent Self-Report) Question Answer Date of Assessment Author 1. Wish to be (Past 1 Month) No 024 9:03 PM oHlly Parker RN 2. Non-Specific Active Suici tod Thoughts (Past 1 Month) No 06/05/2023 9:03 PM Rochelle Parker RN 6. Suicidal Behavior (Lifetime) No 9:03 PM Holly Parker RN documented as of this encounter Plan of Treatment Upcoming Encounters Date Type Department Care Team (Late st Contact Info) Description 04/14/2025 1:45 PM EST Appointment [facility] [address] [place], [place] [phone] Colleen Carlson, SHEEP AND WHEAT FARMER [address] [place] [address] 04/21/2025 1:45 AM EST Appointment [facility] [address] [place], [place] [phone] Gregor Poe, PT [address] [place] [address] 04/26/2025 1:30 AM EST Appointment [facility] [address] [place] [phone] Gregor Poe, PT [address] [place] [address] 04/29/2025 12:45 AM EST Appointment [facility] [address] [place] [phone] Gregor Poe, PT [address] [place] [address] 05/03/2025 12:45 AM EST Appointment [facility] [address] [place] [phone] Gregor Poe, PT [address] [place] [address] 05/06/2025 12:45 AM EST Appointment [facility] [address] [place] [phone] Gregor Poe, PT [address] [place] [address] 05/10/2025 Appointment [facility] [address] [place] [phone] Gregor Poe, PT [address] [place] [address] 05/13/2025 Appointment [facility] [address] [place] [phone] Gregor Poe, PT [address] [place] [address] documented as of this encounter Visit Diagnoses Not on filedocumented in this encounter Additional Health Concerns Infection Onset Date Last Indicated Resolved Time CoV-Risk 06/24/2024 06/24/2024 07/05/2024 1:21 AM EST documented as of this encounter Care Teams Parking Enforcement Officer Relationship Specialty Start Date End Date Andi Goff MD [address] [place] [address] [address] [place] [address] PCP - General 05/30/17 08/15/24 Reji Thompson MD [address] [place] [address] [address] [place] [phone] PCP - General Internal Medicine 08/16/24 04/07/25 Meri Correa PA [address] [place] [address] Dr [address] [place] [address] PCP - General Physician Wool Grower 04/08/25 Janna Macias MD [address] [place] [address], [address] [place] [address] [email or web address] Historical LMR Provider 03/16/17 Andi Goff MD [address] [place] [address] [place] [address] Historical LMR Provider 03/16/17 documented as of this encounter Additional Source Comments The information contained in this document represents components of the legal health record. It is not the complete legal health record.[facility]
--- OUTSIDE RECORDS SUMMARY | 2025-04-14 05:43 | XMS_ITS | Encounter Summary ---
Author Organization [facility] Address [address] [facility] [address] [place] [address] Phone Care Team Providers Care Director Of Property Management Name Role Phone Annmarie Richey CONTRACTS MANAGER Unavailable Francisca Casillas CONTRACTS MANAGER Unavailable Ross Tobin MD Unavailable Jessica Jackson CONTRACTS MANAGER Unavailable [phone] Janna Macias MD Unavailable Dena Brownlee CONTRACTS MANAGER Unavailable Cory Kay MD Unavailable Kristen Chávez CONTRACTS MANAGER Unavailable Andi Goff MD Unavailable Aster Shelley MD Unavailable [phone] Charlotte Bolaños MD Unavailable Isiah Pavon MD Unavailable [phone] Andi Goff MD Primary Care Provider Reji Thompson MD Primary Care Provider Meri Correa Primary Care Provide r Encounter Details Date Type Department Care Team (Late st Contact Info) Description 10/10/2017 Procedure Pass [place] Admitting Dept - Virtual Department [address] [place] [address] Social History Tobacco Use Types Packs/Day Years [...] Upcoming Encounters Date Type Department Care Team ([facility] Contact Info) Description 04/14/2025 1:45 PM EST Appointment [facility] [address] [place] [phone] Colleen Carlson, MUSIC WORKER [address] [place] [address] 04/21/2025 1:45 AM EST Appointment [facility] [address] [place] [phone] Gregor Poe, PT [address] [place] [address] 04/26/2025 1:30 AM EST Appointment [facility] [address] [place], [place] [phone] Gregor Poe, PT [address] [place] [address] 04/29/2025 12:45 AM EST Appointment [facility] [address] [place] [address] Gregor Poe, PT [address] [place] [address] 05/03/2025 12:45 AM EST Appointment [facility] [address] [place] [address] Gregor Poe, PT [address] [place] [address] 05/06/2025 12:45 AM EST Appointment [facility] [address] [place] [phone] Gregor Poe, PT [address] [place] [address] 05/10/2025 Appointment [facility] [address] [place] [phone] Gregor Poe, PT [address] [place] [address] 05/13/2025 Appointment [facility] [address] [place], [place] [phone] Gregor Poe, PT [address] [place] [address] documented as of this encounter Visit Diagnoses Not on filedocumented in this encounter Additional Health Concerns Infection Onset Date Last Indicated Resolved Time COVID-19 12/23/2021 12/23/2021 01/13/2022 1:21 AM EDT CoV-Risk 09/10/2022 09/10/2022 09/21/2022 1:24 AM EDT CoV-Risk 03/15/2023 03/15/2023 03/26/2023 1:25 AM EDT CoV-Risk 06/24/2024 06/24/2024 07/05/2024 1:21 AM EST documented as of this encounter Care Teams Director Of Property Management Relationship Specialty Start Date End Date Andi Goff MD [address] [facility] [address] [place] [address] [place] [id number] PCP - General 05/30/17 08/15/24 Reji Thompson MD [address] [facility] [address] [facility] [place] [phone] PCP - General Internal Medicine 08/16/24 04/07/25 Meri Correa PA [address] [place] [address] [place] [address] PCP - General Physician Database Technician 04/08/25 Annmarie Richey NP [address] [place] [address] Historical LMR Provider 03/16/17 2 Francisca Casillas NP [address] [place] [address] Historical LMR Provider 03/16/17 2 Ross Tobin MD [address] [place] [address] Historical LMR Provider 03/16/17 06/03/21 Jessica Jackson NP [address] [place] [address] Historical LMR Provider 03/16/17 06/03/21 Janna Macias MD [address] [place] [address] Historical LMR Provider 03/16/17 Dena Brownlee CONTRACTS MANAGER [address] [place] [phone] Historical LMR Provider 03/16/17 2 Cory Kay MD [address] [place] [address], [address] [place] [address] [email or web address] Historical LMR Provider 03/16/17 06/03/21 Kristen Chávez NP [address] [place] [address] Historical LMR Provider 03/16/17 2 Andi Goff MD [address] [place] [address] Historical LMR Provider 03/16/17 Aster Shelley MD [address] [place] [phone] Historical LMR Provider 03/16/17 2 Charlotte Bolaños MD [address] [place] [address] [email or web address] Historical LMR Provider 03/16/17 06/03/21 Isiah Pavon MD [address] [place] [address] Historical LMR Provider 03/16/17 2 documented as of this encounter Additional Source Comments The information contained in this document represents components of the legal health record. It is not the complete legal health record.[facility]
--- OUTSIDE RECORDS SUMMARY | 2025-04-14 05:43 | XMS_ITS | Encounter Summary ---
Author Organization [facility] Address [address] [facility] [address] [place] [address] Phone Care Team Providers Care Tail Trimmer Name Role Phone Janna Macias MD Unavailable [phone] Andi Goff MD Unavailable [phone] Andi Goff MD Primary Care Provider [phone] Reji Thompson MD Primary Care Provider [phone] Meri Correa Primary Care Provide r Encounter Details Date Type Department Care Team (Late st Contact Info) Description 06/22/2024 Procedure Pass [facility], Ct Scan - [address] [address] Social History Tobacco Use Types Packs/Day Years [...] 06/22/2024 7:43 PM Holly Parker RN * [place] Suicide Severity Rating Scale (Screener/Recent Self-Report) Question [...] Appointment [facility] [address] [place], [place] [phone] Colleen Carlson [facility] [address] [place] [address] 04/21/2025 1:45 AM EST Appointment [facility] [address] [place] [phone] Gregor Poe, PT [address] [place] [address] 04/26/2025 1:30 AM EST Appointment [facility] [address] [place] [phone] Gregor Poe, PT [address] [place] [address] 04/29/2025 12:45 AM EST Appointment [facility] [address] [place] [phone] Gregor Poe, PT [address] [place] [address] 05/03/2025 12:45 AM EST Appointment [facility] [address] [place] [phone] Gregor Poe, PT [address] [place] [address] 05/06/2025 12:45 AM EST Appointment [facility] [address] [place] [phone] Gregor Poe, PT [address] [place] [address] 05/10/2025 Appointment [facility] [address] [place] [phone] Gregor Poe, PT [address] [place] [address] 05/13/2025 Appointment [facility] [address] [place] [phone] Gregor Poe, PT [address] [place] [address] documented as of this encounter Visit Diagnoses Not on filedocumented in this encounter Additional Health Concerns Infection Onset Date Last Indicated Resolved Time CoV-Risk 06/24/2024 06/24/2024 07/05/2024 1:21 AM EST documented as of this encounter Care Teams Tail Trimmer Relationship Specialty Start Date End Date Andi Goff MD [address] [place] [address] Dr [address] [place] [address] PCP - General 05/30/17 08/15/24 Reji Thompson MD [address] [place] [address] [place] [phone] PCP - General Internal Medicine 08/16/24 04/07/25 Meri Correa PA [address] [place] [address] Dr [address] [place] [address] PCP - General Physician Fiber Machine Tender 04/08/25 Janna Macias MD [address] [place] [address], [address] [place] [address] [email or web address] Historical LMR Provider 03/16/17 Andi Goff MD [address] [place] [address] [place] [address] Historical LMR Provider 03/16/17 documented as of this encounter Additional Source Comments The information contained in this document represents components of the legal health record. It is not the complete legal health record.[facility]
--- OUTSIDE RECORDS SUMMARY | 2025-04-14 05:43 | XMS_ITS | Encounter Summary ---
Author Organization [facility] Address [address] [facility] [address] [place] [address] Phone Care Team Providers Care Industrial Maintenance Repairer Helper Name Role Phone Janna Macias MD Unavailable [phone] Andi Goff MD Unavailable [phone] Andi Goff MD Primary Care Provider [phone] Reji Thompson MD Primary Care Provider [phone] Meri Correa Primary Care Provide r Encounter Details Date Type Department Care Team (Late st Contact Info) Description 06/22/2024 Procedure Pass [facility], Ct Scan - [address] [address] Social History Tobacco Use Types Packs/Day Years [...] 06/22/2024 7:43 PM Holly Parker RN * [place] Suicide Severity Rating Scale (Screener/Recent Self-Report) Question [...] Appointment [facility] [address] [place], [place] [phone] Colleen Carlson [facility] [address] [place] [address] 04/21/2025 1:45 AM EST Appointment [facility] [address] [place] [phone] Gregor Poe, PT [address] [place] [address] 04/26/2025 1:30 AM EST Appointment [facility] [address] [place] [phone] Gregor Poe, PT [address] [place] [address] 04/29/2025 12:45 AM EST Appointment [facility] [address] [place] [phone] Gregor Poe, PT [address] [place] [address] 05/03/2025 12:45 AM EST Appointment [facility] [address] [place] [phone] Gregor Poe, PT [address] [place] [address] 05/06/2025 12:45 AM EST Appointment [facility] [address] [place] [phone] Gregor Poe, PT [address] [place] [address] 05/10/2025 Appointment [facility] [address] [place] [phone] Gregor Poe, PT [address] [place] [address] 05/13/2025 Appointment [facility] [address] [place] [phone] Gregor Poe, PT [address] [place] [address] documented as of this encounter Visit Diagnoses Not on filedocumented in this encounter Additional Health Concerns Infection Onset Date Last Indicated Resolved Time CoV-Risk 06/24/2024 06/24/2024 07/05/2024 1:21 AM EST documented as of this encounter Care Teams Industrial Maintenance Repairer Helper Relationship Specialty Start Date End Date Andi Goff MD [address] [place] [address] Dr [address] [place] [address] PCP - General 05/30/17 08/15/24 Reji Thompson MD [address] [place] [address] [place] [phone] PCP - General Internal Medicine 08/16/24 04/07/25 Meri Correa PA [address] [place] [address] [address] [place] [address] PCP - General Physician Industry Consultant 04/08/25 Janna Macias MD [address] [place] [address], [address] [place] [address] [email or web address] Historical LMR Provider 03/16/17 Andi Goff MD [address] [place] [address] [place] [address] Historical LMR Provider 03/16/17 documented as of this encounter Additional Source Comments The information contained in this document represents components of the legal health record. It is not the complete legal health record.[facility]
--- OUTSIDE RECORDS SUMMARY | 2025-04-14 05:44 | XMS_ITS | Clinical Summary ---
Author Organization [facility] Address [address] [facility] [address] [place] [phone] Phone Care Team Providers Care Gymnastics Coach Or Instructor Name Role Phone Janna Macias MD Unavailable Andi Goff MD Unavailable Meri Correa Primary Care Provide r Allergies Active Allergy Reactions Criticality Noted Date Comments Cefaclor Rash Low 10/04/2014 Citalopram Medium 08/14/2017 Tightness around mouth, Cephalexin Rash Low 10/04/2014 Clarithromycin Rash Low 10/04/2014 Duloxetine 04/09/2025 Meloxicam 03/31/2020 Sulfa (Sulfonamide Antibiotics) 08/14/2017 Tomato [...] 19 Active albuterol 90 mcg/actuation inhaler TAKE 1 PUFF BY MOUTH EVERY 4 HOURS NEEDED 04/09/20 25 Active albuterol 2.5 mg /3 mL (0.083 [...] MG capsule Take 200 mg by mouth 2 (two) times a day (once in the morning and once in the afternoon). 04/09/20 Active lidocaine (LIDODERM) 5 % 1 PATCH TOPICALLY DAILY,X30 DAYS NEEDED FOR PAIN , MILD,INSTR:REMOV E AFTER 12 HOURS 05/21/20 Active rizatriptan (MAXALT-SPECTRAL SCIENTIST) 5 MG disintegrating tablet Take 5 mg [...] mouth nightly at bedtime. 5 tablet 10/13/19 Active fluvoxaMINE (LUVOX) 100 MG tablet Take [...] mouth daily with lunch. 5 tablet 10/13/19 Active gabapentin (NEURONTIN) 100 MG capsule Take 2 capsules (200 mg total) by mouth every 8 (eight) hours. 30 capsule 10/13/19 Active acetaminophen (TYLENOL) 650 MG CR tablet Take 650 mg by mouth 2 (two) times a day (once in the morning and once in the afternoon). 04/09/20 Active Active Problems Problem Noted Date Diagnosed [...] change to IUD if heavier bleeding continues. Encounters Date Type Department Care Team Description 04/12/2025 10:45 AM EST Home Care Visit [facility] [address] [place] [address] Colleen Carlson, SAP HANA DEVELOPER SAP HANA DEVELOPER HOME VISIT 04/09/2025 12:30 PM EST Home Care Visit [facility] [address] [place] [phone] Gregor Poe, PT PT OASIS START OF CARE (SOC) 04/09/2025 Plan of Care Documentation [facility] [address] [place] [address] 04/08/2025 Orders Only [facility] [address] [place] [phone] Homehealth, Interface Provider, from Last 3 Months Immunizations Immunization Administration Dates Next Due COVID-19 [...] 10:57 AM EST Respiratory Rate 18 04/12/2025 10:5 7 AM EST Oxygen Saturation 97% 04/09/2025 1:52 PM EST Inhaled Oxygen Concentration - - Weight 88.8 kg (195 lb 12.8 oz) 025 11:43 AM EDT Height 157.5 cm (5' 2 ) 09/30/2024 11:4 3 AM EDT Body Mass Index 35.81 09/30/2024 11:43 AM EDT Plan of Treatment Upcoming Encounters Date Type Department Care Team (Late st Contact Info) Description 04/14/2025 1:45 PM EST Appointment [facility] [address], [place] [phone] Colleen Carlson, SAP HANA DEVELOPER [address] [place] [address] 04/21/2025 1:45 AM EST Appointment [facility] [address], [place] [phone] Gregor Poe, PT [address] [place] [address] 04/26/2025 1:30 AM EST Appointment [facility] [address], [place] [phone] Gregor Poe, PT [address] [place] [address] 04/29/2025 12:45 AM EST Appointment [facility] [address] [place] [phone] Gregor Poe, PT [address] [place] [address] 05/03/2025 12:45 AM EST Appointment [facility] [address] [place] [phone] Gregor Poe, PT [address] [place] [address] 05/06/2025 12:45 AM EST Appointment [facility] [address] [place] [phone] Gregor Poe, PT [address] [place] [address] 05/10/2025 Appointment [facility] [address] [place] [phone] Gregor Poe, PT [address] [place] [address] 05/13/2025 Appointment [facility] [address] [place] [phone] Gregor Poe, PT [address] [place] [address] Health Maintenance Due Date Last Done Comments DEPRESSION SCREENING 1992 HEPATITIS C SCREENING 1998 HIV ONE-TIME SCREENING (18-65 YEARS) 1998 PNEUMOCOCCAL VACCINES (0-49 years) (1 of 2 - PCV) 12/07/1999 MAMMOGRAM 2020 PAP SMEAR 08/11/2024 08/11/2021 INFLUENZA VACCINE (#1) 2024 COVID-19 VACCINE ( season) 2025 04/04/2021, 08/12/2020, 07/15/2020 CREATININE LEVEL [...] this topic Medical Devices Implanted Type Area Central Lab Technician Device Identifier Shelf Expiration Date Model / Serial / Lot Contraceptive Iud Mirena - Must Order A Minimum Of 50ea - [id number] Implanted:Qty: 1 on 10/10/2017 by Janna Macias MD at [facility] Uterus [employer] 04/25/2020 [id number] / / [id number] Procedures Procedure Name Priority Date/Time Associated Diagnosis Comments BASIC METABOLIC PANEL (BMP) STAT 09/29/2024 6:28 PM EDT PAP TEST Routine 08/11/2021 12:00 AM EDT from Last 3 Months or Most Recently Relevant to Health Maintenance Results * Basic metabolic panel (09/29/2024 6:28 PM EDT) SODIUM 142 133 - 146 mmol/L [facility] CHLORIDE 103 96 - 108 mmol/L [facility] POTASSIUM 3.8 3.3 - 5.1 mmol/L [facility] CO2 23 21 - 35 mmol/L [facility] BUN 19 6 - 19 mg/dL [facility] CREATININE 0.60 0.5 - 1.5 mg/dL [facility] GLUCOSE 92 70 - 99 mg/dL [facility] CALCIUM 9.5 8.4 - 10.3 mg/dL [facility] EGFR 114 >59 mL/min/1.7 3m2 [facility] Comment:Estimated glomerular filtration rate calculated using the CKD-EPI refit equation. ANION GAP 20 10 - 20 mmol/L [facility] Blood 09/29/2024 6:28 PM EDT 09/29/2024 7:08 PM EDT Rodrigue Rich MD LAB BLOOD BKR ORDERABLES Final Result [address] [address] * Pap Smear (08/11/2021 12:00 AM EDT) 08/11/2021 08/14/2021 9:2 9 AM EDT Narrative SEE NARRATIVE - 08/17/2021 2:56 PM EDT [address] [address] Certified Pesticide Applicator: Mary Torre MD SUPERINTENDENT OIL FIELD DRILLING Cytology Report FINAL DIAGNOSIS A. PAP SMEAR [...] 52, 56, 58, 59, 66, 68) by [employer] HR-HPV analysis. Clinical correlation is advised. This HPV test was performed at [facility], [address] [place] [address]. This test has been FDA approved for [facility] cervical cytology specimens. The accuracy and precision of this test for all other specimen sources has been verified in the Cytopathology Laboratory of the [facility] and has not been cleared or approved by the U.S. Food and Drug Administration. Clinical correlation is advised. CLINICAL HISTORY Date of Last Menstrual Period: Not Provided Menstrual History: Unknown Contraceptive History: IUD: ARMIDA Other Clinical Conditions: Screening Pap SPECIMEN SOURCE A: PAP SMEAR (SUREPATH) CE Patient Name: MARY LOU HUITRON : 1980 (Age: 40) Sex: F Institution: [facility] Location: [facility] Date of Collection: 08/11/2021 Date of Reported: 08/17/2021 11:04 Results to: Jimbo Pulliam MD, BS Jimbo Pulliam MD CYTOLOGY ORDERABLES Edited Re sult - Final SEE NARRATIVE from Last 3 Months or Most Recently Relevant to Health Maintenance Insurance O O O O O O O HMO [employer] INSURANCE Advance Directives For more information, please contact: [phone] (9AM - 5PM [facility], Saturday-Saturday) Documents on File Type Date Recorded Patient Hr Manager Expl anation Healthcare Proxy 10/11/2017 1:21 PM * Full Code (Latest Code Status on File) Date Activated Date Inactivated Comments 06/14/2023 8:45 AM Question Answer Comments Code Status Confirmed With: Patient * Full Code (Presumed) Date Activated Date Inactivated Comments 10/10/2017 8:24 AM 10/10/2017 3:47 PM Healthcare Agents on File Name Relationship Healthcare Agent Relationshi p Communication Dianna Brent .Primary Health Care Agent (Proxy form on file) Care Teams Gymnastics Coach Or Instructor Relationship Specialty Start Date End Date Meri Correa PA [address] [place] [address] [place] [address] PCP - General Physician Architecture Professor 04/08/25 Janna Macias MD [address] [place] [address], [address] [place] [address] [email or web address] Historical LMR Provider 03/16/17 Andi Goff MD [address] [place] [address] [place] [address] Historical LMR Provider 03/16/17 Additional Source Comments The information contained in this document represents components of the legal health record. It is not the complete legal health record.[facility]
== END 2025-04-13 14:14 | disposition home or self-care (01) ==
DX: F32.A Depression, unspecified (principal); F41.9 Anxiety disorder, unspecified; I10 Essential (primary) hypertension; G43.419 Hemiplegic migraine, intractable, without status migrainosus

== ENCOUNTER 2025-05-18 08:27 | Outpatient (AMB) | payer OTHER, SELFPAY ==
--- OUTSIDE RECORDS SUMMARY | 2020-03-31 15:29 | XMS_ITS | Encounter Summary ---
Author Organization [facility] Address [address] [facility] [address] [place] [address] Phone Care Team Providers Care Dining Host Name Role Phone Annmarie Richey LOAD DROPPER Unavailable Francisca Casillas LOAD DROPPER Unavailable [phone] Ross Tobin MD Unavailable Jessica Jackson LOAD DROPPER Unavailable [phone] Janna Macias MD Unavailable [phone] Dena Brownlee LOAD DROPPER Unavailable Cory Kay MD Unavailable [phone] Kristen Chávez LOAD DROPPER Unavailable [phone] Andi Goff MD Unavailable [phone] Aster Shelley MD Unavailable [phone] Charlotte Bolaños MD Unavailable Isiah Pavon MD Unavailable [phone] Andi Goff MD Primary Care Provider Encounter Details Date Type Department Care Team (Late st Contact Info) Description 03/31/2020 3:29 PM EST Hospital Encounter [facility] [address] [place] [address] [phone] Margarita Burch, ACCOUNT MANAGEMENT SPECIALIST [address] [place] [address] [email or web address] Social History Tobacco Use Types Packs/Day Years Used Date Smoking Tobacco: Never Smokeless Tobacco: Never Alcohol Use Standard Drinks/Week Comments Never 0 (1 standard drink = 0.6 oz pur e alcohol) Home Health Assessment: Transportation Answer Date Recorded Lack of Transportation (Medical) No 05/14/2025 Lack of Transportation (Non-Medical) No 05/14/2025 Patient Unable or Declines to Respond No 05/14/2025 Education Answer Date Recorded Are you interested in more education? Not on justino e 09/21/2022 Are you concerned about learning? Not on file 09/21/2022 No 09/21/2022 No 09/21/2022 Food Answer Date Recorded Within the past 6 months we worried whether our food would run out before we got money to buy more. Never True 09/30/2024 Within the past 6 months the food we bought just didn't last and we didn't have enough money to get more. Never True Residential Stability Answer Date Recor ded What is your housing situation today? I have amanda sing 09/30/2024 How many times have you moved in the past 12 sat ths? One time 09/30/2024 Paying for Meds Answer Date Recorded Do you have trouble paying for medicines? No 09/30/2024 Paying Utility Bills Answer Date Record ed Do you have trouble paying your heating or elect ricity bill? No 09/30/2024 Transportation Answer Date Recorded Has the lack of transportati on kept you from medical appointments or from getting medications? No 09/30/2024 Digital Access Answer Date Recorded No 09/30/2024 Yes 09/30/2024 Do you have reliable internet access at home? Ye s 09/30/2024 Do you have a device (e.g., phone, tablet, computer) with a working camera? Yes 09/30/2024 Intimate Partner Violence Answer Date R ecorded Are you denied basic needs s uch as food, clothing, or medical care? No 09/30/2024 In the past 12 months have y ou been in a relationship with a person who hurts, threatens, or tries to control you? No 09/30/2024 Are you denied basic needs s uch as food, clothing, or medical care? No 09/30/2024 In the past 12 months have y ou been in a relationship with a person who hurts, threatens, or tries to control you? No 09/30/2024 Comments No Sex and Gender Information Value Date Recorded Sex Assigned at Female 12/20/2021 5:40 PM EDT Legal Sex Female 9:21 PM EDT Gender Identity Female 01/08/2021 5:13 PM EDT Sexual Orientation Straight 12/20/2021 5: 40 PM EDT documented as of this encounter Plan of Treatment Not on file documented as of this encounter Procedures Procedure Name Priority Date/Time Associated Diagnosis Comments XR ANKLE 3 OR MORE VIEWS (RIGHT) Urgent/patient waiting 03/31/2020 3:39 PM EST Fall from slip, trip, or stumble, initial encounter documented in this encounter Results * XR ANKLE 3 OR MORE VIEWS (RIGHT) (03/31/2020 3:39 PM EST) Anatomical Region Laterality Modality Ankle Right Radiographic Tammy ging 03/31/2020 3:47 PM EST Impressions 03/31/2020 3:48 PM EST Sensitivity may be diminished due to difficulty with positioning but no acute fracture or malalignment is detected. Narrative 03/31/2020 3:48 PM EST Right ankle 3 views. No prior. Lateral positioning is limited on both this study and views of the foot obtained the same day. No fracture or malalignment is detected. No definite effusion. No bony lesions of concern. Procedure Note José Manuel Espino MD - 03/31/2020 Right ankle 3 views. No prior. Lateral positioning is limited on both thisstudy and views of the foot obtained the same day. No fracture ormalalignment is detected. No definite effusion. No bony lesions ofconcern. IMPRESSION: Sensitivity may be diminished due to difficulty with positioning but noacute fracture or malalignment is detected. Margarita Burch ACCOUNT MANAGEMENT SPECIALIST IMG XR LOWER EXTREMITY Clara l Result documented in this encounter Visit Diagnoses Not on filedocumented in this encounter Additional Health Concerns Infection Onset Date Last Indicated Resolved Time COVID-19 12/23/2021 12/23/2021 01/13/2022 1:21 AM EDT CoV-Risk 09/10/2022 09/10/2022 09/21/2022 1:24 AM EDT CoV-Risk 03/15/2023 03/15/2023 03/26/2023 1:25 AM EDT CoV-Risk 06/24/2024 06/24/2024 07/05/2024 1:21 AM EST documented as of this encounter Care Teams Dining Host Relationship Specialty Start Date End Date Andi Goff MD [address] [place] [address] PCP - General 05/30/17 08/15/24 Annmarie Richey NP [address] [place] [address] Historical LMR Provider 03/16/17 2 Francisca Casillas LOAD DROPPER [address] [place] [address] Historical LMR Provider 03/16/17 2 Ross Tobin MD [address] [place] [address] [address] [place] [address] Historical LMR Provider 03/16/17 06/03/21 Jessica Jackson, LOAD DROPPER [address] [place] [address] Historical LMR Provider 03/16/17 06/03/21 Janna Macias MD [address] [place] [address] [email or web address] Historical LMR Provider 03/16/17 Dena Brownlee NP [address] [place] [phone] Historical LMR Provider 03/16/17 2 Cory Kay MD [address] [place] [address], [address] [place] [address] Historical LMR Provider 03/16/17 06/03/21 Kristen Chávez NP [address] [place] [address] Historical LMR Provider 03/16/17 2 Andi Goff MD [address] [place] [address] [address] Historical LMR Provider 03/16/17 Aster Shelley MD [address] [place] [phone] Historical LMR Provider 03/16/17 2 Charlotte Bolaños MD [address] [place] [address] [email or web address] Historical LMR Provider 03/16/17 06/03/21 Isaih Pavon MD [address] [place] [address] Historical LMR Provider 03/16/17 2 documented as of this encounter Additional Source Comments The information contained in this document represents components of the legal health record. It is not the complete legal health record.[facility]
--- OUTSIDE RECORDS SUMMARY | 2020-03-31 15:29 | XMS_ITS | Encounter Summary ---
Author Organization [facility] Address [address] [facility] [address] [place] [address] Phone Care Team Providers Care Car Framer Name Role Phone Annmarie Richey PATIENT CARE DIRECTOR Unavailable Francisca Casillas PATIENT CARE DIRECTOR Unavailable [phone] Ross Tobin MD Unavailable Jessica Jackson PATIENT CARE DIRECTOR Unavailable [phone] Janna Macias MD Unavailable [phone] Dena Brownlee PATIENT CARE DIRECTOR Unavailable Cory Kay MD Unavailable [phone] Kristen Chávez PATIENT CARE DIRECTOR Unavailable Andi Goff MD Unavailable Aster Shelley MD Unavailable [phone] Charlotte Bolaños MD Unavailable Isiah Pavon MD Unavailable [phone] Andi Goff MD Primary Care Provider [phone] Encounter Details Date Type Department Care Team (Late st Contact Info) Description 03/31/2020 3:29 PM EST Hospital Encounter [facility] [address] [place] [address] [phone] Margarita Burch, FORGING PRESS OPERATOR 12 [place] [address] [email or web address] Social History Tobacco Use Types Packs/Day Years [...] Name Priority Date/Time Associated Diagnosis Comments XR FOOT 3 OR MORE VIEWS (RIGHT) Urgent/patient waiting 03/31/2020 3:38 PM EST Fall from slip, trip, or stumble, initial encounter documented in this encounter Results * XR FOOT 3 OR MORE VIEWS (RIGHT) (03/31/2020 3:38 PM EST) Anatomical Region Laterality Modality Foot Right Radiographic Tammy ging 03/31/2020 3:48 PM EST Impressions 03/31/2020 3:49 PM EST No fracture seen. Narrative 03/31/2020 3:49 PM EST Right foot 3 views. No prior. Limited lateral positioning. No fracture or malalignment detected. No bony lesions seen. Joint spaces maintained. Procedure Note José Manuel Espino MD - 03/31/2020 Right foot 3 views. No prior. Limited lateral positioning. No fracture ormalalignment detected. No bony lesions seen. Joint spaces maintained. IMPRESSION: No fracture seen. us Margarita Burch FORGING PRESS OPERATOR IMG XR LOWER EXTREMITY Clara l Result [...] documented as of this encounter Care Teams Car Framer Relationship Specialty Start Date End Date Andi Goff MD [address] [place] [address] [address] PCP - General 05/30/17 08/15/24 Annmarie Richey, MANUEL [address] [place] [address] Historical LMR Provider 03/16/17 2 Francisac Casillas NP [address] [place] [address] Historical LMR Provider 03/16/17 2 Ross Tobin MD [address] [place] [address] Historical LMR Provider 03/16/17 06/03/21 Jessica Jackson, PATIENT CARE DIRECTOR [address] [place] [address] Historical LMR Provider 03/16/17 06/03/21 Janna Macias MD [address] [place] [address] Historical LMR Provider 03/16/17 Dena Brownlee NP [address] [place] [address] Historical LMR Provider 03/16/17 2 Cory Kay MD [address] [facility], 2nd [place] [address] Historical LMR Provider 03/16/17 06/03/21 Kristen Chávez NP [address] [place] [address] Historical LMR Provider 03/16/17 2 Andi Goff MD [address] [place] [address] Dr [place] [address] [place] [address] Historical LMR Provider 03/16/17 Aster Shelley MD [address] [place] [phone] Historical LMR Provider 03/16/17 2 Charlotte Bolaños MD [address] [address] Historical LMR Provider 03/16/17 06/03/21 Isiah Pavon MD [address] [place] [address] Historical LMR Provider 03/16/17 2 documented as of this encounter Additional Source Comments The information contained in this document represents components of the legal health record. It is not the complete legal health record.[facility]
--- OUTSIDE RECORDS SUMMARY | 2021-11-02 11:03 | XMS_ITS | Encounter Summary ---
Author Organization [facility] Address [address] [facility] [address] [place] [address] Phone Care Team Providers Care Nurse Special Name Role Phone Janna Macias MD Unavailable [phone] Andi Goff MD Unavailable [phone] Andi Goff MD Primary Care Provider [phone] Encounter Details Date Type Department Care Team (Late st Contact Info) Description 11/02/2021 12:03 PM EDT Hospital Encounter [facility] [address] [place] [address] Rut Salinas FNP [address] [place] [id number] [email or web address] Social History Tobacco Use Types Packs/Day Years [...] your housing situation today? I have amanda marion 09/30/2024 How many times have you moved in the past 12 sat th? One time 09/30/2024 Paying for Meds Answer [...] Name Priority Date/Time Associated Diagnosis Comments XR HAND 3 OR MORE VIEWS (RIGHT) Urgent/patient waiting 11/02/2021 12:12 PM EDT Fall, initial encounter documented in this encounter Results * XR HAND 3 OR MORE VIEWS (RIGHT) (11/02/2021 12:12 PM EDT) Anatomical Region Laterality Modality Hand Right Computed Radiogr aphy 11/02/2021 12:2 7 PM EDT Impressions 11/02/2021 12:30 PM EDT No acute osseous abnormality. Narrative 11/02/2021 12:30 PM EDT XR WRIST 3 OR MORE VIEWS (RIGHT), XR HAND 3 OR MORE VIEWS (RIGHT) COMPARISON: None. FINDINGS: Right wrist: No acute fracture or dislocation. Joint spaces preserved. Intact soft tissues. Right hand: No acute fracture or dislocation. Preserved joint spaces. Intact soft tissues. Procedure Note Fredy Negrete MD - 11/02/2021 XR WRIST 3 OR MORE VIEWS (RIGHT), XR HAND 3 OR MORE VIEWS (RIGHT) COMPARISON: None. FINDINGS: Right wrist: No acute fracture or dislocation. Joint spaces preserved.Intact soft tissues. Right hand: No acute fracture or dislocation. Preserved joint spaces.Intact soft tissues. IMPRESSION: No acute osseous abnormality. Rut Salinas AIRFRAME AND POWERPLANT MECHANIC IMG XR UPPER EXTREMITY Clara l Result documented in this encounter Visit Diagnoses Not on filedocumented in this encounter Additional Health Concerns Infection Onset Date Last Indicated Resolved Time COVID-19 12/23/2021 12/23/2021 01/13/2022 1:21 AM EDT CoV-Risk 09/10/2022 09/10/2022 09/21/2022 1:24 AM EDT CoV-Risk 03/15/2023 03/15/2023 03/26/2023 1:25 AM EDT CoV-Risk 06/24/2024 06/24/2024 07/05/2024 1:21 AM EST documented as of this encounter Care Teams Nurse Special Relationship Specialty Start Date End Date Andi Goff MD [address] [place] [address] [place] [address] PCP - General 05/30/17 08/15/24 Janna Macias MD [address] [place] [address], [address] [place] [address] [email or web address] Historical LMR Provider 03/16/17 Andi Goff MD [address] [place] [address] [place] [address] Historical LMR Provider 03/16/17 documented as of this encounter Additional Source Comments The information contained in this document represents components of the legal health record. It is not the complete legal health record.[facility]
--- OUTSIDE RECORDS SUMMARY | 2021-11-02 11:04 | XMS_ITS | Encounter Summary ---
Author Organization [facility] Address [address] [facility] [address] [place] [address] Phone Care Team Providers Care Bounty Hunter Name Role Phone Janna Macias MD Unavailable [phone] Andi Goff MD Unavailable [phone] Andi Goff MD Primary Care Provider [phone] Encounter Details Date Type Department Care Team (Late st Contact Info) Description 11/02/2021 12:04 PM EDT Hospital Encounter [facility] [address] [place] [address] Rut Salinas FNP [address] [place] [phone] [email or web address] Social History Tobacco Use Types Packs/Day [...] Name Priority Date/Time Associated Diagnosis Comments XR WRIST 3 OR MORE VIEWS (RIGHT) Urgent/patient waiting 11/02/2021 12:12 PM EDT Fall, initial encounter documented in this encounter Results * XR WRIST 3 OR MORE VIEWS (RIGHT) (11/02/2021 12:12 PM EDT) Anatomical Region Laterality Modality Wrist Right Computed Radiogr aphy 11/02/2021 12:2 7 [...] IMPRESSION: No acute osseous abnormality. Rut Salinas WAX BLENDER IMG XR UPPER EXTREMITY Clara l Result [...] documented as of this encounter Care Teams Bounty Hunter Relationship Specialty Start Date End Date Andi oGff MD [address] [place] [address] [place] [address] PCP - General 05/30/17 08/15/24 Janna Macias MD [address] [place] [address], [address] [place] [address] [email or web address] Historical LMR Provider 03/16/17 Andi Goff MD [address] [place] [address] [place] [address] Historical LMR Provider 03/16/17 documented as of this encounter Additional Source Comments The information contained in this document represents components of the legal health record. It is not the complete legal health record.[facility]
--- OUTSIDE RECORDS SUMMARY | 2023-01-07 16:45 | XMS_ITS | Encounter Summary ---
Author Organization [facility] Address [address] [place] [address] Phone Care Team Providers Care Stem Teacher Name Role Phone Janna Macias MD Unavailable [phone] Andi Goff MD Unavailable [phone] Andi Goff MD Primary Care Provider [phone] Encounter Details Date Type Department Care Team (Late st Contact Info) Description 01/07/2023 5:45 PM EDT Hospital Encounter [facility] [address] [place] [address] Karin Beltran, AD COPY WRITER [address] [place] [address] [email or web address] Social History Tobacco Use Types Packs/Day Years [...] skeletal abnormality. IMPRESSION: No acute abnormality. ATTESTATION: Kalpesh Rivera as teaching physician, have reviewed theimages for this case and if necessary edited the report originally createdby Kahlil Hernadez. us Karin B Whitehill AD COPY WRITER IMG XR CHEST Final Resul t documented in this encounter Visit Diagnoses Not on filedocumented in this encounter Additional Health Concerns Infection Onset Date Last Indicated Resolved Time CoV-Risk 03/15/2023 03/15/2023 03/26/2023 1:25 AM EDT CoV-Risk 06/24/2024 06/24/2024 07/05/2024 1:21 AM EST documented as of this encounter Care Teams Stem Teacher Relationship Specialty Start Date End Date Andi Goff MD [address] [place] [address] Dr Sands [address] [place] [address] PCP - General 05/30/17 08/15/24 Janna Macias MD [address] [place] [address], [address] [place] [address] [email or web address] Historical LMR Provider 03/16/17 Andi Goff MD [address] [place] [address] Dr Sands [address] [place] [address] Historical LMR Provider 03/16/17 documented as of this encounter Additional Source Comments The information contained in this document represents components of the legal health record. It is not the complete legal health record.[facility]
--- OUTSIDE RECORDS SUMMARY | 2023-07-22 17:05 | XMS_ITS | Encounter Summary ---
Author Organization [facility] Address [address] [facility] [address] [place] [address] Phone Care Team Providers Care Java Lead Engineer Name Role Phone Janna Macias MD Unavailable [phone] Andi Goff MD Unavailable [phone] Andi Goff MD Primary Care Provider [phone] Encounter Details Date Type Department Care Team (Late st Contact Info) Description 07/22/2023 5:05 PM [facility] Hospital Encounter [facility] [address] [place] [address] Margarita Burch CNP [address] [place] [address] [email or web address] Social History Tobacco Use Types Packs/Day Years [...] you interested in more education? Not on jsutino e 09/21/2022 Are you concerned about learning? [...] Name Priority Date/Time Associated Diagnosis Comments XR CALCANEUS 2 OR MORE VIEWS (RIGHT) Urgent/patient waiting 07/22/2023 5:18 PM EST Inflammatory heel pain, right documented in this encounter Results * XR Calcaneus 2 or More Views (Right) (07/22/2023 5:18 PM EST) MGB IMG CERTIFIED NURSE OPERATING ROOM COMMENT Consider CT if high clinical concern [facility] Anatomical Region Laterality Modality Ankle Right, Foot Right Computed Radiography 07/22/2023 5:28 PM EST Impressions 07/22/2023 5:58 PM EST No displaced calcaneal fracture. No significant radiographic soft tissue swelling. Early superior calcaneal spur. However, if significant pain or concerning mechanism, CT can be considered for further evaluation. A clinically significant result was communicated on 07/22/2023 5:57 PM, Message ID [id number]. ATTESTATION: Heather Rivera as teaching physician, have reviewed the images for this case and if necessary edited the report originally created by Simeon Blackwood. Narrative 07/22/2023 5:58 PM EST XR CALCANEUS 2 OR MORE VIEWS (RIGHT) Referring clinician's provided indication for this examination in [facility]: Pain; Trauma; fell 5 days ago, foot under COMPARISON: None. Procedure Note Aisha Sorto MD / System, Provider Not In, PhD - 07/22/2023 XR CALCANEUS 2 OR MORE VIEWS (RIGHT) Referring clinician's provided indication for this examination in [facility]:Pain; Trauma; fell 5 days ago, foot under COMPARISON: None. IMPRESSION: No displaced calcaneal fracture. No significant radiographic soft tissue swelling. Early superior calcaneal spur. However, if significant pain or concerning mechanism, CT can be consideredfor further evaluation. A clinically significant result was communicated on 07/22/2023 5:57 PM,Message ID [id number]. ATTESTATION: Heather Rivera as teaching physician, havereviewed the images for this case and if necessary edited the reportoriginally created by Simeon Blackwood. Margarita Burch OPTICAL COATING TECHNICIAN IMG XR LOWER EXTREMITY Edit ed Result - Final documented in this encounter Visit Diagnoses Not on filedocumented in this encounter Additional Health Concerns Infection Onset Date Last Indicated Resolved Time CoV-Risk 06/24/2024 06/24/2024 07/05/2024 1:21 AM EST documented as of this encounter Care Teams Java Lead Engineer Relationship Specialty Start Date End Date Andi Goff MD [address] [place] [address] [place] [address] PCP - General 05/30/17 08/15/24 Janna Macias MD [address] [place] [address], [facility] [address] [place] [address] [email or web address] Historical LMR Provider 03/16/17 Andi Goff MD [address] [place] [address] [place] [address] Historical LMR Provider 03/16/17 documented as of this encounter Additional Source Comments The information contained in this document represents components of the legal health record. It is not the complete legal health record.[facility]
--- OUTSIDE RECORDS SUMMARY | 2025-05-14 10:00 | XMS_ITS | Encounter Summary ---
Author Organization [facility] Address [address] [facility] [address] [place] [phone] Phone Care Team Providers Care Concrete Pile Driver Operator Name Role Phone Janna Macias MD Unavailable [phone] Andi Goff MD Unavailable [phone] Meri Correa Primary Care Provide r Reason for Visit * Auth/Cert (Routine) Specialty Diagnoses / Procedures Referred By Jarad t Referred To Contact Referral ID Status Reason Start Date Expiration Date Visits Re quested Visits Authorized [id number] 1 1 Encounter Details Date Type Department Care Team (Late st Contact Info) Description 05/14/2025 10:00 AM EST Home Care Visit [facility] [address] [place] [phone] Gregor Poe, PT [address] [place] [address] [email or web address] PT OASIS DISCHARGE VISIT Social History Tobacco Use Types Packs/Day [...] Sign Reading Time Taken Comments Blood Pressure 122/72 05/14/2025 10:24 AM EST Pulse 84 05/14/2025 10:24 AM EST Temperature 36.4 C (97.6 F) 05/14/2025 10:24 AM EST Respiratory Rate - - Oxygen Saturation 96% 05/14/2025 10:24 AM EST Inhaled Oxygen Concentration - - Weight - - Height - - Body Mass Index - - documented in this encounter Plan of Treatment Not on file documented as of this encounter Visit Diagnoses Not on filedocumented in this encounter Home Health Visit - Care Plan Visit Details Visit Type -PT OASIS DISCHAR GE VISIT Discipline -Physical Therapy Problems Problem Description Start Date Status Goals Interve ntions HH - Medication Management Disciplines: All Active Home Health Disciplines 04/09/2025 Active 1 goal linked to scheduled/document ed intervention 2 goal interventions scheduled/document ed in this visit HH - Health Maintenance Disciplines: All Active Home Health Disciplines 04/09/2025 [...] scheduled/document ed in this visit HH - Diabetes Disciplines: All Active Home Health Disciplines 04/09/2025 [...] HH - Medication Management No HH - Patient preferences will be utilized to achieve optimal wellness and home safety. HH - Health Maintenance No HH - Communication and collaboration to [...] home ad radha x 150ft, by 04.25.25 MET 2. Patient will safely transfer thru home w/ DME , by 04.25.25 05.06.25 MET 3. Patient will demonstrate ability to get in/out bed w/ min ef fort in 30 seconds, by 05.15.25 05.06.25 MET 4. Patient will complete TUG with least restrictive device in 20 sec or less, safely . demonstrating increased gait efficiency and safety, by 05.15.25 05.06.25 MET 5. Patient will demonstrate improvement in functional balance w/ Tinetti score= 22/28 or greater, by 12.05.06.25 progressing, continue 6. Patient will demonstrate improved functional strength as measured by sit-stand 10x or greater by .05.06.25 NOT met, continue 7. Patient w ill negotiate stairs in/out home, ambulate outdoors x 500ft w/ least restrictive device, by .. 05.06.25 MET 8. Patient will manage pain R knee w/ appropriate assistive device, exercise, modalities, by 05.15.25. 05.06.25 not met, continue 9. Patient will be free from falls, demonstrate reduced fall risk, by .. 05.06.25 continue HH - Mobility and Activity Tolerance - Impaired No HH - Knowledge and management of diabetes. HH - Diabetes No HH - Demonstrate/verbalize improvement in depressive [...] medication reconciliation as indicated. Pharmacy information: Description: [facility] Problem:HH - Medication Management Goal:HH - Safe medication management, avoid unnecessary harm related to medication errors and/or interactions Performed HH - Assess immunizations Description: UTD flu and COVID Problem:HH - Health Maintenance Goal:HH - Patient preferences will be utilized to achieve optimal wellness and home safety. Performed HH - Focus of care, teaching completed and plan for next visit Problem:HH - Focus of Care and Teaching Goal:HH - Communication and collaboration to achieve patient goals Performed S: No c/o. Struggles , but can get brace on properly. Is interested in outpatient PT, so requested this to PCP, wants to go to [facility] because it is close by. Aware of d/c and agrees to continue HEP. Primary Clinical Focus this Visit & Instruction Provided: ther ex, gait training, balance training, HEP instruction, reassessment 30 sec sit-stand= 10x. TUG= 14.3 sec w/ no walker, 13.8 sec w/ rollator. steady. Tinetti=/ from last week. stairs x3 , HR= 130, recovery within 1 minutes. side stepping, backward stepping wall slides x10. Instruction Provided to: patient and caregiver Response to Instruction/Teachin g: Is fully able to teach back topics as evidenced by HEP, use of rollator, stairs. Plan for Next Visit Specific Focus & Education Needed: NA New Orders: NA Updated Discharge Plan: OP PT HH - I/E management of care in [...] HH - Assess infection risk and s/s Problem:HH - Infection - Actual or Risk of Goal:HH - Patient will have no new infection; any new infection that occurs will be identified and treated promptly; existing infection will resolve without complication Performed HH - Complete fall risk assessment scale Problem:HH - Falls - Risk of Goal:HH [...] home/community discharge from homecare Performed HH - I/E discharge plan Problem:HH - Standard of Care Goal:HH - Achieve care management for a safe to home/community discharge from homecare Performed HH - Complete [place] scale at SOC and weekly Problem:HH - Standard of Care Goal:HH - Achieve care management for a safe to home/community discharge from homecare Performed HH - Assess pain Problem:HH - Pain Goal:HH - Frequency of pain interfering with patient's activity or movement will improve with activity or movement by discharge. Performed HH - I/E pain management Problem:HH - Pain Goal:HH - Frequency of pain interfering with patient's activity or movement will improve with activity or movement by discharge. Performed HH - Therapeutic interventions, as indicated: Description: {gait training, therapeutic exercise, home exercise program, falls prevention education, functional mobility training, pain management education with modalities Problem:HH - Mobility and Activity Tolerance - Impaired Goal:HH - Demonstrate maximum mobility and activity level for safe function Performed This visit ther ex, gait training, balance training, HEP instruction, reassessment 30 sec sit-stand= 10x. TUG= 14.3 sec w/ no walker, 13.8 sec w/ rollator. steady. Tinetti=21/28 from last week. stairs x3 , HR= 130, recovery within 1 minutes. side stepping, backward stepping wall slides x10. Moderate fatigue end of session HH - I/E therapeutic function/activity: Description: As [...] level for safe function Performed HH - I/E diabetes management Description: s/s of hyper/hypoglycemia and self-monitoring Problem:HH - Diabetes Goal:HH - Knowledge and management of diabetes. Performed HH - Diabetic foot care including monitoring for the presence of skin lesions on the lower extremities and patient/caregiver education on proper foot care Problem:HH - Diabetes Goal:HH - Knowledge and management of diabetes. Performed HH - Assess s/s of depression Problem:HH - Depression - Actual or Risk of Impairment Goal:HH - Demonstrate/verbalize improvement in depressive symptoms Performed documented in this encounter Care Teams Concrete Pile Driver Operator Relationship Specialty Start Date End Date Meri Correa PA [address] [place] [address] [place] [address] PCP - General Physician Casino Worker 04/08/25 Janna Macias MD [address] [place] [address], [facility] [address] [place] [address] [email or web address] Historical LMR Provider 03/16/17 Andi Goff MD [address] [place] [address] [place] [address] Historical LMR Provider 03/16/17 documented as of this encounter Additional Source Comments The information contained in this document represents components of the legal health record. It is not the complete legal health record.[facility]
--- NOTE | 2025-05-18 08:34 | MHC.PC.OV ---
Vital Signs 05/18/25 08:36 Height 5 ft 2 in Weight 209 lb BMI 38.2 BP 124/68 Blood Pressure Location Lt brachial Position Sitting Respiration 20 Pulse 89 Pulse Source Pulse Oximeter Temp 98 F Temp Source Temporal Artery Scan Pulse Oximetry (%) 95 Oxygen Delivery Method Room Air Intake Visit Reasons: Annual Exam Clerk Typist Required: No Accompanied by: Mother Allergies meloxicam (MELOXICAM) Allergy (Severe, Verified 05/18/25 08:39) RASH citalopram (From CELEXA) Allergy (Intermediate, Verified 05/18/25 08:39) LOCK JAW Biaxin Allergy (Unknown, Verified 05/18/25 08:39) Unknown cefaclor (From CECLOR) Allergy (Unknown, Verified 05/18/25 08:39) UNKNOWN cephalexin (Keflex) Allergy (Unknown, Verified 05/18/25 08:39) Unknown clarithromycin (From BIAXIN) Allergy (Unknown, Verified 05/18/25 08:39) UNKNOWN lactose Allergy (Unknown, Verified 05/18/25 08:39) INTOLERANCE Sulfa (Sulfonamide Antibiotics) (SULFA (SULFONAMIDE ANTIBIOTICS)) Allergy (Unknown, Verified 05/18/25 08:39) HIVES Medication List - Last Reviewed 05/18/25 by Charlotte Domingo MA acetaminophen 650 mg PO DAILY PRN albuterol sulfate 90 mcg/actuation 2 puffs inhalation Q4H PRN albuterol sulfate 2.5 mg inhalation Q6H PRN atorvastatin 40 mg PO DAILY blood sugar diagnostic (FreeStyle Lite Strips) As directed once per day blood-glucose meter (FreeStyle Lite Meter kit) As directed celecoxib 200 mg PO DAILY PRN cholecalciferol (vitamin D3) 50 mcg PO DAILY fluvoxamine 150 mg PO BEDTIME fluvoxamine 100 mg PO DAILY gabapentin 200 mg PO TID hydroxyzine HCl 50 mg PO BID PRN lancets (FreeStyle Unistik 2) As directed Once per day levonorgestrel (Mirena) 1 device intrauterine ONCE lidocaine 5% 1 patch topical DAILY PRN metformin 500 mg PO BID [Right knee brace As directed] rizatriptan 5 mg PO DAILY PRN topiramate XR 50 mg PO DAILY tramadol 25 mg (1/2 x 50 mg) PO DAILY PRN trazodone 50 mg PO BEDTIME PRN verapamil ER 120 mg PO BID Tobacco use date assessed: 02/16/25 Dental Screening Dental Screen Date: 07/27/24 HPI Annual Exam HPI Details 44-year-old female with past medical history of hyperlipidemia, depression, hypertension, asthma, diabetes mellitus, hemiplegic migraines and cerebral palsy last seen 03/2025 coming in for annual exam. Presenting for an annual physical examination and management of multiple chronic conditions. Regarding her right knee, she wears a custom leg brace which helps to align her patella, improve her gait, and provides a sense of stability, though the knee remains painful. She has been receiving occupational and physical therapy, but the [facility] has stopped services. She is scheduled for a cortisone injection after . The knee pain can be severe enough to interfere with sleep, and has not been responsive to Celebrex or Tylenol. Previously, she took half a tablet of leftover Tramadol which provided relief and allowed her to sleep. She has a history of migraines and has experienced three regular episodes recently, characterized by throbbing without loss of consciousness. She has had five such episodes this year, with increasing duration before she becomes alert. Triptans are not effective for her. Her neurologist believes the migraines are stress-related and has an upcoming appointment in June. For her mental health, she follows with a psychiatric nurse practitioner at [facility] every 2-3 months for medication management and sees a therapist weekly. Her anxiety, depression, and OCD are reportedly well-managed. Mammogram: 11/2024 eye doctor: 2024 Pap smear: Dr. Buchanan [facility] Vaccinations: Up-to-date [facility] Medical History Cerebral palsy Active asthma 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 Obesity Hypertension Acute sinusitis Hyperglycemia Hyperlipidemia Viral syndrome Acute sinusitis Surgical History H/O arthroscopic knee surgery History of carpal tunnel surgery of right wrist History of dilation and curettage History of foot surgery Family History Father Hypertension Bladder cancer Diabetes Hyperlipidemia Mother Hypertension Paternal Aunt Breast cancer Paternal Grandfather Myocardial infarction Social History Household Members: Family Housing: House Are you a primary primary care coordinator to a significant other at home: No Do you presently have visiting nurse or other home services: No Alcohol intake: never Patient Tobacco Use Status: Never used Tobacco Tobacco use type: Cigarette e-Cigarette/Vaping Use: Never Used Second Hand Smoke Exposure: No service: No Current occupational status: employed Cognitive needs: No Hearing needs: No Vision needs: No Questionnaire PHQ-9 Over the last 2 weeks, how often have you been bothered by any of the following problems? 1. Little interest or pleasure in doing things: not at all 2. Feeling down, depressed, or hopeless: more than half the days 3. Trouble falling or staying asleep, or sleeping too much: not at all 4. Feeling tired or having little energy: not at all 5. Poor appetite or overeating: not at all 6. Feeling bad about yourself - or that you are a failure or have let yourself or your family down: not at all 7. Trouble concentrating on things, such as reading the newspaper or watching television: several days 8. Moving or speaking so slowly that other people could have noticed. Or the opposite - being so fidgety or restless that you have been moving around a lot more than usual: several days 9. Thoughts that you would be better off or of hurting yourself in some way: not at all Total score: 4 Depression Screening Interpretation: Positive Depression Screening Follow-up: Existing condition and In treatment Depression Screening Done: Yes Source: Developed by Drs. Giorgio Espinosa, Linh Hall, Tre Wall and colleagues, with an educational juan josé from [employer]. Thrive Questionnaire Date Thrive assessed: 10/14/24 I am a: Patient What is your living situation today?: I have a steady place to live Within the past 12 months, did the food you bought not last and you didn't have the money to get more?: Never true Within the past 12 months, did you worry whether your food would run out before you got money to buy more?: Never true Do you have trouble paying for medicines?: No Do you have trouble getting transportation to medical appointments?: No Do you have trouble paying your heating and electricity bill?: No Do you have trouble taking care of your child, family member or friend?: No Do you have trouble with day-to-day activities such as bathing, preparing meals, shopping, managing finances, etc.?: No Are you currently unemployed and looking for a job?: No Are you interested in more education?: No Currently or been in a relationship where the following occur: I choose not to answer THRIVE Score: 0 CONNIE-7 AMB Questionnaire CONNIE-7 Date CONNIE - 7 assessed: 07/27/24 Feeling nervous, anxious, or on edge: 1 = Several days Not being able to stop or control worryin = Several days Worrying too much about different things: 1 = Several days Trouble relaxin = Not at all Being so restless that it is hard to sit still: 0 = Not at all Becoming easily annoyed or irritable: 1 = Several days Feeling afraid as if something awful might happen: 0 = Not at all Total CONNIE-7 score (0-4 normal; 5-9 mild; 10-14 moderate; 15-21 severe): 4 Source: Developed by Drs. Giorgio Espinosa, Linh Hall, Tre Wall and colleagues, with an educational juan josé from [employer]. Review of Systems Const Denies fatigue, Denies fever(s), Reports headache(s) and Denies night sweats Eyes Reports no additional complaints and Denies change in vision ENT Denies dysphagia, Reports headache(s) and Denies odynophagia Card Denies chest pain, Denies syncope, Denies irregular heart rhythm, Denies leg edema, Denies lightheadedness and Denies dyspnea Resp Denies cough and Denies dyspnea GI Denies abdominal pain, Denies constipation, Denies dysphagia, Denies dyspepsia, Denies diarrhea, Denies nausea, Denies odynophagia and Denies vomiting Denies urinary frequency, Denies dysuria, Denies urinary hesitancy and Denies urinary urgency Musc Denies back pain and Denies myalgias Skin/Breast Reports system reviewed and no additional complaints, except as documented Neuro Denies syncope and Reports headache(s) Psych Reports no additional complaints Endo Denies fatigue Physical exam (Primary Care) Vital Signs: Last Vital Signs Temp 98 F 05/18/25 08:36 Pulse 89 05/18/25 08:36 Resp 20 05/18/25 08:36 BP 124/68 05/18/25 08:36 Pulse Ox 95 05/18/25 08:36 Oxygen Delivery Method Room Air 05/18/25 08:36 BMI result Body Mass Index 38.2 Tobacco/Smoking Status: Tobacco use Status Tobacco use date assessed 02/16/25 05/18/25 08:34 Patient Tobacco Use Status Never used Tobacco 05/18/25 08:34 Tobacco use type Cigarette 05/18/25 08:34 e-Cigarette/Vaping Use Never Used 05/18/25 08:34 PHQ-9: PHQ-9 Score PHQ-9: Total score 4 05/18/25 09:32 Depression Screening Interpretation: Positive Depression Screening Follow-up: Existing condition and In treatment Thrive Assessment: Date of Thrive Assessment Date Thrive assessed 10/14/24 05/18/25 08:34 Currently or been in a relationship where the following occur: I choose not to answer Const General: cooperative, healthy appearing, comfortable and no acute distress Orientation/consciousness: patient oriented x3 HENMT Head: Yes normocephalic Ears: hearing grossly normal bilaterally, external ears normal, TM's normal bilaterally and EAC's normal General nose exam: Normal external nose present Face and sinus: Yes normal facial exam and Yes sinuses nontender Mouth: Normal oral and palatal mucosa present and tongue normal Throat: Yes posterior oropharynx normal Eyes General: appearance normal, both eyes and all related structures Conjunctivae: conjunctivae normal Pupils: Equal, round and reactive pupils present EOM: EOMs intact bilaterally and No Nystagmus present Neck Neck: Yes normal visual inspection, Yes full ROM and Yes no lymphadenopathy Chest Chest palpation & inspection: normal inspection of the chest Resp Effort & Inspection: normal respiratory effort Auscultation: clear to auscultation bilaterally, no crackles, no rales, no rhonchi, no wheezes and breath sounds present Cardio Rate: regular rate Rhythm: regular rhythm Peripheral pulses: radial pulses present and dorsalis pedis present GI Inspection: Yes normal to inspection and No Abdominal wall edema Palpation (GI): Soft to palpation, not firm and nontender Auscultation: normal bowel sounds Rectal Exam - Female: deferred General: Yes no CVA tenderness Back/Spine/Pelvis Back: no CVA tenderness Skin General skin exam: no rashes or lesions noted Neuro Other: 3/5 strength in meenu LE General: patient oriented x3 Cranial nerves: Yes Equal, round and reactive pupils present, Yes Midline tongue present, Yes Ability to bilaterally elevate shoulders present and No Nystagmus present Gait exam (Neuro): Normal gait present Extrem General: Yes normal to inspection, Yes full ROM, No no pedal edema and No edema Psych Speech and movement: Normal speech and movement present Affect: normal affect Insight: Good insight present (Psych) Judgement: Good judgement present (Psych) Results AMB Hemoglobin A1c AMB Hemoglobin A1c 5.8 % Last Edit by BRUNO Cohen on 05/18/25 09:32 Results Reviewed Results Reviewed: Laboratory Last Values Hgb A1c (Clinic) 5.8 % (4.0-6.0) 05/18/25 09:18 Coding Level of Care Code Est Pt Prev Care 40-64y(40934) Diagnoses Adult general medical exam Z00.00 Depression F32.A Anxiety F41.9 OCD (obsessive compulsive disorder) F42.9 PTSD (post-traumatic stress disorder) F43.10 Primary hypertension I10 Hypertension type: primary hypertension Hyperlipidemia E78.5 Type 2 diabetes mellitus without complication, without long-term current use of insulin E11.9 Diabetes mellitus complication status: without complication Diabetes mellitus instrument designer insulin use: without instrument designer use Diabetes mellitus type: type 2 Obesity (BMI 30-39.9) E66.9 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 blood work is due and has been ordered. Healthy diet and regular exercise is encouraged. She is declining flu shot as she has had adverse reactions in the past. (2) Depression: Comment: Richa JACKSON with [facility] every 2-3 months Kenzie Alexander once weekly Code(s): F32.A - Depression, unspecified Category: Medical Plan: Depression, anxiety and OCD is wel managed on current medication regimen and counseling schedule. She will continue to follow with [facility] providers. (3) Anxiety: Code(s): F41.9 - Anxiety disorder, unspecified Category: Medical Plan: see above (4) OCD (obsessive compulsive disorder): Code(s): F42.9 - Obsessive-compulsive disorder, unspecified Category: Medical Plan: see above (5) PTSD (post-traumatic stress disorder): Code(s): F43.10 - Post-traumatic stress disorder, unspecified Category: Medical Plan: see above (6) Hypertension: Code(s): I10 - Essential (primary) hypertension Category: Medical Qualifiers: Hypertension type: primary hypertension Qualified Code(s): I10 - Essential (primary) hypertension Plan: Continue on current blood pressure medication. Avoid salt intake and encourage healthy diet and regular exercise. (7) Hyperlipidemia: Code(s): E78.5 - Hyperlipidemia, unspecified Category: Medical Plan: Avoid foods that are high in cholesterol such as red meat, fried foods, eggs and baked goods. Triglyceride goal of less than 150 and LDL goal of less than 100. Continue on Atorvastatin 40mg. (8) Diabetes mellitus: Code(s): E11.9 - Type 2 diabetes mellitus without complications Category: Medical Qualifiers: Diabetes mellitus complication status: without complication Diabetes mellitus halfway insulin use: without instrument designer use Diabetes mellitus type: type 2 Qualified Code(s): E11.9 - Type 2 diabetes mellitus without complications Plan: Decrease the amount of carbohydrates such as pasta, bread, rice, and potatoes and limit the amount of sweets. Although fruits are generally healthy they should be eaten in moderation as they are still high in sugar. Hemoglobin A1c goal of less than 7%. A1c in the clinic today (9) Obesity (BMI 30-39.9): Code(s): E66.9 - Obesity, unspecified Category: Medical Plan: Healthy diet and regular exercise is encouraged. (10) Hemiplegic migraine: Comment: [facility] Neurology Dr. Bolaños Code(s): G43.409 - Hemiplegic migraine, not intractable, without status migrainosus Category: Medical Qualifiers: Intractability: intractable Status migrainosus presence: without status migrainosus Qualified Code(s): G43.419 - Hemiplegic migraine, intractable, without status migrainosus Plan: Continue to follow with [facility] Neurology and has appointment coming up in 06/2024. She is currently out on disability as she is unable to drive and is working with PT/OT on a strict schedule. (11) Asthma: Code(s): J45.909 - Unspecified asthma, uncomplicated Category: Medical Qualifiers: Asthma complication type: uncomplicated Asthma persistence: intermittent Asthma severity: mild Qualified Code(s): J45.20 - Mild intermittent asthma, uncomplicated Plan: Asthma currently controlled on present medications. Continue on albuterol prn.? Avoid triggers such as allergies. Plan This note was constructed using voice recognition software. While every effort has been made to ensure accuracy and companion caregiver, still areas may have been included sometimes these areas may affect the content or meeting of the given symptoms. Total time spent caring for the patient today was 30 minutes. This includes time spent before the visit reviewing the chart, time spent during the visit, and time spent after the visit and documentation. Patient was informed and verbally consented to the use of an ambient scribe for clinic note documentation during this visit. Orders: Orders Lipid Panel Today E78.00 - Pure hypercholesterolemia, unspecified TSH reflex Free T4 Today Z13.29 - Encounter for screening for other suspected endocrine disorder Vitamin B12 and Folate Today Z13.21 - Encounter for screening for nutritional disorder Vitamin D 25-OH Total Today Z13.21 - Encounter for screening for nutritional disorder Comprehensive Met. Panel Today E11.9 - Type 2 diabetes mellitus without complications UA CC w/rflx Micro + Cult Today Z13.9 - Encounter for screening, unspecified AMB Hemoglobin A1c Today E11.9 - Type 2 diabetes mellitus without complications Medications: New albuterol sulfate 2.5 mg (3 mL) inhalation Q6H PRN 75 mL 0RF Wheezing Refilled tramadol 25 mg (1/2 x 50 mg) PO DAILY PRN 5 tabs 0RF pain
--- OUTSIDE RECORDS SUMMARY | 2025-05-18 08:35 | XMS_ITS | Encounter Summary ---
Author Organization [facility] Address [address] [place] [address] Phone Care Team Providers Care Lapel Padder Blindstitch Name Role Phone Janna Macias MD Unavailable [phone] Andi Goff MD Unavailable [phone] Andi Goff MD Primary Care Provider [phone] Reji Thompson MD Primary Care Provider [phone] Meri Correa Primary Care Provide r Encounter Details Date Type Department Care Team (Late st Contact Info) Description 06/22/2024 Procedure Pass [facility], Ct Scan - [address] [address] Social History Tobacco Use Types Packs/Day Years [...] documented as of this encounter Care Teams Lapel Padder Blindstitch Relationship Specialty Start Date End Date Andi Goff MD [address] [place] [address] [place] [address] PCP - General 05/30/17 08/15/24 Reji Thompson MD [address] [place] [address] [place] [id number] PCP - General Internal Medicine 08/16/24 04/07/25 Meri Correa PA [address] [place] [address] [place] [address] PCP - General Physician Rn Endocrinology 04/08/25 Janna Macias MD [address] [place] [address], [address] [place] [address] [email or web address] Historical LMR Provider 03/16/17 Andi Goff MD [address] [place] [address] Dr Kimyoke, TERRY [address] Historical LMR Provider 03/16/17 documented as of this encounter Additional Source Comments The information contained in this document represents components of the legal health record. It is not the complete legal health record.[facility]
--- OUTSIDE RECORDS SUMMARY | 2025-05-18 08:35 | XMS_ITS | Encounter Summary ---
Author Organization [facility] Address [address] [place] [address] Phone Care Team Providers Care Row Boss Name Role Phone Janna Macias MD Unavailable [phone] Andi Goff MD Unavailable [phone] Andi Goff MD Primary Care Provider [phone] Reji Thompson MD Primary Care Provider [phone] Meri Correa Primary Care Provide r Encounter Details Date Type Department Care Team (Late st Contact Info) Description 06/05/2023 Procedure Pass [facility], Ct Scan - [address] [address] Social History Tobacco Use Types Packs/Day Years [...] documented as of this encounter Care Teams Row Boss Relationship Specialty Start Date End Date Andi Goff MD [address] [place] [address] [address] [place] [address] PCP - General 05/30/17 08/15/24 Reji Thompson MD [address] [place] [address] [address] [place] [phone] PCP - General Internal Medicine 08/16/24 04/07/25 Meri Correa PA [address] [place] [address] [address] [place] [address] PCP - General Physician Software Quality Test Engineer 04/08/25 Janna Macias MD [address] [place] [address], [address] [place] [address] [email or web address] Historical LMR Provider 03/16/17 Andi Goff MD [address] [place] [address] Dr Burch, TERRY [address] Historical LMR Provider 03/16/17 documented as of this encounter Additional Source Comments The information contained in this document represents components of the legal health record. It is not the complete legal health record.[facility]
--- OUTSIDE RECORDS SUMMARY | 2025-05-18 08:35 | XMS_ITS | Encounter Summary ---
Author Organization [facility] Address [address] [place] [address] Phone Care Team Providers Care Land Surveying Party Chief Name Role Phone Janna Macias MD Unavailable [phone] Andi Goff MD Unavailable [phone] Andi Goff MD Primary Care Provider [phone] Reji Thompson MD Primary Care Provider [phone] Meri Correa Primary Care Provide r Encounter Details Date Type Department Care Team (Late st Contact Info) Description 06/22/2024 Procedure Pass [facility], Ct Scan - [address] [address] Social History Tobacco Use Types Packs/Day Years [...] documented as of this encounter Care Teams Land Surveying Party Chief Relationship Specialty Start Date End Date Andi Gfof MD [address] [place] [address] [place] [address] PCP - General 05/30/17 08/15/24 Reji Thompson MD [address] [place] [address] [place] [phone] PCP - General Internal Medicine 08/16/24 04/07/25 Meri Correa PA [address] [place] [address] [place] [address] PCP - General Physician Dye House Worker 04/08/25 Janna Macias MD [address] [place] [address], [address] [place] [address] [email or web address] Historical LMR Provider 03/16/17 Andi Goff MD [address] [place] [address] Dr Kimyoke, TERRY [address] Historical LMR Provider 03/16/17 documented as of this encounter Additional Source Comments The information contained in this document represents components of the legal health record. It is not the complete legal health record.[facility]
--- OUTSIDE RECORDS SUMMARY | 2025-05-18 08:35 | XMS_ITS | Encounter Summary ---
Author Organization [facility] Address [address] [facility] [address] [place] [address] Phone Care Team Providers Care Truck Crane Operator Name Role Phone Janna Macias MD Unavailable [phone] Andi Goff MD Unavailable [phone] Andi Goff MD Primary Care Provider [phone] Reji Thompson MD Primary Care Provider [phone] Meri Correa Primary Care Provide r Encounter Details Date Type Department Care Team (Late st Contact Info) Description 06/14/2023 Procedure Pass OR Admitting Dept - Virtual Department [address] [place] [address] Social History Tobacco Use Types Packs/Day [...] documented as of this encounter Care Teams Truck Crane Operator Relationship Specialty Start Date End Date Andi Goff MD [address] [place] [address] PCP - General 05/30/17 08/15/24 Reji Thompson MD [address] [place] [address] [place] [address] [phone] PCP - General Internal Medicine 08/16/24 04/07/25 Meri Correa PA [address] [place] [address] PCP - General Physician Service Technician 04/08/25 Janna Macias MD [address] [place] [address], [address] [place] [address] [email or web address] Historical LMR Provider 03/16/17 Andi Goff MD [address] [place] [address] [place] [address] Historical LMR Provider 03/16/17 documented as of this encounter Additional Source Comments The information contained in this document represents components of the legal health record. It is not the complete legal health record.[facility]
--- OUTSIDE RECORDS SUMMARY | 2025-05-18 08:35 | XMS_ITS | Clinical Summary ---
Author Organization [facility] Address [address] [facility] [address] [place] [address] Phone Care Team Providers Care Brass Molder Name Role Phone Janna Macias MD Unavailable Andi Goff MD Unavailable [phone] Meri Correa Primary Care Provide r Allergies [...] E AFTER 12 HOURS 05/21/20 Active rizatriptan (MAXALT-PUBLICIST) 5 MG disintegrating tablet Take 5 mg [...] Encounters Date Type Department Care Team Description 05/14/2025 10:00 AM EST Home Care Visit [facility] [address] [place] [address] Gregor Poe, PT PT OASIS DISCHARGE VISIT 05/12/2025 8:30 AM EST Home Care Visit [facility] [address] [place] [address] Paul Kamara, OT OT DISCIPLINE DISCHARGE VISIT 05/11/2025 10:00 AM EST Home Care Visit [facility] [address] [place] [address] Colleen Carlson, TUTORING CLINICIAN TUTORING CLINICIAN HOME VISIT 05/10/2025 9:00 AM EST Home Care Visit [facility] [address] [place] [address] Paul Kamara, FIORDALIZA OT HOME VISIT 05/06/2025 9:30 AM EST Home Care Visit [facility] [address] [place] [address] Gregor Poe, PT PT TFA VISIT 05/05/2025 10:00 AM EST Home Care Visit [facility] [address] [place], [place] [phone] Paul Kamara, OT OT HOME VISIT 05/03/2025 1:30 PM EST Home Care Visit [facility] [address] [place], [place] [phone] Palu Kamara, OT OT HOME VISIT 05/03/2025 10:45 AM EST Home Care Visit [facility] [address] [place], [place] [phone] Colleen Carlson, TUTORING CLINICIAN TUTORING CLINICIAN HOME VISIT 04/29/2025 9:00 AM EST Home Care Visit [facility] [address] [place] [address] Paul Kamara, OT OT HOME VISIT 04/28/2025 10:45 AM EST Home Care Visit [facility] [address] [place] [address] Colleen Carlson, TUTORING CLINICIAN TUTORING CLINICIAN HOME VISIT 04/27/2025 9:00 AM EST Home Care Visit [facility] [address] [place] [address] Palu Kamara, OT OT HOME VISIT 04/26/2025 10:45 AM EST Home Care Visit [facility] [address] [place] [address] Colleen Carlson, TUTORING CLINICIAN TUTORING CLINICIAN HOME VISIT 04/26/2025 Episode Documentation Update [facility] [address] [place] [address] Trini Clark 04/23/2025 12:30 PM EST Home Care Visit [facility] [address] [place], [place] [phone] Paul Kamara, OT OT EVALUATION 04/21/2025 Home Care Visit [facility] [address] [place], [place] [phone] Gregor Poe, PT CASE COMMUNICATION 04/19/2025 10:45 AM EST Home Care Visit [facility] [address] [place] [address] Colleen Carlson, TUTORING CLINICIAN TUTORING CLINICIAN HOME VISIT 04/14/2025 1:45 PM EST Home Care Visit [facility] [address] [place] [address] Colleen Carlson, TUTORING CLINICIAN TUTORING CLINICIAN HOME VISIT 04/12/2025 10:45 AM EST Home Care Visit [facility] [address] [place] [address] Colleen Carlson, TUTORING CLINICIAN TUTORING CLINICIAN HOME VISIT 04/09/2025 12:30 PM EST Home Care Visit [facility] [address] [place] [address] Gregor Poe, PT PT OASIS START OF CARE (SOC) 04/09/2025 Plan of Care Documentation [facility] [address] [place] [address] 04/08/2025 Orders Only [facility] [address] [place] [phone] Homehealth, Interface ProviderMD from Last 3 Months Immunizations Immunization Administration [...] F) 05/14/2025 10:24 AM EST Respiratory Rate 16 05/12/2025 8:48 AM EST Oxygen Saturation 96% 05/14/2025 10: 24 AM EST Inhaled Oxygen Concentration - - [...] this topic Medical Devices Implanted Type Area Human Resource Assistant Device Identifier Shelf Expiration Date Model / Serial / Lot Contraceptive Iud Mirena - Must Order A Minimum Of 50ea - [id number] Implanted:Qty: 1 on 10/10/2017 by Janna Macias MD at [facility] Uterus [employer] 04/25/2020 [id number] / / [id number] Procedures Procedure Name Priority Date/Time Associated Diagnosis Comments BASIC METABOLIC PANEL (BMP) STAT 09/29/2024 6:28 PM EDT PAP TEST Routine 08/11/2021 12:00 AM EDT from Last 3 Months or Most Recently Relevant to Health Maintenance Results * Basic metabolic panel (09/29/2024 6:28 PM EDT) SODIUM 142 133 - 146 mmol/L [facility] CHLORIDE 103 96 - 108 mmol/L [facility] POTASSIUM 3.8 3.3 - 5.1 mmol/L [facility] CO2 23 21 - 35 mmol/L [facility] BUN 19 6 - 19 mg/dL [facility] CREATININE 0.60 0.5 - 1.5 mg/dL [facility] GLUCOSE 92 70 - 99 mg/dL [facility] CALCIUM 9.5 8.4 - 10.3 mg/dL [facility] EGFR 114 >59 mL/min/1.7 3m2 [facility] Comment:Estimated glomerular filtration rate calculated using the CKD-EPI refit equation. ANION GAP 20 10 - 20 mmol/L [facility] Blood 09/29/2024 6:28 PM EDT 09/29/2024 7:08 PM EDT us Rodrigue Rich MD LAB BLOOD BKR ORDERABLES Final Result [address] [address] * Pap Smear (08/11/2021 12:00 AM EDT) 08/11/2021 08/14/2021 9:2 9 AM EDT Narrative SEE NARRATIVE - 08/17/2021 2:56 PM EDT [address] [address] Fuel Storage Technician: Mary Torre MD [place] REFINISHER Cytology Report FINAL DIAGNOSIS A. PAP SMEAR [...] 52, 56, 58, 59, 66, 68) by [employer] HR-HPV analysis. Clinical correlation is advised. This HPV test was performed at [facility], [address] [place] [address]. This test has been FDA approved for Sure[facility] cervical cytology specimens. The accuracy and precision of this test for all other specimen sources has been verified in the Cytopathology Laboratory of the [facility] and has not been cleared or approved by the U.S. Food and Drug Administration. Clinical correlation is advised. CLINICAL HISTORY Date of Last Menstrual Period: Not Provided Menstrual History: Unknown Contraceptive History: IUD: ARMIDA Other Clinical Conditions: Screening Pap SPECIMEN SOURCE A: PAP SMEAR (SUREPATH) CE Patient Name: MARY LOU HUITRON : 1980 (Age: 40) Sex: F Institution: [facility] Location: [facility] Date of Collection: 08/11/2021 Date of Reported: 08/17/2021 11:04 Results to: Jimbo Pulliam MD, BS Jimbo Pulliam MD CYTOLOGY ORDERABLES Edited Re sult - Final SEE NARRATIVE from Last 3 Months or Most Recently Relevant to Health Maintenance Insurance [address] [place], [place] [address]O [facility] [employer]ANCE Advance Directives For more information, please contact: [phone] (9AM - 5PM [facility], Saturday-Saturday) Documents on File Type Date Recorded 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 10/11/2017 1:21 PM * Full Code (Latest Code Status on File) Date Activated Date Inactivated Comments 06/14/2023 8:45 AM Question Answer Comments Code Status Confirmed With: Patient * Full Code (Presumed) Date Activated Date Inactivated Comments 10/10/2017 8:24 AM 10/10/2017 3:47 PM Healthcare Agents on File Name Relationship Healthcare Agent [facility] Isa Kennedy .Primary Health Care Agent (Proxy form on file) Care Teams Brass Molder Relationship Specialty Start Date End Date Meri Correa PA [address] [place] [address] [address] [place] [address] PCP - General Physician Unpaid Intern 04/08/25 Janna Macias MD [address] [place] [address], [facility] [address] [place] [address] [email or web address] Historical LMR Provider 03/16/17 Andi Goff MD [address] [place] [address] [address] [place] [address] Historical LMR Provider 03/16/17 Additional Source Comments The information contained in this document represents components of the legal health record. It is not the complete legal health record.[facility]
--- OUTSIDE RECORDS SUMMARY | 2025-05-18 08:35 | XMS_ITS | Encounter Summary ---
Author Organization [facility] Address [address] [facility] [address] [place] [address] Phone Care Team Providers Care Behavioral Health Director Name Role Phone Annmarie Richey INTERIOR ASSEMBLIES INSTALLER Unavailable [phone] Francisca Casillas INTERIOR ASSEMBLIES INSTALLER Unavailable [phone] Ross Tobin MD Unavailable Jessica Jackson INTERIOR ASSEMBLIES INSTALLER Unavailable [phone] Janna Macias MD Unavailable Dena Brownlee INTERIOR ASSEMBLIES INSTALLER Unavailable Cory Kay MD Unavailable Kristen Chávez INTERIOR ASSEMBLIES INSTALLER Unavailable Andi Goff MD Unavailable Aster Shelley MD Unavailable [phone] Charlotte Bolaños MD Unavailable Isiah Pavon MD Unavailable [phone] Andi Goff MD Primary Care Provider [phone] Reji Thompson MD Primary Care Provider Meri Correa Primary Care Provide r Encounter Details Date Type Department Care Team (Late st Contact Info) Description 10/10/2017 Procedure Pass OR Admitting Dept - Virtual Department [address] [place] [address] Social History Tobacco Use Types Packs/Day Years [...] documented as of this encounter Care Teams Behavioral Health Director Relationship Specialty Start Date End Date Andi Goff MD [address] [place] [address] [address] [place] [address] PCP - General 05/30/17 08/15/24 Reji Thompson MD [address] [place] [phone] PCP - General Internal Medicine 08/16/24 04/07/25 Meri Correa PA [address] [place] [address] [address] [place] [address] PCP - General Physician Piccolo Mechanic 04/08/25 Annmarie Richey NP [address] [address] Historical LMR Provider 03/16/17 2 Francisca Casillas NP [address] [place] [address] Historical LMR Provider 03/16/17 2 Ross Tobin MD [address] [place] [address] Historical LMR Provider 03/16/17 06/03/21 Jessica Jackson NP [address] [place] [address] [email or web address] Historical LMR Provider 03/16/17 06/03/21 Janna Macias MD [address] [place] [address] Historical LMR Provider 03/16/17 Dena Brownlee NP [address] [place] [phone] Historical LMR Provider 03/16/17 2 Cory Kay MD [address] [place] [address], [address] [place] [address] Historical LMR Provider 03/16/17 06/03/21 Kristen Chávez NP [address] [place] [address] Historical LMR Provider 03/16/17 2 Andi Goff MD [address] [place] [address] [place] [address] Historical LMR Provider 03/16/17 Aster Shelley MD [address] [place] [phone] Historical LMR Provider 03/16/17 2 Charlotte Bolaños MD [address] [place] [address] [address] [place] [address] [email or web address] Historical LMR Provider 03/16/17 06/03/21 Isiah Pavon MD [address] [place] [address] Historical LMR Provider 03/16/17 2 documented as of this encounter Additional Source Comments The information contained in this document represents components of the legal health record. It is not the complete legal health record.[facility]
[2025-05-18 08:36] VITALS: BP 124/68; PULSE 89; RESP 20; TEMP 36.6; O2SAT 95; BMI 38.2
== END 2025-05-18 09:48 | disposition home or self-care (01) ==
LOC: HO.HMCH 08:28
DX: Z00.00 Encounter for general adult medical examination without abnormal findings (principal); F32.A Depression, unspecified; F41.9 Anxiety disorder, unspecified; F42.9 Obsessive-compulsive disorder, unspecified; F43.10 Post-traumatic stress disorder, unspecified; I10 Essential (primary) hypertension; E78.5 Hyperlipidemia, unspecified; E11.9 Type 2 diabetes mellitus without complications; E66.9 Obesity, unspecified; G43.419 Hemiplegic migraine, intractable, without status migrainosus; J45.20 Mild intermittent asthma, uncomplicated

== ENCOUNTER → 2025-05-18 08:27 | Outpatient (BNVA) | payer OTHER, SELFPAY | DX: Z00.00 Encounter for general adult medical examination without abnormal findings (principal); F32.A Depression, unspecified; F41.9 Anxiety disorder, unspecified; F42.9 Obsessive-compulsive disorder, unspecified; F43.10 Post-traumatic stress disorder, unspecified; I10 Essential (primary) hypertension; E78.5 Hyperlipidemia, unspecified; E11.9 Type 2 diabetes mellitus without complications; E66.9 Obesity, unspecified; G43.419 Hemiplegic migraine, intractable, without status migrainosus; J45.20 Mild intermittent asthma, uncomplicated; Z68.38 Body mass index [BMI] 38.0-38.9, adult | CPT/HCPCS: 83036; 96127 ==